=== PATIENT | male | born 1955 ===

== ENCOUNTER 2020-02-21 07:05 | Outpatient (REF) | payer MEDICARE, SELFPAY ==
[2020-02-21 10:54] LABS: Anion Gap 15 (12-20); Blood Urea Nitrogen 8 mg/dL (9-16); Calcium 9.2 mg/dL (8.4-10.2); Carbon Dioxide 26 mmol/L (22-29); Chloride 98 mmol/L (96-108); Estimated Glomerular Filt Rate > 60; Glucose Random 91 mg/dL (60-115); Sodium 135 mmol/L (135-145)
[2020-02-21 11:29] LABS: Creatinine Urine 67.34 mg/dL; Microalbumin Urine < 5.0 mg/L
== END 2020-02-21 07:06 | disposition home or self-care (01) ==
LOC: HO.WFDLDS 07:05
PROVIDERS: Visit Provider Family Medicine
DX: I10 Essential (primary) hypertension (principal)
CPT/HCPCS: 80048; 82043

== ENCOUNTER 2020-02-28 | Outpatient (REF) | payer MEDICARE, SELFPAY ==
[2020-02-29 12:04] LABS: Creatinine Urine 80.45 mg/dL; Microalbumin Urine < 5.0 mg/L
== END 2020-02-28 00:01 | disposition home or self-care (01) ==
LOC: HO.LNP
PROVIDERS: Family Medicine
DX: R73.03 Prediabetes (principal); R73.01 Impaired fasting glucose; I10 Essential (primary) hypertension
CPT/HCPCS: 82043

== ENCOUNTER 2020-05-05 09:21 | Outpatient (REF) | payer MEDICARE, SELFPAY ==
[2020-05-05 11:48] LABS: Alanine Aminotransferase 26 U/L (0-40); Albumin Level 4.1 g/dL (3.5-5.0); Alkaline Phosphatase 79 U/L (39-117); Anion Gap 11 (12-20); Aspartate Amino Transferase 21 U/L (5-37); Bilirubin Total 0.6 mg/dL (0.0-1.0); Blood Urea Nitrogen 17 mg/dL (9-16); Calcium 9.3 mg/dL (8.4-10.2); Carbon Dioxide 29 mmol/L (22-29); Chloride 101 mmol/L (96-108); Estimated Glomerular Filt Rate > 60; Glucose Fasting 135 mg/dL (60-99); Potassium 3.9 mmol/l (3.3-5.1); Sodium 137 mmol/L (135-145); Total Protein 6.6 g/dL (6.5-8.0)
== END 2020-05-05 09:22 | disposition home or self-care (01) ==
LOC: HO.WFDLDS 09:21
PROVIDERS: Visit Provider Family Medicine
DX: Z00.00 Encounter for general adult medical examination without abnormal findings (principal); R73.03 Prediabetes
CPT/HCPCS: 36415; 80053

== ENCOUNTER 2020-05-10 10:05 | Outpatient (REF) | payer MEDICARE, SELFPAY ==
[2020-05-10 11:09] LABS: Creatinine Urine 76.73 mg/dL; Microalbumin Urine < 5.0 mg/L
== END 2020-05-10 10:06 | disposition home or self-care (01) ==
LOC: HO.LNP 10:05
PROVIDERS: Visit Provider Family Medicine
DX: I10 Essential (primary) hypertension (principal)
CPT/HCPCS: 82043

== ENCOUNTER 2020-07-31 08:21 | Outpatient (REF) | payer MEDICARE, SELFPAY ==
[2020-07-31 11:28] LABS: Alanine Aminotransferase 26 U/L (0-40); Alkaline Phosphatase 71 U/L (39-117); Anion Gap 13 (12-20); Aspartate Amino Transferase 21 U/L (5-37); Bilirubin Total 0.5 mg/dL (0.0-1.0); Blood Urea Nitrogen 15 mg/dL (9-16); Calcium 9.2 mg/dL (8.4-10.2); Carbon Dioxide 27 mmol/L (22-29); Chloride 102 mmol/L (96-108); Cholesterol 122 mg/dL; Estimated Glomerular Filt Rate > 60; Glucose Fasting 96 mg/dL (60-99); HDL Cholesterol 41 mg/dL; LDL Cholesterol Calculated 67 mg/dl; Potassium 4.2 mmol/L (3.3-5.1); Sodium 138 mmol/L (135-145); Total Protein 6.5 g/dL (6.5-8.0); Triglycerides 70 mg/dL
[2020-07-31 11:51] LABS: TSH reflex Free T4 2.19 uIU/mL (0.32-4.0)
== END 2020-07-31 08:22 | disposition home or self-care (01) ==
LOC: HO.WFDLDS 08:21
PROVIDERS: Visit Provider Family Medicine
DX: Z00.00 Encounter for general adult medical examination without abnormal findings (principal)
CPT/HCPCS: 36415; 80053; 80061; 84443

== ENCOUNTER 2020-12-04 08:00 | Outpatient (REF) | payer MEDICARE, SELFPAY ==
[2020-12-04 13:28] LABS: Prostate Specific Antigen Scr 0.86 ng/mL (<0.05-4.0)
== END 2020-12-04 08:01 | disposition home or self-care (01) ==
LOC: HO.WFDLDS 08:00
PROVIDERS: PCP Family Medicine; Visit Provider Family Medicine
DX: Z12.5 Encounter for screening for malignant neoplasm of prostate (principal)
CPT/HCPCS: 36415; 84153

== ENCOUNTER 2021-04-14 11:00 | Outpatient (REF) | payer MEDICARE, SELFPAY ==
[2021-04-14 14:05] LABS: Estimated Average Glucose 111 mg/dL; Hemoglobin A1c % 5.5 %
[2021-04-14 14:22] LABS: Anion Gap 14 (12-20); Blood Urea Nitrogen 12 mg/dL (9-16); Calcium 9.5 mg/dL (8.4-10.2); Carbon Dioxide 29 mmol/L (22-29); Chloride 99 mmol/L (96-108); Estimated Glomerular Filt Rate > 60; Glucose Random 87 mg/dL (60-115); Potassium 3.5 mmol/L (3.3-5.1); Sodium 138 mmol/L (135-145)
== END 2021-04-14 11:01 | disposition home or self-care (01) ==
LOC: HO.HMGCLDS 11:00
PROVIDERS: PCP Family Medicine; Visit Provider Family Medicine
DX: Z00.00 Encounter for general adult medical examination without abnormal findings (principal); R73.01 Impaired fasting glucose; R73.03 Prediabetes; I10 Essential (primary) hypertension
CPT/HCPCS: 36415; 80048; 83036

== ENCOUNTER 2021-08-17 11:36 | Outpatient (REF) | payer MEDICARE, SELFPAY ==
[2021-08-17 13:54] LABS: Prothrombin Time 11.3 SEC (9.9-13.0)
[2021-08-17 14:00] LABS: Anion Gap 13 (12-20); Blood Urea Nitrogen 13 mg/dL (9-16); Calcium 9.9 mg/dL (8.4-10.2); Carbon Dioxide 27 mmol/L (22-29); Chloride 102 mmol/L (96-108); Estimated Glomerular Filt Rate > 60; Glucose Random 100 mg/dL (60-115); Potassium 4.2 mmol/L (3.3-5.1); Sodium 138 mmol/L (135-145)
== END 2021-08-17 11:37 | disposition home or self-care (01) ==
LOC: HO.HMGCLDS 11:36
PROVIDERS: PCP Family Medicine; Visit Provider Physician Assistant Medical
DX: R07.9 Chest pain, unspecified (principal)
CPT/HCPCS: 36415; 80048; 85610

== ENCOUNTER 2021-08-21 11:20 | Outpatient (REF) | payer MEDICARE, SELFPAY ==
[2021-08-21 13:38] LABS: MANUAL DIFF FLAG NO
[2021-08-21 13:48] LABS: Basophils Absolute Auto 0.1 X10*3/uL (0.0-0.2); Basophils Percent Auto 0.6 % (0-2); Eosinophils Absolute Auto 0.4 X10*3/uL (0.0-0.4); Eosinophils Percent Auto 2.9 % (0-4); Hematocrit 49.3 % (42.0-52.0); Hemoglobin 16.9 g/dl (14.0-18.0); Imm Gran Abs Auto 0.06 X10*3/uL (0.00-0.03); Imm Gran Pct Auto 0.4 % (0.0-0.4); Lymphocytes Absolute Auto 2.1 X10*3/uL (1.2-4.9); Lymphocytes Percent Auto 14.8 % (20-40); Mean Corpuscular HGB Conc 34.3 g/dl (31.0-36.0); Mean Corpuscular Hemoglobin 31.9 pg (27.0-33.0); Mean Corpuscular Volume 93.2 fL (80.0-98.0); Mean Platelet Volume 9.5 fL (9.4-12.4); Monocytes Absolute Auto 1.3 X10*3/uL (0.1-1.2); Monocytes Percent Auto 8.9 % (2-11); Neutrophils Absolute Auto 10.3 x10*3/uL (2.0-8.3); Neutrophils Percent Auto 72.4 % (45-73); Platelet Count 300 X10*3/uL (160-400); Red Blood Count 5.29 X10*6/uL (4.60-5.80); Red Cell Distribution Width 12.8 % (11.0-16.0); White Blood Count 14.2 X10*3/uL (4.8-10.8)
== END 2021-08-21 11:21 | disposition home or self-care (01) ==
LOC: HO.HMGCLDS 11:20
PROVIDERS: PCP Family Medicine; Visit Provider Physician Assistant Medical
DX: Z01.818 Encounter for other preprocedural examination (principal); R07.9 Chest pain, unspecified; R00.1 Bradycardia, unspecified; I45.9 Conduction disorder, unspecified
CPT/HCPCS: 36415; 85025

== ENCOUNTER 2022-01-11 10:29 | Outpatient (REF) | payer MEDICARE, SELFPAY ==
[2022-01-11 11:57] LABS: Estimated Average Glucose 108 mg/dL; Hemoglobin A1c % 5.4 %
[2022-01-11 12:12] LABS: Alanine Aminotransferase 26 U/L (0-40); Albumin Level 3.9 g/dL (3.5-5.0); Alkaline Phosphatase 73 U/L (39-117); Anion Gap 16 (12-20); Aspartate Amino Transferase 24 U/L (5-37); Bilirubin Total 0.7 mg/dL (0.0-1.0); Blood Urea Nitrogen 10 mg/dL (9-16); Calcium 9.2 mg/dL (8.4-10.2); Carbon Dioxide 25 mmol/L (22-29); Chloride 103 mmol/L (96-108); Estimated Glomerular Filt Rate > 60; Glucose Random 154 mg/dL (60-115); Potassium 4.2 mmol/L (3.3-5.1); Sodium 140 mmol/L (135-145); Total Protein 6.6 g/dL (6.5-8.0)
[2022-01-11 14:19] LABS: Creatinine Urine 113.05 mg/dL; Microalbumin Urine < 5.0 mg/L
== END 2022-01-11 10:30 | disposition home or self-care (01) ==
LOC: HO.HMGCLDS 10:29
PROVIDERS: PCP Family Medicine; Visit Provider Family Medicine
DX: I10 Essential (primary) hypertension (principal); R73.01 Impaired fasting glucose
CPT/HCPCS: 36415; 80053; 82043; 83036

== ENCOUNTER 2022-04-05 09:15 | Outpatient (REF) | payer MEDICARE, SELFPAY ==
[2022-04-05 11:03] LABS: C Reactive Protein 0.48 mg/dL (< or = 0.50)
[2022-04-05 11:46] LABS: Erythrocyte Sedimentation Rate 7 MM/HR (0-15)
== END 2022-04-05 09:16 | disposition home or self-care (01) ==
LOC: HO.10HDL 09:15
PROVIDERS: Visit Provider Internal Medicine Rheumatology
DX: M05.9 Rheumatoid arthritis with rheumatoid factor, unspecified (principal); M17.0 Bilateral primary osteoarthritis of knee; M47.816 Spondylosis without myelopathy or radiculopathy, lumbar region; M25.552 Pain in left hip; M25.551 Pain in right hip; Z79.899 Other long term (current) drug therapy
CPT/HCPCS: 36415; 85652; 86140; 99212

== ENCOUNTER 2022-06-10 14:00 | Outpatient (RCR) | payer MEDICARE, OTHER, SELFPAY ==
[2022-04-28 14:05] VITALS: BP 145/72
--- NOTE | 2022-04-28 16:53 | MHC.PT.EP ---
[facility] [place] Office [place] Office [place] Office [address] Wes Dunbar [address] [phone] F: [phone] F: [phone] F: [phone] F: [phone] Physical Therapy Plan of Care Date of Evaluation: Date of Surgery: Diagnosis: bilateral knee pain Assessment: Patient is a 66 y.o. male who is referred to PT by Dr. Sagar Fall with Dx of bilateral knee pain, primary OA of knees. PT diagnosis includes etiology of pain is at bilateral hips causing referred pain to knees from chronic pain and antalgic gait. Patient impairments include pain, limited ROM in hips, weakness in hips (mild weakness in knees), poor balance. Patient current functional limitations are impaired gait, reduced balance, unable to use stairs, difficulty with sit to stand, prolonged postures, walking more than 300 ft. Patient will benefit from skilled PT to address aforementioned impairments and functional limitations to meet established goals. Frequency and Duration: The patient will be seen 2x/week for 4 weeks Short Term Goals: 2 weeks Patient demonstrates consistency and independence with HEP to self manage symptoms. Patient presents with increased bilateral knee extension 5/5 to be able to perform sit to stand with control and minimal use of hands. Care Home Goals: 4 weeks Patient presents with increased L hip glute med 4/5 to be able to ambulate in home short distances safely without AD. Patient presents with increased L hip flexion 5/5 to be able to use 3 steps step to pattern for community use with railings. Treatment Plan: Modalities to reduce pain, spasms and effusion. Manual therapy to restore motion and function. Therapeutic exercise to improve strength and flexibility. Neuromuscular re-education for posture and balance. Therapeutic activities to return to functional activities of daily living. Electronically signed by: Angelo Jimenez, PT, DPT Please sign and return to therapist. Thank you for your referral.
--- NOTE | 2022-06-28 14:52 | MHC.PT.DC ---
[facility] [place] Office [place] [facility] [place] Office [address] Wes Dunbar [address] [phone] F: [phone] F: [phone] F: [phone] F: [phone] Physical Therapy Discharge Report Diagnosis: bilateral knee pain Date of Surgery: Date of Evaluation: 04/28/22 Date of Discharge: 06/10/22 Treatments to Date: 8 Cancellations to Date: No Shows to Date: Discharge Status: Improved Function Independent with HEP Discharge Summary: From last session on 06/10/2022. We reviewed his HEP. Hip abd/ext/flex 4+/5, add 5/5. Able to negotiate stairs with step to, 3 stairs independently. No adverse reactions from currently program. He is appropriate to d/c to HEP at this time barring setback in 30 days. LEFS 51/80. Electronically signed by: Angelo Jimenez, PT, DPT Please sign and return to therapist. Thank you for your referral.
== END 2022-06-28 14:52 | disposition home or self-care (01) ==
LOC: HO.PTCHIC 14:00
PROVIDERS: PCP Family Medicine; Visit Provider Internal Medicine Rheumatology
DX: M17.0 Bilateral primary osteoarthritis of knee (principal)
CPT/HCPCS: 97110; 97162; 97530

== ENCOUNTER 2022-10-04 12:45 | Outpatient (REF) | payer MEDICARE, OTHER, SELFPAY ==
[2022-10-04 14:04] LABS: MANUAL DIFF FLAG NO
[2022-10-04 14:28] LABS: Basophils Absolute Auto 0.1 X10*3/uL (0.0-0.2); Basophils Percent Auto 0.5 % (0-2); Eosinophils Absolute Auto 0.4 X10*3/uL (0.0-0.4); Eosinophils Percent Auto 3.4 % (0-4); Hematocrit 45.7 % (42.0-52.0); Hemoglobin 15.7 g/dl (14.0-18.0); Imm Gran Abs Auto 0.07 X10*3/uL (0.00-0.03); Imm Gran Pct Auto 0.6 % (0.0-0.4); Lymphocytes Absolute Auto 2.2 X10*3/uL (1.2-4.9); Lymphocytes Percent Auto 19.8 % (20-40); Mean Corpuscular HGB Conc 34.4 g/dl (31.0-36.0); Mean Corpuscular Hemoglobin 32.2 pg (27.0-33.0); Mean Corpuscular Volume 93.6 fL (80.0-98.0); Mean Platelet Volume 9.5 fL (9.4-12.4); Monocytes Absolute Auto 0.8 X10*3/uL (0.1-1.2); Monocytes Percent Auto 7.5 % (2-11); Neutrophils Absolute Auto 7.6 x10*3/uL (2.0-8.3); Neutrophils Percent Auto 68.2 % (45-73); Platelet Count 315 X10*3/uL (160-400); Red Blood Count 4.88 X10*6/uL (4.60-5.80); White Blood Count 11.2 X10*3/uL (4.8-10.8)
[2022-10-04 15:09] LABS: Erythrocyte Sedimentation Rate 13 MM/HR (0-15)
[2022-10-04 15:24] LABS: C Reactive Protein 0.69 mg/dL (< or = 0.50); Estimated Glomerular Filt Rate > 60
== END 2022-10-04 12:46 | disposition home or self-care (01) ==
LOC: CF 12:45
PROVIDERS: PCP Family Medicine; Visit Provider Internal Medicine Rheumatology
DX: M17.0 Bilateral primary osteoarthritis of knee (principal); M05.9 Rheumatoid arthritis with rheumatoid factor, unspecified; R20.0 Anesthesia of skin; Z79.899 Other long term (current) drug therapy
CPT/HCPCS: 36415; 82565; 85025; 85652; 86140; 99212

== ENCOUNTER 2022-11-10 14:15 | Outpatient (AMB) | payer MEDICARE, SELFPAY ==
[2022-11-10 14:18] VITALS: BP 142/80; PULSE 98; O2SAT 97; BMI 32.6
--- NOTE | 2022-11-10 14:18 | MHC.PC.OV ---
Vital Signs 11/10/22 14:18 Height 6 ft 1 in Weight 247 lb BMI 32.6 BP 142/80 H Blood Pressure Location Lt brachial Position Sitting Pulse 98 Pulse Source Pulse Oximeter Pulse Oximetry (%) 97 Oxygen Delivery Method Room Air Intake Visit Reasons: f/u hypertension and pre-diabetes Intake Note: Patient is here to follow up hypertension and pre diabetes. Patient would like to talk about hydrochlorothiazide medication. Allergies penicillin V Allergy (Unknown, Verified 11/10/22 14:21) RAsh hives Blue Dye Allergy (Unknown, Uncoded 11/10/22 14:21) RAsh hives Latex Allergy (Unknown, Uncoded 11/10/22 14:21) RAsh Hives Medication List - Last Reconciled 11/10/22 by Zion Martinez MD aspirin (Adult Low Dose Aspirin) 81 mg PO DAILY chloroquine phosphate 125 mg (1/2 x 250 mg) PO 5XW cholecalciferol (vitamin D3) 25 mcg PO DAILY docusate sodium (Colace) 200 mg PO DAILY hydrochlorothiazide 25 mg PO QAM losartan 100 mg PO DAILY metoprolol succinate ER 25 mg PO BID simvastatin 40 mg PO BEDTIME Tobacco use date assessed: 11/10/22 Fall risk assessment: No Falls in past year Dental Screening Did you have a dental visit in the last 12 months?: No Did you have a dental problem in the last 6 months where you did not have access to dental care?: Yes Was dental information given to patient?: No HPI f/u hypertension and pre-diabetes HPI Details 67 y/o male presents to f/u hypertension and pre-diabetes. Last A1c 08/04/22 5.6%. A1c today 11/10/22 is 5.6%. Blood pressure today is 142/80. He is on losartan 100mg, hydrochlorothiazide 25mg and metoprolol 25mg b.i.d. Pt states he continues to smoke. [facility] Medical History Elevated fasting blood sugar History of pacemaker Hypertension Surgical History History of cystoscopy History of dental surgery History of permanent cardiac pacemaker placement Family History Other Mental health disorder Substance use disorder Social History Housing: House Alcohol intake: never Patient Tobacco Use Status: Current everyday Tobacco user Tobacco use type: Cigarette Cigarette Packs Per Day: 1 e-Cigarette/Vaping Use: Never Used Second Hand Smoke Exposure: No service: Yes Current occupational status: retired Current occupational exposures/hazards: No Cognitive needs: Yes (Cane) Hearing needs: No Vision needs: Yes (Glasses) Questionnaire PHQ-9 Over the last 2 weeks, how often have you been bothered by any of the following problems? 1. Little interest or pleasure in doing things: not at all 2. Feeling down, depressed, or hopeless: not at all 3. Trouble falling or staying asleep, or sleeping too much: not at all 4. Feeling tired or having little energy: not at all 5. Poor appetite or overeating: not at all 6. Feeling bad about yourself - or that you are a failure or have let yourself or your family down: not at all 7. Trouble concentrating on things, such as reading the newspaper or watching television: not at all 8. Moving or speaking so slowly that other people could have noticed. Or the opposite - being so fidgety or restless that you have been moving around a lot more than usual: not at all 9. Thoughts that you would be better off or of hurting yourself in some way: not at all Total score: 0 Depression Screening Interpretation: Negative Source: Developed by Drs. Robert Trejo, Consuelo Antoine, Gorge Drew and colleagues, with an educational mushtaq from [employer]. Thrive Questionnaire Date Thrive assessed: 09/11/20 FARZANA-7 AMB Questionnaire FARZANA-7 Date FARZANA - 7 assessed: 10/14/21 Source: Developed by Drs. Robert Trejo, Consuelo Antoine, Gorge Drew and colleagues, with an educational mushtaq from [employer]. Physical exam (Primary Care) Vital Signs: Last Vital Signs Pulse 98 11/10/22 14:18 BP 142/80 H 11/10/22 14:18 Pulse Ox 97 11/10/22 14:18 Oxygen Delivery Method Room Air 11/10/22 14:18 BMI result Body Mass Index 32.6 Tobacco/Smoking Status: Tobacco use Status Tobacco use date assessed 11/10/22 11/10/22 14:26 Patient Tobacco Use Status Current everyday Tobacco 11/10/22 14:26 Tobacco use type Cigarette 11/10/22 14:26 e-Cigarette/Vaping Use Never Used 11/10/22 14:26 PHQ-9: PHQ-9 Score PHQ-9: Total score 0 11/10/22 14:39 Depression Screening Interpretation: Negative Thrive Assessment: Date of Thrive Assessment Date Thrive assessed 09/11/20 11/10/22 14:26 Results AMB Hemoglobin A1c AMB Hemoglobin A1c 5.6 % Last Edit by Ángela Santos CMA on 11/10/22 14:40 Assessment and Plan Assessment & Plan (1) Essential hypertension: Code(s): I10 - Essential (primary) hypertension Plan: Blood pressure is a little above goal of less than 140/90 Encouraged diet low in salt/sodium Encouraged ongoing exercise and weight loss Encouraged smoking cessation (2) Smoker: Code(s): F17.200 - Nicotine dependence, unspecified, uncomplicated Plan: As above encouraged smoking cessation. Patient is pre contemplative; encouraged weaning down (3) Pre-diabetes: Code(s): R73.03 - Prediabetes Plan: A1c remains steady at 5.6% which is top normal range though he has been in prediabetic range before Encouraged diet low in sugars and starches Encouraged ongoing exercise and further weight loss. Orders: Orders AMB Hemoglobin A1c Today Z13.9 - Encounter for screening, unspecified Coding Level of Care Code Est Pt Level 3 (19731) Diagnoses Essential hypertension I10 Smoker F17.200 Pre-diabetes R73.03
== END 2022-11-10 14:49 | disposition home or self-care (01) ==
PROVIDERS: Visit Provider Family Medicine
DX: I10 Essential (primary) hypertension (principal); F17.200 Nicotine dependence, unspecified, uncomplicated; R73.03 Prediabetes; Z13.9 Encounter for screening, unspecified
CPT/HCPCS: 83036; 99213

== ENCOUNTER 2023-01-10 13:03 | Outpatient (AMB) | payer MEDICARE, SELFPAY ==
--- NOTE | 2023-01-10 13:22 | MHC.OFFVIS ---
Intake Vital Signs 01/10/23 13:23 Height 6 ft 1 in Weight 244 lb 0.827 oz BMI 32.2 BP 120/70 Blood Pressure Location Lt brachial Position Sitting Pulse 55 Pulse Source Pulse Oximeter Temp 96.8 F Pulse Oximetry (%) 95 Oxygen Delivery Method Room Air Intake Visit Reasons: ra Intake Note: Here for RA follow up. 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 He is feeling better he says on the chloroquine at 125 mg 5 days a week. He does have an upcoming eye exam planned to monitor for the chloroquine retinal toxicity. He still notes some discomfort at the right 2nd PIP and the flexor tendon of the left 3rd finger. No triggering however is noted. He is wearing a right wrist splint at night and that seems to have reduce the frequency of the hand numbness. Wearing the splint on the left seem to cause some wrist pain so he only wears it during the daytime. That also is seemingly had some improvement as far as the wrist pain goes. [facility] Medical History History of pacemaker Hypertension Elevated fasting blood sugar Surgical History History of dental surgery History of cystoscopy History of permanent cardiac pacemaker placement Family History Other Mental health disorder Substance use disorder Social History Housing: House Alcohol intake: never Patient Tobacco Use Status: Current everyday Tobacco user Tobacco use type: Cigarette Cigarette Packs Per Day: 1 e-Cigarette/Vaping Use: Never Used Second Hand Smoke Exposure: No service: Yes Current occupational status: retired Current occupational exposures/hazards: No Cognitive needs: Yes (Cane) Hearing needs: No Vision needs: Yes (Glasses) Review of Systems Const Details: Negative for appetite change, weight change, fever, chills, malaise and fatigue Eyes Details: Negative for vision change, dry eyes,headaches and dizziness ENT Details: Negative for hearing change, tinnitus, oral ulcer, nose bleeds and oral dryness. Card Details: Negative chest pain, edema and syncope Resp Details: Negative for SOB, cough and wheezing GI Details: Negative indigestion/heartburn, nausea, abdominal pain, bowel changes, diarrhea, constipation and bloody stool. Skin/Breast Details: Negative for itching, rash, hives, Raynaud's symptoms, sun sensitivity, and skin cancer Neuro Details: Negative for epilepsy, palsy, stroke, changes in speech, tingling and weakness Endo Details: Negative for polyuria and polydypsia Jey/Lymph Details: Negative for excessive bruising or bleeding. Physical Exam Vital Signs: Last Vital Signs Temp 96.8 F 01/10/23 13:23 Pulse 55 01/10/23 13:23 BP 120/70 01/10/23 13:23 Pulse Ox 95 01/10/23 13:23 Oxygen Delivery Method Room Air 01/10/23 13:23 BMI result Body Mass Index 32.2 APPEARANCE: Patient in no acute distress EYES no redness, pupils equal and reactive to light, eyelids normal; no temporal artery tenderness, redness or swelling. JOINT EXAM.?? Cervical Spine:? Some decrease in lateral flexion to about 10 degrees and some decrease with rotation to about 45 degrees but without pain.? No tenderness. Thoracic Spine:.? No scoliosis.? No tenderness on palpation. Lumbar Spine:.? Alignment normal.? Full range of motion with mild discomfort at the extremes of flexion.? No tenderness. Chest Wall:.? No tenderness, swelling, increased warmth or erythema. Hands:? Right: Mild bony enlargement at the thumb IP joint.? There is mild swelling and tenderness in the 1st 2 MCP joints. This is slightly more prominent at the 2nd MCP. There is some slight tenderness thickening at the 2nd and 3rd PIP.? No thenar atrophy or sensory loss.? Left:? Mild tenderness and slight thickening the 2nd and 3rd PIP joints.? He points that the palm of the hand particularly along the 3rd flexor tendon in the palm which is painful at night. This is accompanied by tingling in the fingers. But today there is no tenderness or triggering of the tendons. There is no tenderness or swelling in the other PIP or MCP joints.? No thenar atrophy or sensory loss. Wrists:? Patient flexion and extension intact to 75 degrees without pain.? No tenderness, swelling, increased warmth or erythema. Negative Phalen's and Tinel signs. Elbows:. The patient lacks about 10 degrees of full extension both elbows but there is no tenderness or swelling. No increased warmth or erythema. Shoulders:.?? Full range of motion without pain. No tenderness, weakness, swelling, increased warmth or erythema. Hips:.? Left:? Slight lateral pain with extremes of external rotation or abduction.? No groin pain with motion.? Right:? Full range of motion without pain. Hip bursa:.? Mild left trochanteric tenderness. Knees:.?? Normal pain-free range of motion without tenderness, swelling, increased warmth or erythema.? There is no effusion or crepitation Ankles:? Normal pain-free range of motion with mild patellofemoral crepitus.? There is some slight medial compartment tenderness without effusion, soft tissue swelling, increased warmth or erythema. Feet:? Normal pain-free range of motion without tenderness, swelling, increased warmth or erythema. ? 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 He will make sure he gets an eye exam later this fall. We will continue with the hydroxychloroquine as above. A follow-up in 5 or 6 months in Rheumatology in recommended. Coding Level of Care Code Est Pt Level 3 (87749) Diagnoses retirement use of drug Z79.899 Seropositive rheumatoid arthritis M05.9
[2023-01-10 13:23] VITALS: BP 120/70; PULSE 55; TEMP 36; O2SAT 95; BMI 32.2
== END 2023-01-10 13:45 | disposition home or self-care (01) ==
PROVIDERS: PCP Family Medicine; Visit Provider Internal Medicine Rheumatology
DX: M05.79 Rheumatoid arthritis with rheumatoid factor of multiple sites without organ or systems involvement (principal); Z79.899 Other long term (current) drug therapy
CPT/HCPCS: 99213

== ENCOUNTER → 2023-01-10 13:03 | Outpatient (BNVA) | payer MEDICARE, SELFPAY | PROVIDERS: PCP Family Medicine; Visit Provider Internal Medicine Rheumatology | DX: M05.9 Rheumatoid arthritis with rheumatoid factor, unspecified (principal); Z79.899 Other long term (current) drug therapy | CPT/HCPCS: 99212 ==

== ENCOUNTER 2023-02-09 14:11 | Outpatient (AMB) | payer MEDICARE, SELFPAY ==
--- NOTE | 2023-02-09 14:14 | A.OFFPC_ITS ---
Vital Signs 02/09/23 14:16 Height 6 ft 1 in Weight 249 lb BMI 32.8 BP 120/74 Blood Pressure Location Lt brachial Position Sitting Pulse 88 Pulse Oximetry (%) 97 Oxygen Delivery Method Room Air Intake Visit Reasons: f/u hypertension and pre-diabetes Intake Note: Patient is here for follow up on hypertension and prediabetes. He would like refill Metoprolol and Simvastatin, he states his insurance has been trying to get these refills. Allergies penicillin V Allergy (Unknown, Verified 02/09/23 14:17) RAsh hives Blue Dye Allergy (Unknown, Uncoded 02/09/23 14:18) RAsh hives Latex Allergy (Unknown, Uncoded 02/09/23 14:18) RAsh Hives Tobacco use date assessed: 02/09/23 Fall risk assessment: No Falls in past year Last assessed Fall Risk: 02/09/23 Dental Screening Dental Screen Date: 02/09/23 Did you have a dental visit in the last 12 months?: Yes Did you have a dental problem in the last 6 months where you did not have access to dental care?: No Was dental information given to patient?: Patient declined HPI f/u hypertension and pre-diabetes HPI Details 67 y/o male presents to f/u hypertension and pre-diabetes. BP today 120/74. He is on losartan 100mg, HCTZ 25mg and metoprolol 25mg b.i.d. A1c today 02/09/23 is 6.0%. [facility] Medical History History of pacemaker Hypertension Elevated fasting blood sugar Surgical History History of dental surgery History of cystoscopy History of permanent cardiac pacemaker placement Family History Other Mental health disorder Substance use disorder Social History Housing: House Alcohol intake: never Patient Tobacco Use Status: Current everyday Tobacco user Tobacco use type: Cigarette Cigarette Packs Per Day: 1 e-Cigarette/Vaping Use: Never Used Second Hand Smoke Exposure: No service: Yes Current occupational status: retired Current occupational exposures/hazards: No Cognitive needs: Yes (Cane) Hearing needs: No Vision needs: Yes (Glasses) Questionnaire Thrive Questionnaire Date Thrive assessed: 09/11/20 FARZANA-7 AMB Questionnaire FARZANA-7 Date FARZANA - 7 assessed: 10/14/21 Source: Developed by Drs. Robert Trejo, Consuelo Antoine, Gorge Drew and colleagues, with an educational mushtaq from [employer]. Physical exam (Primary Care) Vital Signs: Last Vital Signs Pulse 88 02/09/23 14:16 BP 120/74 02/09/23 14:16 Pulse Ox 97 02/09/23 14:16 Oxygen Delivery Method Room Air 02/09/23 14:16 BMI result Body Mass Index 32.8 Tobacco/Smoking Status: Tobacco use Status Tobacco use date assessed 02/09/23 02/09/23 14:19 Patient Tobacco Use Status Current everyday Tobacco 02/09/23 14:15 Tobacco use type Cigarette 02/09/23 14:15 e-Cigarette/Vaping Use Never Used 02/09/23 14:15 Thrive Assessment: Date of Thrive Assessment Date Thrive assessed 09/11/20 02/09/23 14:15 Assessment and Plan Assessment & Plan (1) Essential hypertension: Code(s): I10 - Essential (primary) hypertension Plan: Blood?pressure?is?controlled.??Goal?is?less?than?140/90 Continue?current?medication (2) Pre-diabetes: Code(s): R73.03 - Prediabetes Plan: A1c?has?worsened?to?6.0%.??Pre?diabetes?range Encouraged?diet?lower?in?sugars?and?starches Encouraged?exercise?and?weight?loss Orders: Orders AMB Hemoglobin A1c Today Z13.9 - Encounter for screening, unspecified Medications: Changed From metoprolol succinate ER 25 mg PO BID To metoprolol succinate ER 25 mg PO BID 90 days 180 tabs 3RF Refilled simvastatin 40 mg PO BEDTIME 90 tabs 3RF Coding Level of Care Code Est Pt Level 3 (57319) Diagnoses Essential hypertension I10 Pre-diabetes R73.03
[2023-02-09 14:16] VITALS: BP 120/74; PULSE 88; O2SAT 97; BMI 32.8
== END 2023-02-09 15:09 | disposition home or self-care (01) ==
PROVIDERS: PCP Family Medicine; Visit Provider Family Medicine
DX: I10 Essential (primary) hypertension (principal); R73.03 Prediabetes
CPT/HCPCS: 83036; 99213

== ENCOUNTER 2023-06-09 13:29 | Outpatient (AMB) | payer MEDICARE, SELFPAY ==
--- NOTE | 2023-06-09 13:32 | A.OFFVIS_ITS ---
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 He was actually an incidental finding upon workup by Cardiology. Has a prior history of hypertension hyperlipidemia. He has a significant smoking history and continues to smoke about a pack per day. In terms of his carotids he denies any lateralizing signs or symptoms speech dist urbances or visual field deficits. Is able to climb a flight of stairs and is able to walk a block or 2 with no significant difficulty. He has had prior echo which demonstrates an EF of around 60-70%. In addition he does have a permanent pacemaker. He now presents for vascular evaluation. [facility] Medical History History of pacemaker Hypertension Elevated fasting blood sugar Surgical History History of dental surgery History of cystoscopy History of permanent cardiac pacemaker placement Family History Other Mental health disorder Substance use disorder Social History Housing: House Alcohol intake: never Patient Tobacco Use Status: Current everyday Tobacco user Tobacco use type: Cigarette Cigarette Packs Per Day: 1 e-Cigarette/Vaping Use: Never Used Second Hand Smoke Exposure: No service: Yes Current occupational status: retired Current occupational exposures/hazards: No Cognitive needs: Yes (Cane) Hearing needs: No Vision needs: Yes (Glasses) Review of Systems Const All systems reviewed & are unremarkable except as noted in HPI and below Reports no additional complaints ENT Reports Normal hearing present Card Denies chest pain, Denies chest pain at rest, Denies chest pain with activity and Denies pedal edema Resp Denies cough GI Denies abdominal pain Musc Denies abnormal gait, Denies muscle cramps and Denies radiating pain into limb Skin/Breast Denies skin ulcer and Denies wounds Neuro Reports Normal hearing present and Denies abnormal gait Psych Reports no additional complaints Physical Exam Vital Signs: BMI result Body Mass Index 32.6 Const General: cooperative, healthy appearing and comfortable Orientation/consciousness: oriented to person, oriented to place and oriented to time HEENT Head: Yes normal to inspection Neck Neck: Yes normal visual inspection Carotids: no bruits Chest Chest palpation & inspection: normal inspection of the chest Resp Effort & Inspection: normal respiratory effort and able to speak in complete sentences Auscultation: clear to auscultation bilaterally, no crackles, no rales, no rhonchi and no wheezes Cardio Rate: regular rate Rhythm: regular rhythm Heart sounds: S1 normal heart sound present and S2 normal heart sound present Bruits: no carotid bruits Peripheral pulses: Peripheral pulses 2+ throughout GI Inspection: Yes normal to inspection Skin Wounds: no wounds Hair: normal Neuro General: oriented to person, oriented to place and oriented to time Cranial nerves: Yes CN's II-XII intact bilaterally and Yes Normal hearing present Cognition (Neuro): normal cognition Motor exam (neuro): 5/5 motor strength present throughout Extrem Other: venous exam: No significant superficial varicosities or spider telangiectasias, minimal edema General: No clubbing, No cyanosis and No edema Psych Appearance: grossly normal Mental Status: mental status grossly normal Speech and movement: Normal speech and movement present Results Reviewed Results Reviewed: Carotid ultrasound report only demonstrates bilateral greater than 80% stenosis left greater than right this is on outpatient office ultrasound dated 05/05/2023. Assessment & Plan Assessment & Plan (1) Bilateral carotid artery stenosis: Code(s): I65.23 - Occlusion and stenosis of bilateral carotid arteries Plan: In short patient has asymptomatic carotid disease. We have reviewed signs and symptoms of a stroke. We also discussed risk factor modification inclusive a healthy diet low in cholesterol. Due to the high grade carotid stenosis we will get a CT angiogram to better elucidate the true degree of stenosis and the anatomy. We will schedule him for short interval follow-up and we did discuss operative option should that be required.. Should there be any changes or signs or symptoms of a stroke we will be happy to see them back sooner. Thank you for allowing us to participate in this patient's care. If there are any questions or concerns please do not hesitate to contact us. Orders: Orders Creatinine Today I65.23 - Occlusion and stenosis of bilateral carotid arteries Blood Urea Nitrogen Today I65.23 - Occlusion and stenosis of bilateral carotid arteries CT angio neck 1 Day I65.23 - Occlusion and stenosis of bilateral carotid arteries Coding Level of Care Code New Pt Level 4 (81684) Diagnoses Bilateral carotid artery stenosis I65.23
[2023-06-09 13:33] VITALS: BMI 32.6
== END 2023-06-09 13:55 | disposition home or self-care (01) ==
PROVIDERS: PCP Family Medicine; Visit Provider Surgery Vascular Surgery
DX: I65.23 Occlusion and stenosis of bilateral carotid arteries (principal)
CPT/HCPCS: 99204

== ENCOUNTER → 2023-06-09 13:29 | Outpatient (BNVA) | payer MEDICARE, SELFPAY | PROVIDERS: PCP Family Medicine; Visit Provider Surgery Vascular Surgery | DX: I65.23 Occlusion and stenosis of bilateral carotid arteries (principal) | CPT/HCPCS: 99202 ==

== ENCOUNTER 2023-06-17 07:23 | Outpatient (REF) | payer MEDICARE, SELFPAY ==
--- NOTE | ~2023-06-17 | CT_ITS ---
EXAMINATION: CT angio neck CLINICAL INFORMATION: Occlusion and stenosis of both carotid arteries. COMPARISON: None. TECHNIQUE: Band Attacher images were obtained. A CT angiogram of the neck was performed in the arterial phase after the intravenous administration of 50 mL Omnipaque 350. 3D images were processed on an independent workstation under concurrent supervision. Arterial stenoses are measured in accordance with NASCET criteria or similar method if applicable. This CT examination was performed using dose optimization techniques as appropriate, including one or more of the following: Automated exposure control, iterative reconstruction, and adjustment of technique factors (mA and/or kVp) according to patient size (this includes techniques or standardized protocols for targeted exams where dose is matched to indication/reason for exam). Fleischner Society criteria for the followup of incidental pulmonary nodules was implemented if appropriate. Total exam dose-length product 552 mGy-cm FINDINGS: CT angiogram neck: Scattered atheromatous calcification involves the aortic arch apex. Origins of the major aortic branches are grossly patent., Carotid arteries are normal. Heavily calcified atheromatous plaque involves both carotid bifurcations. There is a 90% stenosis at the origin of the left internal carotid artery and 75% stenosis at the origin of the right internal carotid artery. The cervical segments of vertebral arteries are otherwise patent. The cervical segments of the vertebral arteries are patent. CT angiogram head: Atheromatous calcification involves the cavernous segments of both internal carotid arteries. No stenosis of the intracranial internal carotid arteries. Intradural vertebral artery segments and basilar artery are widely patent. Visualized portions of the anterior, middle, and posterior cerebral artery complexes are normal. No intracranial large vessel occlusion. Other: Although only partially included within the yacet-sx-nltl of this examination there are a few prominent ovoid intraparotid lesions within the right parotid gland, the largest of which measures up to 1.3 cm in diameter. Otherwise no pathologically enlarged cervical lymph nodes. No mediastinal or axillary adenopathy is visualized within the brznp-zm-bdni of this examination. Lung apices are clear. CT/CT angio neck IMPRESSION: Heavily calcified atheromatous plaque involves both carotid bifurcations. There is a 90% stenosis at the origin of the left internal carotid artery and 75% stenosis at the origin of the right internal carotid artery. Cervical vertebral arteries are patent. No intracranial large vessel occlusion. Although only partially included within the ilynz-tb-bhqp of this examination there are a few ovoid intraparotid lesions within the right parotid gland, the largest of which measures up to 1.3 cm in diameter. Possible diagnostic considerations include a primary parotid neoplasms or enlarged intraparotid lymph nodes. Correlation with prior imaging is recommended if available. Otherwise follow-up is recommended to ensure stability.
[2023-06-17] MEDS: iohexoL 350 MG/ML 100 ML INFUS..BTL 85 ML IV (08:51)
[2023-06-17 10:12] LABS: Creatinine POC 0.6 mg/dL (0.5-1.4); GFR POC > 60
== END 2023-06-17 07:24 | disposition home or self-care (01) ==
LOC: HO.CT 07:23
PROVIDERS: PCP Family Medicine; Visit Provider Surgery Vascular Surgery
DX: I65.23 Occlusion and stenosis of bilateral carotid arteries (principal)
CPT/HCPCS: 70498; 82565; Q9967

== ENCOUNTER 2023-06-21 08:32 | Outpatient (REF) | payer MEDICARE, SELFPAY ==
[2023-06-21 11:18] LABS: MANUAL DIFF FLAG NO
[2023-06-21 11:23] LABS: Appearance Urine Clear; Color Urine Yellow; Glucose Urine UA Negative (Negative); Leukocyte Esterase Urine Negative (Negative); Nitrite Urine Negative (Negative); Specific Gravity - Urine 1.015 (1.005-1.025); Urine Blood Negative (Negative); Urine Ketones Negative (Negative); Urine Protein Negative (Neg-Trace)
[2023-06-21 11:34] LABS: Basophils Absolute Auto 0.1 X10*3/uL (0.0-0.2); Basophils Percent Auto 0.5 % (0-2); Eosinophils Absolute Auto 0.4 X10*3/uL (0.0-0.4); Eosinophils Percent Auto 2.9 % (0-4); Hematocrit 52.4 % (42.0-52.0); Hemoglobin 18.2 g/dl (14.0-18.0); Imm Gran Abs Auto 0.04 X10*3/uL (0.00-0.03); Imm Gran Pct Auto 0.3 % (0.0-0.4); Lymphocytes Absolute Auto 2.1 X10*3/uL (1.2-4.9); Lymphocytes Percent Auto 17.1 % (20-40); Mean Corpuscular HGB Conc 34.7 g/dl (31.0-36.0); Mean Corpuscular Hemoglobin 32.6 pg (27.0-33.0); Mean Corpuscular Volume 93.7 fL (80.0-98.0); Mean Platelet Volume 9.3 fL (9.4-12.4); Monocytes Percent Auto 8.4 % (2-11); Neutrophils Absolute Auto 8.8 x10*3/uL (2.0-8.3); Neutrophils Percent Auto 70.8 % (45-73); Platelet Count 300 X10*3/uL (160-400); Red Blood Count 5.59 X10*6/uL (4.60-5.80); Red Cell Distribution Width 12.7 % (11.0-16.0); White Blood Count 12.4 X10*3/uL (4.8-10.8)
[2023-06-21 11:54] LABS: Alanine Aminotransferase 26 U/L (0-40); Alkaline Phosphatase 75 U/L (39-117); Anion Gap 12 (12-20); Aspartate Amino Transferase 24 U/L (5-37); Bilirubin Total 0.6 mg/dL (0.0-1.0); Blood Urea Nitrogen 14 mg/dL (9-16); Carbon Dioxide 30 mmol/L (22-29); Chloride 102 mmol/L (96-108); Cholesterol 128 mg/dL (<200); Estimated Glomerular Filt Rate > 60; Glucose Fasting 106 mg/dL (60-99); HDL Cholesterol 41 mg/dL (>40); LDL Cholesterol Calculated 66 mg/dL (<100); Potassium 3.8 mmol/L (3.3-5.1); Sodium 140 mmol/L (135-145); Total Protein 7.2 g/dL (6.5-8.0); Triglycerides 108 mg/dL (<150)
[2023-06-21 12:07] LABS: Prostate Specific Antigen Scr 1.44 ng/mL (<0.05-4.0)
[2023-06-21 12:13] LABS: TSH reflex Free T4 2.87 uIU/mL (0.32-4.0)
[2023-06-21 12:25] LABS: Microalbum/Creatinine Ratio Ur 16.4 ug/mg cr (<30)
== END 2023-06-21 08:33 | disposition home or self-care (01) ==
LOC: HO.HMGCLDS 08:32
PROVIDERS: PCP Family Medicine; Visit Provider Surgery Vascular Surgery
DX: Z00.00 Encounter for general adult medical examination without abnormal findings (principal); I10 Essential (primary) hypertension; I65.23 Occlusion and stenosis of bilateral carotid arteries; E78.5 Hyperlipidemia, unspecified; Z12.5 Encounter for screening for malignant neoplasm of prostate
CPT/HCPCS: 36415; 80053; 80061; 81003; 82043; 82570; 84153; 84443; 85025; 99212

== ENCOUNTER 2023-06-21 09:46 | Outpatient (AMB) | payer MEDICARE, SELFPAY ==
[2023-06-21 09:50] VITALS: BP 100/64; BMI 32.6
--- NOTE | 2023-06-21 09:50 | MHC.OFFVIS ---
Intake Vital Signs 06/21/23 09:50 06/21/23 09:58 Height 6 ft 1 in Weight 247 lb BMI 32.6 BP 100/64 100/62 Blood Pressure Location Rt brachial Lt brachial Position Sitting Sitting Intake Visit Reasons: CTA neck follow up 06/17/2023 Intake Note: Follow up CTA neck on 06/17/23. Patient states no changes , no blurred vision or dizziness. Does use cane to ambulate. Accompanied by: Self / Same As Patient Allergies penicillin V Allergy (Unknown, Verified 06/21/23 09:55) RAsh hives Blue Dye Allergy (Unknown, Uncoded 06/09/23 13:37) RAsh hives Latex Allergy (Unknown, Uncoded 06/09/23 13:37) RAsh Hives HPI CTA neck follow up 06/17/2023 HPI Details Pleasant 68-year-old gentleman presents for follow-up evaluation regarding carotid stenosis. Does have a prior history of hypertension hyperlipidemia. In addition he smokes about a pack of cigarettes daily. He had an incidental finding on ultrasound. He now presents for follow-up with CT angiogram. Of note he is able to walk about 1-2 blocks with no difficulty and can climb a flight of stairs. Does have a prior echo which demonstrates an EF of around 60-70%. Does have a permanent pacemaker. He now presents to us for vascular follow-up. [facility] Medical History History of pacemaker Hypertension Elevated fasting blood sugar Surgical History History of dental surgery History of cystoscopy History of permanent cardiac pacemaker placement Family History Other Mental health disorder Substance use disorder Social History Housing: House Alcohol intake: never Patient Tobacco Use Status: Current everyday Tobacco user Tobacco use type: Cigarette Cigarette Packs Per Day: 1 e-Cigarette/Vaping Use: Never Used Second Hand Smoke Exposure: No service: Yes Current occupational status: retired Current occupational exposures/hazards: No Cognitive needs: Yes (Cane) Hearing needs: No Vision needs: Yes (Glasses) Review of Systems Const All systems reviewed & are unremarkable except as noted in HPI and below Reports no additional complaints ENT Reports Normal hearing present Card Denies chest pain, Denies chest pain at rest, Denies chest pain with activity and Denies pedal edema Resp Denies cough GI Denies abdominal pain Musc Denies abnormal gait, Denies muscle cramps and Denies radiating pain into limb Skin/Breast Denies skin ulcer and Denies wounds Neuro Reports Normal hearing present and Denies abnormal gait Psych Reports no additional complaints Physical Exam Vital Signs: Last Vital Signs BP 100/62 06/21/23 09:58 BMI result Body Mass Index 32.6 Const General: cooperative, healthy appearing and comfortable Orientation/consciousness: oriented to person, oriented to place and oriented to time HEENT Head: Yes normal to inspection Neck Neck: Yes normal visual inspection Carotids: no bruits Chest Chest palpation & inspection: normal inspection of the chest Resp Effort & Inspection: normal respiratory effort and able to speak in complete sentences Auscultation: clear to auscultation bilaterally, no crackles, no rales, no rhonchi and no wheezes Cardio Rate: regular rate Rhythm: regular rhythm Heart sounds: S1 normal heart sound present and S2 normal heart sound present Bruits: no carotid bruits Peripheral pulses: Peripheral pulses 2+ throughout GI Inspection: Yes normal to inspection Skin Wounds: no wounds Hair: normal Neuro General: oriented to person, oriented to place and oriented to time Cranial nerves: Yes CN's II-XII intact bilaterally and Yes Normal hearing present Cognition (Neuro): normal cognition Motor exam (neuro): 5/5 motor strength present throughout Extrem Other: venous exam: No significant superficial varicosities or spider telangiectasias, minimal edema General: No clubbing, No cyanosis and No edema Psych Appearance: grossly normal Mental Status: mental status grossly normal Speech and movement: Normal speech and movement present Results Reviewed Results Reviewed: CT angiogram dated 06/17/2023 demonstrates left-sided stenosis of 90% and right-sided stenosis of 75%. Written report and images were reviewed. Assessment & Plan Assessment & Plan (1) Left carotid stenosis: Code(s): I65.22 - Occlusion and stenosis of left carotid artery Plan: In short patient has high-grade left carotid stenosis. Patient will require left carotid endarterectomy.. Risks benefits complications including but not limited to bleeding infection stroke and were discussed in detail with the patient. They agreed and would like to move forward. Patient will require cardiac risk stratification by his lower in supervisor Dr. Keller at [facility]. Due to the high-grade carotid stenosis will try to schedule as soon as possible. Thank you for allowing us to assist in his care. Coding Level of Care Code Est Pt Level 4 (79825) Diagnoses Left carotid stenosis I65.22
[2023-06-21 09:58] VITALS: BP 100/62
== END 2023-06-21 10:37 | disposition home or self-care (01) ==
PROVIDERS: PCP Family Medicine; Visit Provider Surgery Vascular Surgery
DX: I65.22 Occlusion and stenosis of left carotid artery (principal)
CPT/HCPCS: 99214

== ENCOUNTER 2023-06-22 09:39 | Outpatient (REF) | payer MEDICARE, SELFPAY ==
[2023-06-22 13:16] LABS: MANUAL DIFF FLAG NO
[2023-06-22 13:40] LABS: Basophils Absolute Auto 0.1 X10*3/uL (0.0-0.2); Basophils Percent Auto 0.7 % (0-2); Eosinophils Absolute Auto 0.4 X10*3/uL (0.0-0.4); Eosinophils Percent Auto 3.2 % (0-4); Hematocrit 52.1 % (42.0-52.0); Imm Gran Abs Auto 0.05 X10*3/uL (0.00-0.03); Imm Gran Pct Auto 0.4 % (0.0-0.4); Lymphocytes Absolute Auto 2.2 X10*3/uL (1.2-4.9); Mean Corpuscular HGB Conc 34.5 g/dl (31.0-36.0); Mean Corpuscular Hemoglobin 32.3 pg (27.0-33.0); Mean Corpuscular Volume 93.4 fL (80.0-98.0); Mean Platelet Volume 9.3 fL (9.4-12.4); Neutrophils Absolute Auto 8.5 x10*3/uL (2.0-8.3); Neutrophils Percent Auto 69.7 % (45-73); Platelet Count 292 X10*3/uL (160-400); Red Blood Count 5.58 X10*6/uL (4.60-5.80); Red Cell Distribution Width 12.7 % (11.0-16.0); White Blood Count 12.2 X10*3/uL (4.8-10.8)
[2023-06-22 13:41] LABS: INTERNATIONAL NORM RATIO 0.9 (0.9-1.1); Prothrombin Time 10.5 SEC (11.1-13.3)
[2023-06-22 13:49] LABS: Anion Gap 13 (12-20); Blood Urea Nitrogen 13 mg/dL (9-16); Calcium 9.8 mg/dL (8.4-10.2); Carbon Dioxide 29 mmol/L (22-29); Chloride 101 mmol/L (96-108); Estimated Glomerular Filt Rate > 60; Glucose Random 104 mg/dL (60-115); Potassium 3.8 mmol/L (3.3-5.1); Sodium 139 mmol/L (135-145)
== END 2023-06-22 09:40 | disposition home or self-care (01) ==
LOC: HO.HMGCLDS 09:39
PROVIDERS: Visit Provider Internal Medicine Cardiovascular Disease
DX: I65.29 Occlusion and stenosis of unspecified carotid artery (principal)
CPT/HCPCS: 36415; 80048; 85025; 85610

== ENCOUNTER 2023-06-24 08:36 | Outpatient (AMB) | payer MEDICARE, SELFPAY ==
[2023-06-24 08:49] VITALS: BP 130/66; PULSE 73; RESP 14; TEMP 36.6; O2SAT 99; BMI 32.0
--- NOTE | 2023-06-24 08:49 | A.OFFPC_ITS ---
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: No Accompanied by: Self / Same As Patient Allergies penicillin V Allergy (Unknown, Verified 06/24/23 08:53) RAsh hives Blue Dye Allergy (Unknown, Uncoded 06/09/23 13:37) RAsh hives Latex Allergy (Unknown, Uncoded 06/09/23 13:37) RAsh Hives Tobacco use date assessed: 06/24/23 Fall risk assessment: No Falls in past year Last assessed Fall Risk: 06/24/23 Dental Screening Dental Screen Date: 06/24/23 Did you have a dental visit in the last 12 months?: No Did you have a dental problem in the last 6 months where you did not have access to dental care?: No Was dental information given to patient?: Patient has dentist HPI follow up cardio appt HPI Details 68 y/o male presents to f/u [facility]. Had seen the Vascular center 06/21/23 for L carotid stenosis. Pt has high-grade L carotid stenosis and will require L carotid endarterectomy. He is requesting a referral to a new header up today. Pt states he continues to smoke 1 ppd. [facility] Medical History History of pacemaker Hypertension Elevated fasting blood sugar Surgical History History of dental surgery History of cystoscopy History of permanent cardiac pacemaker placement Family History Other Mental health disorder Substance use disorder Social History Housing: House Alcohol intake: never Patient Tobacco Use Status: Current everyday Tobacco user Tobacco use type: Cigarette Cigarette Packs Per Day: 1 Cigarettes Per Day: 20 e-Cigarette/Vaping Use: Never Used Second Hand Smoke Exposure: No service: Yes Current occupational status: retired Current occupational exposures/hazards: No Cognitive needs: No (Cane) Hearing needs: No Vision needs: Yes (Glasses) Questionnaire Thrive Questionnaire Date Thrive assessed: 09/11/20 FARZANA-7 AMB Questionnaire FARZANA-7 Date FARZANA - 7 assessed: 10/14/21 Source: Developed by Drs. Robert Trejo, Consuelo Antoine, Gorge Drew and colleagues, with an educational mushtaq from [employer]. Review of Systems Const Denies chills, Denies fatigue, Denies fever(s), Denies headache(s) and Denies weakness ENT Denies dizziness and Denies headache(s) Card Denies chest pain, Denies lightheadedness, Denies dyspnea and Denies other (Palpitations) Resp Denies cough, Denies dyspnea, Denies wheezing and Denies other ( shortness of breath) Musc Denies numbness and Denies tingling Neuro Denies dizziness, Denies headache(s), Denies numbness, Denies tingling, Denies paresthesias and Denies weakness Psych Denies anxiety and Denies depression Endo Denies fatigue Aller/Immun Denies wheezing Physical exam (Primary Care) Vital Signs: Last Vital Signs Temp 97.9 F 06/24/23 08:49 Pulse 73 06/24/23 08:49 Resp 14 06/24/23 08:49 BP 130/66 06/24/23 08:49 Pulse Ox 99 06/24/23 08:49 Oxygen Delivery Method Room Air 06/24/23 08:49 BMI result Body Mass Index 32.0 Tobacco/Smoking Status: Tobacco use Status Tobacco use date assessed 06/24/23 06/24/23 08:56 Patient Tobacco Use Status Current everyday Tobacco 06/24/23 08:56 Tobacco use type Cigarette 06/24/23 08:56 e-Cigarette/Vaping Use Never Used 06/24/23 08:56 Thrive Assessment: Date of Thrive Assessment Date Thrive assessed 09/11/20 06/24/23 08:56 Const General: no acute distress and well developed Nutritional Appearance: well nourished Orientation/consciousness: patient oriented x3 HENMT Head: Yes normocephalic and Yes atraumatic Eyes General: appearance normal, both eyes and all related structures Pupils: Equal, round and reactive pupils present EOM: EOMs intact bilaterally Resp Effort & Inspection: normal respiratory effort Auscultation: clear to auscultation bilaterally Cardio Rate: regular rate Rhythm: regular rhythm Heart sounds: S1 normal heart sound present, S2 normal heart sound present, no gallops, no murmurs and no rubs Neuro General: patient oriented x3 and gait normal Cranial nerves: Yes Equal, round and reactive pupils present Psych Affect: normal affect Assessment and Plan Assessment & Plan (1) Bilateral carotid artery stenosis: Code(s): I65.23 - Occlusion and stenosis of bilateral carotid arteries Plan: Bilateral?carotid?artery?stenosis?and?followed?by??Goldie?who?is?planning?a?car otid?endarterectomy. Needs?cardiac?risk?stratification?prior?to?procedure. Patient?has?seen header up Dr. Keller at [facility]?but?he?does?not?want?to?continue?there?and?wants?a?referral?to??[facility] Referral?is?made Advised?smoking?cessation-see?below (2) Pacemaker: Code(s): Z95.0 - Presence of cardiac pacemaker Plan: Stable (3) Smoker: Code(s): F17.200 - Nicotine dependence, unspecified, uncomplicated Plan: Patient?says?he?smoking?about?a?pack?per?day Advised?weaning?and?cessation,?particularly?as?he?is?preparing?for?an?endarterec anish He?would?like?to?try?nicotine?lozenges?to?help?h im?with?this?so?I?will?send?these.??Advised?him?to?stop?all?nicotine?products?pr ior?to?the?procedure. Orders: Referrals Cardiology Referral F17.200 - Nicotine dependence, unspecified, uncomplicated, I65.22 - Occlusion and stenosis of left carotid artery, R94.39 - Abnormal result of other cardiovascular function study, Z95.0 - Presence of cardiac pacemaker Medications: New nicotine (polacrilex) (Nicorette) 2 mg buccal Q4-8H PRN 81 ea 2RF nicotine cravings 28 days Coding Level of Care Code Est Pt Level 4 (11180) Diagnoses Bilateral carotid artery stenosis I65.23 Pacemaker Z95.0 Smoker F17.200
== END 2023-06-24 09:21 | disposition home or self-care (01) ==
PROVIDERS: PCP Family Medicine; Visit Provider Family Medicine
DX: I65.23 Occlusion and stenosis of bilateral carotid arteries (principal); Z95.0 Presence of cardiac pacemaker; F17.200 Nicotine dependence, unspecified, uncomplicated
CPT/HCPCS: 99214

== ENCOUNTER 2023-06-27 13:58 | Outpatient (AMB) | payer MEDICARE, SELFPAY ==
[2023-06-27 14:15] VITALS: BP 124/58; PULSE 83; BMI 31.7
--- NOTE | 2023-06-27 14:15 | A.OFFVIS_ITS ---
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/Michelle/Goldie/ abn cardiac test/carotid Intake Note: New patient from Dr Martinez and Goldie carotid last seen [facility] about a month ago but want to switch feeling ok right now Supervisor Orchard Required: No Facilities Planner: Facilities Planner Present Accompanied by: Brother Allergies Penicillins Allergy (Severe, Verified 06/28/23 13:56) throat swelling Blue Dye Allergy (Severe, Uncoded 06/28/23 13:56) throat swelling Latex Allergy (Severe, Uncoded 06/28/23 13:56) Rash, Hives, whole hand Medication List - Last Reconciled 06/27/23 by Ross Barney MD aspirin (Adult Low Dose Aspirin) 81 mg PO DAILY chloroquine phosphate 125 mg (1/2 x 250 mg) PO 5XW cholecalciferol (vitamin D3) 25 mcg PO DAILY docusate sodium (Colace) 200 mg PO DAILY hydrochlorothiazide 25 mg PO QAM losartan 100 mg PO DAILY metoprolol succinate ER 25 mg PO BID 90 days nicotine (polacrilex) (Nicorette) 2 mg buccal Q4-8H PRN 28 days simvastatin 40 mg PO BEDTIME HPI HPI Comments History of Present Illness Details Juan Alberto was referred here for management of cardiovascular disease as well as preoperative cardiovascular risk stratification. Recently on clinical exam he was noted to have carotid bruit and subsequent workup shows critical stenosis in the left internal carotid artery 90% and 75% right internal carotid artery. He is asymptomatic. Has never had TIA or stroke-like symptoms. Scheduled to undergo left carotid endarterectomy in near future. Patient has prior history of Biotronik dual-chamber pacemaker placement for advanced AV block without any obvious symptoms. Patient also then subsequently underwent a cardiac catheterization, as per him for an abnormal stress test. He had no chest pain. He had a cardiac catheterization 2 years ago for that and that showed nonobstructive diffuse coronary disease. He is on current good medical therapy. Walks with a cane but says with his regular day-to-day activity has no cardiac symptoms. Denies any exertional chest pain or shortness of breath. He denies any orthopnea, PND, leg edema. Currently taking appropriate medications. His last LDL was well optimized. He denies any lightheadedness, syncope. Denies any prolonged palpitations. [facility] Medical History (Updated 06/28/23 @ 14:34 by Ross Barney MD) Smoker Claudication of calf muscles Ambulates with cane Rheumatoid arthritis Osteoarthritis Hx MRSA infection HLD (hyperlipidemia) Murmur Coronary artery disease Hx of renal calculi History of pacemaker Hypertension Elevated fasting blood sugar Surgical History Hx of tonsillectomy Hx of colonoscopy H/O cardiac catheterization History of dental surgery History of cystoscopy History of permanent cardiac pacemaker placement Family History Other Mental health disorder Substance use disorder Social History Household Members: None Caregiver staying overnight: No Housing: House Are you a primary hospice care consultant to a significant other at home: No Do you presently have visiting nurse or other home services: No 75 years or older and lives alone: No Alcohol intake: never Patient Tobacco Use Status: Current everyday Tobacco user Tobacco use type: Cigarette Cigarette Packs Per Day: 1 Cigarettes Per Day: 20.0 Years Smoked: 61 e-Cigarette/Vaping Use: Never Used Second Hand Smoke Exposure: No Use of substances other than those prescribed or required for medical reasons: No service: Yes Current occupational status: retired Current occupational exposures/hazards: No Cognitive needs: No (Cane) Hearing needs: No Vision needs: Yes (Glasses) Review of Systems Const Denies chills, Denies daytime sleepiness, Denies fatigue, Denies fever(s), Denies frequent falls, Denies poor appetite, Denies snoring, Denies stops breathing during sleep, Denies weakness, Denies weight gain and Denies weight loss Eyes Denies loss of vision ENT Denies dizziness and Denies hearing loss Card Denies chest pain, Denies claudication, Denies leg edema, Denies lightheadedne ss, Denies palpitations, Denies dyspnea, Denies dyspnea on exertion and Denies orthopnea Resp Denies cough, Denies excessive phlegm production, Denies dyspnea, Denies dyspnea on exertion, Denies snoring and Denies wheezing GI Denies abdominal pain, Denies hematochezia, Denies change in bowel habits, Denies nausea and Denies vomiting Denies dysuria and Denies urinary frequency Musc Denies arthralgias, Denies muscle weakness, Denies numbness and Denies other (frequent falls) Skin/Breast Denies nail changes and Denies rash Neuro Denies Abnormal speech present, Denies dizziness, Denies frequent falls, Denies loss of vision, Denies memory loss, Denies numbness and Denies weakness Psych Denies depression and Denies memory loss Endo Denies fatigue and Denies palpitations Jey/Lymph Reports easy bruising and Reports other (anemia) Aller/Immun Denies wheezing Physical Exam Vital Signs: Last Vital Signs Pulse 83 06/27/23 14:15 BP 124/58 L 06/27/23 14:15 BMI result Body Mass Index 31.7 Const General: cooperative, comfortable, no acute distress, alert and awake Nutritional Appearance: obese Orientation/consciousness: patient oriented x3 Limitations: ambulation with cane HEENT Head: Yes normocephalic and Yes atraumatic Neck Neck: Yes trachea midline, Yes supple and Yes no JVD Carotids: bruit bilateral Resp Effort & Inspection: normal respiratory effort Auscultation: clear to auscultation bilaterally and diminished lung sounds Cardio Jugular venous distension: no JVD Palpation: normal PMI Rate: regular rate Rhythm: regular rhythm Heart sounds: S1 normal heart sound present, S2 normal heart sound present, no click, no gallops, no murmurs and no rubs GI Auscultation: normal bowel sounds Skin General skin exam: no rashes or lesions noted Neuro General: patient oriented x3 and no focal motor deficits Speech: No Abnormal speech present Extrem General: Yes no clubbing, cyanosis or edema Office Procedures Cardiac Device Check Cardiac Device Check Details: Dual-chamber Biotronik pacemaker in place. Programmed in DDD at 60 beats per minute. Atrial and ventricular sensing is excellent. Atrial ventricular pacing thresholds adequate. Lead impedance is overall stable. Ventricular pacing 95% of time. No atrial arrhythmias noted. Battery life is at 50% [id number] Cardiac Device Check, pacemaker dual lead Procedure code (CPT) selection complete EKG Details: EKG shows atrially sensed ventricularly paced rhythm. [id number], Complete Assessment & Plan Assessment & Plan (1) Preoperative cardiovascular examination: Code(s): Z01.810 - Encounter for preprocedural cardiovascular examination Plan: Preoperative cardiovascular risk stratification this elderly gentleman to undergo carotid endarterectomy in near future under general anesthesia. Consider intermediate risk surgery. He is prior cardiac catheterization which had shown nonobstructive with moderate disease. He has no new cardiac symptoms at current point in time. He is underlying ventricular pacemaker. His well treated with medicines. I do not think he requires any further workup prior to carotid endarterectomy and is optimized to undergo surgery with intermediate risk for perioperative cardiovascular morbidity mortality. Continue all medications in the perioperative time including his high blood pressure medications, statins as well as aspirin therapy if possible. (2) Coronary artery disease: Comment: Nonobstructive by cardiac catheterization Code(s): I25.10 - Atherosclerotic heart disease of eagle coronary artery without angina pectoris Plan: Diffuse vascular disease with significant bilateral carotid disease to undergo carotid endarterectomy. Patient also has diffuse nonobstructive CAD. High risk for recurrent cardiovascular events. Although currently not having any anginal symptoms. No further workup is indicated from cardiac perspective. Continue aggressive vascular risk factor modification. Continue lifelong aspirin therapy. Continue current statin therapy with LDL well optimized. Target goal LDL closer to 60 mg/dL. Blood pressure is currently well optimized. Complete smoking cessation is advised. (3) Pacemaker: Code(s): Z95.0 - Presence of cardiac pacemaker Plan: Cardiac pacemaker in-situ, working well, patient has ventricular pacer dependence. Will continue monitor remotely every 3 months. Follow up in the clinic in 6 months time. Will eventually repeat echocardiogram in a year's time to assess for development of LV systolic dysfunction which can happen inpatient with persistent RV pacing. Will follow up in the clinic in 6 months time, sooner p.r.n.. Thank you for allowing me to partake in his care Coding Level of Care Code New Pt Level 4 (33634) Diagnoses Preoperative cardiovascular examination Z01.810 Coronary artery disease I25.10 Pacemaker Z95.0 CPT Codes Cardiac Device Check - Cardiac Device 2: [id number] Cardiac Device Check, pacemaker dual lead ([id number]) EKG - CPT: 33246-[id number], Complete ([id number])
== END 2023-06-27 15:04 | disposition home or self-care (01) ==
PROVIDERS: PCP Family Medicine; Visit Provider Internal Medicine Cardiovascular Disease
DX: I25.10 Atherosclerotic heart disease of native coronary artery without angina pectoris (principal); Z01.810 Encounter for preprocedural cardiovascular examination; I44.39 Other atrioventricular block; Z95.0 Presence of cardiac pacemaker
CPT/HCPCS: 93280; 99204; 99214

== ENCOUNTER → 2023-06-27 13:58 | Outpatient (BNVA) | payer MEDICARE, SELFPAY | PROVIDERS: PCP Family Medicine; Visit Provider Internal Medicine Cardiovascular Disease | DX: Z45.018 Encounter for adjustment and management of other part of cardiac pacemaker (principal); Z01.810 Encounter for preprocedural cardiovascular examination; I25.10 Atherosclerotic heart disease of native coronary artery without angina pectoris | CPT/HCPCS: 93005; 93280; 99202 ==

== ENCOUNTER 2023-07-04 09:56 | Outpatient (BNV) | payer MEDICARE, SELFPAY | END 2023-07-10 23:22 | PROVIDERS: Admitting Provider Surgery Vascular Surgery; PCP Family Medicine; Visit Provider Internal Medicine Cardiovascular Disease | DX: I49.9 Cardiac arrhythmia, unspecified (principal) | CPT/HCPCS: 93010 ==

== ENCOUNTER 2023-07-04 09:56 | Inpatient (IN) | payer MEDICARE, SELFPAY ==
[2023-06-28 13:59] VITALS: BP 108/55; PULSE 84; RESP 16; O2SAT 97; BMI 33.8
--- NOTE | 2023-06-28 14:22 | HO.ANESPROP2 ---
Documented by User: Magdalene Fitzpatrick NP 07/01/23 09:55 HPI - Anesthesia Eval Consult details Narrative: 68yo M for Left Carotid Endarterectomy Cardiac cleared: Consider intermediate risk surgery. He is prior cardiac catheterization which had shown nonobstructive with moderate disease. He has no new cardiac symptoms at current point in time. He is underlying ventricular pacemaker. His well treated with medicines. I do not think he requires any further workup prior to carotid endarterectomy and is optimized to undergo surgery with intermediate risk for perioperative cardiovascular morbidity mortality. Continue all medications in the perioperative time including his high blood pressure medications, statins as well as aspirin therapy if possible.: No recent illness No CP/SOB with minimal activity Pacer in situ PAD with claudication Smoker. RA - chloroquine [facility] Active Problems Active Problems: All Active Problems (Updated 06/28/23 @ 14:16 by Tessa Liang RN) Pacemaker (Acute) Left carotid stenosis (Acute) Bilateral carotid artery stenosis (Acute) Smoker (Acute) Numbness of left hand (Acute) custodial use of drug (Acute) Osteoarthritis of lumbar spine (Acute) Hyperlipidemia (Acute) Seropositive rheumatoid arthritis (Acute) Osteoarthritis of knees, bilateral (Acute) Abnormal myocardial perfusion study (Acute) Essential hypertension (Acute) Pre-diabetes (Acute) Past Medical History Medical History (Updated 06/28/23 @ 14:34 by Ross Barney MD) Smoker Claudication of calf muscles Ambulates with cane Rheumatoid arthritis Osteoarthritis Hx MRSA infection HLD (hyperlipidemia) Murmur Coronary artery disease Hx of renal calculi History of pacemaker Hypertension Elevated fasting blood sugar Family History Family History Other Mental health disorder Substance use disorder Family history of problems with anesthesia: No Surgical History Surgical History Hx of tonsillectomy Hx of colonoscopy H/O cardiac catheterization History of dental surgery History of cystoscopy History of permanent cardiac pacemaker placement History of Problems with Anesthesia: No Social History Social History Household Members: None Housing: House Are you a primary patient care technician instructor to a significant other at home: No Do you presently have visiting nurse or other home services: No Alcohol intake: never Patient Tobacco Use Status: Current everyday Tobacco user Tobacco use type: Cigarette Cigarette Packs Per Day: 1 Cigarettes Per Day: 20.0 Years Smoked: 61 Smoked in Last 30 Days: Yes e-Cigarette/Vaping Use: Never Used Patient Interested in Nicotine Replacement: Yes Patient Given Instructions on How to Stop Smoking: Yes Date Education Initiated: 06/28/23 Second Hand Smoke Exposure: No Use of substances other than those prescribed or required for medical reasons: No Have you been hit, kicked, punched, or otherwise hurt by someone within the past year? If so, by whom?: No Are you DNR?: No Advance Directives: No Advance Directives Information Provided: Yes Advance Directives on File: No Recently lost weight without trying: No Nutrition Risks: No Nutritional Risk service: Yes Current occupational status: retired Current occupational exposures/hazards: No Cognitive needs: No (Cane) Hearing needs: No Vision needs: Yes (Glasses) Meds Allergies Allergy/AdvReac Type Severity Reaction Status Date / Time Penicillins Allergy Severe throat Verified 06/28/23 13:56 swelling Blue Dye Allergy Severe throat Uncoded 06/28/23 13:56 swelling Latex Allergy Severe Rash, Uncoded 06/28/23 13:56 Hives, whole hand Home Medications Medication Instructions Recorded Confirmed Last Taken Type aspirin 81 mg tablet,delayed 81 mg PO DAILY 04/05/22 06/28/23 Unknown History release (Adult Low Dose Aspirin) cholecalciferol (vitamin D3) 25 25 mcg PO DAILY 04/05/22 06/28/23 Unknown History mcg (1,000 unit) capsule docusate sodium 100 mg capsule 200 mg PO DAILY 04/05/22 06/28/23 Unknown History (Colace) hydrochlorothiazide 25 mg tablet 25 mg PO DAILY 07/04/23 07/04/23 Unknown History Exam Height,Weight and Vital Signs: Height 5 ft 11 in Weight 110 kg Last Vital Signs Pulse 84 06/28/23 13:59 Resp 16 06/28/23 13:59 BP 108/55 L 06/28/23 13:59 Pulse Ox 97 06/28/23 13:59 O2 Del Method Room Air 06/28/23 13:59 Pertinent Lab Results Pertinent Lab Results: Lab Results 06/28/23 Range/Units 14:47 Blood Type A Positive Antibody Screen NEGATIVE Narrative Narrative: Cardiac Device Check 06/2023 Details: Dual-chamber Biotronik pacemaker in place. Programmed in DDD at 60 beats per minute. Atrial and ventricular sensing is excellent. Atrial ventricular pacing thresholds adequate. Lead impedance is overall stable. Ventricular pacing 95% of time. No atrial arrhythmias noted. Battery life is at 50% [id number] Cardiac Device Check, pacemaker dual lead Procedure code (CPT) selection complete EKG 06/2023 Details: EKG shows atrially sensed ventricularly paced rhythm. CT angio neck 06/2023 IMPRESSION: Heavily calcified atheromatous plaque involves both carotid bifurcations. There is a 90% stenosis at the origin of the left internal carotid artery and 75% stenosis at the origin of the right internal carotid artery. Cervical vertebral arteries are patent. No intracranial large vessel occlusion. Although only partially included within the [id number]-[id number] of this examination there are a few ovoid intraparotid lesions within the right parotid gland, the largest of which measures up to 1.3 cm in diameter. Possible diagnostic considerations include a primary parotid neoplasms or enlarged intraparotid lymph nodes. Correlation with prior imaging is recommended if available. Otherwise follow-up is recommended to ensure stability. Cardiac cath 07/2021 - report scanned in Airway Mallampati Class: III TM Dist: >3cm Neck ROM: Limited Partial: Upper Heart: RRR Lungs: CTAB Assessment and Plan Assessment Anesthesia Assessment: Anesthesia Plan Discussed, Smoking Cess. Discussed and PAT Visit Final Anesthetic Review Family History of Problems with Anesthesia: No History of Problems with Anesthesia: No Documented by User: Jethro Knox MD 07/04/23 11:04 [facility] Past Medical History Medical History (Updated 06/28/23 @ 14:34 by Ross Barney MD) Smoker Claudication of calf muscles Ambulates with cane Rheumatoid arthritis Osteoarthritis Hx MRSA infection HLD (hyperlipidemia) Murmur Coronary artery disease Hx of renal calculi History of pacemaker Hypertension Elevated fasting blood sugar Family History Family History Other Mental health disorder Substance use disorder Surgical History Surgical History Hx of tonsillectomy Hx of colonoscopy H/O cardiac catheterization History of dental surgery History of cystoscopy History of permanent cardiac pacemaker placement Social History Social History Household Members: None Housing: House Are you a primary patient care technician instructor to a significant other at home: No Do you presently have visiting nurse or other home services: No Alcohol intake: never Patient Tobacco Use Status: Current everyday Tobacco user Tobacco use type: Cigarette Cigarette Packs Per Day: 1 Cigarettes Per Day: 20.0 Years Smoked: 61 Smoked in Last 30 Days: Yes e-Cigarette/Vaping Use: Never Used Patient Interested in Nicotine Replacement: Yes Patient Given Instructions on How to Stop Smoking: Yes Date Education Initiated: 06/28/23 Second Hand Smoke Exposure: No Use of substances other than those prescribed or required for medical reasons: No Have you been hit, kicked, punched, or otherwise hurt by someone within the past year? If so, by whom?: No Are you DNR?: No Advance Directives: No Advance Directives Information Provided: Yes Advance Directives on File: No Recently lost weight without trying: No Nutrition Risks: No Nutritional Risk service: Yes Current occupational status: retired Current occupational exposures/hazards: No Cognitive needs: No (Cane) Hearing needs: No Vision needs: Yes (Glasses) Meds Allergies Allergy/AdvReac Type Severity Reaction Status Date / Time Penicillins Allergy Severe throat Verified 06/28/23 13:56 swelling Blue Dye Allergy Severe throat Uncoded 06/28/23 13:56 swelling Latex Allergy Severe Rash, Uncoded 06/28/23 13:56 Hives, whole hand Home Medications Medication Instructions Recorded Confirmed Last Taken Type aspirin 81 mg tablet,delayed 81 mg PO DAILY 04/05/22 06/28/23 Unknown History release (Adult Low Dose Aspirin) cholecalciferol (vitamin D3) 25 25 mcg PO DAILY 04/05/22 06/28/23 Unknown History mcg (1,000 unit) capsule docusate sodium 100 mg capsule 200 mg PO DAILY 04/05/22 06/28/23 Unknown History (Colace) hydrochlorothiazide 25 mg tablet 25 mg PO DAILY 07/04/23 07/04/23 Unknown History Assessment and Plan Assessment Anesthesia Assessment: Chart Reviewed Final Anesthetic Review NPO: Yes ASA Class: III Final Preanesthetic Review: No Changes in Pt Med Stat, Meds/Allgs Chart Reviewed, Consent Obtained/Reviewed and Anes Risks/Benef Reviewed Patient Risk: Intermediate Procedure Risk: Intermediate Anesthetic Plan Anesthetic Plan: GA Disposition: Standard PACU
[2023-07-04] VITALS (20 sets, daily range): BP systolic 111–189; BP diastolic 59–77; PULSE 70–102; RESP 12–20; TEMP 36.1–36.7; O2SAT 95–99
--- NOTE | ~2023-07-04 | XR_ITS ---
EXAMINATION: XR CHEST CLINICAL INFORMATION: tube placement. COMPARISON: None available. TECHNIQUE: Frontal view of the chest was obtained. FINDINGS: The lungs are hypoexpanded with bibasilar atelectasis. There is prominent pulmonary vascularity and ernesto question mild congestion. New endotracheal tube is 3.5 cm above the mare. There are pacer electrodes in right atrium and right ventricle. Heart size is normal. No gross bony abnormality. XR/XR chest 1V IMPRESSION: 1. Hypoexpanded lungs with bibasilar atelectasis. 2. Suspect mild pulmonary vascular congestion. 3. New endotracheal tube is 3.5 cm above the mare.
--- NOTE | ~2023-07-04 | FL_ITS ---
EXAMINATION: Modified Barium Swallow CLINICAL INFORMATION: Dysphagia COMPARISON: None TECHNIQUE: Modified barium swallow was performed under lateral fluoroscopy with patient in standing position. Different consistency of barium was administered by the speech therapist. FINDINGS: Diffuse subcutaneous emphysema is present in the neck, related to recent surgery. Patient is status post tracheostomy. Trace laryngeal penetration was seen with all liquid barium consistencies. No aspiration was observed. FLUOROSCOPY TIME: 6 minutes 6 seconds Number of Spot Images: 1 spot image hold DOSE AREA PRODUCT: [id number] uGy-m2 (microgray-meter squared) FL/FL barium swallow modified IMPRESSION: Trace laryngeal penetration with all liquid barium consistencies. No aspiration was observed. Diffuse subcutaneous emphysema in the neck status post tracheostomy and surgery. Refer to the speech therapy report for further clarification This procedure was performed by Ascencion Ascencio PA-C, and supervised by Dr. Richardson
--- NOTE | 2023-07-04 07:38 | MHC.SHP ---
Pre-Procedural Eval Section A - 24 Hr Update-Section A only Date of Service: 07/04/23 The patient is an INPATIENT: No Changes since office visit: Yes Patient answered all questions The patient has been examined within 24 hours of the surgical procedure. The History & Physical has been completed within 30 days and I have reviewed it.: Yes Section B - Complete if H&P > 30 days Chief Complaint: Occlusion and stenosis of left carotid artery Allergies: Allergies Allergy/AdvReac Type Severity Reaction Status Date / Time Penicillins Allergy Severe throat Verified 06/28/23 13:56 swelling Blue Dye Allergy Severe throat Uncoded 06/28/23 13:56 swelling Latex Allergy Severe Rash, Uncoded 06/28/23 13:56 Hives, whole hand Plan I have reviewed the history and physical and performed a pertinent physical examination on my patient. No changes have occurred unless specified. Time Spent With Patient Time: Total time managing care of this patient today ____ minutes.
[2023-07-04 09:49] LABS: IDNOW Serial# 152EDE1D
[2023-07-04 09:50] LABS: COVID-19 Test Negative (Negative)
[2023-07-04] MEDS: Lactated Ringers 1,000 ML 100 ML IVCONT (10:03)
[2023-07-04 10:10] LABS: Hematocrit 49.7 % (42.0-52.0); Mean Corpuscular HGB Conc 34.2 g/dl (31.0-36.0); Mean Corpuscular Hemoglobin 31.7 pg (27.0-33.0); Mean Corpuscular Volume 92.6 fL (80.0-98.0); Mean Platelet Volume 9.7 fL (9.4-12.4); Platelet Count 226 X10*3/uL (160-400); Red Blood Count 5.37 X10*6/uL (4.60-5.80); Red Cell Distribution Width 12.7 % (11.0-16.0); White Blood Count 12.6 X10*3/uL (4.8-10.8)
[2023-07-04] MEDS: vancomycin HCL 1,500 MG in 0.9 % Sodium Chloride 500 ML 333.33 MG IV ×2 (10:10→22:18)
[2023-07-04 10:20] LABS: Anion Gap 13 (12-20); Blood Urea Nitrogen 14 mg/dL (9-16); Calcium 9.6 mg/dL (8.4-10.2); Carbon Dioxide 24 mmol/L (22-29); Chloride 105 mmol/L (96-108); Creatinine Clr Calc Pharmacy 99.6; Estimated Glomerular Filt Rate > 60; Glucose Random 120 mg/dL (60-115); Potassium 4.1 mmol/L (3.3-5.1); Sodium 138 mmol/L (135-145)
--- NOTE | 2023-07-04 10:34 | PHA.MEDREC ---
Pharmacy Consult ? Medication Reconciliation Pharmacy has completed the medication reconciliation. Reviewed med rec done by nursing
--- NOTE | 2023-07-04 15:42 | W.PM.OPN ---
Operative Note Operative Note Date of Service: 07/04/23 Narrative: Operative note by [facility] Preoperative diagnosis:1. Left Carotid stenosis 2. Prior cerebrovascular accident Postoperative diagnosis: Same Procedure: Left Carotid endarterectomy with patch angioplasty Surgeon:Davey Amezcua M.D. Drug Safety Data Management Specialist: Dr. Hilario Anesthesia: General Specimens: 1 Drains: 1 Estimated blood loss: 100 mL Indications: 68-year-old gentleman with left-sided stenosis nearly 90%. This was confirmed on CT scan The patient has signed the informed consent after reviewing risks, complications, benefits, and alternatives previously discussed with the patient. The patient was given the opportunity to ask any additional questions or voice any concerns. All questions were answered to the patient's satisfaction. Procedure in detail: Patient was taken to the operating room and placed in a supine position and prepped and draped in sterile manner with ChloraPrep. Longitudinal incision was made along the anterior border of the left sternocleidomastoid carried down through the subcutaneous fat and fascia. Hemostasis was obtained with electrocautery. The platysma muscle was then divided. The carotid sheath was identified in open. The vagus nerve, Ancef cervicalis, and hypoglossal nerves were identified and avoided. The common internal and external carotids were then freed from the surrounding tissue. At this point, 8000 units of heparin was administered and allowed to circulate for 5 minutes time to take effect. The internal, common, external carotids were clamped in that order. Once this was accomplished, we proceeded with the procedure. The carotid bulb was opened with an 11 blade and extended with Dawkins scissors through the very tight lesion into normal internal carotid artery. This was then extended down into the common carotid artery. We then placed a Kumari shunt. Then the plaque was sharply excised proximally and an eversion endarterectomy was performed successfully at the external. The plaque tapered nicely on to the internal and no tacking sutures were necessary. Heparinized saline was injected and no evidence of flapping or other debris was noted. The remaining carotid was examined, which showed no debris or flaps present. At this point a XenoSure patch was brought on to the field. This was anastomosed to the artery using a 6 0 Prolene in a running fashion. Once approximately 4/5 of the patch was sewn in the shunt was then removed. Prior to the last stitch the internal carotid was back bled through this. Heparinized saline was instilled into the carotid. The last stitch was tied. Hemostasis was excellent. The internal carotid was gently occluded while while of the external and internal were open in that order. Finally the internal was then opened and flow was restored to the entire system. Hemostasis was achieved with interrupted 7-0 Prolene sutures. The wound was irrigated thoroughly. We then placed a 7 flat Cachorro-Medellin drain. Deep layer was reapproximated using a 2-0 poly Sorb and finally the superficial layer with a 3-0 Polysorb. The skin was closed in a subcuticular manner. The patient awoke and neurologic status was checked and appeared to be intact. Sponge, needle and instrument counts were correct. The patient tolerated the procedure well. Returned to recovery with stable vitals. This note is constructed using voice recognition software. While every effort has been made to ensure accuracy, bottle tester errors may have been included. Thank you for allowing me to participate in the care of your patient. Yours sincerely, Davey Amezcua MD, FACS, R.P.V.I.
[2023-07-04] MEDS: 0.9 % Sodium Chloride Flush 3 ML SYRINGE IVFLUSH ×2 (18:27→22:19)
[2023-07-04] MEDS: 0.9 % Sodium Chloride 1,000 ML 80 ML IVCONT ×2 (18:29→22:19)
--- NOTE | 2023-07-04 19:02 | PC.NURSE ---
PT TO ICU AT 1750 FROM PACU. PT A&OX3. FOLLOWS COMMANDS, ADOLFO ZUÑIGA. BP VIA AURELIANO 180'S/70;S ON ARRIVAL AND AT THIS TIME 154/65. LARGE HEMATOMA AT SURGICAL SITE LEFT NECK WITH BULKY DSG. SHADOW OF BLOOD STAINING ON DSG MARKED.. NO RED BLLOD STAINING TO THE SURFACE OF DSG. NO POOLING OF BLOOD BEHIND NECK. DR AGARWAL CALLED ICU AT 1815 TO CHECK ON PT AND THIS INFORMATION GIVEN TO HIM. HOB UP 45-60 DEGREES. ICE PACKS TO NECK AND WILL REINFORCE DSG IF NEEDED. MONITOR SHOWS V PACED RHYTHM, RATE 80'S-90'S.
--- NOTE | 2023-07-04 19:20 | PM.CCHP ---
History of Present Illness Date of Service: 07/04/23 Attending physician on admission: Baljeet Vail Chief Complaint: Carotid stenosis The patient is a 68-year-old male with a past medical history of hypertension, hyperlipidemia, coronary artery disease, rheumatoid arthritis, and carotid stenosis now postoperative day 0 after an elective left carotid endarterectomy? by Dr. Amezcua.? Admitted to ICU for hemodynamically monitoring post procedure Review of Systems Constitutional: Constitutional: Denies chills, Denies fatigue, Denies fever(s) and Denies headache(s) Eyes: Eyes: Denies loss of vision ENT: Denies dizziness and Denies headache(s) Cardiovascular: Cardiovascular: Denies chest pain and Denies dyspnea Respiratory: Respiratory: Denies dyspnea and Denies wheezing Gastrointestinal: Gastrointestinal: Denies nausea and Denies vomiting Musculoskeletal: Musculoskeletal: Denies myalgias Neurologic: Denies dizziness, Denies headache(s) and Denies loss of vision Endocrine: Endocrine: Denies fatigue Allergic/Immunologic: Allergic/Immunologic: Denies wheezing PMFSH Past Medical History Medical History Smoker Claudication of calf muscles Ambulates with cane Rheumatoid arthritis Osteoarthritis Hx MRSA infection HLD (hyperlipidemia) Murmur Coronary artery disease Hx of renal calculi History of pacemaker Hypertension Elevated fasting blood sugar Family History Family History Other Mental health disorder Substance use disorder Surgical History Surgical History Hx of tonsillectomy Hx of colonoscopy H/O cardiac catheterization History of dental surgery History of cystoscopy History of permanent cardiac pacemaker placement Social History Social History Household Members: None Housing: Apartment Are you a primary hospice care transitions coordinator to a significant other at home: No Do you presently have visiting nurse or other home services: No Alcohol intake: never Patient Tobacco Use Status: Current everyday Tobacco user Tobacco use type: Cigarette Cigarette Packs Per Day: 1 Cigarettes Per Day: 20.0 Years Smoked: 61 Smoked in Last 30 Days: Yes e-Cigarette/Vaping Use: Never Used Patient Interested in Nicotine Replacement: No Patient Given Instructions on How to Stop Smoking: No Date Education Initiated: 06/28/23 Second Hand Smoke Exposure: No Use of substances other than those prescribed or required for medical reasons: No Currently Displaying Signs/Symptoms of Drug Intoxication Withdrawal: No Any prior treatment program specific to substance use: No Have you been hit, kicked, punched, or otherwise hurt by someone within the past year? If so, by whom?: No Do you feel safe in your current relationship?: No Current Relationship Is there a partner from a previous relationship who is making you feel unsafe now?: No Are you made to feel afraid or neglected: No Are you DNR?: No Advance Directives: No Advance Directives Information Provided: Yes Advance Directives on File: No Do you have thoughts of harming others: None Do you have a plan to hurt others: No Plan Recently lost weight without trying: No Nutrition Risks: No Nutritional Risk Poor oral hygiene: No service: Yes Current occupational status: retired Current occupational exposures/hazards: No Cognitive needs: No (Cane) Hearing needs: No Vision needs: Yes (Glasses) Meds Allergies Allergy/AdvReac Type Severity Reaction Status Date / Time Penicillins Allergy Severe throat Verified 06/28/23 13:56 swelling Blue Dye Allergy Severe throat Uncoded 06/28/23 13:56 swelling Latex Allergy Severe Rash, Uncoded 06/28/23 13:56 Hives, whole hand Active Medications: Current Medications Acetaminophen (Acetaminophen 325 Mg Tablet) 650 mg PO Q6H PRN PRN Reason: Pain, Mild (Pain Scale 1-3) Albuterol Sulfate (Albuterol Sulfate (0.083%) 2.5 Mg/3 Ml Vial.Neb) 2.5 mg INHALE ONCE PRN PRN Reason: Shortness of Breath/Wheezing Atorvastatin Calcium (Atorvastatin Calcium 20 Mg Tablet) 20 mg PO BEDTIME MING Docusate Sodium (Docusate Sodium 100 Mg Capsule) 200 mg PO DAILY MING Hydrochlorothiazide (Hydrochlorothiazide 25 Mg Tablet) 25 mg PO DAILY [facility]ING; Protocol Sodium Chloride (Ns) 1,000 mls @ 80 mls/hr IVCONT .[id number] MING Last Admin: 07/04/23 18:29 Dose: 80 mls/hr Vancomycin HCl 1,500 mg/ (Sodium Chloride) 500 mls @ 333.333 mls/hr IV POSTOP ONE Stop: 07/04/23 23:29 Losartan Potassium (Losartan Potassium 50 Mg Tablet) 100 mg PO DAILY [facility]; Protocol Metoprolol Succinate (Metoprolol Succinate Er 25 Mg Tab.Er.24h) 25 mg PO BID [facility]; Protocol Morphine Sulfate (Morphine Sulfate 2 Mg/Ml Cartridge) 2 mg IVPUSH Q4H PRN; Protocol PRN Reason: Pain, Severe (Pain Scale 7-10) Non-Formulary Medication (Chloroquine Phosphate) 125 mg PO 5XW [facility] Ondansetron HCl (Ondansetron Hcl 4 Mg/2 Ml Vial) 4 mg IVPUSH ONCE PRN PRN Reason: Nausea and Vomiting Oxycodone HCl (Oxycodone Hcl Immed Release 5 Mg Tablet) 5 mg PO Q4H PRN PRN Reason: Pain, Moderate(Pain Scale 4-6) Pharmacy Consult (Consult Rx Vancomycin Dosing) 1 each MISCELLANE DAILY PRN PRN Reason: Consult order Sodium Chloride (0.9 % Sodium Chloride Flush 3 Ml Syringe) 3 ml IVFLUSH QSHIFT [facility] Last Admin: 07/04/23 18:27 Dose: 3 ml Vitamin D (Cholecalciferol (Vitamin D3) 25 Mcg Tablet) 25 mcg PO DAILY [facility] Home Medications Medication Instructions Recorded Confirmed Last Taken Type aspirin 81 mg tablet,delayed 81 mg PO DAILY 04/05/22 06/28/23 Unknown History release (Adult Low Dose Aspirin) cholecalciferol (vitamin D3) 25 25 mcg PO DAILY 04/05/22 06/28/23 Unknown History mcg (1,000 unit) capsule docusate sodium 100 mg capsule 200 mg PO DAILY 04/05/22 06/28/23 Unknown History (Colace) hydrochlorothiazide 25 mg tablet 25 mg PO DAILY 07/04/23 07/04/23 Unknown History Physical Exam Vital Signs: Vital Signs: Last Vital Signs Temp 97.5 F 07/04/23 17:50 Pulse 90 07/04/23 19:00 Resp 12 07/04/23 19:00 BP 174/67 H 07/04/23 19:00 Pulse Ox 98 07/04/23 19:00 O2 Del Method Nasal Cannula 07/04/23 19:00 O2 Flow Rate 2 07/04/23 19:00 BMI result Body Mass Index 33.8 ?General:? Alert oriented x3 no acute distress.? Speaking full sentences.? Speech is well articulated, thought process is coherent.? Following all commands. ?HEENT:? Head is normocephalic, atraumatic, pupils equal round reactive to light accommodation bilaterally.? Extraocular movements appear intact.? Buccal mucosa is dry, Neck is supple ?Cardiac:? Clear S1-S2, no rubs or gallops. ?Pulmonary:? Clear to auscultation, no wheezes, rales or rhonchi. ?Abdomen:? ?Abdomen soft, non-tender, non-distended. Normal bowel sounds. No pulsatile mass. No hepatosplenomegaly. ?Musculoskeletal:? Moving all 4 extremities upon request a major joints, there is no crepitus or tenderness.? The strength is 5/5 bilaterally and throughout all 4 extremities.? Gait not assessed at this point. ?Neurologic:? cranial nerves 2-12 are grossly intact.? No focal deficits noted.Motor strength as above.?? ?Skin:?Left surgical neck site with significant hematoma, Surgery aware. No ulcers Vascular:? 2+ pulses upper and lower extremities distally.? Results Labs 07/05/23 04:50 07/05/23 04:50 Labs: Laboratory Results - last 24 hr 07/04/23 07/04/23 09:24 09:51 MCV 92.6 MCH 31.7 MCHC 34.2 RDW 12.7 Plt Count 226 MPV 9.7 Absolute Nucleated RBC 0.000 Nucleated RBC % (auto) 0.0 Anion Gap 13 Estim Creat Clear Calc 99.6 Estimated GFR > 60 Random Glucose 120 H Calcium 9.6 COVID-19 ([facility]) Negative COVID-19 Clin Com See Note Assessment and Plan (1) Coronary artery disease: Status: Acute (2) Pacemaker: Status: Acute (3) Hyperlipidemia: Status: Acute (4) Essential hypertension: Status: Acute Plan 68-year-old male postoperative day 0 after an elective left carotid endarterectomy? by Dr. Amezcua. Plan: Neuro:? No acute issues. Cardiac:? Postoperative day 0 status post elective left carotid endarterectomy.? Vascular surgery service care appreciated.? Underlying history of hypertension and CAD. Pulmonary:? No acute issues.?? Endo:? No acute issues.? GI:? No acute issues. ID:? No acute issues Heme/Onc:? No acute issues. Psych:? No acute issues. Miscellaneous:? No acute issues. Prophylaxis:? Per vascular surgery Diet:? Regular? CODE STATUS: FULL CODE? Critical care time: ? Does not qualify for critical care time ?Case discussed with attending ? ?
[2023-07-04] MEDS: Metoprolol Tartrate 5 MG/5 ML VIAL IVPUSH (19:51)
[2023-07-05] VITALS (45 sets, daily range): BP systolic 88–252; BP diastolic 37–98; PULSE 61–128; RESP 11–28; TEMP 34–37.5; O2SAT 82–100; BMI 34.3; BMI 33.1
--- NOTE | 2023-07-05 03:22 | PC.NURSE ---
CARE ASSUMED 7PM..PATIENT AWAKE...ALERT..ORIENTED X3...SPEECH CLEAR..TONGUE MID-LINE...REMAINS WITH LEFT NECK HEMATOMA...BULKY DRESSING WITH PREVIOUSLY DELINEATED BLOODY STAINING...SMALL PROGRESSION OF STAINING 7PM NOTED DURING NURSE TO NURSE SIGN OFF BUT NO FURTHER PROGRESSION OVERNIGHT...CARLOTA DRAIN WITH SMALL AMOUNT BLOODY DRAINAGE AT 7PM BUT NO FURTHER DRAINAGE...BP ELEVATED AT 7PM...SBP 170-180..PATIENT NPO...PER ICU RETAIL MARKETING EXECUTIVE HS PO LOPRESSOR HELD AND GIVEN LOPRESSOR 5MG IV X1...BP IMPROVED OVERNIGHT TO SBP 130'S-160'S....HECTOR YELLOW URINE AND IMPROVED OUTPUT...NS 0.9% 80 CC/HR...VANCOMYCIN IV X1 DOSE INFUSED W/O INCIDENT...MONITOR ATRIAL SENSED/V-PACED RHYTHM..RESTFUL
[2023-07-05 05:28] LABS: MANUAL DIFF FLAG NO
[2023-07-05 05:30] LABS: Basophils Absolute Auto 0.1 X10*3/uL (0.0-0.2); Basophils Percent Auto 0.3 % (0-2); Eosinophils Percent Auto 0.2 % (0-4); Hematocrit 35.8 % (42.0-52.0); Hemoglobin 12.5 g/dl (14.0-18.0); Imm Gran Abs Auto 0.06 X10*3/uL (0.00-0.03); Imm Gran Pct Auto 0.3 % (0.0-0.4); Lymphocytes Absolute Auto 1.8 X10*3/uL (1.2-4.9); Lymphocytes Percent Auto 10.3 % (20-40); Mean Corpuscular HGB Conc 34.9 g/dl (31.0-36.0); Mean Corpuscular Hemoglobin 32.3 pg (27.0-33.0); Mean Corpuscular Volume 92.5 fL (80.0-98.0); Mean Platelet Volume 9.2 fL (9.4-12.4); Monocytes Absolute Auto 1.4 X10*3/uL (0.1-1.2); Monocytes Percent Auto 8.3 % (2-11); Neutrophils Absolute Auto 13.9 x10*3/uL (2.0-8.3); Neutrophils Percent Auto 80.6 % (45-73); Platelet Count 268 X10*3/uL (160-400); Red Blood Count 3.87 X10*6/uL (4.60-5.80); Red Cell Distribution Width 12.8 % (11.0-16.0); White Blood Count 17.2 X10*3/uL (4.8-10.8)
[2023-07-05 05:46] LABS: Anion Gap 11 (12-20); Blood Urea Nitrogen 12 mg/dL (9-16); Calcium 8.2 mg/dL (8.4-10.2); Carbon Dioxide 26 mmol/L (22-29); Chloride 106 mmol/L (96-108); Creatinine Clr Calc Pharmacy 126.5; Estimated Glomerular Filt Rate > 60; Glucose Random 100 mg/dL (60-115); Potassium 3.9 mmol/L (3.3-5.1); Sodium 139 mmol/L (135-145)
[2023-07-05] MEDS: Etomidate 20 MG/10 ML VIAL IVPUSH (07:54)
[2023-07-05] MEDS: Rocuronium Bromide 50 MG/5 ML VIAL IVPUSH (07:55)
[2023-07-05] MEDS: 0.9 % Sodium Chloride Flush 3 ML SYRINGE IVFLUSH ×3 (08:05→22:36)
[2023-07-05] MEDS: propofoL 1,000 MG/100 ML VIAL 20.07 MG IVCONT ×2 (08:26→19:18)
--- NOTE | 2023-07-05 08:36 | PC.RT ---
RT came in room and saw pt sitting up with obvious cyanosis to face, lips and cheeks. Pt audible stridor doing universal choking sign with hands over neck. RN attempted heimlich maneuver while RT suctioned orally pieces of what appeared to be egg out of pts mouth. [place] called for extra RT and RN help. Heimlich continued to be performed while code blue was called. Anesthesia was called stat to bedside. ED MD attempted intubation x2 without success, structures of airway not visible from glidescope due to swelling. MD attempted one more time with mac blade, no success. Anesthesia attempted intubation while OR team prepped for emergent cricothyroidotomy. No success with intubation, cricothyroidotomy performed without complication. Pt ambu ventilated by RT and placed on ventilator as documented.
--- NOTE | 2023-07-05 09:01 | HO.ANESPROP2 ---
HPI - Anesthesia Eval Consult details Narrative: Emergent exploration left carotid. Patient s/p emergent tracheostomy by surgery at bedside. [facility] Active Problems Active Problems: All Active Problems (Updated 06/28/23 @ 14:34 by Ross Barney MD) Coronary artery disease (Acute) Pacemaker (Acute) Left carotid stenosis (Acute) Bilateral carotid artery stenosis (Acute) Smoker (Acute) Numbness of left hand (Acute) intermission coordinator use of drug (Acute) Osteoarthritis of lumbar spine (Acute) Hyperlipidemia (Acute) Seropositive rheumatoid arthritis (Acute) Osteoarthritis of knees, bilateral (Acute) Abnormal myocardial perfusion study (Acute) Essential hypertension (Acute) Pre-diabetes (Acute) Past Medical History Medical History Smoker Claudication of calf muscles Ambulates with cane Rheumatoid arthritis Osteoarthritis Hx MRSA infection HLD (hyperlipidemia) Murmur Coronary artery disease Hx of renal calculi History of pacemaker Hypertension Elevated fasting blood sugar Family History Family History Other Mental health disorder Substance use disorder Family history of problems with anesthesia: No Surgical History Surgical History Hx of tonsillectomy Hx of colonoscopy H/O cardiac catheterization History of dental surgery History of cystoscopy History of permanent cardiac pacemaker placement History of Problems with Anesthesia: No Social History Social History Household Members: None Housing: Apartment Are you a primary healthcare advisory services manager to a significant other at home: No Do you presently have visiting nurse or other home services: No Alcohol intake: never Patient Tobacco Use Status: Current everyday Tobacco user Tobacco use type: Cigarette Cigarette Packs Per Day: 1 Cigarettes Per Day: 20.0 Years Smoked: 61 Smoked in Last 30 Days: Yes e-Cigarette/Vaping Use: Never Used Patient Interested in Nicotine Replacement: No Patient Given Instructions on How to Stop Smoking: No Date Education Initiated: 06/28/23 Second Hand Smoke Exposure: No Use of substances other than those prescribed or required for medical reasons: No Currently Displaying Signs/Symptoms of Drug Intoxication Withdrawal: No Any prior treatment program specific to substance use: No Have you been hit, kicked, punched, or otherwise hurt by someone within the past year? If so, by whom?: No Do you feel safe in your current relationship?: No Current Relationship Is there a partner from a previous relationship who is making you feel unsafe now?: No Are you made to feel afraid or neglected: No Are you DNR?: No Advance Directives: No Advance Directives Information Provided: Yes Advance Directives on File: No Do you have thoughts of harming others: None Do you have a plan to hurt others: No Plan Recently lost weight without trying: No Nutrition Risks: No Nutritional Risk Poor oral hygiene: No service: Yes Current occupational status: retired Current occupational exposures/hazards: No Cognitive needs: No (Cane) Hearing needs: No Vision needs: Yes (Glasses) Meds Allergies Allergy/AdvReac Type Severity Reaction Status Date / Time Penicillins Allergy Severe throat Verified 06/28/23 13:56 swelling Blue Dye Allergy Severe throat Uncoded 06/28/23 13:56 swelling Latex Allergy Severe Rash, Uncoded 06/28/23 13:56 Hives, whole hand Active Medications: Current Medications Acetaminophen (Acetaminophen 325 Mg Tablet) 650 mg PO Q6H PRN PRN Reason: Pain, Mild (Pain Scale 1-3) Albuterol Sulfate (Albuterol Sulfate (0.083%) 2.5 Mg/3 Ml Vial.Neb) 2.5 mg INHALE ONCE PRN PRN Reason: Shortness of Breath/Wheezing Atorvastatin Calcium (Atorvastatin Calcium 20 Mg Tablet) 20 mg PO BEDTIME [facility] Last Admin: 07/04/23 20:07 Dose: Not Given Docusate Sodium (Docusate Sodium 100 Mg Capsule) 200 mg PO DAILY [facility] Hydrochlorothiazide (Hydrochlorothiazide 25 Mg Tablet) 25 mg PO DAILY [facility]; Protocol Sodium Chloride (Ns) 1,000 mls @ 80 mls/hr IVCONT .[id number] [facility] Last Admin: 07/04/23 22:19 Dose: 80 mls/hr Losartan Potassium (Losartan Potassium 50 Mg Tablet) 100 mg PO DAILY [facility]; Protocol Metoprolol Succinate (Metoprolol Succinate Er 25 Mg Tab.Er.24h) 25 mg PO BID [facility]; Protocol Last Admin: 07/04/23 20:08 Dose: Not Given Morphine Sulfate (Morphine Sulfate 2 Mg/Ml Cartridge) 2 mg IVPUSH Q4H PRN; Protocol PRN Reason: Pain, Severe (Pain Scale 7-10) Non-Formulary Medication (Chloroquine Phosphate) 125 mg PO 5XW [facility] Ondansetron HCl (Ondansetron Hcl 4 Mg/2 Ml Vial) 4 mg IVPUSH ONCE PRN PRN Reason: Nausea and Vomiting Oxycodone HCl (Oxycodone Hcl Immed Release 5 Mg Tablet) 5 mg PO Q4H PRN PRN Reason: Pain, Moderate(Pain Scale 4-6) Pharmacy Consult (Consult Rx Vancomycin Dosing) 1 each MISCELLANE DAILY PRN PRN Reason: Consult order Sodium Chloride (0.9 % Sodium Chloride Flush 3 Ml Syringe) 3 ml IVFLUSH QSHIFT [facility] Last Admin: 07/04/23 22:19 Dose: 3 ml Vitamin D (Cholecalciferol (Vitamin D3) 25 Mcg Tablet) 25 mcg PO DAILY [facility] Home Medications Medication Instructions Recorded Confirmed Last Taken Type aspirin 81 mg tablet,delayed 81 mg PO DAILY 04/05/22 06/28/23 Unknown History release (Adult Low Dose Aspirin) cholecalciferol (vitamin D3) 25 25 mcg PO DAILY 04/05/22 06/28/23 Unknown History mcg (1,000 unit) capsule docusate sodium 100 mg capsule 200 mg PO DAILY 04/05/22 06/28/23 Unknown History (Colace) hydrochlorothiazide 25 mg tablet 25 mg PO DAILY 07/04/23 07/04/23 Unknown History Exam Height,Weight and Vital Signs: Height 5 ft 11 in Weight 111.5 kg Last Vital Signs Temp 97.9 F 07/05/23 02:00 Pulse 81 07/05/23 07:00 Resp 12 07/05/23 07:00 BP 118/46 L 07/05/23 07:00 Pulse Ox 98 07/05/23 07:00 O2 Del Method Nasal Cannula 07/05/23 07:00 O2 Flow Rate 2 07/05/23 07:00 FiO2 100 07/05/23 08:26 Pertinent Lab Results Pertinent Lab Results: Laboratory Tests 06/28/23 07/04/23 07/04/23 14:47 09:24 09:51 WBC 12.6 H RBC 5.37 Hgb 17.0 Hct 49.7 MCV 92.6 MCH 31.7 MCHC 34.2 RDW 12.7 Plt Count 226 MPV 9.7 Immature Gran % (Auto) Neut % (Auto) Lymph % (Auto) [place] % (Auto) Eos % (Auto) Baso % (Auto) Lymph # (Auto) [place] # (Auto) Eos # (Auto) Baso # (Auto) Abs Immat Gran (auto) Absolute Neuts (auto) Absolute Nucleated RBC 0.000 Nucleated RBC % (auto) 0.0 PT Cancelled INR Cancelled APTT Cancelled Sodium 138 Potassium 4.1 Chloride 105 Carbon Dioxide 24 Anion Gap 13 BUN 14 Creatinine 0.87 Estim Creat Clear Calc 99.6 Estimated GFR > 60 Random Glucose 120 H Calcium 9.6 COVID-19 ([facility]) Negative COVID-19 Clin Com See Note Blood Type A Positive Antibody Screen NEGATIVE 07/05/23 04:50 WBC 17.2 H RBC 3.87 L D Hgb 12.5 L D Hct 35.8 L D MCV 92.5 MCH 32.3 MCHC 34.9 RDW 12.8 Plt Count 268 MPV 9.2 L Immature Gran % (Auto) 0.3 Neut % (Auto) 80.6 H Lymph % (Auto) 10.3 L [place] % (Auto) 8.3 Eos % (Auto) 0.2 Baso % (Auto) 0.3 Lymph # (Auto) 1.8 [place] # (Auto) 1.4 H Eos # (Auto) 0.0 Baso # (Auto) 0.1 Abs Immat Gran (auto) 0.06 H Absolute Neuts (auto) 13.9 H Absolute Nucleated RBC 0.000 Nucleated RBC % (auto) 0.0 PT INR APTT Sodium 139 Potassium 3.9 Chloride 106 Carbon Dioxide 26 Anion Gap 11 L BUN 12 Creatinine 0.69 Estim Creat Clear Calc 126.5 Estimated GFR > 60 Random Glucose 100 Calcium 8.2 L D COVID-19 ([facility]ARIK) COVID-19 Clin Com Blood Type Antibody Screen Airway Mallampati Class: IV (unable to see anything due to shift of trachea) TM Dist: >3cm Neck ROM: Limited Loose/Missing/Broken Teeth: Yes Heart: [id number] Lungs: +b/s bilaterally Assessment and Plan Assessment Anesthesia Assessment: Anesthesia Plan Discussed (with family.) Final Anesthetic Review Family History of Problems with Anesthesia: No History of Problems with Anesthesia: No NPO: Yes ASA Class: IV and Emergency Final Preanesthetic Review: Consent Obtained/Reviewed and Anes Risks/Benef Reviewed Patient Risk: High Procedure Risk: Intermediate Anesthetic Plan Anesthetic Plan: GA Disposition: Inp. Admit - ICU
--- NOTE | 2023-07-05 09:17 | ED_ITS ---
HPI Narrative HPI Narrative HPI Narrative: 0746: ED call for emergent intubation and code blue called overhead by ICU. Patient unable to provide history due to medical condition. ROS Narrative ROS Narrative ROS Narrative: None available from patient PMFSH Past Medical History Medical History Smoker Claudication of calf muscles Ambulates with cane Rheumatoid arthritis Osteoarthritis Hx MRSA infection HLD (hyperlipidemia) Murmur Coronary artery disease Hx of renal calculi History of pacemaker Hypertension Elevated fasting blood sugar Surgical History Hx of tonsillectomy Hx of colonoscopy H/O cardiac catheterization History of dental surgery History of cystoscopy History of permanent cardiac pacemaker placement Family History Family History Other Mental health disorder Substance use disorder Social History Social History Household Members: None Housing: Apartment Are you a primary youth care professional to a significant other at home: No Do you presently have visiting nurse or other home services: No Alcohol intake: never Patient Tobacco Use Status: Current everyday Tobacco user Tobacco use type: Cigarette Cigarette Packs Per Day: 1 Cigarettes Per Day: 20.0 Years Smoked: 61 Smoked in Last 30 Days: Yes e-Cigarette/Vaping Use: Never Used Patient Interested in Nicotine Replacement: No Patient Given Instructions on How to Stop Smoking: No Date Education Initiated: 06/28/23 Second Hand Smoke Exposure: No Use of substances other than those prescribed or required for medical reasons: No Currently Displaying Signs/Symptoms of Drug Intoxication Withdrawal: No Any prior treatment program specific to substance use: No Have you been hit, kicked, punched, or otherwise hurt by someone within the past year? If so, by whom?: No Do you feel safe in your current relationship?: No Current Relationship Is there a partner from a previous relationship who is making you feel unsafe now?: No Are you made to feel afraid or neglected: No Are you DNR?: No Advance Directives: No Advance Directives Information Provided: Yes Advance Directives on File: No Do you have thoughts of harming others: None Do you have a plan to hurt others: No Plan Recently lost weight without trying: No Nutrition Risks: No Nutritional Risk Poor oral hygiene: No service: Yes Current occupational status: retired Current occupational exposures/hazards: No Cognitive needs: No (Cane) Hearing needs: No Vision needs: Yes (Glasses) FT.Exam Exam Narrative Exam Narrative: Last Vital Signs Temp 97.9 F 07/05/23 02:00 Pulse 81 07/05/23 07:00 Resp 12 07/05/23 07:00 BP 118/46 L 07/05/23 07:00 Pulse Ox 98 07/05/23 07:00 O2 Del Method Nasal Cannula 07/05/23 07:00 O2 Flow Rate 2 07/05/23 07:00 FiO2 100 07/05/23 08:26 BMI result Body Mass Index 34.3 Patient is sitting, with obvious stridor, expanding hematoma noted at left/anterior neck, no cyanosis noted, no IV access. Medications Administered Generic Name Dose Route Start Last Admin Trade Name Freq PRN Reason Stop Dose Admin Sodium Chloride 1,000 mls @ 80 mls/hr 07/04/23 15:45 07/04/23 22:19 Ns IVCONT 80 mls/hr .[id number] MING Administration Sodium Chloride 3 ml 07/04/23 16:00 07/04/23 22:19 0.9 % Sodium Chloride Flush 3 Ml Syringe IVFLUSH 3 ml QSHIFT MING Administration Discontinued Medications Generic Name Dose Route Start Last Admin Trade Name Freq PRN Reason Stop Dose Admin Atorvastatin Calcium 20 mg 07/04/23 21:00 07/04/23 20:07 Atorvastatin Calcium 20 Mg Tablet PO Not Given BEDTIME MING Lactated Ringer's 1,000 mls @ 100 mls/hr 07/04/23 09:30 07/04/23 18:26 Lr IVCONT Infused .Q10H MING Infusion Vancomycin HCl 1,500 mg/ 500 mls @ 333.333 mls/hr 07/04/23 09:45 07/04/23 18:27 Sodium Chloride IV 07/04/23 11:14 Infused PREOP ONE Infusion Vancomycin HCl 1,500 mg/ 500 mls @ 333.333 mls/hr 07/04/23 22:00 07/04/23 23:59 Sodium Chloride IV 07/04/23 23:29 Infused POSTOP ONE Infusion Metoprolol Succinate 25 mg 07/04/23 21:00 07/04/23 20:08 Metoprolol Succinate Er 25 Mg Tab.Er.24h PO Not Given BID [facility] Protocol Metoprolol Tartrate 5 mg 07/04/23 19:44 07/04/23 19:51 Metoprolol Tartrate 5 Mg/5 Ml Vial IVPUSH 07/04/23 19:45 5 mg ONCE ONE Administration Medical Decision Making Medical Decision Making [facility] Narrative: On arrival, patient was receiving Heimlich maneuver but awake and SpO2 monitor noted to read 90% oxygenation but patient having obvious stridor and obvious significant swelling at the left/anterior neck and informed upon entering the room that patient had undergone a left endarterectomy. No IV access. Immediate concern was for expanding hematoma causing external compression on airway lending itself to stridor and eminent loss of airway. Instructed patient to be laid flat, requested 100% non-rebreather be placed, instructed for airway equipment to be brought into the room to include emergency crich kit, also instructed nursing to place IO for administration of RSI medications, briefly explained to the patient who is still wake that we would need to place a breathing tube. Please read procedure note for detailed events, instructed staff upon visualization of airway to contact General surgery and anesthesia, both specialties arrived within a brief span of time, anesthesia took over airway but at the end patient required emergency surgical airway. Differential Diagnosis Differential Diagnoses: The differential diagnosis associated with the presentation includes Please see the discussion above Admission/Observation Consideration of admission/observation: Escalation of care including admission/observation considered Please see the discussion above Consult Healthcare Provider Management of the patient was discussed with: [employer] History Teacher Please see the discussion above Lab Data 07/05/23 04:50 07/05/23 04:50 Labs: Lab Results 06/28/23 07/04/23 07/04/23 Range/Units 14:47 09:24 09:51 WBC 12.6 H (4.8-10.8) X10*3/uL RBC 5.37 (4.60-5.80) X10*6/uL Hgb 17.0 (14.0-18.0) g/dl Hct 49.7 (42.0-52.0) % MCV 92.6 (80.0-98.0) fL MCH 31.7 (27.0-33.0) pg MCHC 34.2 (31.0-36.0) g/dl RDW 12.7 (11.0-16.0) % Plt Count 226 (160-400) X10*3/uL MPV 9.7 (9.4-12.4) fL Immature Gran % (Auto) (0.0-0.4) % Neut % (Auto) (45-73) % Lymph % (Auto) (20-40) % [place] % (Auto) (2-11) % Eos % (Auto) (0-4) % Baso % (Auto) (0-2) % Lymph # (Auto) (1.2-4.9) X10*3/uL [place] # (Auto) (0.1-1.2) X10*3/uL Eos # (Auto) (0.0-0.4) X10*3/uL Baso # (Auto) (0.0-0.2) X10*3/uL Abs Immat Gran (auto) (0.00-0.03) X10*3/uL Absolute Neuts (auto) (2.0-8.3) x10*3/uL Absolute Nucleated RBC 0.000 (0.0-0.012) X10*3/uL Nucleated RBC % (auto) 0.0 (0.0-0.2) /100WBC PT Cancelled INR Cancelled APTT Cancelled Sodium 138 (135-145) mmol/L Potassium 4.1 (3.3-5.1) mmol/L Chloride 105 (96-108) mmol/L Carbon Dioxide 24 (22-29) mmol/L Anion Gap 13 (12-20) BUN 14 (9-16) mg/dL Creatinine 0.87 (0.5-1.4) mg/dL Estim Creat Clear Calc 99.6 Estimated GFR > 60 Random Glucose 120 H (60-115) mg/dL Calcium 9.6 (8.4-10.2) mg/dL COVID-19 ([facility]) Negative (Negative) COVID-19 Clin Com See Note Blood Type A Positive Antibody Screen NEGATIVE 07/05/23 Range/Units 04:50 WBC 17.2 H (4.8-10.8) X10*3/uL RBC 3.87 L D (4.60-5.80) X10*6/uL Hgb 12.5 L D (14.0-18.0) g/dl Hct 35.8 L D (42.0-52.0) % MCV 92.5 (80.0-98.0) fL MCH 32.3 (27.0-33.0) pg MCHC 34.9 (31.0-36.0) g/dl RDW 12.8 (11.0-16.0) % Plt Count 268 (160-400) X10*3/uL MPV 9.2 L (9.4-12.4) fL Immature Gran % (Auto) 0.3 (0.0-0.4) % Neut % (Auto) 80.6 H (45-73) % Lymph % (Auto) 10.3 L (20-40) % [place] % (Auto) 8.3 (2-11) % Eos % (Auto) 0.2 (0-4) % Baso % (Auto) 0.3 (0-2) % Lymph # (Auto) 1.8 (1.2-4.9) X10*3/uL [place] # (Auto) 1.4 H (0.1-1.2) X10*3/uL Eos # (Auto) 0.0 (0.0-0.4) X10*3/uL Baso # (Auto) 0.1 (0.0-0.2) X10*3/uL Abs Immat Gran (auto) 0.06 H (0.00-0.03) X10*3/uL Absolute Neuts (auto) 13.9 H (2.0-8.3) x10*3/uL Absolute Nucleated RBC 0.000 (0.0-0.012) X10*3/uL Nucleated RBC % (auto) 0.0 (0.0-0.2) /100WBC PT INR APTT Sodium 139 (135-145) mmol/L Potassium 3.9 (3.3-5.1) mmol/L Chloride 106 (96-108) mmol/L Carbon Dioxide 26 (22-29) mmol/L Anion Gap 11 L (12-20) BUN 12 (9-16) mg/dL Creatinine 0.69 (0.5-1.4) mg/dL Estim Creat Clear Calc 126.5 Estimated GFR > 60 Random Glucose 100 (60-115) mg/dL Calcium 8.2 L D (8.4-10.2) mg/dL COVID-19 ([facility]) (Negative) COVID-19 Clin Com Blood Type Antibody Screen Discharge Plan Discharge Discharge Medications: No Action metoprolol succinate 25 mg tablet extended release 24 hr 25 mg PO BID 90 Days Qty: 180 3RF losartan 100 mg tablet 100 mg PO DAILY Qty: 90 3RF hydrochlorothiazide 25 mg tablet 25 mg PO DAILY simvastatin 40 mg tablet 40 mg PO BEDTIME Qty: 90 3RF nicotine (polacrilex) [Nicorette] 2 mg mini lozenge 2 mg buccal Q4-8H PRN (Reason: nicotine cravings) 28 Days Qty: 81 2RF aspirin [Adult Low Dose Aspirin] 81 mg tablet,delayed release (DR/EC) 81 mg PO DAILY docusate sodium [Colace] 100 mg capsule 200 mg PO DAILY cholecalciferol (vitamin D3) 25 mcg (1,000 unit) capsule 25 mcg PO DAILY chloroquine phosphate 250 mg tablet 125 mg PO 5XW Qty: 30 3RF Rx Instructions: note increase in frequency of dosing Procedures Intubation Time out performed: No sedative: Etomidate Mg Given: 20 paralytic: Rocuronium Mg Given: 120 Laryngoscope: fiber optic video scope ET Tube Size: 8 ET Tube Uncuffed: No Patient Tolerated Procedure: well Intubation Complications: unable to intubate, difficult intubation and surgical airway needed Additional Comments: Unable to identify epiglottis/vocal cords despite repositioning, blood noted in the airway, obvious hematomas encroaching on upper airway, suspect airway shifted to the patient's right, anesthesia took over, but definitive airway placed surgically by Dr. Correia.
--- NOTE | 2023-07-05 10:56 | PM.EVENT ---
Event Note Date of Service: 07/05/23 Event Note: Events overnight reviewed. He had no significant issues in terms of bleeding overnight. Reportedly he was trying to eat some eggs this morning and aspirated on them. Was given the Heimlich maneuver for a few minutes. Was unable to clear this. Subsequently a code was called. Emergency room team try to intubate was unsuccessful. At that point a trach had to be placed. Once this was done he was stabilized. Re-evaluated the left neck hematoma and reportedly was draining after the event. Decision was made to take him to the operating room. Brother was informed an informed consent was obtained through the brother as well. Time Spent With Patient Time: Total time managing care of this patient today ____ minutes.
--- NOTE | 2023-07-05 11:05 | PC.NURSE ---
At approximately 0705, entered pt room?with night club manager RN to introduce self as primary?RN and to assess pt's dressings from yesterday's surgery. Dsgs unchanged per night club manager RN - staining outlined on reinforced dressings. No complaints offered by pt at this time.Re-entered pt room for initial shift assessment at approx 0720. Pt A&Ox4. Voice hoarse, no c/o pain. Respirations even and unlabored, O2 sat 98% with nasal cannula sitting outside of nostrils - removed oxygen and tolerating RA - O2 sat maintaining >95%. Dressings remain unchanged since shift change. No edema noted to lower extremities. Assessed pedal pulses - R pedal pulse normal, unable to palpate L pedal pulse. LLE warm to touch, skin appropriate for patient - no signs of poor circulation. This RN left pt room to obtain doppler.? Re-entered pt room at approx 0744 to pt coughing, stated I'm choking and pointing to apple juice on his breakfast tray. SHAKEEL Leos entered room and was able to connect suction to wall and remove some pieces of egg from pt's mouth. Pt unable to expel food independently, unable to cough. Respiratory entered room at this time and instructed nurses to place pt in seated position. Pt placed in seated position and it was decided to perform the heimlich maneuver. Present staff unsuccessful in dislodging food from pt's airway. ICU director called into room to attempt heimlich, respiratory therapist Leonid followed - both unsuccessful.? It Network Architect reached via telephone and instructed staff to call the Emergency Department to have pt intubated. Dayan gupta called at approx [phone] to expedite resources to ICU to help with airway. Patient with?audible stridor at this time - patient was still sitting up, nodding/shaking head appropriately to answer questions,?O2sat dropped to high 70's / 80's. Report given to CIGAR BRANDERSHAKEEL Celaya.?
--- NOTE | 2023-07-05 11:06 | MHC.SHP ---
Pre-Procedural Eval Section A - 24 Hr Update-Section A only Date of Service: 07/05/23 The patient is an INPATIENT: Yes Changes since office visit: Yes New Medical Problems The patient has been examined within 24 hours of the surgical procedure. The History & Physical has been completed within 30 days and I have reviewed it.: Yes Section B - Complete if H&P > 30 days Chief Complaint: Postop Allergies: Allergies Allergy/AdvReac Type Severity Reaction Status Date / Time Penicillins Allergy Severe throat Verified 06/28/23 13:56 swelling Blue Dye Allergy Severe throat Uncoded 06/28/23 13:56 swelling Latex Allergy Severe Rash, Uncoded 06/28/23 13:56 Hives, whole hand Plan I have reviewed the history and physical and performed a pertinent physical examination on my patient. No changes have occurred unless specified. Time Spent With Patient Time: Total time managing care of this patient today ____ minutes.
--- NOTE | 2023-07-05 11:07 | W.PM.OPN ---
Operative Note Operative Note Date of Service: 07/05/23 Narrative: Operative note by [facility] Preoperative diagnosis: Left neck hematoma Postoperative diagnosis: Same Procedure: Left neck hematoma evacuation Surgeon:Davey Amezcua M.D. Rough And Truing Machine Operator: Dr. Marmolejo Anesthesia: General Specimens: None Drains: None Estimated blood loss: 50 cc Indications: 68-year-old gentleman who underwent left carotid endarterectomy yesterday. Had a hematoma and this morning aspirated on some eggs. Was subsequently trached. Due to the hematoma decision was made to take him back to the OR for evaluation and hematoma evacuation The patient has signed the informed consent after reviewing risks, complications, benefits, and alternatives previously discussed with the patient. The patient was given the opportunity to ask any additional questions or voice any concerns. All questions were answered to the patient's satisfaction. Procedure in detail: Patient was brought to the operating room prior to which a time-out was called for patient identification and site verification left neck was prepped and draped in standard surgical fashion. We reopened the previous neck incision. This was taken down through the skin subQ and fascia. Once this was accomplished we then evacuated the hematoma. We placed cerebellar retractors. Evacuated the hematoma. Wound was thoroughly irrigated out. We did a extensive search throughout the entire wound bed. There was no active sites of bleeding encountered. There was a previously ligated external jugular vein which was hemostatic. This was Kalyan ligated to ensure hemostasis. Once hematoma was fully evacuated we then placed Tisseel sealant. This all appeared to be hemostatic. Deep layer was reapproximated using 2 0 Polysorb superficial layer with 3-0 poly Sorb and finally skin with a running subcuticular 4-0 Monocryl. Sterile dressing was applied. At the end the case sponge instrument counts were correct. Patient tolerated the procedure well. Returned to recovery with stable vitals. Brother was called at the conclusion of the case and in informed about overall status. In addition case was discussed with the ICU team. This note is constructed using voice recognition software. While every effort has been made to ensure accuracy, civil designer errors may have been included. Thank you for allowing me to participate in the care of your patient. Yours sincerely, Davey Amezcua MD, FACS, R.P.V.I.
--- NOTE | 2023-07-05 11:25 | P.POSTANES_ITS ---
Post Anesthesia Evaluation Post Anesthesia Evaluation Date of Service: 07/05/23 Vital Signs: Vital Signs Temp Pulse Resp BP Pulse Ox O2 Del Method O2 Flow Rate 07/05/23 11:00 90 12 103/46 L 97 Mechanical Ventilation 07/05/23 10:50 07/05/23 09:00 98 22 H 127/55 L 98 Mechanical Ventilation 07/05/23 08:26 07/05/23 07:00 81 12 118/46 L 98 Nasal Cannula 2 07/05/23 06:00 90 12 157/52 H 97 Nasal Cannula 2 07/05/23 05:00 78 18 149/47 H 97 Nasal Cannula 2 07/05/23 05:00 77 13 144/46 H 95 Nasal Cannula 2 07/05/23 04:00 80 12 140/48 H 97 Nasal Cannula 2 07/05/23 03:00 79 14 121/51 L 98 Nasal Cannula 2 07/05/23 02:00 97.9 F 79 11 L 137/47 L 97 Nasal Cannula 2 07/05/23 01:28 98.1 F 07/05/23 01:00 78 11 L 141/49 H 97 Nasal Cannula 2 07/05/23 00:00 85 12 158/98 H 98 Nasal Cannula 2 FiO2 07/05/23 11:00 80 07/05/23 10:50 80 07/05/23 09:00 07/05/23 08:26 100 07/05/23 07:00 07/05/23 06:00 07/05/23 05:00 07/05/23 05:00 07/05/23 04:00 07/05/23 03:00 07/05/23 02:00 07/05/23 01:28 07/05/23 01:00 07/05/23 00:00 Anesthesia: General Endotracheal-GETA Mental Status: Sedated Pain Control: Satisfactory Nausea/Vomiting: None Hydration: Adequate Anesthesia-Related Issues: No Anes. Related Issues Comments: was called stat to patients room left neck extensive hematoma with airway com promise. at time ER attending was attempting intubation several times with poor visualization due to tracheal shift. as I was about to attempt emergency airway tracheostomyoerformed by surgeon. Patient going emergent to OR for neck exploration.
--- NOTE | 2023-07-05 13:16 | P.OP_ITS ---
Operative Note Operative Note Date of Service: 07/05/23 Narrative: Preoperative diagnosis: [] Respiratory arrest, neck hematoma, inability to intubate Postop diagnosis: [] The same Procedure [] emergent tracheostomy at bedside in ICU Surgeon: [] Masood Concrete Tile Machine Operator: [] Evy Hilario Type of Anesthesia: [] See anesthesia note Indication for surgery: [] Urgent airway Findings: [] Patient is approximately 1 day status post carotid endarterectomy. There was concern of airway compromise secondary to wound hematoma, aspiration, and patient went to respiratory arrest and was unable to be intubated by either the ER physician or the anesthesia physician. Procedure ;emergently, the patient's neck and chest area were prepped with Betadine at the bedside in the ICU and a transverse incision made approximately 2 fingerbreadths above the sternal notch. This carried down through skin, subcutaneous tissue, cervical fascia. The isthmus of the thyroid was retracted superiorly and a transverse incision in the trachea was made proximally between the 2nd and 3rd tracheal rings. A 8. Shiley was advanced into the distal trachea. This was connected to the anesthesia tubing/circuit with good end- tidal CO2, O2 saturations, and chest movement. Wound was irrigated, secured hemostasis. It was closed in the following manner; interrupted inverted dermal 3-0 Vicryl sutures were used to close the skin suture around the tracheostomy site. Tracheostomy was secured via the flange by 2-0 silks to the skin. A Velcro strap was then placed to secure the trachea tube as well. Patient tolerated the procedure well and was stable at completion. Postprocedure chest x-ray is pending. EBL minimal
--- NOTE | 2023-07-05 13:56 | MHC.CM.PN ---
Addendum entered by Alicia Rojas 07/05/23 16:10: Call placed to pt's brother Russel and Sister Leonarda : updates given and questions answered : per siblings, pt lives alone, has no services or dme and is 100% independent in the community. No HCP that they are aware of. Finalization of d/c planning will be reviewed w/pt when he is medically stable. Leonarda is requesting [facility] for RN visits - referral to NA made. Russel to transfer pt to home. CM to follow. Original Note: Pt urgently intubated via emergency tracheostomy at bedside: going to OR for evacuation of hematoma: D/C planning/case management assessment to be completed on 07/04.
[2023-07-05] MEDS: Chlorhexidine Gluc Oral Rinse 15 ML MOUTHWASH BUCCAL ×2 (14:02→21:22)
[2023-07-05] MEDS: propofoL 1,000 MG/100 ML VIAL 13.38 MG IVCONT (14:03)
--- NOTE | 2023-07-05 14:44 | P.PNCC_ITS ---
Subjective Subjective Date of Service: 07/05/23 Interval History: 68-year-old gentleman with underlying history of hypertension, hyperlipidemia, CAD, RA, carotid stenosis postoperative day 1 after an elective left carotid endarterectomy. This a.m. patient with choking on an egg with development of stridor, unable to clear airway with Heimlich maneuver, intubation attempted by ER/anesthesia, but unable to endotracheally intubate secondary to distorted airway from carotid endarterectomy surgery hematoma requiring emergent bedside tracheostomy, no loss of pulse through the episode. Thereafter, patient taken to OR to re-explore carotid endarterectomy site with no active bleeding noted. No events overnight. Critical Care Time (minutes): 60 Physical Exam 2 Vital Signs: Vital Signs: Last Vital Signs Temp 97.9 F 07/05/23 02:00 Pulse 82 07/05/23 14:00 Resp 16 07/05/23 14:00 BP 112/43 L 07/05/23 14:00 Pulse Ox 98 07/05/23 14:00 O2 Del Method Mechanical Ventil ation 07/05/23 14:00 O2 Flow Rate 2 07/05/23 07:00 FiO2 80 07/05/23 14:00 BMI result Body Mass Index 33.1 Const: General: no acute distress and other (Sedated on the vent) Eyes: Sclerae: sclerae normal EOM: EOMs intact bilaterally Neck: Neck: Yes no lymphadenopathy, Yes trachea midline, Yes supple and Yes tracheostomy present (On vent) Resp: Auscultation: clear to auscultation bilaterally Cardio: Rate: regular rate Rhythm: regular rhythm Heart sounds: no gallops, no murmurs and no rubs GI: Palpation (GI): Soft to palpation and Other GI palpation findings present ( Nontender) Auscultation: normal bowel sounds Extrem: General: Yes no pedal edema, No clubbing and No cyanosis Objective Data Labs 07/05/23 04:50 07/05/23 04:50 Labs: Laboratory Results - last 24 hr 07/04/23 07/05/23 09:51 04:50 WBC 17.2 H RBC 3.87 L D Hgb 12.5 L D Hct 35.8 L D MCV 92.5 MCH 32.3 MCHC 34.9 RDW 12.8 Plt Count 268 MPV 9.2 L Immature Gran % (Auto) 0.3 Neut % (Auto) 80.6 H Lymph % (Auto) 10.3 L [place] % (Auto) 8.3 Eos % (Auto) 0.2 Baso % (Auto) 0.3 Lymph # (Auto) 1.8 [place] # (Auto) 1.4 H Eos # (Auto) 0.0 Baso # (Auto) 0.1 Abs Immat Gran (auto) 0.06 H Absolute Neuts (auto) 13.9 H Absolute Nucleated RBC 0.000 Nucleated RBC % (auto) 0.0 PT Cancelled INR Cancelled APTT Cancelled Sodium 139 Potassium 3.9 Chloride 106 Carbon Dioxide 26 Anion Gap 11 L BUN 12 Creatinine 0.69 Estim Creat Clear Calc 126.5 Estimated GFR > 60 Random Glucose 100 Calcium 8.2 L D Progress Note: A&P Assessment and plan (1) Status post tracheostomy: Status: Acute (2) Coronary artery disease: Status: Acute (3) Status post carotid endarterectomy: Status: Acute (4) Seropositive rheumatoid arthritis: Status: Acute Plan Assessment: 68-year-old gentleman postoperative day 1 after an elective endarterectomy with postop hematoma, choked on egg requiring bedside emergent tracheostomy Plan: Neuro: No acute issues. Cardiac: Status post elective endarterectomy. Vascular surgery service care appreciated. Underlying history of CAD. Pulmonary: Status post emergent bedside tracheostomy with choking on an egg and inability to intubate secondary to distorted airway. Thoracic surgery service care appreciated. Renal: No acute issues. Endo: No acute issues. GI: No acute issues. ID: No acute issues Heme/Onc: No acute issues. Psych: No acute issues. Miscellaneous: No acute issues. Prophylaxis: Pneumatic compression Diet: NPO Critical care time spent: 60 minutes Quality Stroke Does the patient have a stroke diagnosis?: No VTE Prior VTE?: No VTE Risk Level:: Medical - moderate - high VTE Device Contraindication: N/A - Device Ordered VTE Drug Contraindication: Treatment Not Indicated
--- NOTE | 2023-07-05 15:37 | W.ED.CONS.HO ---
Consult Details Consult Details: 0746: ED called for emergent intubation and code blue called overhead by ICU. Patient unable to provide history due to medical condition. ROS: Unable to obtain due to medical condition. Physical Exam: On arrival patient noted to be in a sitting position without oxygen, audible stridor, color reassuring without cyanosis, no IV access, noted hematoma to left and anterior portion of the neck. MDM: On arrival, patient was receiving Heimlich maneuver but awake and SpO2 monitor noted to read 98% but increased work of breathing appreciated clinically with audible stridor and noted anterior/left swelling concerning for expanding hematoma and I was informed just prior to entering the room that patient is postop day 1 from left endarterectomy. No IV access at present as there was accidental dislodgement. As stated previously concern for expanding hematoma and imminent loss of airway. Instructed patient to be laid flat and application of 100% non-rebreather as well as requested intubation equipment and medication, nursing at the foot of the bed requesting IO access and confirmed. Patient received 20 mg of etomidate and 120 mg of rocuronium with easy ventilation after sedated and paralyzed. Please read the procedure note for detailed events. On initial visualization with the glide scope airway significantly distorted and no ability to visualize epiglottis or vocal cords and requested that General surgery and anesthesia be paged stat both of whom arrived with any brief period of time and although anesthesia initially attempted intubation general surgery ultimately placed a surgical airway with good success. Procedures Intubation Intubation Type:: Emergency Endotracheal Intubation Intubation Date:: 07/05/23 Time out performed: No sedative: Etomidate Mg Given: 20 paralytic: Rocuronium Mg Given: 120 Laryngoscope: fiber optic video scope ET Tube Size: 8 ET Tube Uncuffed: No Patient Tolerated Procedure: well Intubation Complications: unable to intubate, difficult intubation and surgical airway needed Additional Comments: Unable to identify epiglottis/vocal cords despite repositioning, small amount of blood noted in the airway, airway significantly edematous with suspected displacement to the right, anesthesia took over but definitive airway was placed surgically by Dr. Correia
[2023-07-05] MEDS: cefTRIAXone sodium 1 GM in 0.9 % Sodium Chloride 50 ML IV (16:15)
--- NOTE | 2023-07-05 17:18 | PC.NURSE ---
Assumed care of patient when assisting patient with coughing/choking episode at approx 0745 - attempted to be suctioned by RT & heimlich maneuver performed. Patient had severe stridor post heimlich / suction attempt. O2sat remaining in 80's. Patient alert & able to follow directions, but concern for compromised airway - Code blue called. Assisted patient to be supine - Dr Keller responded with ED staff. Loss of IV access during choking episode - IO inserted right tibia & 18g inserted to the right AC. Etomidate & Kirk given per Dr Keller order (see MAR) - patient bagged to keep O2 > 90%. Attempted to intubate patient with glidescope - unable to related to severe swelling when viewing trachea. Dr Keller ordered to consult anesthesia & surgery stat - Dr Troy, Dr Correia, & Dr Hilario responded to bedside @ 0758. Dr Montiel attempted to intubate as well - unable to. Surgical staff came to bedside to assist. Dr Hilario & Dr Correia inserted tracheostomy at bedside @ 0804 - 8 portex inserted, sutured in place. Patient oxygenated via ambu bag through trach by RT at bedside - O2sat remained stable > 90%. Left neck CEA dressing changed by surgical providers after trach insertion. CARLOTA drained remained intact (emptied for 30ml bloody drainage post trach insertion). Dr Vail to bedside - ordered propofol drip for sedation (see MAR). Patient moved from 259 to bigger room - 255, post Trach insertion. Patient put on vent (see vent assessments). Restraints put on for airway safety. CXR done. Dr Amezcua at bedside @ approx 0840. Plan to go to surgery to evacuate clots & reassess neck swelling. Full bath given to patient with linen change. Anesthesia & Dr Amezcua spoke to family for consents. Patient off floor to surgery with Dr Amezcua @ 0925. Back @ approx 1045. Patient came back with new left neck dressing & no CARLOTA drain. Per anesthesia - received sevo, IVP fentanyl, IVP betty, & dose of cefazolin intra-op. RT titrated down FiO2 to 25% through day. In-line suctioned for small amt thin bloody sputum - RT & Dr Vail aware. Left neck dressing did not show any additional staining or bleeding - significant swelling, left neck noted & viewed by Dr Amezcua & Dr Vail (see pic below). Trach stoma continuing to bleed small amounts - dressings reinforced x1. Patient sedated to a RASS of -2 to -3, able to respond to questions by nodding & shaking head appropriately (Dr Vail updated). Handoff report given to Dafne BECKFORD at approx 1600.
[2023-07-05 19:59] LABS: MANUAL DIFF FLAG NO
[2023-07-05 20:03] LABS: Basophils Absolute Auto 0.1 X10*3/uL (0.0-0.2); Basophils Percent Auto 0.3 % (0-2); Eosinophils Absolute Auto 0.1 X10*3/uL (0.0-0.4); Eosinophils Percent Auto 0.7 % (0-4); Hematocrit 34.4 % (42.0-52.0); Imm Gran Abs Auto 0.08 X10*3/uL (0.00-0.03); Imm Gran Pct Auto 0.5 % (0.0-0.4); Lymphocytes Absolute Auto 1.8 X10*3/uL (1.2-4.9); Lymphocytes Percent Auto 10.1 % (20-40); Mean Corpuscular HGB Conc 34.9 g/dl (31.0-36.0); Mean Corpuscular Hemoglobin 32.5 pg (27.0-33.0); Mean Corpuscular Volume 93.2 fL (80.0-98.0); Mean Platelet Volume 9.1 fL (9.4-12.4); Monocytes Absolute Auto 1.4 X10*3/uL (0.1-1.2); Monocytes Percent Auto 8.3 % (2-11); Neutrophils Absolute Auto 13.9 x10*3/uL (2.0-8.3); Neutrophils Percent Auto 80.1 % (45-73); Platelet Count 236 X10*3/uL (160-400); Red Blood Count 3.69 X10*6/uL (4.60-5.80); Red Cell Distribution Width 13.1 % (11.0-16.0); White Blood Count 17.3 X10*3/uL (4.8-10.8)
[2023-07-05 20:18] LABS: Albumin Level 2.9 g/dL (3.5-5.0); Anion Gap 9 (12-20); Blood Urea Nitrogen 14 mg/dL (9-16); Calcium 8.4 mg/dL (8.4-10.2); Carbon Dioxide 25 mmol/L (22-29); Chloride 109 mmol/L (96-108); Creatinine Clr Calc Pharmacy 112.9; Estimated Glomerular Filt Rate > 60; Glucose Random 106 mg/dL (60-115); Magnesium 1.7 mg/dL (1.6-2.6); Phosphorus 2.5 mg/dL (2.7-4.5); Potassium 3.9 mmol/L (3.3-5.1); Sodium 139 mmol/L (135-145)
[2023-07-05] MEDS: Potassium Phosphate/NS 15 MMOL/250 ML PLAST..BAG 62.5 MMOL IV (21:21)
[2023-07-05] MEDS: Albumin Human 25 % 100 ML IV (21:21)
[2023-07-05] MEDS: propofoL 1,000 MG/100 ML VIAL 33.45 MG IVCONT (22:34)
[2023-07-05] MEDS: fentaNYL citrate/PF 100 MCG/2 ML VIAL 50 MCG IVPUSH (23:22)
[2023-07-06] VITALS (34 sets, daily range): BP systolic 94–176; BP diastolic 43–62; PULSE 70–116; RESP 12–31; TEMP 34–37.7; O2SAT 89–100; BMI 34.7
[2023-07-06] MEDS: propofoL 1,000 MG/100 ML VIAL 26.76 MG IVCONT ×2 (01:20→04:52)
[2023-07-06] MEDS: Albumin Human 25 % 100 ML IV ×3 (01:59→15:07)
[2023-07-06 04:53] LABS: ABG Base Excess 2.3 mmol/L; ABG HCO3 25 mmol/L (22-26); ABG pCO2 34 mmHg (32-45); ABG pH 7.47 (7.35-7.45); ABG pO2 77 mmHg (83-108)
[2023-07-06 05:19] LABS: ABG Refer to POC result
[2023-07-06 05:25] LABS: MANUAL DIFF FLAG NO
[2023-07-06 05:26] LABS: Basophils Absolute Auto 0.1 X10*3/uL (0.0-0.2); Basophils Percent Auto 0.3 % (0-2); Eosinophils Absolute Auto 0.1 X10*3/uL (0.0-0.4); Eosinophils Percent Auto 0.7 % (0-4); Hematocrit 30.2 % (42.0-52.0); Hemoglobin 10.4 g/dl (14.0-18.0); Imm Gran Abs Auto 0.06 X10*3/uL (0.00-0.03); Imm Gran Pct Auto 0.4 % (0.0-0.4); Lymphocytes Absolute Auto 1.4 X10*3/uL (1.2-4.9); Lymphocytes Percent Auto 9.1 % (20-40); Mean Corpuscular HGB Conc 34.4 g/dl (31.0-36.0); Mean Corpuscular Hemoglobin 31.9 pg (27.0-33.0); Mean Corpuscular Volume 92.6 fL (80.0-98.0); Mean Platelet Volume 9.2 fL (9.4-12.4); Monocytes Absolute Auto 1.4 X10*3/uL (0.1-1.2); Neutrophils Absolute Auto 12.1 x10*3/uL (2.0-8.3); Neutrophils Percent Auto 80.5 % (45-73); Platelet Count 208 X10*3/uL (160-400); Red Blood Count 3.26 X10*6/uL (4.60-5.80); Red Cell Distribution Width 12.9 % (11.0-16.0); White Blood Count 15.1 X10*3/uL (4.8-10.8)
[2023-07-06 05:41] LABS: Albumin Level 3.3 g/dL (3.5-5.0); Anion Gap 9 (12-20); Blood Urea Nitrogen 15 mg/dL (9-16); Calcium 8.3 mg/dL (8.4-10.2); Carbon Dioxide 25 mmol/L (22-29); Chloride 108 mmol/L (96-108); Estimated Glomerular Filt Rate > 60; Glucose Random 108 mg/dL (60-115); Magnesium 1.8 mg/dL (1.6-2.6); Phosphorus 2.5 mg/dL (2.7-4.5); Potassium 3.7 mmol/L (3.3-5.1); Sodium 138 mmol/L (135-145)
[2023-07-06] MEDS: Potassium Phosphate/NS 15 MMOL/250 ML PLAST..BAG 62.5 MMOL IV (05:54)
[2023-07-06] MEDS: Famotidine/PF 20 MG/2 ML VIAL IVPUSH (08:21)
[2023-07-06] MEDS: Chlorhexidine Gluc Oral Rinse 15 ML MOUTHWASH BUCCAL ×2 (08:21→15:07)
[2023-07-06] MEDS: 0.9 % Sodium Chloride Flush 3 ML SYRINGE IVFLUSH ×2 (08:21→16:05)
--- NOTE | 2023-07-06 08:41 | P.PNGS_ITS ---
Subjective Subjective Date of Service: 07/06/23 Interval history: No events overnight. Weaning sedation and patient beginning to wake up per RN. Physical Exam 2 Vital Signs: Vital Signs: Last Vital Signs Temp 98.8 F 07/06/23 08:00 Pulse 78 07/06/23 08:00 Resp 19 07/06/23 08:00 BP 153/61 H 07/06/23 08:00 Pulse Ox 98 07/06/23 08:00 O2 Del Method Mechanical Ventil ation 07/06/23 08:00 O2 Flow Rate 2 07/05/23 07:00 FiO2 40 07/06/23 08:05 BMI result Body Mass Index 34.7 Neck: Other: trach in place, stay sutures intact, small amount of sanguineous drainage at trach site but no active bleeding noted Resp: Other: on vent Objective Data Active Medications Acetaminophen (Acetaminophen 325 Mg Tablet) 650 mg PO Q6H PRN PRN Reason: Pain, Mild (Pain Scale 1-3) Albuterol Sulfate (Albuterol Sulfate (0.083%) 2.5 Mg/3 Ml Vial.Neb) 2.5 mg INHALE ONCE PRN PRN Reason: Shortness of Breath/Wheezing Chlorhexidine Gluconate (Chlorhexidine Gluc Oral Rinse 15 Ml Mouthwash) 15 ml BUCCAL TID [facility] Last Admin: 07/06/23 08:21 Dose: 15 ml Documented By: MARIA G Famotidine (Famotidine/Pf 20 Mg/2 Ml Vial) 20 mg IVPUSH DAILY [facility] Last Admin: 07/06/23 08:21 Dose: 20 mg Documented By: MARIA G Fentanyl (Fentanyl Citrate/Pf 100 Mcg/2 Ml Vial) 50 mcg IVPUSH Q2H PRN; Protocol PRN Reason: Ventilator synchrony Last Admin: 07/05/23 23:22 Dose: 50 mcg Documented By: DEMI Propofol (Diprivan) 1,000 mg in 100 mls @ 0 mls/hr IVCONT .Q0M [facility]; Protocol Last Admin: 07/06/23 04:52 Dose: 40 mcg/kg/min, 26.76 mls/hr Documented By: DEMI Ceftriaxone Sodium 1 gm/ (Sodium Chloride) 50 mls @ 100 mls/hr IV Q24H [facility] Last Infusion: 07/05/23 16:45 Dose: Infused Documented By: MARIA G Albumin Human (Kedbumin 25 %) 100 mls @ 100 mls/hr IV Q6H [facility] Stop: 07/06/23 15:29 Last Admin: 07/06/23 08:21 Dose: 100 mls/hr Documented By: MARIA G Potassium Phosphate (Kphos) 15 mmol in 250 mls @ 62.5 mls/hr IV ONCE ONE Stop: 07/06/23 09:41 Last Admin: 07/06/23 05:54 Dose: 62.5 mls/hr Documented By: DEMI Non-Formulary Medication (Chloroquine Phosphate) 125 mg PO 5XW MING Ondansetron HCl (Ondansetron Hcl 4 Mg/2 Ml Vial) 4 mg IVPUSH ONCE PRN PRN Reason: Nausea and Vomiting Sodium Chloride (0.9 % Sodium Chloride Flush 3 Ml Syringe) 3 ml IVFLUSH QSHIFT MING Last Admin: 07/06/23 08:21 Dose: 3 ml Documented By: MARIA G Labs 07/06/23 04:32 07/06/23 04:32 Labs: Laboratory Results - last 24 hr 07/05/23 07/06/23 07/06/23 19:27 04:32 04:46 MCV 93.2 92.6 MCH 32.5 31.9 MCHC 34.9 34.4 RDW 13.1 12.9 Plt Count 236 208 MPV 9.1 L 9.2 L Immature Gran % (Auto) 0.5 H 0.4 Neut % (Auto) 80.1 H 80.5 H Lymph % (Auto) 10.1 L 9.1 L [place] % (Auto) 8.3 9.0 Eos % (Auto) 0.7 0.7 Baso % (Auto) 0.3 0.3 Lymph # (Auto) 1.8 1.4 [place] # (Auto) 1.4 H 1.4 H Eos # (Auto) 0.1 0.1 Baso # (Auto) 0.1 0.1 Abs Immat Gran (auto) 0.08 H 0.06 H Absolute Neuts (auto) 13.9 H 12.1 H Absolute Nucleated RBC 0.000 0.000 Nucleated RBC % (auto) 0.0 0.0 O2 Saturation 97.0 ABG pH at Pt Temp 7.47 H ABG pCO2 at Pt Temp 34 ABG pO2 at Pt Temp 77 L ABG HCO3 25 ABG Base Excess (Actual) 2.3 Anion Gap 9 L 9 L Estim Creat Clear Calc 112.9 117.0 Estimated GFR > 60 > 60 Random Glucose 106 108 Calcium 8.4 8.3 L Phosphorus 2.5 L 2.5 L Magnesium 1.7 1.8 Albumin 2.9 L 3.3 L Procedures Date of Service Date of Service: 07/06/23 Progress Note: A&P Assessment and plan (1) Status post tracheostomy: Status: Acute Plan POD #1 s/p emergent tracheostomy at bedside in ICU. Trach remains in place with good O2 sats. No acute surgical issues. Time Spent With Patient Time: Total time managing care of this patient today ____ minutes. Quality Stroke Does the patient have a stroke diagnosis?: No VTE Prior VTE?: No VTE Risk Level:: Medical - moderate - high VTE Device Contraindication: N/A - Device Ordered VTE Drug Contraindication: Treatment Not Indicated
--- NOTE | 2023-07-06 09:47 | MHC.CM.PN ---
Addendum entered by Lili Arauz RN 07/06/23 10:06: CM ATTEMPTED TO CONTACT PT'S SISTER MERCED AT 9:55AM AT BELOW NUMBER, PHONE RINGS HOWEVER NO ANSWER AND NO VOICEMAIL PICKS UP. Original Note: EMR REVIEWED, PER ICU ROUNDS PLAN FOR TRIAL OF TRACH COLLAR AND IF PT DOES WELL FOR 24HRS W/CUFF DEFLATED PT WILL BE EXTUBATED, CM MET W/PT AND PT ALERT AND APPEARS ORIENTED, WATCHING THE NEWS AND GAVE CM A THUMBS UP WHEN CM LET HIM KNOW HE WOULD CONTACT JOSÉ MIGUEL FOR AN UPDATE, CM UPDATED PT'S SON JOSÉ MIGUEL AT 9:42AM [phone] AND WILL BE IN TO VISIT PT, JOSÉ MIGUEL DID REQUEST CM ALSO CONTACT PT'S SISTER MERCED SHE IS A NURSE AT [phone], CM ATTEMPTED TO CONTACT MERCED X2 HOWEVER PHONE NUMBER NOT WORKING, CM TO REVISIT.
--- NOTE | 2023-07-06 10:14 | PM.CCPN ---
Subjective Subjective Date of Service: 07/06/23 Interval History: 68-year-old gentleman with underlying history of hypertension, hyperlipidemia, CAD, RA, carotid stenosis postoperative day 1 after an elective left carotid endarterectomy. This a.m. patient with choking on an egg with development of stridor, unable to clear airway with Heimlich maneuver, intubation attempted by ER/anesthesia, but unable to endotracheally intubate secondary to distorted airway from carotid endarterectomy surgery hematoma requiring emergent bedside tracheostomy, no loss of pulse through the episode. Thereafter, patient taken to OR to re-explore carotid endarterectomy site with no active bleeding noted. No events overnight. Critical Care Time (minutes): 60 Physical Exam Vital Signs: Vital Signs: Last Vital Signs Temp 98.8 F 07/06/23 08:00 Pulse 93 07/06/23 09:00 Resp 21 H 07/06/23 09:00 BP 165/52 H 07/06/23 09:00 Pulse Ox 94 07/06/23 09:00 O2 Del Method Mechanical Ventil ation 07/06/23 09:00 O2 Flow Rate 2 07/05/23 07:00 FiO2 40 07/06/23 09:05 BMI result Body Mass Index 34.7 Const: General: no acute distress, alert and awake Eyes: Sclerae: sclerae normal EOM: EOMs intact bilaterally Neck: Neck: Yes no lymphadenopathy, Yes trachea midline, Yes supple and Yes tracheostomy present (On vent) Resp: Effort & Inspection: normal respiratory effort and no respiratory distress Auscultation: clear to auscultation bilaterally Cardio: Rate: regular rate Rhythm: regular rhythm Heart sounds: no gallops, no murmurs and no rubs GI: Palpation (GI): Soft to palpation and Other GI palpation findings present ( Nontender) Auscultation: normal bowel sounds Extrem: General: Yes no pedal edema, No clubbing and No cyanosis Objective Data Labs 07/06/23 04:32 07/06/23 04:32 Labs: Laboratory Results - last 24 hr 07/05/23 07/06/23 07/06/23 19:27 04:32 04:46 WBC 17.3 H 15.1 H RBC 3.69 L 3.26 L Hgb 12.0 L 10.4 L Hct 34.4 L 30.2 L MCV 93.2 92.6 MCH 32.5 31.9 MCHC 34.9 34.4 RDW 13.1 12.9 Plt Count 236 208 MPV 9.1 L 9.2 L Immature Gran % (Auto) 0.5 H 0.4 Neut % (Auto) 80.1 H 80.5 H Lymph % (Auto) 10.1 L 9.1 L [place] % (Auto) 8.3 9.0 Eos % (Auto) 0.7 0.7 Baso % (Auto) 0.3 0.3 Lymph # (Auto) 1.8 1.4 [place] # (Auto) 1.4 H 1.4 H Eos # (Auto) 0.1 0.1 Baso # (Auto) 0.1 0.1 Abs Immat Gran (auto) 0.08 H 0.06 H Absolute Neuts (auto) 13.9 H 12.1 H Absolute Nucleated RBC 0.000 0.000 Nucleated RBC % (auto) 0.0 0.0 O2 Saturation 97.0 ABG pH at Pt Temp 7.47 H ABG pCO2 at Pt Temp 34 ABG pO2 at Pt Temp 77 L ABG HCO3 25 ABG Base Excess (Actual) 2.3 Sodium 139 138 Potassium 3.9 3.7 Chloride 109 H 108 Carbon Dioxide 25 25 Anion Gap 9 L 9 L BUN 14 15 Creatinine 0.76 0.75 Estim Creat Clear Calc 112.9 117.0 Estimated GFR > 60 > 60 Random Glucose 106 108 Calcium 8.4 8.3 L Phosphorus 2.5 L 2.5 L Magnesium 1.7 1.8 Albumin 2.9 L 3.3 L Progress Note: A&P Assessment and plan (1) Status post carotid endarterectomy: Status: Acute (2) Status post tracheostomy: Status: Acute Plan Assessment: 68-year-old gentleman postoperative day 1 after an elective endarterectomy with postop hematoma, choked on egg requiring bedside emergent tracheostomy Plan: Neuro: No acute issues. Cardiac: Status post elective endarterectomy. Vascular surgery service care appreciated. Underlying history of CAD. Pulmonary: Status post emergent bedside tracheostomy with choking on an egg and inability to intubate secondary to distorted airway. Thoracic surgery service care appreciated. Continue to titrate off ventilatory support as tolerated. Renal: No acute issues. Endo: No acute issues. GI: No acute issues. ID: No acute issues Heme/Onc: No acute issues. Psych: No acute issues. Miscellaneous: No acute issues. Prophylaxis: Pneumatic compression Diet: NPO Critical care time spent: 60 minutes Quality Stroke Does the patient have a stroke diagnosis?: No VTE Prior VTE?: No VTE Risk Level:: Medical - moderate - high VTE Device Contraindication: N/A - Device Ordered VTE Drug Contraindication: Treatment Not Indicated
[2023-07-06] MEDS: fentaNYL citrate/PF 100 MCG/2 ML VIAL 50 MCG IVPUSH (11:36)
--- NOTE | 2023-07-06 13:46 | P.PNVS_ITS ---
Subjective Subjective Date of Service: 07/06/23 Patient reports: no new complaints and feels better Interval history: 68-year-old gentleman status post carotid endarterectomy and take back for bleeding for follow-up. I saw him early this morning and just again at 01:45. Doing extremely well. Off event now on 100% humidified O2 trach collar. Vitals are doing well. He is responding well and gave me the thumbs up. Resting comfortably in bed. Physical Exam Vital Signs: Vital Signs: Last Vital Signs Temp 98.6 F 07/06/23 12:00 Pulse 116 H 07/06/23 13:00 Resp 27 H 07/06/23 13:00 BP 168/55 H 07/06/23 13:00 Pulse Ox 91 L 07/06/23 13:00 O2 Del Method Humidified O2, Tr ach Collar 07/06/23 13:00 O2 Flow Rate 2 07/05/23 07:00 FiO2 35 07/06/23 13:00 BMI result Body Mass Index 34.7 Const: General: cooperative, healthy appearing and comfortable Orientation/consciousness: oriented to person, oriented to place and oriented to time HEENT: Head: Yes normal to inspection Neck: Neck: Yes normal visual inspection Carotids: no bruits Chest: Chest palpation & inspection: normal inspection of the chest Resp: Effort & Inspection: normal respiratory effort and able to speak in complete sentences Auscultation: clear to auscultation bilaterally, no crackles, no rales, no rhonchi and no wheezes Cardio: Rate: regular rate Rhythm: regular rhythm Heart sounds: S1 normal heart sound present and S2 normal heart sound present Bruits: no carotid bruits Peripheral pulses: Peripheral pulses 2+ throughout GI: Inspection: Yes normal to inspection Skin: Other: Left neck appears to be doing relatively well. No other interval expansion of hematoma. Now for follow-up Wounds: no wounds Hair: normal Neuro: General: oriented to person, oriented to place and oriented to time Cranial nerves: Yes CN's II-XII intact bilaterally and Yes Normal hearing present Cognition (Neuro): normal cognition Motor exam (neuro): 5/5 motor strength present throughout Extrem: Other: venous exam: No significant superficial varicosities or spider telangiectasias, minimal edema General: No clubbing, No cyanosis and No edema Psych: Appearance: grossly normal Mental Status: mental status grossly normal Speech and movement: Normal speech and movement present Progress Note: A&P Assessment and plan (1) Status post carotid endarterectomy: Status: Acute Assessment and Plan: In short patient has had left carotid endarterectomy complicated by postop hematoma which was evacuated an aspiration. He continues to improve nicely. Her case was discussed with the ergonomics engineer team and hopes are that he may be off of trach collar by tomorrow. Unfortunately I will be away and Dr. Hilario will be covering this patient for me. I I did have an extensive discussion with his brother Russel regarding his situation and updated him of his overall status. Thank you for the ergonomics engineer team for their assistance in his care. If there are any questions or concerns please do not hesitate to reach out as I will have limited phone contact. Time Spent With Patient Time: Total time managing care of this patient today ____ minutes. Procedures Date of Service Date of Service: 07/06/23 Quality Stroke Does the patient have a stroke diagnosis?: No VTE Prior VTE?: No VTE Risk Level:: Medical - moderate - high VTE Device Contraindication: N/A - Device Ordered VTE Drug Contraindication: Treatment Not Indicated
[2023-07-06] MEDS: cefTRIAXone sodium 1 GM in 0.9 % Sodium Chloride 50 ML IV (15:07)
--- NOTE | 2023-07-06 15:26 | PC.RT ---
Pt awake and coop. Weaned from vent this am to cool mist via trach collar. Post 3 hours MD request PMV trial. pt cuff flat, araceli pmv well, strong phonation and cough with clearing oral sxn. No resp distress.
--- NOTE | 2023-07-06 17:12 | PC.RT ---
Pt araceli PMV x 3 hours. verbal order for decannulation cap trial. Pt cuff cont down, trach collar off, changed pt to 4 lpm humidified o2 via tolentino. Cap placed, pt able to phonate without issue. LS auscultated, audible bilat. Good cough noted. Pt denies any sob or inc wob. request trial cont as araceli over noc. RN aware.
[2023-07-06 18:23] LABS: Glucose, Whole Blood 118 mg/dL (60-115)
[2023-07-06 23:55] LABS: Glucose, Whole Blood 108 mg/dL (60-115)
[2023-07-07] VITALS (26 sets, daily range): BP systolic 88–156; BP diastolic 42–83; PULSE 92–113; RESP 15–28; TEMP 36.2–37.1; O2SAT 3–100; BMI 36.9
[2023-07-07 05:01] LABS: VBG Base Excess 1.6 mmol/L; VBG HCO3 24 mmol/L (22-26); VBG pCO2 31 mmHg; VBG pH 7.49 (7.32-7.43); VBG pO2 68 mmHg
[2023-07-07 05:05] LABS: Venous Blood Gas Refer to POC result
[2023-07-07 05:22] LABS: MANUAL DIFF FLAG NO
[2023-07-07 05:24] LABS: Basophils Absolute Auto 0.1 X10*3/uL (0.0-0.2); Basophils Percent Auto 0.5 % (0-2); Eosinophils Absolute Auto 0.2 X10*3/uL (0.0-0.4); Eosinophils Percent Auto 1.4 % (0-4); Hematocrit 29.5 % (42.0-52.0); Hemoglobin 10.2 g/dl (14.0-18.0); Imm Gran Abs Auto 0.08 X10*3/uL (0.00-0.03); Imm Gran Pct Auto 0.6 % (0.0-0.4); Lymphocytes Absolute Auto 1.1 X10*3/uL (1.2-4.9); Lymphocytes Percent Auto 8.1 % (20-40); Mean Corpuscular HGB Conc 34.6 g/dl (31.0-36.0); Mean Corpuscular Hemoglobin 32.4 pg (27.0-33.0); Mean Corpuscular Volume 93.7 fL (80.0-98.0); Mean Platelet Volume 9.5 fL (9.4-12.4); Monocytes Percent Auto 7.4 % (2-11); Neutrophils Absolute Auto 11.5 x10*3/uL (2.0-8.3); Platelet Count 192 X10*3/uL (160-400); Red Blood Count 3.15 X10*6/uL (4.60-5.80); Red Cell Distribution Width 13.2 % (11.0-16.0)
[2023-07-07 05:41] LABS: Albumin Level 3.6 g/dL (3.5-5.0); Anion Gap 15 (12-20); Blood Urea Nitrogen 17 mg/dL (9-16); Calcium 8.8 mg/dL (8.4-10.2); Carbon Dioxide 21 mmol/L (22-29); Chloride 108 mmol/L (96-108); Creatinine Clr Calc Pharmacy 121.9; Estimated Glomerular Filt Rate > 60; Glucose Random 95 mg/dL (60-115); Magnesium 2.1 mg/dL (1.6-2.6); Phosphorus 1.6 mg/dL (2.7-4.5); Potassium 3.6 mmol/L (3.3-5.1); Sodium 140 mmol/L (135-145)
[2023-07-07] MEDS: Potassium Phosphate/NS 15 MMOL/250 ML PLAST..BAG 62.5 MMOL IV ×2 (07:50→12:02)
--- NOTE | 2023-07-07 08:06 | P.PNGS_ITS ---
Subjective Subjective Date of Service: 07/07/23 Interval history: pt seen for Dr Amezcua pt says he is comfortable some pain on endarterectomy site no events reported Physical Exam 2 Vital Signs: Vital Signs: Last Vital Signs Temp 97.2 F 07/07/23 05:00 Pulse 102 H 07/07/23 07:00 Resp 20 07/07/23 07:00 BP 144/56 H 07/07/23 07:00 Pulse Ox 93 07/07/23 07:00 O2 Del Method Nasal Cannula 07/07/23 07:00 O2 Flow Rate 4 07/07/23 07:00 FiO2 35 07/06/23 16:58 BMI result Body Mass Index 36.9 Const: General: comfortable, no acute distress and alert Neck: Other: trache in place, trache site dry left carotid endarterectomy site clean, dry, some ecchymoses Resp: Effort & Inspection: normal respiratory effort Cardio: Rate: regular rate GI: Palpation (GI): Soft to palpation and not firm Objective Data Active Medications Acetaminophen (Acetaminophen 325 Mg Tablet) 650 mg PO Q6H PRN PRN Reason: Pain, Mild (Pain Scale 1-3) Albuterol Sulfate (Albuterol Sulfate (0.083%) 2.5 Mg/3 Ml Vial.Neb) 2.5 mg INHALE ONCE PRN PRN Reason: Shortness of Breath/Wheezing Chlorhexidine Gluconate (Chlorhexidine Gluc Oral Rinse 15 Ml Mouthwash) 15 ml BUCCAL TID ON LICENSE OF [facility] Last Admin: 07/06/23 22:08 Dose: Not Given Documented By: KENNEDY Non-Admin Reason: NPO Famotidine (Famotidine/Pf 20 Mg/2 Ml Vial) 20 mg IVPUSH DAILY ON LICENSE OF [facility] Last Admin: 07/06/23 08:21 Dose: 20 mg Documented By: MARIA G Fentanyl (Fentanyl Citrate/Pf 100 Mcg/2 Ml Vial) 50 mcg IVPUSH Q2H PRN; Protocol PRN Reason: Pain, Moderate(Pain Scale 4-6) Last Admin: 07/06/23 11:36 Dose: 50 mcg Documented By: MARIA G Propofol (Diprivan) 1,000 mg in 100 mls @ 0 mls/hr IVCONT .Q0M ON LICENSE OF [facility]; Protocol Last Titration: 07/06/23 09:18 Dose: Infused Documented By: MARIA G Ceftriaxone Sodium 1 gm/ (Sodium Chloride) 50 mls @ 100 mls/hr IV Q24H ON LICENSE OF [facility] Last Infusion: 07/06/23 15:38 Dose: Infused Documented By: MARIA G Potassium Phosphate (Kphos) 15 mmol in 250 mls @ 62.5 mls/hr IV Q4H ON LICENSE OF [facility] Stop: 07/07/23 15:59 Last Admin: 07/07/23 07:50 Dose: 62.5 mls/hr Documented By: ADNE Non-Formulary Medication (Chloroquine Phosphate) 125 mg PO 5XW MING Ondansetron HCl (Ondansetron Hcl 4 Mg/2 Ml Vial) 4 mg IVPUSH ONCE PRN PRN Reason: Nausea and Vomiting Sodium Chloride (0.9 % Sodium Chloride Flush 3 Ml Syringe) 3 ml IVFLUSH QSHIFT ON LICENSE OF [facility] Last Admin: 07/07/23 01:05 Dose: Not Given Documented By: KENNEDY Non-Admin Reason: IV Running Labs 07/07/23 04:54 07/07/23 04:54 Labs: Laboratory Results - last 24 hr 07/06/23 07/06/23 07/07/23 18:18 23:43 04:54 MCV 93.7 MCH 32.4 MCHC 34.6 RDW 13.2 Plt Count 192 MPV 9.5 Immature Gran % (Auto) 0.6 H Neut % (Auto) 82.0 H Lymph % (Auto) 8.1 L [place] % (Auto) 7.4 Eos % (Auto) 1.4 Baso % (Auto) 0.5 Lymph # (Auto) 1.1 L [place] # (Auto) 1.0 Eos # (Auto) 0.2 Baso # (Auto) 0.1 Abs Immat Gran (auto) 0.08 H Absolute Neuts (auto) 11.5 H Absolute Nucleated RBC 0.000 Nucleated RBC % (auto) 0.0 VBG pH 7.49 H VBG pCO2 31 VBG pO2 68 VBG HCO3 24 VBG O2 Saturation 93.0 VBG Base Excess 1.6 Anion Gap 15 Estim Creat Clear Calc 121.9 Estimated GFR > 60 POC Glucose 118 H 108 Random Glucose 95 Calcium 8.8 D Phosphorus 1.6 L Magnesium 2.1 Albumin 3.6 Procedures Date of Service Date of Service: 07/07/23 Progress Note: A&P Assessment and plan (1) Status post carotid endarterectomy: Status: Acute Assessment and Plan: doing well after reexploaration of surgical site for hematoma dressings removed incision clean trache in place, but pt currently not breathing through trache wound care rest of plan as per ICU for now will have Hospitalist when transferred out of ICU Time Spent With Patient Time: Total time managing care of this patient today ____ minutes. Quality Stroke Does the patient have a stroke diagnosis?: No VTE Prior VTE?: No VTE Risk Level:: Medical - moderate - high VTE Device Contraindication: N/A - Device Ordered VTE Drug Contraindication: Treatment Not Indicated
[2023-07-07] MEDS: 0.9 % Sodium Chloride Flush 3 ML SYRINGE IVFLUSH ×2 (08:26→23:26)
[2023-07-07] MEDS: Albuterol Sulfate (0.083%) 2.5 MG/3 ML VIAL.NEB INHALE (08:37)
--- NOTE | 2023-07-07 08:37 | HO.POSTANES ---
Post Anesthesia Evaluation Post Anesthesia Evaluation Date of Service: 07/07/23 Vital Signs: Vital Signs Temp Pulse Resp BP Pulse Ox O2 Del Method O2 Flow Rate 07/07/23 08:00 98.2 F 113 H 28 H 146/56 H 97 Trach Collar 07/07/23 07:00 102 H 20 144/56 H 93 Nasal Cannula 4 07/07/23 06:00 100 20 145/54 H 3 L Nasal Cannula 4 07/07/23 05:00 97.2 F 101 H 27 H 129/46 L 92 Nasal Cannula 4 07/07/23 04:00 97.2 F 92 18 130/46 L 100 High Flow Nasal Cannula 4 07/07/23 03:00 102 H 22 H 127/45 L 93 Nasal Cannula 07/07/23 02:00 103 H 21 H 132/46 L 94 Nasal Cannula 4 07/07/23 01:00 102 H 22 H 116/42 L 94 Nasal Cannula 4 07/07/23 00:00 102 H 20 88/60 L 95 Humidified O2 4 07/06/23 23:00 98.0 F 101 H 21 H 122/47 L 94 Humidified O2 4 07/06/23 22:00 103 H 26 H 126/49 L 92 Humidified O2, Trach Collar 4 07/06/23 21:00 106 H 25 H 127/49 L 93 Humidified O2, Trach Collar 4 Anesthesia: General Endotracheal-GETA (tracheostomy) Mental Status: Awake Pain Control: Satisfactory (surgical site pain) Nausea/Vomiting: None Hydration: Adequate Anesthesia-Related Issues: No Anes. Related Issues
--- NOTE | 2023-07-07 09:18 | P.PNCC_ITS ---
Subjective Subjective Date of Service: 07/07/23 Interval History: 68-year-old gentleman with underlying history of hypertension, hyperlipidemia, CAD, RA, carotid stenosis postoperative day 1 after an elective left carotid endarterectomy. This a.m. patient with choking on an egg with development of stridor, unable to clear airway with Heimlich maneuver, intubation attempted by ER/anesthesia, but unable to endotracheally intubate secondary to distorted airway from carotid endarterectomy surgery hematoma requiring emergent bedside tracheostomy, no loss of pulse through the episode. Thereafter, patient taken to OR to re-explore carotid endarterectomy site with no active bleeding noted. Tolerated red capping overnight, but this morning with difficulty coughing up secretions requiring uncapping and suctioning through the tracheostomy. Critical Care Time (minutes): 0 Physical Exam 2 Vital Signs: Vital Signs: Last Vital Signs Temp 98.2 F 07/07/23 08:00 Pulse 107 H 07/07/23 08:38 Resp 18 07/07/23 08:38 BP 146/56 H 07/07/23 08:00 Pulse Ox 97 07/07/23 08:00 O2 Del Method Trach Collar 07/07/23 08:00 O2 Flow Rate 4 07/07/23 07:00 FiO2 35 07/06/23 16:58 BMI result Body Mass Index 36.9 Const: General: no acute distress, alert and awake Eyes: Sclerae: sclerae normal EOM: EOMs intact bilaterally Neck: Neck: Yes no lymphadenopathy, Yes trachea midline, Yes supple and Yes tracheostomy present (On tracheal collar) Resp: Effort & Inspection: normal respiratory effort and no respiratory distress Auscultation: clear to auscultation bilaterally Cardio: Rate: tachycardic Rhythm: regular rhythm Heart sounds: no gallops, no murmurs and no rubs GI: Palpation (GI): Soft to palpation and Other GI palpation findings present ( Nontender) Auscultation: normal bowel sounds Extrem: General: Yes no pedal edema, No clubbing and No cyanosis Objective Data Labs 07/07/23 04:54 07/07/23 04:54 Labs: Laboratory Results - last 24 hr 07/06/23 07/06/23 07/07/23 18:18 23:43 04:54 WBC 14.0 H RBC 3.15 L Hgb 10.2 L Hct 29.5 L MCV 93.7 MCH 32.4 MCHC 34.6 RDW 13.2 Plt Count 192 MPV 9.5 Immature Gran % (Auto) 0.6 H Neut % (Auto) 82.0 H Lymph % (Auto) 8.1 L [place] % (Auto) 7.4 Eos % (Auto) 1.4 Baso % (Auto) 0.5 Lymph # (Auto) 1.1 L [place] # (Auto) 1.0 Eos # (Auto) 0.2 Baso # (Auto) 0.1 Abs Immat Gran (auto) 0.08 H Absolute Neuts (auto) 11.5 H Absolute Nucleated RBC 0.000 Nucleated RBC % (auto) 0.0 VBG pH 7.49 H VBG pCO2 31 VBG pO2 68 VBG HCO3 24 VBG O2 Saturation 93.0 VBG Base Excess 1.6 Sodium 140 Potassium 3.6 Chloride 108 Carbon Dioxide 21 L Anion Gap 15 BUN 17 H Creatinine 0.72 Estim Creat Clear Calc 121.9 Estimated GFR > 60 POC Glucose 118 H 108 Random Glucose 95 Calcium 8.8 D Phosphorus 1.6 L Magnesium 2.1 Albumin 3.6 Progress Note: A&P Assessment and plan (1) Status post carotid endarterectomy: Status: Acute (2) Status post tracheostomy: Status: Acute (3) Coronary artery disease: Status: Acute Plan Assessment: 68-year-old gentleman postoperative day 1 after an elective endarterectomy with postop hematoma, choked on egg requiring bedside emergent tracheostomy Plan: Neuro: No acute issues. Cardiac: Status post elective endarterectomy. Vascular surgery service care appreciated. Underlying history of CAD. Pulmonary: Status post emergent bedside tracheostomy with choking on an egg and inability to intubate secondary to distorted airway. Thoracic surgery service care appreciated. Tolerated registered nurse post partum it overnight, but with increased secretions requiring uncapping and suctioning this morning. Will retry red capping. Renal: No acute issues. Endo: No acute issues. GI: No acute issues. ID: No acute issues Heme/Onc: No acute issues. Psych: No acute issues. Miscellaneous: No acute issues. Prophylaxis: Pneumatic compression Diet: Pending swallow evaluation Quality Stroke Does the patient have a stroke diagnosis?: No VTE Prior VTE?: No VTE Risk Level:: Medical - moderate - high VTE Device Contraindication: N/A - Device Ordered VTE Drug Contraindication: Treatment Not Indicated
--- NOTE | 2023-07-07 09:36 | MHC.CM.PN ---
Pt has been extubated and his trach will be capped today. If pt does well in he next 24 hours, his trach will be removed on 07/07. Pt's original d/c plan was for a return to home w/new [facility] services however, pt does live alone and has limited supports and a [facility] center may need to be considered. Will discuss w/pt on 07/07.
[2023-07-07] MEDS: Famotidine/PF 20 MG/2 ML VIAL IVPUSH (09:54)
--- NOTE | 2023-07-07 13:33 | MHC.SL.SWA ---
Speech Pathologist Impression: Risk of Aspiration Due to: Hx of Recent Extubation Tracheostomy Dysphasia Diet Status: Liquid Consistency and Strategies for Safe Swallow: Liquid Intake Recommendation: NPO Liquid Intake Strategies: Solid Food Consistency: Dietary Recommendations: NPO Additional Modifications to Solid Foods: Oral Medication Intake: NPO Please contact the pharmacy regarding appropriate crushable or liquid drug formulations that are available whenever modified delivery is recommended. Compensatory Strategies and Precautions to be Taken for Safe Swallow: Supervision While Eating and Drinking for Safe Swallow: PO with ASPHALT SMOOTHER Foods to Avoid: Swallowing Recommended Treatments: Compens. Strategy Educat. Recommendation for Speech: Inpatient Speech Therapy Comment: Patient presented with evidence of christian aspiration on trace amount of water given today. Patient likely needs more time to heal, given multiple procedures (carotid surgery and tracheostomy) on neck. Recommend continue NPO at this time, with repeat assessment 07/08/27. , RN notified in person of recommendations. ASPHALT [employer]MOOTHER will continue to follow, re-assess, advance diet when warranted. Frequency/Duration: M-F while inpatient. Date Range for Service Req: Timeline to reassess: Mailing Machine Assistant Clinican/Clinical Fellow: No Supervisory Statement: I have reviewed and agree with the student/clinical fellow's documentation: N/A Speech Language Pathologist: Lili Aviles M.A., CCC-ASPHALT SMOOTHER
[2023-07-07] MEDS: cefTRIAXone sodium 1 GM in 0.9 % Sodium Chloride 50 ML IV (16:37)
[2023-07-07] MEDS: LORazepam 2 MG/ML VIAL 0.5 MG IVPUSH (23:25)
[2023-07-08] VITALS (27 sets, daily range): BP systolic 98–153; BP diastolic 37–119; PULSE 73–106; RESP 13–79; TEMP 36.2–36.6; O2SAT 91–100; BMI 36.5
[2023-07-08 04:46] LABS: VBG Base Excess 1.5 mmol/L; VBG HCO3 24 mmol/L (22-26); VBG pCO2 33 mmHg; VBG pH 7.47 (7.32-7.43); VBG pO2 84 mmHg
[2023-07-08 04:57] LABS: MANUAL DIFF FLAG NO
[2023-07-08 04:57] LABS: Venous Blood Gas Refer to POC result
[2023-07-08 04:58] LABS: Basophils Percent Auto 0.2 % (0-2); Eosinophils Absolute Auto 0.2 X10*3/uL (0.0-0.4); Eosinophils Percent Auto 1.7 % (0-4); Hematocrit 31.2 % (42.0-52.0); Hemoglobin 10.6 g/dl (14.0-18.0); Imm Gran Abs Auto 0.05 X10*3/uL (0.00-0.03); Imm Gran Pct Auto 0.4 % (0.0-0.4); Lymphocytes Percent Auto 6.7 % (20-40); Mean Corpuscular Hemoglobin 32.1 pg (27.0-33.0); Mean Corpuscular Volume 94.5 fL (80.0-98.0); Mean Platelet Volume 9.7 fL (9.4-12.4); Monocytes Absolute Auto 1.1 X10*3/uL (0.1-1.2); Neutrophils Absolute Auto 11.8 x10*3/uL (2.0-8.3); Platelet Count 216 X10*3/uL (160-400); White Blood Count 14.2 X10*3/uL (4.8-10.8)
[2023-07-08 05:14] LABS: Albumin Level 3.5 g/dL (3.5-5.0); Anion Gap 15 (12-20); Blood Urea Nitrogen 20 mg/dL (9-16); Calcium 9.2 mg/dL (8.4-10.2); Carbon Dioxide 24 mmol/L (22-29); Chloride 112 mmol/L (96-108); Creatinine Clr Calc Pharmacy 131.2; Estimated Glomerular Filt Rate > 60; Glucose Random 98 mg/dL (60-115); Magnesium 2.2 mg/dL (1.6-2.6); Phosphorus 2.2 mg/dL (2.7-4.5); Potassium 3.9 mmol/L (3.3-5.1); Sodium 147 mmol/L (135-145)
[2023-07-08] MEDS: Potassium Phosphate/NS 15 MMOL/250 ML PLAST..BAG 62.5 MMOL IV (05:39)
[2023-07-08] MEDS: 0.9 % Sodium Chloride Flush 3 ML SYRINGE IVFLUSH ×2 (08:32→21:43)
[2023-07-08] MEDS: Famotidine/PF 20 MG/2 ML VIAL IVPUSH (08:32)
--- NOTE | 2023-07-08 09:44 | MHC.CLN ---
F/U PT IS DAY 4 NPO CLINICAL MEDICAL TRANSCRIPTIONIST RECOMMENDING NPO AWAITING REPEAT BEDSIDE SWALLOW IF PT TO REMAIN NPO; RECOMMEND TPN AT 50ML/HR TO PROVIDE [id number], 180G DEXTROSE, 60G PROTEIN FOLLOWING WITH TEAM
--- NOTE | 2023-07-08 10:17 | PM.PNGS ---
Subjective Subjective Date of Service: 07/09/23 Interval history: feels well no events reported had failed swallow eval says he did not have problems with swallowing before Physical Exam Vital Signs: Vital Signs: Last Vital Signs Temp 97.4 F 07/08/23 08:00 Pulse 98 07/08/23 08:58 Resp 15 07/08/23 08:58 BP 140/60 H 07/08/23 08:58 Pulse Ox 95 07/08/23 08:58 O2 Del Method Nasal Cannula 07/08/23 08:58 O2 Flow Rate 5 07/08/23 08:58 FiO2 35 07/06/23 16:58 Oxygen Flow Rate 5 07/07/23 10:09 BMI result Body Mass Index 36.5 Const: Other: sitting on recliner General: comfortable and no acute distress Neck: Other: trache site dry; carotid endarterectomy site on left clean and dry; surrounding ecchymoses, no hematoma Resp: Effort & Inspection: normal respiratory effort Cardio: Rate: regular rate Objective Data Active Medications Acetaminophen (Acetaminophen 325 Mg Tablet) 650 mg PO Q6H PRN PRN Reason: Pain, Mild (Pain Scale 1-3) Albuterol Sulfate (Albuterol Sulfate (0.083%) 2.5 Mg/3 Ml Vial.Neb) 2.5 mg INHALE ONCE PRN PRN Reason: Shortness of Breath/Wheezing Last Admin: 07/07/23 08:37 Dose: 2.5 mg Documented By: SOBEIDA Albuterol Sulfate (Albuterol Sulfate (0.083%) 2.5 Mg/3 Ml Vial.Neb) 2.5 mg INHALE Q4H PRN PRN Reason: Wheezing Famotidine (Famotidine/Pf 20 Mg/2 Ml Vial) 20 mg IVPUSH DAILY [facility] Last Admin: 07/08/23 08:32 Dose: 20 mg Documented By: LU Fentanyl (Fentanyl Citrate/Pf 100 Mcg/2 Ml Vial) 50 mcg IVPUSH Q2H PRN; Protocol PRN Reason: Pain, Moderate(Pain Scale 4-6) Last Admin: 07/06/23 11:36 Dose: 50 mcg Documented By: MARIA G Ceftriaxone Sodium 1 gm/ (Sodium Chloride) 50 mls @ 100 mls/hr IV Q24H [facility] Last Infusion: 07/07/23 17:49 Dose: Infused Documented By: DANE Lorazepam (Lorazepam 2 Mg/Ml Vial) 0.5 mg IVPUSH BEDTIME PRN PRN Reason: anxiety/restlessness Last Admin: 07/07/23 23:25 Dose: 0.5 mg Documented By: MYCHAL Non-Formulary Medication (Chloroquine Phosphate) 125 mg PO 5XW MING Ondansetron HCl (Ondansetron Hcl 4 Mg/2 Ml Vial) 4 mg IVPUSH ONCE PRN PRN Reason: Nausea and Vomiting Sodium Chloride (0.9 % Sodium Chloride Flush 3 Ml Syringe) 3 ml IVFLUSH QSHIFT MING Last Admin: 07/08/23 08:32 Dose: 3 ml Documented By: LU Trazodone HCl (Trazodone Hcl 50 Mg Tablet) 50 mg PO BEDTIME PRN PRN Reason: Sleep aid Labs 07/09/23 05:50 07/09/23 05:50 Labs: Laboratory Results - last 24 hr 07/08/23 07/08/23 04:29 04:36 MCV 94.5 MCH 32.1 MCHC 34.0 RDW 13.0 Plt Count 216 MPV 9.7 Immature Gran % (Auto) 0.4 Neut % (Auto) 83.0 H Lymph % (Auto) 6.7 L [place] % (Auto) 8.0 Eos % (Auto) 1.7 Baso % (Auto) 0.2 Lymph # (Auto) 1.0 L [place] # (Auto) 1.1 Eos # (Auto) 0.2 Baso # (Auto) 0.0 Abs Immat Gran (auto) 0.05 H Absolute Neuts (auto) 11.8 H Absolute Nucleated RBC 0.000 Nucleated RBC % (auto) 0.0 VBG pH 7.47 H VBG pCO2 33 VBG pO2 84 VBG HCO3 24 VBG O2 Saturation 97.0 VBG Base Excess 1.5 Anion Gap 15 Estim Creat Clear Calc 131.2 Estimated GFR > 60 Random Glucose 98 Calcium 9.2 Phosphorus 2.2 L Magnesium 2.2 Albumin 3.5 Procedures Date of Service Date of Service: 07/09/23 Progress Note: A&P Assessment and plan (1) Status post carotid endarterectomy: Status: Acute Assessment and Plan: with postop hematoma, exploration in OR looks well surgical sites clean, healing trache in place but pt breathing without need for trach had failed swallow study - no previous swallowoing issues, likely from postop trauma - anticipate improvement of swallow function rest of care as per ICU/MEdical service Time Spent With Patient Time: Total time managing care of this patient today ____ minutes. Quality Stroke Does the patient have a stroke diagnosis?: No VTE Prior VTE?: No VTE Risk Level:: Medical - moderate - high VTE Device Contraindication: N/A - Device Ordered VTE Drug Contraindication: Treatment Not Indicated
--- NOTE | 2023-07-08 10:36 | P.PNCC_ITS ---
Subjective Subjective Date of Service: 07/08/23 Interval History: 68-year-old gentleman with underlying history of hypertension, hyperlipidemia, CAD, RA, carotid stenosis postoperative day 1 after an elective left carotid endarterectomy. This a.m. patient with choking on an egg with development of stridor, unable to clear airway with Heimlich maneuver, intubation attempted by ER/anesthesia, but unable to endotracheally intubate secondary to distorted airway from carotid endarterectomy surgery hematoma requiring emergent bedside tracheostomy, no loss of pulse through the episode. Thereafter, patient taken to OR to re-explore carotid endarterectomy site with no active bleeding noted. Events overnight. Tolerated tracheostomy capped for 24 hours. Critical Care Time (minutes): 0 Physical Exam 2 Vital Signs: Vital Signs: Last Vital Signs Temp 97.4 F 07/08/23 08:00 Pulse 98 07/08/23 08:58 Resp 15 07/08/23 08:58 BP 140/60 H 07/08/23 08:58 Pulse Ox 95 07/08/23 08:58 O2 Del Method Nasal Cannula 07/08/23 08:58 O2 Flow Rate 5 07/08/23 08:58 FiO2 35 07/06/23 16:58 Oxygen Flow Rate 5 07/07/23 10:09 BMI result Body Mass Index 36.5 Const: General: no acute distress, alert and awake Eyes: Sclerae: sclerae normal EOM: EOMs intact bilaterally Neck: Neck: Yes no lymphadenopathy, Yes trachea midline, Yes supple and Yes tracheostomy present (capped) Resp: Effort & Inspection: normal respiratory effort and no respiratory distress Auscultation: clear to auscultation bilaterally Cardio: Rate: regular rate Rhythm: regular rhythm Heart sounds: no gallops, no murmurs and no rubs GI: Palpation (GI): Soft to palpation and Other GI palpation findings present ( Nontender) Auscultation: normal bowel sounds Extrem: General: Yes no pedal edema, No clubbing and No cyanosis Objective Data Labs 07/08/23 04:29 07/08/23 04:29 Labs: Laboratory Results - last 24 hr 07/08/23 07/08/23 04:29 04:36 WBC 14.2 H RBC 3.30 L Hgb 10.6 L Hct 31.2 L MCV 94.5 MCH 32.1 MCHC 34.0 RDW 13.0 Plt Count 216 MPV 9.7 Immature Gran % (Auto) 0.4 Neut % (Auto) 83.0 H Lymph % (Auto) 6.7 L [place] % (Auto) 8.0 Eos % (Auto) 1.7 Baso % (Auto) 0.2 Lymph # (Auto) 1.0 L [place] # (Auto) 1.1 Eos # (Auto) 0.2 Baso # (Auto) 0.0 Abs Immat Gran (auto) 0.05 H Absolute Neuts (auto) 11.8 H Absolute Nucleated RBC 0.000 Nucleated RBC % (auto) 0.0 VBG pH 7.47 H VBG pCO2 33 VBG pO2 84 VBG HCO3 24 VBG O2 Saturation 97.0 VBG Base Excess 1.5 Sodium 147 H Potassium 3.9 Chloride 112 H Carbon Dioxide 24 Anion Gap 15 BUN 20 H Creatinine 0.69 Estim Creat Clear Calc 131.2 Estimated GFR > 60 Random Glucose 98 Calcium 9.2 Phosphorus 2.2 L Magnesium 2.2 Albumin 3.5 Progress Note: A&P Assessment and plan (1) Status post carotid endarterectomy: Status: Acute (2) Status post tracheostomy: Status: Acute Plan Assessment: 68-year-old gentleman postoperative day 1 after an elective endarterectomy with postop hematoma, choked on egg requiring bedside emergent tracheostomy Plan: Neuro: No acute issues. Cardiac: Status post elective endarterectomy. Vascular surgery service care appreciated. Underlying history of CAD. Pulmonary: Status post emergent bedside tracheostomy with choking on an egg and inability to intubate secondary to distorted airway. Thoracic surgery service care appreciated. Tolerated tracheostomy capping for 24 hours. Renal: No acute issues. Endo: No acute issues. GI: No acute issues. ID: No acute issues Heme/Onc: No acute issues. Psych: No acute issues. Miscellaneous: No acute issues. Prophylaxis: Pneumatic compression Diet: Pending swallow evaluation Quality Stroke Does the patient have a stroke diagnosis?: No VTE Prior VTE?: No VTE Risk Level:: Medical - moderate - high VTE Device Contraindication: N/A - Device Ordered VTE Drug Contraindication: Treatment Not Indicated
[2023-07-08] MEDS: fentaNYL citrate/PF 100 MCG/2 ML VIAL 25 MCG IVPUSH (11:43)
[2023-07-08] MEDS: Dextrose 5 % and Lactated Ring 1,000 ML 100 ML IVCONT ×2 (11:57→21:40)
--- NOTE | 2023-07-08 11:57 | PC.RT ---
Pt airway downsized by Dr. Vail. Pt was awake, in the correct position, hyper oxygenated and medicated for the procedure. The stitches were removed and a sterile budgie was used to enter the airway. The existing #8 portex was easily removed over the budgie and the uncuffed #6.5 shiley was inserted in a sterile fashion x 1 attempt with no resistance. There was no bleeding noted pre, during or post procedure. Placement comfirmed with audible lungs sounds and passing a 12fr suction cath and sxn small secretions. A spare 6.5 uncuffed and 6.5 cuffed shiley are present at bedside.
--- NOTE | 2023-07-08 12:08 | MHC.CM.PN ---
Pt alert, conversant and doing well w/capped trach. On [place] cannula at 5 liters. Pt failed swallow eval on 07/06 and will have another trial today. Pt able to complete a HCP naming his brother and sister as agents: copy in chart and one given to each sibling in addition to pt. Discussed d/c options including STR - pt and brother state they will see how pt does in the next few days before agreeing to broad referrals. Pt has been referred to NA for new skilled RN visits. CM to follow.
--- NOTE | 2023-07-08 13:06 | MHC.SL.SWA ---
Addendum entered and electronically signed by Johanny Johnson MA, CCC-PHYSICAL MEDICINE PHYSICIAN 07/08/23 14:23: PHYSICAL MEDICINE PHYSICIAN returned to re-evaluate this afternoon per Dr. Vail's request after pt's trach was downsized. Patient continues to cough on trace ice chips. Per Radiology, no availability today for MBSS. Recommend continue NPO status at this time. PHYSICAL MEDICINE PHYSICIAN is available for call-in through [employer] over the weekend if needed. PHYSICAL MEDICINE PHYSICIAN will continue to follow. Original Note: Speech Pathologist Impression: Risk of aspiration, oropharyngeal dysphagia Risk of Aspiration Due to: Hx of Recent Extubation Tracheostomy Dysphasia Diet Status: No changes at this time Liquid Consistency and Strategies for Safe Swallow: Liquid Intake Recommendation: NPO Solid Food Consistency: Dietary Recommendations: NPO Additional Modifications to Solid Foods: Patient presented with evidence of christian aspiration on trace amount of ice chips/water. Patient likely needs more time to heal, given multiple procedures (carotid surgery and tracheostomy) on neck. Recommend continue NPO status at this time. PHYSICAL MEDICINE PHYSICIAN is available for call-in if needed over the weekend- , RN notified in person. Oral Medication Intake: NPO Please contact the pharmacy regarding appropriate crushable or liquid drug formulations that are available whenever modified delivery is recommended. Supervision While Eating and Drinking for Safe Swallow: PO with PHYSICAL MEDICINE PHYSICIAN Swallowing Recommended Treatments: Pharyngeal Resistive Exer Compens. Strategy Educat. Vocal Cord Adduction Exer Recommendation for Speech: Inpatient Speech Therapy Comment: Patient presented with evidence of christian aspiration on trace amount of water given today. Patient likely needs more time to heal, given multiple procedures (carotid surgery and tracheostomy) on neck. PHYSICAL MEDICINE PHYSICIAN will continue to follow, re-assess, advance diet when warranted. Frequency/Duration: M-F while inpatient. Date Range for Service Req: Timeline to reassess: Molder Offbearer Clinican/Clinical Fellow: No Supervisory Statement: I have reviewed and agree with the student/clinical fellow's documentation: N/A Speech Language Pathologist: Johanny Johnson M.A., CCC-PHYSICAL MEDICINE PHYSICIAN
[2023-07-08] MEDS: cefTRIAXone sodium 1 GM in 0.9 % Sodium Chloride 50 ML IV (14:33)
[2023-07-08] MEDS: LORazepam 2 MG/ML VIAL 0.5 MG IVPUSH (23:34)
[2023-07-09] VITALS (14 sets, daily range): BP systolic 124–151; BP diastolic 45–111; PULSE 72–99; RESP 15–20; TEMP 36.1–36.6; O2SAT 93–100
[2023-07-09 05:59] LABS: VBG HCO3 29 mmol/L (22-26); VBG pCO2 37 mmHg; VBG pH 7.49 (7.32-7.43); VBG pO2 58 mmHg
[2023-07-09 06:16] LABS: MANUAL DIFF FLAG NO
[2023-07-09 06:19] LABS: Basophils Percent Auto 0.3 % (0-2); Eosinophils Absolute Auto 0.6 X10*3/uL (0.0-0.4); Hematocrit 33.4 % (42.0-52.0); Hemoglobin 11.1 g/dl (14.0-18.0); Imm Gran Abs Auto 0.06 X10*3/uL (0.00-0.03); Imm Gran Pct Auto 0.5 % (0.0-0.4); Lymphocytes Absolute Auto 1.1 X10*3/uL (1.2-4.9); Lymphocytes Percent Auto 9.5 % (20-40); Mean Corpuscular HGB Conc 33.2 g/dl (31.0-36.0); Mean Corpuscular Hemoglobin 31.7 pg (27.0-33.0); Mean Corpuscular Volume 95.4 fL (80.0-98.0); Mean Platelet Volume 9.5 fL (9.4-12.4); Monocytes Absolute Auto 1.1 X10*3/uL (0.1-1.2); Monocytes Percent Auto 8.9 % (2-11); Neutrophils Absolute Auto 8.9 x10*3/uL (2.0-8.3); Neutrophils Percent Auto 75.8 % (45-73); Platelet Count 264 X10*3/uL (160-400); Red Cell Distribution Width 13.2 % (11.0-16.0); White Blood Count 11.8 X10*3/uL (4.8-10.8)
[2023-07-09 06:34] LABS: Albumin Level 3.5 g/dL (3.5-5.0); Anion Gap 10 (12-20); Blood Urea Nitrogen 21 mg/dL (9-16); Calcium 9.4 mg/dL (8.4-10.2); Carbon Dioxide 28 mmol/L (22-29); Chloride 115 mmol/L (96-108); Creatinine Clr Calc Pharmacy 145.3; Estimated Glomerular Filt Rate > 60; Glucose Random 119 mg/dL (60-115); Magnesium 2.2 mg/dL (1.6-2.6); Phosphorus 1.8 mg/dL (2.7-4.5); Potassium 3.7 mmol/L (3.3-5.1); Sodium 149 mmol/L (135-145)
[2023-07-09] MEDS: Dextrose 5 % and Lactated Ring 1,000 ML 100 ML IVCONT (08:07)
[2023-07-09] MEDS: Famotidine/PF 20 MG/2 ML VIAL IVPUSH (08:08)
[2023-07-09] MEDS: Potassium Phosphate/NS 15 MMOL/250 ML PLAST..BAG 62.5 MMOL IV ×2 (08:08→13:39)
--- NOTE | 2023-07-09 10:02 | P.PNCC_ITS ---
Subjective Subjective Date of Service: 07/09/23 Interval History: 68-year-old gentleman with underlying history of hypertension, hyperlipidemia, CAD, RA, carotid stenosis postoperative day 1 after an elective left carotid endarterectomy. This a.m. patient with choking on an egg with development of stridor, unable to clear airway with Heimlich maneuver, intubation attempted by ER/anesthesia, but unable to endotracheally intubate secondary to distorted airway from carotid endarterectomy surgery hematoma requiring emergent bedside tracheostomy, no loss of pulse through the episode. Thereafter, patient taken to OR to re-explore carotid endarterectomy site with no active bleeding noted. Now tolerating tracheostomy being capped for over 24 hours. No events overnight. Critical Care Time (minutes): 0 Physical Exam 2 Vital Signs: Vital Signs: Last Vital Signs Temp 97.3 F 07/09/23 08:00 Pulse 84 07/09/23 09:00 Resp 15 07/09/23 08:00 BP 137/54 L 07/09/23 09:00 Pulse Ox 99 07/09/23 09:00 O2 Del Method Nasal Cannula 07/09/23 09:00 O2 Flow Rate 3 07/09/23 09:00 FiO2 35 07/06/23 16:58 Oxygen Flow Rate 5 07/08/23 11:00 BMI result Body Mass Index 36.5 Const: General: no acute distress, alert and awake Eyes: Sclerae: sclerae normal EOM: EOMs intact bilaterally Neck: Neck: Yes trachea midline, Yes supple and Yes tracheostomy present (Capped) Resp: Effort & Inspection: normal respiratory effort and no respiratory distress Auscultation: clear to auscultation bilaterally Cardio: Rate: regular rate Rhythm: regular rhythm Heart sounds: no gallops, no murmurs and no rubs GI: Palpation (GI): Soft to palpation and Other GI palpation findings present ( Nontender) Auscultation: normal bowel sounds Extrem: General: Yes no pedal edema, No clubbing and No cyanosis Objective Data Labs 07/09/23 05:50 07/09/23 05:50 Labs: Laboratory Results - last 24 hr 07/09/23 07/09/23 05:50 05:51 WBC 11.8 H RBC 3.50 L Hgb 11.1 L Hct 33.4 L MCV 95.4 MCH 31.7 MCHC 33.2 RDW 13.2 Plt Count 264 MPV 9.5 Immature Gran % (Auto) 0.5 H Neut % (Auto) 75.8 H Lymph % (Auto) 9.5 L [place] % (Auto) 8.9 Eos % (Auto) 5.0 H Baso % (Auto) 0.3 Lymph # (Auto) 1.1 L [place] # (Auto) 1.1 Eos # (Auto) 0.6 H Baso # (Auto) 0.0 Abs Immat Gran (auto) 0.06 H Absolute Neuts (auto) 8.9 H Absolute Nucleated RBC 0.000 Nucleated RBC % (auto) 0.0 VBG pH 7.49 H VBG pCO2 37 VBG pO2 58 VBG HCO3 29 H VBG O2 Saturation 88.0 VBG Base Excess 6.0 Sodium 149 H Potassium 3.7 Chloride 115 H Carbon Dioxide 28 Anion Gap 10 L BUN 21 H Creatinine 0.62 Estim Creat Clear Calc 145.3 Estimated GFR > 60 Random Glucose 119 H Calcium 9.4 Phosphorus 1.8 L Magnesium 2.2 Albumin 3.5 Progress Note: A&P Assessment and plan (1) Status post carotid endarterectomy: Status: Acute (2) Status post tracheostomy: Status: Acute Plan Assessment: 68-year-old gentleman postoperative day 1 after an elective endarterectomy with postop hematoma, choked on egg requiring bedside emergent tracheostomy Plan: Neuro: No acute issues. Cardiac: Status post elective endarterectomy. Vascular surgery service care appreciated. Underlying history of CAD. Pulmonary: Status post emergent bedside tracheostomy with choking on an egg and inability to intubate secondary to distorted airway. Thoracic surgery service care appreciated. Tolerated tracheostomy capped for over 24 hours. Renal: No acute issues. Endo: No acute issues. GI: No acute issues. ID: No acute issues Heme/Onc: No acute issues. Psych: No acute issues. Miscellaneous: No acute issues. Prophylaxis: Pneumatic compression Diet: Pending swallow evaluation Quality Stroke Does the patient have a stroke diagnosis?: No VTE Prior VTE?: No VTE Risk Level:: Medical - moderate - high VTE Device Contraindication: N/A - Device Ordered VTE Drug Contraindication: Treatment Not Indicated
--- NOTE | 2023-07-09 11:12 | P.PNGS_ITS ---
Subjective Subjective Date of Service: 07/10/23 Interval history: No events reported Patient denies new complaints Tracheostomy has been capped Physical Exam 2 Vital Signs: Vital Signs: Last Vital Signs Temp 97.3 F 07/09/23 08:00 Pulse 84 07/09/23 09:00 Resp 15 07/09/23 08:00 BP 137/54 L 07/09/23 09:00 Pulse Ox 99 07/09/23 09:00 O2 Del Method Nasal Cannula 07/09/23 09:00 O2 Flow Rate 3 07/09/23 09:00 FiO2 35 07/06/23 16:58 Oxygen Flow Rate 5 07/08/23 11:00 BMI result Body Mass Index 36.5 Const: General: comfortable and no acute distress Neck: Other: Tracheostomy site clean, endarterectomy site healing, ecchymosis noted, no obvious hematoma Resp: Other: Tracheostomy capped Effort & Inspection: normal respiratory effort GI: Palpation (GI): Soft to palpation and nontender Objective Data Active Medications Acetaminophen (Acetaminophen 325 Mg Tablet) 650 mg PO Q6H PRN PRN Reason: Pain, Mild (Pain Scale 1-3) Albuterol Sulfate (Albuterol Sulfate (0.083%) 2.5 Mg/3 Ml Vial.Neb) 2.5 mg INHALE ONCE PRN PRN Reason: Shortness of Breath/Wheezing Last Admin: 07/07/23 08:37 Dose: 2.5 mg Documented By: SOBEIDA Albuterol Sulfate (Albuterol Sulfate (0.083%) 2.5 Mg/3 Ml Vial.Neb) 2.5 mg INHALE Q4H PRN PRN Reason: Wheezing Famotidine (Famotidine/Pf 20 Mg/2 Ml Vial) 20 mg IVPUSH DAILY [facility] Last Admin: 07/09/23 08:08 Dose: 20 mg Documented By: SOFFAYvon Fentanyl (Fentanyl Citrate/Pf 100 Mcg/2 Ml Vial) 50 mcg IVPUSH Q2H PRN; Protocol PRN Reason: Pain, Moderate(Pain Scale 4-6) Last Admin: 07/06/23 11:36 Dose: 50 mcg Documented By: MARIA G Ceftriaxone Sodium 1 gm/ (Sodium Chloride) 50 mls @ 100 mls/hr IV Q24H [facility] Last Infusion: 07/08/23 15:05 Dose: Infused Documented By: LU Dextrose/Lactated Ringer's (D5lr) 1,000 mls @ 50 mls/hr IVCONT .Q20H [facility]ING Last Infusion: 07/09/23 10:47 Dose: 50 mls/hr Documented By: SHERRYFAYvon Potassium Phosphate (Kphos) 15 mmol in 250 mls @ 62.5 mls/hr IV ONCE ONE Stop: 07/09/23 11:59 Last Admin: 07/09/23 08:08 Dose: 62.5 mls/hr Documented By: SHERRYFAYvon Potassium Phosphate (Kphos) 15 mmol in 250 mls @ 62.5 mls/hr IV ONCE ONE Stop: 07/09/23 15:59 Lorazepam (Lorazepam 2 Mg/Ml Vial) 0.5 mg IVPUSH BEDTIME PRN PRN Reason: anxiety/restlessness Last Admin: 07/08/23 23:34 Dose: 0.5 mg Documented By: MYCHAL Non-Formulary Medication (Chloroquine Phosphate) 125 mg PO 5XW MING Ondansetron HCl (Ondansetron Hcl 4 Mg/2 Ml Vial) 4 mg IVPUSH ONCE PRN PRN Reason: Nausea and Vomiting Sodium Chloride (0.9 % Sodium Chloride Flush 3 Ml Syringe) 3 ml IVFLUSH QSHIFT MING Last Admin: 07/09/23 07:16 Dose: Not Given Documented By: DANIELLE Non-Admin Reason: See Note Labs 07/10/23 09:07 07/10/23 09:07 Labs: Laboratory Results - last 24 hr 07/09/23 07/09/23 05:50 05:51 MCV 95.4 MCH 31.7 MCHC 33.2 RDW 13.2 Plt Count 264 MPV 9.5 Immature Gran % (Auto) 0.5 H Neut % (Auto) 75.8 H Lymph % (Auto) 9.5 L [place] % (Auto) 8.9 Eos % (Auto) 5.0 H Baso % (Auto) 0.3 Lymph # (Auto) 1.1 L [place] # (Auto) 1.1 Eos # (Auto) 0.6 H Baso # (Auto) 0.0 Abs Immat Gran (auto) 0.06 H Absolute Neuts (auto) 8.9 H Absolute Nucleated RBC 0.000 Nucleated RBC % (auto) 0.0 VBG pH 7.49 H VBG pCO2 37 VBG pO2 58 VBG HCO3 29 H VBG O2 Saturation 88.0 VBG Base Excess 6.0 Anion Gap 10 L Estim Creat Clear Calc 145.3 Estimated GFR > 60 Random Glucose 119 H Calcium 9.4 Phosphorus 1.8 L Magnesium 2.2 Albumin 3.5 Procedures Date of Service Date of Service: 07/10/23 Progress Note: A&P Assessment and plan (1) Status post carotid endarterectomy: Status: Acute Assessment and Plan: Doing well Has been stable after tracheostomy, evacuation hematoma Tracheostomy capped Awaiting follow-up swallow eval as patient had failed study this week Explained above to the family at bedside Time Spent With Patient Time: Total time managing care of this patient today ____ minutes. Quality Stroke Does the patient have a stroke diagnosis?: No VTE Prior VTE?: No VTE Risk Level:: Medical - moderate - high VTE Device Contraindication: N/A - Device Ordered VTE Drug Contraindication: Treatment Not Indicated
--- NOTE | 2023-07-09 12:36 | MHC.SL.SWA ---
Speech Pathologist Impression: Risk of aspiration, oropharyngeal dysphagia Risk of Aspiration Due to: Hx of Recent Extubation Tracheostomy Dysphasia Diet Status: START on NDD1/HTL Liquid Consistency and Strategies for Safe Swallow: Liquid Intake Recommendation: Honey Thick Liquid Intake Strategies: Small Sips No Straws Double Swallow Solid Food Consistency: Dietary Recommendations: Pureed (NDD1) Additional Modifications to Solid Foods: Patient consumed container of applesauce and honey thickened juice, tolerated well without difficulties. Patient demonstrates reduced laryngeal elevation and mildly delayed swallow trigger. Patient continues to cough on small amounts of thin liquid. Recommend UPGRADE from NPO, START conservatively on PUREED (NDD1) diet and HONEY THICK liquids via controlled cup or teaspoon. Maintain frequent oral care routine. Patient is to be directly supervised and closely monitored during all PO intake. Discontinue feeding if patient exhibits respiratory distress, changes in 02, or any other clinical signs of aspiration. Aspiration precautions include- maintain upright 90 degree position during PO intake preferably OOB, take small bites/sips, dry swallow between bites/sips, avoid straws. HOP SEPARATOR will continue to follow. Oral Medication Intake: Crushed with Puree Please contact the pharmacy regarding appropriate crushable or liquid drug formulations that are available whenever modified delivery is recommended. Compensatory Strategies and Precautions to be Taken for Safe Swallow: Sitting Upright (90 deg) Double Swallow No Straw Small Bites and Sips Rate of Ingestion Change Supervision While Eating and Drinking for Safe Swallow: Total Supervision (1:1) Swallowing Recommended Treatments: Compens. Strategy Educat. Recommendation for Speech: Inpatient Speech Therapy Sales Representative Aircraft Clinican/Clinical Fellow: No Supervisory Statement: I have reviewed and agree with the student/clinical fellow's documentation: N/A Speech Language Pathologist: Johanny Johnson M.A., [facility]-HOP SEPARATOR
[2023-07-09] MEDS: cefTRIAXone sodium 1 GM in 0.9 % Sodium Chloride 50 ML IV (14:41)
[2023-07-09] MEDS: Metoprolol Succinate ER 25 MG TAB.ER.24H PO (22:25)
[2023-07-09] MEDS: Atorvastatin Calcium 20 MG TABLET PO (22:25)
[2023-07-10] VITALS (7 sets, daily range): BP systolic 114–141; BP diastolic 60–96; PULSE 54–76; RESP 16–20; TEMP 36–36.4; O2SAT 92–98
--- NOTE | 2023-07-10 | ECG_ITS ---
Test Reason : Arrhythmias Blood Pressure : / mmHG Vent. Rate : 083 BPM Atrial Rate : 083 BPM P-R Int : 330 ms QRS Dur : 134 ms QT Int : 424 ms P-R-T Axes : 044 -80 115 degrees QTc Int : 498 ms Atrial-sensed ventricular-paced rhythm with prolonged AV conduction with occasional Premature ventricular complexes Abnormal ECG No previous ECGs available Referred By: Clay Beal Electronically Signed By:JASMIN ROJAS MD
[2023-07-10 03:53] LABS: Venous Blood Gas Refer to POC result
[2023-07-10] MEDS: Dextrose 5 % and Lactated Ring 1,000 ML 50 ML IVCONT (06:21)
[2023-07-10] MEDS: Famotidine/PF 20 MG/2 ML VIAL IVPUSH (08:24)
[2023-07-10] MEDS: 0.9 % Sodium Chloride Flush 3 ML SYRINGE IVFLUSH ×3 (08:25→22:03)
[2023-07-10] MEDS: Metoprolol Succinate ER 25 MG TAB.ER.24H PO ×2 (08:25→22:02)
[2023-07-10 09:15] LABS: MANUAL DIFF FLAG NO
[2023-07-10 09:20] LABS: Basophils Absolute Auto 0.1 X10*3/uL (0.0-0.2); Basophils Percent Auto 0.6 % (0-2); Eosinophils Absolute Auto 0.7 X10*3/uL (0.0-0.4); Hematocrit 35.4 % (42.0-52.0); Hemoglobin 11.7 g/dl (14.0-18.0); Imm Gran Abs Auto 0.04 X10*3/uL (0.00-0.03); Imm Gran Pct Auto 0.4 % (0.0-0.4); Lymphocytes Absolute Auto 1.7 X10*3/uL (1.2-4.9); Lymphocytes Percent Auto 15.5 % (20-40); Mean Corpuscular HGB Conc 33.1 g/dl (31.0-36.0); Mean Corpuscular Hemoglobin 31.9 pg (27.0-33.0); Mean Corpuscular Volume 96.5 fL (80.0-98.0); Mean Platelet Volume 9.5 fL (9.4-12.4); Monocytes Absolute Auto 0.9 X10*3/uL (0.1-1.2); Monocytes Percent Auto 8.4 % (2-11); Neutrophils Absolute Auto 7.5 x10*3/uL (2.0-8.3); Neutrophils Percent Auto 69.1 % (45-73); Platelet Count 283 X10*3/uL (160-400); Red Blood Count 3.67 X10*6/uL (4.60-5.80); Red Cell Distribution Width 13.3 % (11.0-16.0); White Blood Count 10.9 X10*3/uL (4.8-10.8)
[2023-07-10 09:49] LABS: VBG Base Excess 2.1 mmol/L; VBG HCO3 26 mmol/L (22-26); VBG pCO2 42 mmHg; VBG pH 7.41 (7.32-7.43); VBG pO2 50 mmHg
[2023-07-10 09:54] LABS: Alanine Aminotransferase 81 U/L (0-40); Albumin Level 3.5 g/dL (3.5-5.0); Alkaline Phosphatase 50 U/L (39-117); Anion Gap 14 (12-20); Aspartate Amino Transferase 69 U/L (5-37); Bilirubin Total 0.9 mg/dL (0.0-1.0); Blood Urea Nitrogen 25 mg/dL (9-16); Calcium 9.5 mg/dL (8.4-10.2); Carbon Dioxide 26 mmol/L (22-29); Chloride 112 mmol/L (96-108); Creatinine Clr Calc Pharmacy 115.5; Estimated Glomerular Filt Rate > 60; Glucose Random 175 mg/dL (60-115); Magnesium 1.9 mg/dL (1.6-2.6); Phosphorus 2.5 mg/dL (2.7-4.5); Potassium 3.6 mmol/L (3.3-5.1); Sodium 148 mmol/L (135-145); Total Protein 6.1 g/dL (6.5-8.0)
[2023-07-10 10:02] LABS: Venous Blood Gas Refer to POC result
--- NOTE | 2023-07-10 10:48 | PM.PNGS ---
Subjective Subjective Date of Service: 07/10/23 Interval history: Transferred to telemetry Feels well Tolerating diet No significant complaints Physical Exam Vital Signs: Vital Signs: Last Vital Signs Temp 96.9 F 07/10/23 07:54 Pulse 67 07/10/23 07:54 Resp 16 07/10/23 07:54 BP 114/68 07/10/23 07:54 Pulse Ox 94 07/10/23 10:42 O2 Del Method Nasal Cannula 07/10/23 07:54 O2 Flow Rate 2 07/10/23 07:54 FiO2 35 07/06/23 16:58 Oxygen Flow Rate 5 07/08/23 11:00 BMI result Body Mass Index 36.5 Const: General: comfortable and no acute distress Neck: Other: Carotid endarterectomy site clean and dry,tracheostomy site dry, ecchymosis noted Resp: Other: Tracheostomy capped Effort & Inspection: normal respiratory effort Objective Data Active Medications Acetaminophen (Acetaminophen 325 Mg Tablet) 650 mg PO Q6H PRN PRN Reason: Pain, Mild (Pain Scale 1-3) Albuterol Sulfate (Albuterol Sulfate (0.083%) 2.5 Mg/3 Ml Vial.Neb) 2.5 mg INHALE ONCE PRN PRN Reason: Shortness of Breath/Wheezing Last Admin: 07/07/23 08:37 Dose: 2.5 mg Documented By: SOBEIDA Albuterol Sulfate (Albuterol Sulfate (0.083%) 2.5 Mg/3 Ml Vial.Neb) 2.5 mg INHALE Q4H PRN PRN Reason: Wheezing Atorvastatin Calcium (Atorvastatin Calcium 20 Mg Tablet) 20 mg PO BEDTIME [facility] Last Admin: 07/09/23 22:25 Dose: 20 mg Documented By: ANAYELI Docusate Sodium (Docusate Sodium 100 Mg Capsule) 200 mg PO DAILY [facility] Famotidine (Famotidine/Pf 20 Mg/2 Ml Vial) 20 mg IVPUSH DAILY [facility] Last Admin: 07/10/23 08:24 Dose: 20 mg Documented By: HERNAN Fentanyl (Fentanyl Citrate/Pf 100 Mcg/2 Ml Vial) 50 mcg IVPUSH Q2H PRN; Protocol PRN Reason: Pain, Moderate(Pain Scale 4-6) Last Admin: 07/06/23 11:36 Dose: 50 mcg Documented By: MARIA G Ceftriaxone Sodium 1 gm/ (Sodium Chloride) 50 mls @ 100 mls/hr IV Q24H [facility] Last Infusion: 07/09/23 15:18 Dose: Infused Documented By: DANIELLE Lorazepam (Lorazepam 2 Mg/Ml Vial) 0.5 mg IVPUSH BEDTIME PRN PRN Reason: anxiety/restlessness Last Admin: 07/08/23 23:34 Dose: 0.5 mg Documented By: MYCHAL Metoprolol Succinate (Metoprolol Succinate Er 25 Mg Tab.Er.24h) 25 mg PO BID [facility]; Protocol Last Admin: 07/10/23 08:25 Dose: 25 mg Documented By: HERNAN Non-Formulary Medication (Chloroquine Phosphate) 125 mg PO 5XW [facility] Ondansetron HCl (Ondansetron Hcl 4 Mg/2 Ml Vial) 4 mg IVPUSH ONCE PRN PRN Reason: Nausea and Vomiting Sodium Chloride (0.9 % Sodium Chloride Flush 3 Ml Syringe) 3 ml IVFLUSH QSHIFT [facility] Last Admin: 07/10/23 08:25 Dose: 3 ml Documented By: HERNAN Labs 07/10/23 09:07 07/10/23 09:07 Labs: Laboratory Results - last 24 hr 07/10/23 07/10/23 09:07 09:24 MCV 96.5 MCH 31.9 MCHC 33.1 RDW 13.3 Plt Count 283 MPV 9.5 Immature Gran % (Auto) 0.4 Neut % (Auto) 69.1 Lymph % (Auto) 15.5 L [place] % (Auto) 8.4 Eos % (Auto) 6.0 H Baso % (Auto) 0.6 Lymph # (Auto) 1.7 [place] # (Auto) 0.9 Eos # (Auto) 0.7 H Baso # (Auto) 0.1 Abs Immat Gran (auto) 0.04 H Absolute Neuts (auto) 7.5 Absolute Nucleated RBC 0.000 Nucleated RBC % (auto) 0.0 VBG pH 7.41 VBG pCO2 42 VBG pO2 50 VBG HCO3 26 VBG O2 Saturation 78.0 VBG Base Excess 2.1 Anion Gap 14 Estim Creat Clear Calc 115.5 Estimated GFR > 60 Random Glucose 175 H Calcium 9.5 Phosphorus 2.5 L Magnesium 1.9 Total Bilirubin 0.9 AST 69 H ALT 81 H Alkaline Phosphatase 50 Total Protein 6.1 L Albumin 3.5 Procedures Date of Service Date of Service: 07/10/23 Progress Note: A&P Assessment and plan (1) Status post carotid endarterectomy: Status: Acute Assessment and Plan: Had postop hematoma Doing well now On diet Trach care Rest of management as per the hospitalist service Time Spent With Patient Time: Total time managing care of this patient today ____ minutes. Quality Stroke Does the patient have a stroke diagnosis?: No VTE Prior VTE?: No VTE Risk Level:: Medical - moderate - high VTE Device Contraindication: N/A - Device Ordered VTE Drug Contraindication: Treatment Not Indicated
--- NOTE | 2023-07-10 11:38 | HO.PM.IMPN ---
Subjective Subjective Date of Service: 07/10/23 Interval History: Seen and evaluated this morning Feels comfortable, stronger still on O2 supplement Diet advanced to pureed no reported overnight events Review of Systems Review of Systems: Yes all other systems are reviewed and are negative Physical Exam Vital Signs: Vital Signs: Last Vital Signs Temp 96.8 F 07/10/23 11:08 Pulse 65 07/10/23 11:08 Resp 18 07/10/23 11:08 BP 141/62 H 07/10/23 11:08 Pulse Ox 96 07/10/23 11:08 O2 Del Method Room Air 07/10/23 11:08 O2 Flow Rate 2 07/10/23 07:54 FiO2 35 07/06/23 16:58 Oxygen Flow Rate 5 07/08/23 11:00 BMI result Body Mass Index 36.5 Const: Other: Constitutional : Awake, interactive, not in distress Neck : Normal inspection, Supple, trach in place Cardiovascular : RRR, no JVP, no lower extremity edema Respiratory : good bilateral air entry, no crackles, wheezes or rhonchi, on 2L O2 Gastrointestinal: soft, lax, Normal bowel sounds, Non tender Skin : Warm, Dry Neurological : Alert & oriented x3, No focal deficit Objective Data Active Medications Acetaminophen (Acetaminophen 325 Mg Tablet) 650 mg PO Q6H PRN PRN Reason: Pain, Mild (Pain Scale 1-3) Albuterol Sulfate (Albuterol Sulfate (0.083%) 2.5 Mg/3 Ml Vial.Neb) 2.5 mg INHALE ONCE PRN PRN Reason: Shortness of Breath/Wheezing Last Admin: 07/07/23 08:37 Dose: 2.5 mg Documented By: SOBEIDA Albuterol Sulfate (Albuterol Sulfate (0.083%) 2.5 Mg/3 Ml Vial.Neb) 2.5 mg INHALE Q4H PRN PRN Reason: Wheezing Atorvastatin Calcium (Atorvastatin Calcium 20 Mg Tablet) 20 mg PO BEDTIME [facility] Last Admin: 07/09/23 22:25 Dose: 20 mg Documented By: ANAYELI Docusate Sodium (Docusate Sodium 100 Mg Capsule) 200 mg PO DAILY [facility] Famotidine (Famotidine/Pf 20 Mg/2 Ml Vial) 20 mg IVPUSH DAILY [facility] Last Admin: 07/10/23 08:24 Dose: 20 mg Documented By: HERNAN Fentanyl (Fentanyl Citrate/Pf 100 Mcg/2 Ml Vial) 50 mcg IVPUSH Q2H PRN; Protocol PRN Reason: Pain, Moderate(Pain Scale 4-6) Last Admin: 07/06/23 11:36 Dose: 50 mcg Documented By: NAYELIORRRubi Ceftriaxone Sodium 1 gm/ (Sodium Chloride) 50 mls @ 100 mls/hr IV Q24H [facility] Last Infusion: 07/09/23 15:18 Dose: Infused Documented By: DANIELLE Lorazepam (Lorazepam 2 Mg/Ml Vial) 0.5 mg IVPUSH BEDTIME PRN PRN Reason: anxiety/restlessness Last Admin: 07/08/23 23:34 Dose: 0.5 mg Documented By: MYCHAL Metoprolol Succinate (Metoprolol Succinate Er 25 Mg Tab.Er.24h) 25 mg PO BID [facility]; Protocol Last Admin: 07/10/23 08:25 Dose: 25 mg Documented By: HERNAN Non-Formulary Medication (Chloroquine Phosphate) 125 mg PO 5XW [facility] Ondansetron HCl (Ondansetron Hcl 4 Mg/2 Ml Vial) 4 mg IVPUSH ONCE PRN PRN Reason: Nausea and Vomiting Sodium Chloride (0.9 % Sodium Chloride Flush 3 Ml Syringe) 3 ml IVFLUSH QSHIFT [facility] Last Admin: 07/10/23 08:25 Dose: 3 ml Documented By: HERNAN Labs 07/10/23 09:07 07/10/23 09:07 Labs: Laboratory Results - last 24 hr 07/10/23 07/10/23 09:07 09:24 MCV 96.5 MCH 31.9 MCHC 33.1 RDW 13.3 Plt Count 283 MPV 9.5 Immature Gran % (Auto) 0.4 Neut % (Auto) 69.1 Lymph % (Auto) 15.5 L [place] % (Auto) 8.4 Eos % (Auto) 6.0 H Baso % (Auto) 0.6 Lymph # (Auto) 1.7 [place] # (Auto) 0.9 Eos # (Auto) 0.7 H Baso # (Auto) 0.1 Abs Immat Gran (auto) 0.04 H Absolute Neuts (auto) 7.5 Absolute Nucleated RBC 0.000 Nucleated RBC % (auto) 0.0 VBG pH 7.41 VBG pCO2 42 VBG pO2 50 VBG HCO3 26 VBG O2 Saturation 78.0 VBG Base Excess 2.1 Anion Gap 14 Estim Creat Clear Calc 115.5 Estimated GFR > 60 Random Glucose 175 H Calcium 9.5 Phosphorus 2.5 L Magnesium 1.9 Total Bilirubin 0.9 AST 69 H ALT 81 H Alkaline Phosphatase 50 Total Protein 6.1 L Albumin 3.5 Assessment and Plan (1) Status post carotid endarterectomy: Status: Acute (2) Status post tracheostomy: Status: Acute Plan 68-year-old gentleman postoperative day 1 after an elective endarterectomy with postop hematoma. choked on an egg with development of stridor, unable to clear airway with Heimlich maneuver, intubation attempted by ER/anesthesia, but unable to endotracheally intubate secondary to distorted airway from carotid endarterectomy surgery hematoma requiring emergent bedside tracheostomy, no loss of pulse through the episode. Thereafter, patient taken to OR to re-explore carotid endarterectomy site with no active bleeding noted. Shocking incident s/p Tracheostomy Trach capped plan for removal by Pulm\chest surgeon as outpatient next week Wean down O2 as tolerated Status post elective endarterectomy complicated by hematoma Vascular surgery evacuated the hematoma. stable H&H Hx CAD ASA, Metoprolol and Losartan Continue Simvastatin The patient will need overnight hospital stay pending weaning off O2 and safe discharge plan Quality Stroke Does the patient have a stroke diagnosis?: No VTE Prior VTE?: No VTE Risk Level:: Medical - moderate - high VTE Device Contraindication: N/A - Device Ordered VTE Drug Contraindication: Treatment Not Indicated
[2023-07-10] MEDS: Docusate Sodium 100 MG CAPSULE 200 MG PO (11:44)
--- NOTE | 2023-07-10 13:35 | P.PNPL_ITS ---
Subjective Subjective Date of Service: 07/10/23 Interval history: Passed swallow evaluation. No respiratory concerns. Objective Data Labs 07/10/23 09:07 07/10/23 09:07 Labs: Laboratory Results - last 24 hr 07/10/23 07/10/23 09:07 09:24 WBC 10.9 H RBC 3.67 L Hgb 11.7 L Hct 35.4 L MCV 96.5 MCH 31.9 MCHC 33.1 RDW 13.3 Plt Count 283 MPV 9.5 Immature Gran % (Auto) 0.4 Neut % (Auto) 69.1 Lymph % (Auto) 15.5 L [place] % (Auto) 8.4 Eos % (Auto) 6.0 H Baso % (Auto) 0.6 Lymph # (Auto) 1.7 [place] # (Auto) 0.9 Eos # (Auto) 0.7 H Baso # (Auto) 0.1 Abs Immat Gran (auto) 0.04 H Absolute Neuts (auto) 7.5 Absolute Nucleated RBC 0.000 Nucleated RBC % (auto) 0.0 VBG pH 7.41 VBG pCO2 42 VBG pO2 50 VBG HCO3 26 VBG O2 Saturation 78.0 VBG Base Excess 2.1 Sodium 148 H Potassium 3.6 Chloride 112 H Carbon Dioxide 26 Anion Gap 14 BUN 25 H Creatinine 0.78 Estim Creat Clear Calc 115.5 Estimated GFR > 60 Random Glucose 175 H Calcium 9.5 Phosphorus 2.5 L Magnesium 1.9 Total Bilirubin 0.9 AST 69 H ALT 81 H Alkaline Phosphatase 50 Total Protein 6.1 L Albumin 3.5 Physical Exam 2 Vital Signs: Vital Signs: Last Vital Signs Temp 96.8 F 07/10/23 11:08 Pulse 65 07/10/23 11:08 Resp 18 07/10/23 11:08 BP 141/62 H 07/10/23 11:08 Pulse Ox 96 07/10/23 11:08 O2 Del Method Room Air 07/10/23 11:08 O2 Flow Rate 2 07/10/23 07:54 FiO2 35 07/06/23 16:58 Oxygen Flow Rate 5 07/08/23 11:00 BMI result Body Mass Index 36.5 Const: General: no acute distress, alert and awake Eyes: Sclerae: sclerae normal EOM: EOMs intact bilaterally Neck: Neck: Yes no lymphadenopathy, Yes trachea midline, Yes supple and Yes tracheostomy present (Capped) Resp: Effort & Inspection: normal respiratory effort and no respiratory distress Auscultation: clear to auscultation bilaterally Cardio: Rate: regular rate Rhythm: regular rhythm Heart sounds: no gallops, no murmurs and no rubs GI: Palpation (GI): Soft to palpation and Other GI palpation findings present ( Nontender) Auscultation: normal bowel sounds Extrem: General: Yes no pedal edema, No clubbing and No cyanosis Procedures Date of Service Date of Service: 07/10/23 Assessment and Plan Assessment and plan (1) Status post carotid endarterectomy: Status: Acute (2) Status post tracheostomy: Status: Acute Plan Impression: 68-year-old gentleman status post emergency tracheostomy with aspiration of food on the background of hematoma from endarterectomy. Now tolerating tracheostomy being capped. Passed swallow evaluation. Recommendations: When appropriate discharge with tracheostomy capped. Will schedule for tracheostomy removal in office within 1 week of discharge. Time Spent With Patient Time: Total time managing care of this patient today ____ minutes. Progress Note: Quality Stroke Does the patient have a stroke diagnosis?: No
[2023-07-10] MEDS: Dextrose 5 % 1,000 ML 125 ML IVCONT (14:28)
[2023-07-10] MEDS: cefTRIAXone sodium 1 GM in 0.9 % Sodium Chloride 50 ML IV (14:29)
[2023-07-10] MEDS: LORazepam 2 MG/ML VIAL 0.5 MG IVPUSH (22:02)
[2023-07-10] MEDS: Atorvastatin Calcium 20 MG TABLET PO (22:03)
[2023-07-11] VITALS (9 sets, daily range): BP systolic 128–164; BP diastolic 62–104; PULSE 60–81; RESP 18–20; TEMP 36.1–36.6; O2SAT 93–95
[2023-07-11 06:43] LABS: Hematocrit 31.7 % (42.0-52.0); Hemoglobin 10.9 g/dl (14.0-18.0); Mean Corpuscular HGB Conc 34.4 g/dl (31.0-36.0); Mean Corpuscular Hemoglobin 32.5 pg (27.0-33.0); Mean Corpuscular Volume 94.6 fL (80.0-98.0); Mean Platelet Volume 9.5 fL (9.4-12.4); Platelet Count 283 X10*3/uL (160-400); Red Blood Count 3.35 X10*6/uL (4.60-5.80); White Blood Count 12.3 X10*3/uL (4.8-10.8)
[2023-07-11 07:09] LABS: Anion Gap 10 (12-20); Blood Urea Nitrogen 19 mg/dL (9-16); Calcium 8.8 mg/dL (8.4-10.2); Carbon Dioxide 28 mmol/L (22-29); Chloride 109 mmol/L (96-108); Creatinine Clr Calc Pharmacy 132.5; Estimated Glomerular Filt Rate > 60; Glucose Random 99 mg/dL (60-115); Potassium 3.7 mmol/L (3.3-5.1); Sodium 143 mmol/L (135-145)
--- NOTE | 2023-07-11 08:26 | PM.PNGS ---
Subjective Subjective Date of Service: 07/11/23 Interval history: Denies new complaints Feels well overall Tolerating honey thick diet Physical Exam Vital Signs: Vital Signs: Last Vital Signs Temp 97.3 F 07/11/23 07:51 Pulse 60 07/11/23 07:51 Resp 20 07/11/23 07:51 BP 132/63 07/11/23 07:51 Pulse Ox 95 07/11/23 07:51 O2 Del Method Nasal Cannula 07/11/23 07:51 O2 Flow Rate 2 07/11/23 07:51 FiO2 35 07/06/23 16:58 Oxygen Flow Rate 5 07/08/23 11:00 BMI result Body Mass Index 36.5 Const: General: comfortable and no acute distress Neck: Other: Endarterectomy site clean and dry, surrounding ecchymosis Tracheostomy site clean Tracheostomy has been capped Resp: Effort & Inspection: normal respiratory effort Cardio: Rate: regular rate GI: Palpation (GI): Soft to palpation, not firm and nontender Objective Data Active Medications Acetaminophen (Acetaminophen 325 Mg Tablet) 650 mg PO Q6H PRN PRN Reason: Pain, Mild (Pain Scale 1-3) Albuterol Sulfate (Albuterol Sulfate (0.083%) 2.5 Mg/3 Ml Vial.Neb) 2.5 mg INHALE ONCE PRN PRN Reason: Shortness of Breath/Wheezing Last Admin: 07/07/23 08:37 Dose: 2.5 mg Documented By: SOBEIDA Albuterol Sulfate (Albuterol Sulfate (0.083%) 2.5 Mg/3 Ml Vial.Neb) 2.5 mg INHALE Q4H PRN PRN Reason: Wheezing Atorvastatin Calcium (Atorvastatin Calcium 20 Mg Tablet) 20 mg PO BEDTIME [facility] Last Admin: 07/10/23 22:03 Dose: 20 mg Documented By: ENMA Docusate Sodium (Docusate Sodium 100 Mg Capsule) 200 mg PO DAILY [facility] Last Admin: 07/10/23 11:44 Dose: 200 mg Documented By: HERNAN Famotidine (Famotidine/Pf 20 Mg/2 Ml Vial) 20 mg IVPUSH DAILY [facility] Last Admin: 07/10/23 08:24 Dose: 20 mg Documented By: HERNAN Fentanyl (Fentanyl Citrate/Pf 100 Mcg/2 Ml Vial) 50 mcg IVPUSH Q2H PRN; Protocol PRN Reason: Pain, Moderate(Pain Scale 4-6) Last Admin: 07/06/23 11:36 Dose: 50 mcg Documented By: MARIA G Ceftriaxone Sodium 1 gm/ (Sodium Chloride) 50 mls @ 100 mls/hr IV Q24H [facility] Last Infusion: 07/10/23 15:09 Dose: Infused Documented By: HERNAN Lorazepam (Lorazepam 2 Mg/Ml Vial) 0.5 mg IVPUSH BEDTIME PRN PRN Reason: anxiety/restlessness Last Admin: 07/10/23 22:02 Dose: 0.5 mg Documented By: ENMA Metoprolol Succinate (Metoprolol Succinate Er 25 Mg Tab.Er.24h) 25 mg PO BID [facility]; Protocol Last Admin: 07/10/23 22:02 Dose: 25 mg Documented By: ENMA Non-Formulary Medication (Chloroquine Phosphate) 125 mg PO 5XW [facility] Ondansetron HCl (Ondansetron Hcl 4 Mg/2 Ml Vial) 4 mg IVPUSH ONCE PRN PRN Reason: Nausea and Vomiting Sodium Chloride (0.9 % Sodium Chloride Flush 3 Ml Syringe) 3 ml IVFLUSH QSHIFT [facility] Last Admin: 07/10/23 22:03 Dose: 3 ml Documented By: ENMA Labs 07/11/23 06:03 07/11/23 06:03 Labs: Laboratory Results - last 24 hr 07/10/23 07/10/23 07/11/23 09:07 09:24 06:03 MCV 96.5 94.6 MCH 31.9 32.5 MCHC 33.1 34.4 RDW 13.3 13.0 Plt Count 283 283 MPV 9.5 9.5 Immature Gran % (Auto) 0.4 Neut % (Auto) 69.1 Lymph % (Auto) 15.5 L [place] % (Auto) 8.4 Eos % (Auto) 6.0 H Baso % (Auto) 0.6 Lymph # (Auto) 1.7 [place] # (Auto) 0.9 Eos # (Auto) 0.7 H Baso # (Auto) 0.1 Abs Immat Gran (auto) 0.04 H Absolute Neuts (auto) 7.5 Absolute Nucleated RBC 0.000 0.000 Nucleated RBC % (auto) 0.0 0.0 VBG pH 7.41 VBG pCO2 42 VBG pO2 50 VBG HCO3 26 VBG O2 Saturation 78.0 VBG Base Excess 2.1 Anion Gap 14 10 L Estim Creat Clear Calc 115.5 132.5 Estimated GFR > 60 > 60 Random Glucose 175 H 99 Calcium 9.5 8.8 D Phosphorus 2.5 L Magnesium 1.9 Total Bilirubin 0.9 AST 69 H ALT 81 H Alkaline Phosphatase 50 Total Protein 6.1 L Albumin 3.5 Procedures Date of Service Date of Service: 07/11/23 Progress Note: A&P Assessment and plan (1) Status post carotid endarterectomy: Status: Acute Assessment and Plan: With return to OR for hematoma on postop day 1. Emergency trach done Doing well On diet Tracheostomy care Okay for discharge from surgical standpoint Time Spent With Patient Time: Total time managing care of this patient today ____ minutes. Quality Stroke Does the patient have a stroke diagnosis?: No VTE Prior VTE?: No VTE Risk Level:: Medical - moderate - high VTE Device Contraindication: N/A - Device Ordered VTE Drug Contraindication: Treatment Not Indicated
[2023-07-11] MEDS: Metoprolol Succinate ER 25 MG TAB.ER.24H PO ×2 (09:23→23:34)
[2023-07-11] MEDS: 0.9 % Sodium Chloride Flush 3 ML SYRINGE IVFLUSH ×3 (09:23→23:35)
[2023-07-11] MEDS: Docusate Sodium 100 MG CAPSULE 200 MG PO (09:23)
[2023-07-11] MEDS: Famotidine/PF 20 MG/2 ML VIAL IVPUSH (09:23)
--- NOTE | 2023-07-11 10:44 | P.PNIM_ITS ---
Subjective Subjective Date of Service: 07/11/23 Interval History: Seen and evaluated this morning Feels comfortable overall, wants to start therapy Weaned off O2 tolerating pureed no reported overnight events Review of Systems Review of Systems: Yes all other systems are reviewed and are negative Physical Exam 2 Vital Signs: Vital Signs: Last Vital Signs Temp 97.3 F 07/11/23 07:51 Pulse 60 07/11/23 09:17 Resp 20 07/11/23 07:51 BP 132/63 07/11/23 09:17 Pulse Ox 95 07/11/23 09:17 O2 Del Method Nasal Cannula 07/11/23 07:51 O2 Flow Rate 2 07/11/23 07:51 FiO2 35 07/06/23 16:58 Oxygen Flow Rate 5 07/08/23 11:00 BMI result Body Mass Index 36.5 Const: Other: Constitutional : Awake, interactive, not in distress Neck : Normal inspection, Supple, trach in place Cardiovascular : RRR, no JVP, no lower extremity edema Respiratory : good bilateral air entry, no crackles, wheezes or rhonchi Gastrointestinal: soft, lax, Normal bowel sounds, Non tender Skin : Warm, Dry Neurological : Alert & oriented x3, No focal deficit Objective Data Active Medications Acetaminophen (Acetaminophen 325 Mg Tablet) 650 mg PO Q6H PRN PRN Reason: Pain, Mild (Pain Scale 1-3) Albuterol Sulfate (Albuterol Sulfate (0.083%) 2.5 Mg/3 Ml Vial.Neb) 2.5 mg INHALE Q4H PRN PRN Reason: Wheezing Atorvastatin Calcium (Atorvastatin Calcium 20 Mg Tablet) 20 mg PO BEDTIME [facility] Last Admin: 07/10/23 22:03 Dose: 20 mg Documented By: ENMA Docusate Sodium (Docusate Sodium 100 Mg Capsule) 200 mg PO DAILY [facility] Last Admin: 07/11/23 09:23 Dose: 200 mg Documented By: HERNAN Famotidine (Famotidine/Pf 20 Mg/2 Ml Vial) 20 mg IVPUSH DAILY [facility] Last Admin: 07/11/23 09:23 Dose: 20 mg Documented By: HERNAN Ceftriaxone Sodium 1 gm/ (Sodium Chloride) 50 mls @ 100 mls/hr IV Q24H [facility] Last Infusion: 07/10/23 15:09 Dose: Infused Documented By: HERNAN Lorazepam (Lorazepam 2 Mg/Ml Vial) 0.5 mg IVPUSH BEDTIME PRN PRN Reason: anxiety/restlessness Last Admin: 07/10/23 22:02 Dose: 0.5 mg Documented By: ENMA Metoprolol Succinate (Metoprolol Succinate Er 25 Mg Tab.Er.24h) 25 mg PO BID [facility]; Protocol Last Admin: 07/11/23 09:23 Dose: 25 mg Documented By: HERNAN Non-Formulary Medication ([place]lor[place] Phosphate) 125 mg PO 5XW [facility] Ondansetron HCl (Ondansetron Hcl 4 Mg/2 Ml Vial) 4 mg IVPUSH ONCE PRN PRN Reason: Nausea and Vomiting Sodium Chloride (0.9 % Sodium Chloride Flush 3 Ml Syringe) 3 ml IVFLUSH QSHIFT [facility] Last Admin: 07/11/23 09:23 Dose: 3 ml Documented By: HERNAN Labs 07/11/23 06:03 07/11/23 06:03 Labs: Laboratory Results - last 24 hr 07/11/23 06:03 MCV 94.6 MCH 32.5 MCHC 34.4 RDW 13.0 Plt Count 283 MPV 9.5 Absolute Nucleated RBC 0.000 Nucleated RBC % (auto) 0.0 Anion Gap 10 L Estim Creat Clear Calc 132.5 Estimated GFR > 60 Random Glucose 99 Calcium 8.8 D Assessment and Plan (1) Status post carotid endarterectomy: Status: Acute (2) Status post tracheostomy: Status: Acute (3) Physical deconditioning: Status: Acute (4) Swallowing problem: Status: Acute Plan 68-year-old gentleman postoperative day 1 after an elective endarterectomy with postop hematoma. choked on an egg with development of stridor, unable to clear airway with Heimlich maneuver, intubation attempted by ER/anesthesia, but unable to endotracheally intubate secondary to distorted airway from carotid endarterectomy surgery hematoma requiring emergent bedside tracheostomy, no loss of pulse through the episode. Thereafter, patient taken to OR to re-explore carotid endarterectomy site with no active bleeding noted Physical deconditioning PT\OT eval rec acute rehab Swallowing problem [employer] REPRESENTATIVE team following Advanced to pureed diet might need MBSS Shocking incident s/p Tracheostomy Trach capped plan for removal by Pulm\chest surgeon as outpatient next week Wean down O2 as tolerated Status post elective endarterectomy complicated by hematoma Vascular surgery evacuated the hematoma. stable H&H Hx CAD ASA, Metoprolol and Losartan Continue Simvastatin The patient will need overnight hospital stay pending clinical improvement and safe discharge plan Quality Stroke Does the patient have a stroke diagnosis?: No VTE Prior VTE?: No VTE Risk Level:: Medical - moderate - high VTE Device Contraindication: N/A - Device Ordered VTE Drug Contraindication: Treatment Not Indicated
--- NOTE | 2023-07-11 12:18 | MHC.CLN ---
F/U PT'S DIET ADVANCED TO PUREED WITH HT LIQ PER LOCOMOTIVE ENGINEER DIESEL 100% PO INTAKE CONTINUE TO ENCOURAGE INTAKE AND MONITOR RD TO FOLLOW WEEKLY
--- NOTE | 2023-07-11 12:23 | MHC.CM.PN ---
Pt is in agreement to going to acute rehab, referrals out, [facility] following and awaiting OT eval. Pt request [facility] if reg STR, referral in, they declined. CM to continue to assist pt with DC plan.
--- NOTE | 2023-07-11 12:26 | MHC.SL.SWA ---
Speech Pathologist Impression: Risk of aspiration, oropharyngeal dysphagia Risk of Aspiration Due to: Hx of Recent Extubation Tracheostomy Dysphasia Diet Status: No changes Liquid Consistency and Strategies for Safe Swallow: Liquid Intake Recommendation: Honey Thick Liquid Intake Strategies: Small Sips No Straws Double Swallow Solid Food Consistency: Dietary Recommendations: Pureed (NDD1) Additional Modifications to Solid Foods: No changes at this time. Plan for MBSS for further evaluation. Oral Medication Intake: Crushed with Puree Please contact the pharmacy regarding appropriate crushable or liquid drug formulations that are available whenever modified delivery is recommended. Compensatory Strategies and Precautions to be Taken for Safe Swallow: Sitting Upright (90 deg) Double Swallow No Straw Small Bites and Sips Rate of Ingestion Change Supervision While Eating and Drinking for Safe Swallow: Total Supervision (1:1) Foods to Avoid: Swallowing Recommended Treatments: Compens. Strategy Educat. Recommendation for Speech: Inpatient Speech Therapy Comment:Maintain frequent oral care routine. Patient is to be directly supervised and closely monitored during all PO intake. Discontinue feeding if patient exhibits respiratory distress, changes in 02, or any other clinical signs of aspiration. Aspiration precautions include- maintain upright 90 degree position during PO intake preferably OOB, take small bites/sips, dry swallow between bites/sips, avoid straws. TABLE HAND will continue to follow. Frequency/Duration: M-F while inpatient. Date Range for Service Req: Timeline to reassess: [employer] Clinican/Clinical Fellow: No Supervisory Statement: I have reviewed and agree with the student/clinical fellow's documentation: N/A Speech Language Pathologist: Johanny Johnson M.A., CCC-TABLE HAND
[2023-07-11] MEDS: cefTRIAXone sodium 1 GM in 0.9 % Sodium Chloride 50 ML IV (15:35)
--- NOTE | 2023-07-11 17:31 | MHC.SL.IMP ---
Date of Plan of Treatment: 07/11/23 Onset of Symptoms/Illness: 07/07/23 Date Treatment Started: 07/07/23 Admitting Diagnosis: (1) Status post carotid endarterectomy (2) Status post tracheostomy (3) Physical deconditioning (4) Swallowing problem Primary Speech & Language Diagnosis: R13.12 Oropharyngeal Phase Dysphagia Reason for Today's Visit: 15142 Modified Barium Swallow Study Pre-evaluation Dietary Consistencies: Pureed (NDD1) Pre-evaluation Liquid Consistency: Honey Thick Pre-evaluation Medication Administration: Crushed with Puree Medical History: Modified Barium Swallow Study Fluoroscopic Evaluation of Swallowing Function CPT Code 31522 Evaluation Year: 2023 Reason for Study: Difficulty swallowing Referring Physician: Deidre Alba MD Evaluating Clinician: Johanny Johnson MA, CCC-INSTRUMENT TECHNICIAN HELPER Study Number: 1 Patient Name: Sanford Stack Status: Inpatient, Wheelchair Age: 68 Gender: Male Medical History Smoker Claudication of calf muscles Ambulates with cane Rheumatoid arthritis Osteoarthritis Hx MRSA infection HLD (hyperlipidemia) Murmur Coronary artery disease Hx of renal calculi History of pacemaker Hypertension Elevated fasting blood sugar Current (pre-evaluation) Intake/Diet Per INSTRUMENT TECHNICIAN HELPER Recommendation at Bedside: Route: PO Diet Grade: Puree Liquid Consistencies: Honey Pre-Study Functional Oral Intake Scale (FOIS): 5- Total oral intake of multiple consistencies requiring special preparation Pain: None reported at time of study SUBJECTIVE: Patient is a 68-year-old male status-post elective endarterectomy with postop hematoma. Patient choked on an egg with development of stridor, unable to clear airway with Heimlich maneuver, thus intubation was attempted in the ED, but unable to endotracheally intubate patient secondary to distorted airway from carotid endarterectomy surgery hematoma. Patient required emergent bedside tracheostomy. When evaluated by INSTRUMENT TECHNICIAN HELPER in the ICU, patient displayed overt clinical signs of aspiration and respiratory distress with intake of ice chips and was recommended to continue NPO status at the time. He has since improved, stepped down to [facility], and has been tolerating a pureed diet with thickened liquids without reported difficulties. Patient is receiving 02 via nasal cannula. He is tolerating trach capping. Plan is for removal by Pulmonology\chest surgeon as outpatient next week. Patient will be discharged to acute rehab pending bed offer. Oral Motor Exam Facial Symmetry: Symmetrical Mouth Occlusion: Normal Oral-Facial Teeth Characteristics: Partially Missing Oral-Facial Smile (Lips) Description: Normal Oral-Facial Puff Cheeks Description: Normal Tongue Size: Normal Tongue Excursion Description: Normal Tongue Range of Movement Description: Normal Tongue Speed of Movement Description: Normal Tongue Strength of Movement (against opposing pressure): Food and Liquid Trials: Oral Impairment: Lip Closure: 1=Interlabial escape; no progression to anterior tip Oral Impairment: Tongue Control During Bolus Hold: Did not test Oral Impairment: Bolus Preparation/Mastication: 1=Slow prolonged chewing/mashing with complete re-collection Oral Impairment: Bolus Transport/Lingual Motion: 1= Delayed initiation of tongue motion Oral Impairment: Oral Residue: 2=Residue collection on oral structures Oral Impairment:Initiation of Pharyngeal Swallow: 3=Bolus head in pyriforms Pharyngeal Impairment: Soft Palate Elevation: 0=No bolus between soft palate (SP)/pharyngeal wall (PW) Pharyngeal Impairment: Laryngeal Elevation: 2=Minimal superior movement of thyroid cartilage (see description) Pharyngeal Impairment: Anterior Hyoid Excursion: 2=No anterior movement Pharyngeal Impairment: Epiglottic Movement: 1=Partial inversion Pharyngeal Impairment: Laryngeal Vestibular Closure:: 1=Incomplete: narrow column air/contrast in laryngeal vestibule Pharyngeal Impairment: Pharyngeal Stripping Wave: 1=Present: diminished Pharyngeal Impairment: Pharyngeal Contraction: Did not test Pharyngeal Impairment: Pharyngoesophageal Segment Openin=Partial distention/partial duration: partial obstruction of flow Pharyngeal Impairment: Tongue Base (TB) Retraction: 2=Narrow column of contrast/air between TB and posterior PW Pharyngeal Impairment: Pharyngeal Residue: 2=Collection of residue within or on pharyngeal structures Pharyngeal Impairment: Esophageal Clearance Upright Position: Did not test Impressions and Recommendations OBJECTIVE: Time-out: performed at 14:30 Evaluation Start: 14:15; Stop: 14:20 Tracheostomy tube present: , Capped, Patient Positioning: Seated 70-90 degrees Viewing Planes: LATERAL ONLY Contrast: MBSImP? Standardized Protocol using commercially prepared, standardized Barium viscosities, including: Varibar? THIN LIQUID (40% w/v, <15 cps) , Varibar? NECTAR (40% w/v, <150-450 cps) , Varibar? THIN HONEY (40% w/v, <800-1800 cps) MBSImP ID: [id number] MBSImP Results: Lip closure for intraoral bolus containment resulted in interlabial escape, without progression to the anterior lip. Tongue control during bolus hold could not be assessed due to logistical reasons not related to physiologic impairment. Bolus preparation and mastication resulted in slow, prolonged chewing/mashing but with complete re-collection. Bolus transport/lingual motion demonstrated delayed initiation of tongue motion. Oral residue was a collection on oral structures. Initiation of the pharyngeal swallow occurred when the bolus head was in the pyriform sinuses. Soft palate elevation resulted in no bolus between the soft palate and the pharyngeal wall. Laryngeal elevation was incomplete, as indicated through minimal superior movement of the thyroid cartilage with minimal approximation of the arytenoids to the epiglottic petiole. Anterior hyoid excursion demonstrated no movement. Epiglottic movement resulted in partial inversion. Laryngeal vestibular closure was incomplete, with a narrow column of air/contrast noted within the laryngeal vestibule at the height of the swallow. Pharyngeal stripping wave was present, but diminished. Pharyngeal contraction could not be determined due to logistical reasons not related to physiologic impairment. Pharyngoesophageal segment opening demonstrated partial distension/partial duration, with partial obstruction of bolus flow. Tongue base retraction allowed a narrow column of contrast or air between the retracted tongue base and the posterior pharyngeal wall. Pharyngeal residue was a collection of residue within or on pharyngeal structures. Esophageal clearance in the upright position could not be assessed due to logistical reasons not related to physiologic impairment. Oral Impairment Score: 7 (absence of score, component 2) Pharyngeal Impairment Score: 12 (absence of score, component 13) Esophageal Impairment Score: --- (absence of score, component 17) Laryngeal Penetration and Aspiration: Penetration was observed in today's study. Puree, Honey-thick, [place]-thick, Thin Contrast entered the airway, remained above the vocal folds, and were ejected from the airway. ASSESSMENT: This exam was performed by the speech pathologist and the radiologist. Pt was seated upright at 90 degrees in a wheelchair and trialed thin, nectar thick, honey thick, pureed, and ground consistencies. Patient demonstrated some interlabial escape with liquid, but no spillage beyond the cookie border. Mastication was mildly slowed and prolonged. AP transport was delayed in initiation, but with brisk lingual motion. There was mild coating on the tongue, which mostly cleared with subsequent swallows. Pharyngeal swallow trigger was delayed, initiated at the level of the pyriforms. Minimal laryngeal elevation with partial epiglottic inversion. With all liquid consistencies and puree, there was trace penetration above the vocal folds during the swallow and at times after the swallow on spilled residuals. Patient was able to clear contrast from the trachea with a cued throat clear. At times, contrast cleared spontaneously with subsequent swallows. No evidence of aspiration during this exam. There was mild to moderate retention on the tongue base, in the valleculae, and on the posterior pharyngeal wall, increased (approximately 30%) with ground solid. Patient exhibited some difficulty clearing residue on ground solid, was able to reduce residuals with multiple dry swallows and sips of liquid. Also noted partial distention/partial obstruction of flow through the PES. Liquid Intake Recommendation: Thin Liquid Intake Strategies: Small Sips, Double Swallow, No Straws Dietary Recommendations: Pureed (NDD1) Medication Administration: Crushed with Puree Please contact the pharmacy regarding appropriate crushable or liquid drug formulations that are available whenever modified delivery is recommended. Compensatory Strategies Recommended: Sitting Upright (90 deg), Double Swallow, Throat Clear, No Straw, Small Bites and Sips, Rate of Ingestion Change, Avoid Specific Foods Supervision during eating and or drinking: Total Supervision (1:1) Recommended Treatments: Compens. Strategy Educat. Recommendation for Speech Therapy: Inpatient Speech Therapy Speech Therapy through Rehab Facility Modified Barium Swallow Study - Outpatient Text Comment: Intake Recommendations: Route: PO Diet Grade: Puree Liquid Consistencies: Thin Post-Study Functional Oral Intake Scale (FOIS): 5- Total oral intake of multiple consistencies requiring special preparation Exam revealed moderate oropharyngeal dysphagia. Slowed and delayed oral phase. There was trace penetration above the vocal folds intermittently with thin, nectar thick, honey thick, and puree consistencies. Patient was able to clear tracheal penetration with a volitional throat clear. Mild to moderate residue noted in the oral and pharyngeal cavities, which mostly cleared with dry swallows and sips of liquid. Patient is recommended to continue on PUREED diet (NDD1) and UPGRADE to THIN liquids by teaspoon or controlled cup. Recommend direct supervision and close monitoring as patient is deemed to be at risk of aspiration. The following strategies are recommended to maximize safety: -Take one small bite at a time -Dry swallow between bites to promote oral and pharyngeal clearance -Take small, individual sips of liquid by teaspoon or cup -Avoid the use of straws -After taking sip, clear throat then dry swallow -Maintain 90 degree position during PO intake and for at least 30 minutes afterwards -Maintain frequent oral care, before first meal and after each subsequent meal Therapy Recommendations: Therapy will be continued, PRN M-F while inpatient. Plan to monitor patient?s tolerance of modified diet and re-assess for potential upgrade when appropriate. Recommend continue speech therapy for the treatment and further evaluation of dysphagia at next level of care (acute rehab). The following compensatory strategies and/or therapeutic exercises will be part of the upcoming therapy/management plan: Throat Clear Prognosis for Improvement: The prognosis for the patient to meet nutritional needs by mouth is good based on degree of impairment, stimulability for treatment, level of motivation. Mcfp Goals: ? The patient will tolerate the least restrictive diet with a safe/efficient swallow to maintain adequate nutrition and hydration. ? The patient will demonstrate improved swallowing function via repeat clinical evaluation, videoendoscopy/videofluoroscopy and/or patient self-rating scores. ? The patient and/or family will participate in further education for swallowing goals. Short Term Goals: ? Diet - The patient will tolerate a pureed diet/ thin liquids without signs or symptoms of penetration/aspiration 100% of the time. - The patient will participate in therapeutic PO trials with INSTRUMENT TECHNICIAN HELPER (ground texture with strategies: small bites, 2-3 dry swallows then sip of liquid). ? Guidelines - The patient will comply with/recall the following guidelines/strategies 100% of the time with minimal cuing: Bolus Volume Change, Rate of Ingestion Change, Additional Swallow(s) per Bolus, Throat Clear, No Straws. ? Education - The patient, family, caregiver, nurse will verbalize/demonstrate understanding of the results of this evaluation, the above recommendations, and the swallowing guidelines. Frequency/Duration: M-F PRN while inpatient Date Range for Service Requested: Timeline to reassess: 3 months Clinician - Supplemental, Miscellaneous Communication: It is important to note MBSS objective studies are snapshots in time and Patient function might vary with factors such as time of day or concomitant medical conditions. For this reason, the final treatment plan for this patient should rest with their medical care team. Additional recommendations should be considered with the totality of the Patient in mind. Thank for the opportunity to participate in the care of this patient. If you have any questions about the content of this report, please contact the [facility]. Education: Education regarding findings from today's study and plans for therapy were provided to Patient only through Verbal Instruction. Understanding was expressed by the Patient only. Class A Regional D[employer] Clinician/Clinical Fellow: No Supervisory Statement: N/A Speech Language Pathologist: Johanny Johnson M.A., CCC-INSTRUMENT TECHNICIAN HELPER
--- NOTE | 2023-07-11 17:37 | MHC.SPEECHCO ---
MBSS done this date. There was trace penetration above the vocal folds on thin, nectar thick, honey thick, and pureed consistencies. Patient was able to clear contrast from trachea with cued throat clear. No evidence of aspiration. Mild to moderate pharyngeal retention, increased with solids. Recommend continue on pureed diet with UPGRADE to THIN liquids by teaspoon or cup only (NO STRAWS). Strategies recommended and discussed with patient: multiple dry swallows (2-3) with solids, clear throat post-swallow with liquids. Recommend continue speech for treatment of dysphagia during hospitalization and after discharge (acute rehab). Per EMR, plan is for patient to have trach removed outpatient. Patient would likely benefit from repeat outpatient MBSS after rehab and trach removal.
[2023-07-11] MEDS: Atorvastatin Calcium 20 MG TABLET PO (23:34)
[2023-07-12 03:39] VITALS: BP 140/64; PULSE 84; RESP 20; TEMP 36.1; O2SAT 93
[2023-07-12 07:20] VITALS: BP 133/58; PULSE 72; RESP 18; TEMP 36.4; O2SAT 94
[2023-07-12] MEDS: Metoprolol Succinate ER 25 MG TAB.ER.24H PO ×2 (09:05→20:56)
[2023-07-12] MEDS: 0.9 % Sodium Chloride Flush 3 ML SYRINGE IVFLUSH ×3 (09:06→20:57)
[2023-07-12] MEDS: Famotidine/PF 20 MG/2 ML VIAL IVPUSH (09:07)
[2023-07-12 11:00] VITALS: O2SAT 95
[2023-07-12 11:17] VITALS: BP 131/60; PULSE 85; RESP 18; TEMP 36.4; O2SAT 95
--- NOTE | 2023-07-12 12:48 | MHC.SL.DTX ---
Dysphagia Diet modifications: Last documented Solid diet consistencies: Pureed (NDD1) Last documented Liquid consistency: Thin Last documented Medication Administration: Crushed with Puree Changes made to current diet?: Yes Liquid Consistency and Strategies: Liquid Intake Recommendation: Thin Compensatory Strategies for Safe Swallow: Small Sips Double Swallow Compensatory Strategies for Safe Swallow(b): Sitting Upright (90 deg) Double Swallow No Straw Liquids from Cup Small Bites and Sips Alternate Liquids/Solids Rate of Ingestion Change Avoid Specific Foods Solid Food Consistency: Dietary Recommendations: Pureed (NDD1) Additional Modifications to Solids: No changes to current diet recommended. PHONE OPERATOR will continue to work with him to promote further upgrade of solids. Oral Medication Intake: Crushed with Puree Strategies and Precautions to be Taken for Safe Swallow: Sitting Upright (90 deg) Double Swallow No Straw Liquids from Cup Small Bites and Sips Alternate Liquids/Solids Rate of Ingestion Change Avoid Specific Foods Supervision While Eating and/Drinking: Intermittent Supervision Foods to Avoid: Mixed consistencies Swallowing Recommended Treatments: Compens. Strategy Educat. Recommendation for Speech: Inpatient Speech Therapy Speech Therapy through Rehab Facility Modified Barium Swallow Study - Outpatient Comment: Intake Recommendations: Route: PO Diet Grade: Puree Liquid Consistencies: Thin Post-Study Functional Oral Intake Scale (FOIS): 5- Total oral intake of multiple consistencies requiring special preparation Exam revealed moderate oropharyngeal dysphagia. Slowed and delayed oral phase. There was trace penetration above the vocal folds intermittently with thin, nectar thick, honey thick, and puree consistencies. Patient was able to clear tracheal penetration with a volitional throat clear. Mild to moderate residue noted in the oral and pharyngeal cavities, which mostly cleared with dry swallows and sips of liquid. Patient is recommended to continue on PUREED diet (NDD1) and UPGRADE to THIN liquids by teaspoon or controlled cup. Recommend direct supervision and close monitoring as patient is deemed to be at risk of aspiration. The following strategies are recommended to maximize safety: -Take one small bite at a time -Dry swallow between bites to promote oral and pharyngeal clearance -Take small, individual sips of liquid by teaspoon or cup -Avoid the use of straws -After taking sip, clear throat then dry swallow -Maintain 90 degree position during PO intake and for at least 30 minutes afterwards -Maintain frequent oral care, before first meal and after each subsequent meal Therapy Recommendations: Therapy will be continued, PRN M-F while inpatient. Plan to monitor patient?s tolerance of modified diet and re-assess for potential upgrade when appropriate. Recommend continue speech therapy for the treatment and further evaluation of dysphagia at next level of care (acute rehab). The following compensatory strategies and/or therapeutic exercises will be part of the upcoming therapy/management plan: Throat Clear Prognosis for Improvement: The prognosis for the patient to meet nutritional needs by mouth is good based on degree of impairment, stimulability for treatment, level of motivation. Mcfp Goals: ? The patient will tolerate the least restrictive diet with a safe/efficient swallow to maintain adequate nutrition and hydration. ? The patient will demonstrate improved swallowing function via repeat clinical evaluation, videoendoscopy/videofluoroscopy and/or patient self-rating scores. ? The patient and/or family will participate in further education for swallowing goals. Short Term Goals: ? Diet - The patient will tolerate a pureed diet/ thin liquids without signs or symptoms of penetration/aspiration 100% of the time. - The patient will participate in therapeutic PO trials with PHONE OPERATOR (ground texture with strategies: small bites, 2-3 dry swallows then sip of liquid). ? Guidelines - The patient will comply with/recall the following guidelines/strategies 100% of the time with minimal cuing: Bolus Volume Change, Rate of Ingestion Change, Additional Swallow(s) per Bolus, Throat Clear, No Straws. ? Education - The patient, family, caregiver, nurse will verbalize/demonstrate understanding of the results of this evaluation, the above recommendations, and the swallowing guidelines. Frequency/Duration: M-F PRN while inpatient Date Range for Service Req: Timeline to reassess: 3 months Treatment: Pt participated in an MBSS yesterday after which he was upgraded to Puree Solids and Thin Liquid. Pt is resting in his recliner on arrival with a large cup of iced coffee with a straw. Pt is reminded to not use straws at this time. He is anxious to return to his normal swallowing baseline. PHONE OPERATOR reiterated that he would need to give it time and work with PHONE OPERATOR until cleared to do so. He expresses concern about having ice with his drink if drinking from a cup citing cold sensitivity of his teeth. PHONE OPERATOR demonstrates how to strain the liquid while keeping the ice in the large cup only. He goes on to trial several sips and is intermittently throat clearing. He cites that the PHONE OPERATOR who conducted his MBSS recommended he clear is throat after swallowing, so this may be a volitional behavior. When asked he states that he does not want to upgrade his solids at this time. Bridal Consultant Clinican/Clinical Fellow: No Supervisory Statement: I have reviewed and agree with the student/clinical fellow's documentation: N/A Speech Language Pathologist: Leon Clifton M.A., CCC-PHONE OPERATOR
[2023-07-12] MEDS: cefTRIAXone sodium 1 GM in 0.9 % Sodium Chloride 50 ML IV (14:34)
--- NOTE | 2023-07-12 15:05 | MHC.CM.PN ---
referrals out for STR, [facility] RT, accepts pt., and pt. accepts bed, HCP added to chart, copies given to pt. awaiting to hear on auth from [facility].
--- NOTE | 2023-07-12 15:14 | HO.PM.IMPN ---
Subjective Subjective Date of Service: 07/12/23 Interval History: Seen and evaluated this morning Feels comfortable overall tolerating pureed no reported overnight events Review of Systems Review of Systems: Yes all other systems are reviewed and are negative Physical Exam Vital Signs: Vital Signs: Last Vital Signs Temp 97.5 F 07/12/23 11:17 Pulse 85 07/12/23 11:17 Resp 18 07/12/23 11:17 BP 131/60 07/12/23 11:17 Pulse Ox 95 07/12/23 11:17 O2 Del Method Room Air 07/12/23 11:17 O2 Flow Rate 2 07/11/23 07:51 FiO2 35 07/06/23 16:58 Oxygen Flow Rate 5 07/08/23 11:00 BMI result Body Mass Index 36.5 Const: Other: Constitutional : Awake, interactive, not in distress Neck : Normal inspection, Supple, trach in place Cardiovascular : RRR, no JVP, no lower extremity edema Respiratory : good bilateral air entry, no crackles, wheezes or rhonchi Gastrointestinal: soft, lax, Normal bowel sounds, Non tender Skin : Warm, Dry Neurological : Alert & oriented x3, No focal deficit Objective Data Active Medications Acetaminophen (Acetaminophen 325 Mg Tablet) 650 mg PO Q6H PRN PRN Reason: Pain, Mild (Pain Scale 1-3) Albuterol Sulfate (Albuterol Sulfate (0.083%) 2.5 Mg/3 Ml Vial.Neb) 2.5 mg INHALE Q4H PRN PRN Reason: Wheezing Atorvastatin Calcium (Atorvastatin Calcium 20 Mg Tablet) 20 mg PO BEDTIME [facility] Last Admin: 07/11/23 23:34 Dose: 20 mg Documented By: TAMMI Docusate Sodium (Docusate Sodium 100 Mg Capsule) 200 mg PO BEDTIME [facility] Famotidine (Famotidine/Pf 20 Mg/2 Ml Vial) 20 mg IVPUSH DAILY [facility] Last Admin: 07/12/23 09:07 Dose: 20 mg Documented By: ELIZABETH Ceftriaxone Sodium 1 gm/ (Sodium Chloride) 50 mls @ 100 mls/hr IV Q24H [facility] Last Infusion: 07/12/23 15:06 Dose: Infused Documented By: ELIZABETH Lorazepam (Lorazepam 2 Mg/Ml Vial) 0.5 mg IVPUSH BEDTIME PRN PRN Reason: anxiety/restlessness Last Admin: 07/10/23 22:02 Dose: 0.5 mg Documented By: ENMA Metoprolol Succinate (Metoprolol Succinate Er 25 Mg Tab.Er.24h) 25 mg PO BID [facility]; Protocol Last Admin: 07/12/23 09:05 Dose: 25 mg Documented By: ELIZABETH Non-Formulary Medication (Chloroquine Phosphate) 125 mg PO 5XW MING Ondansetron HCl (Ondansetron Hcl 4 Mg/2 Ml Vial) 4 mg IVPUSH ONCE PRN PRN Reason: Nausea and Vomiting Sodium Chloride (0.9 % Sodium Chloride Flush 3 Ml Syringe) 3 ml IVFLUSH QSHIFT [facility] Last Admin: 07/12/23 09:06 Dose: 3 ml Documented By: ELIZABETH Labs 07/11/23 06:03 07/11/23 06:03 Assessment and Plan (1) Swallowing problem: Status: Acute (2) Status post carotid endarterectomy: Status: Acute (3) Physical deconditioning: Status: Acute (4) Status post tracheostomy: Status: Acute Plan 68-year-old gentleman postoperative day 1 after an elective endarterectomy with postop hematoma. choked on an egg with development of stridor, unable to clear airway with Heimlich maneuver, intubation attempted by ER/anesthesia, but unable to endotracheally intubate secondary to distorted airway from carotid endarterectomy surgery hematoma requiring emergent bedside tracheostomy, no loss of pulse through the episode. Thereafter, patient taken to OR to re-explore carotid endarterectomy site with no active bleeding noted Physical deconditioning PT\OT eval rec acute rehab Swallowing problem FOAM FABRICATOR team following Advanced to pureed diet might need MBSS Shocking incident s/p Tracheostomy Trach capped plan for removal by Pulm\chest surgeon as outpatient next week Wean down O2 as tolerated Status post elective endarterectomy complicated by hematoma Vascular surgery evacuated the hematoma. stable H&H Hx CAD ASA, Metoprolol and Losartan Continue Simvastatin The patient will need overnight hospital stay pending clinical improvement and safe discharge plan Quality Stroke Does the patient have a stroke diagnosis?: No VTE Prior VTE?: No VTE Risk Level:: Medical - moderate - high VTE Device Contraindication: N/A - Device Ordered VTE Drug Contraindication: Treatment Not Indicated
[2023-07-12 15:20] VITALS: BP 124/61; PULSE 79; RESP 18; TEMP 36.4; O2SAT 98
[2023-07-12 19:56] VITALS: BP 124/60; PULSE 76; RESP 21; TEMP 36.1; O2SAT 96
[2023-07-12] MEDS: Atorvastatin Calcium 20 MG TABLET PO (20:56)
[2023-07-13] VITALS: BP 110/53; PULSE 68; RESP 20; TEMP 36.1; O2SAT 94
[2023-07-13 03:19] VITALS: BP 142/65; PULSE 67; RESP 20; TEMP 36.1; O2SAT 95
[2023-07-13 07:21] VITALS: BP 121/56; PULSE 67; RESP 20; TEMP 36; O2SAT 98
[2023-07-13] MEDS: 0.9 % Sodium Chloride Flush 3 ML SYRINGE IVFLUSH (09:35)
--- NOTE | 2023-07-13 09:35 | PM.DS ---
DS: Providers Provider Date of Service: 07/13/23 Date of admission: 07/04/23 09:56 Primary care physician: Zion Martinez MD DS: Diagnosis Discharge Diagnosis (1) Swallowing problem: Status: Acute (2) Status post carotid endarterectomy: Status: Acute (3) Physical deconditioning: Status: Acute (4) Status post tracheostomy: Status: Acute DS: Summary Hospital Course Hospital Course: from initial hpi: 68-year-old male with a past medical history of hypertension, hyperlipidemia, coronary artery disease, rheumatoid arthritis, and carotid stenosis now postoperative day 0 after an elective left carotid endarterectomy? by Dr. Amezcua.? Admitted to ICU for hemodynamically monitoring post procedure hospital course: Patient was admitted for elective left carotid endarterectomy. Postoperative course was complicated by choking episode, acute respiratory distress requiring emergent bedside tracheostomy, further complicated by surgical site hematoma. Patient was then taken to the OR for re-exploration, no signs of active bleeding were noted. Tracheostomy was eventually capped and patient weaned off O2. trach was removed prior to discharge. For carotid stenosis status post endarterectomy complicated by hematoma he will continue to follow up with vascular, he will continue on aspirin and statin. For choking episode and dysphagia was seen by NEGATIVE NOTCHER who recommended pureed solids and thin liquids. He should continue to follow with NEGATIVE NOTCHER as outpatient. For history of coronary disease he is continued on aspirin and statin. Patient is feeling better will be discharged to rehab. Time Attestation Discharge Coordination Time (in mins): 35 Quality: Safe Use of Opioids Does Pt have an Active Cancer Diagnosis on the Problem List?: No Quality: Stroke Does the patient have a stroke diagnosis?: No Physical Exam Vital Signs: Vital Signs: Last Vital Signs Temp 96.8 F 07/13/23 07:21 Pulse 67 07/13/23 07:21 Resp 20 07/13/23 07:21 BP 121/56 L 07/13/23 07:21 Pulse Ox 98 07/13/23 07:21 O2 Del Method Room Air 07/13/23 07:21 O2 Flow Rate 2 07/13/23 03:19 FiO2 35 07/06/23 16:58 Oxygen Flow Rate 5 07/08/23 11:00 BMI result Body Mass Index 36.5 Const: Other: Constitutional : Awake, interactive, not in distress Neck : Normal inspection, Supple, improving hematoma, trach in place Cardiovascular : RRR, no JVP, no lower extremity edema Respiratory : good bilateral air entry, no crackles, wheezes or rhonchi Gastrointestinal: soft, lax, Normal bowel sounds, Non tender Skin : Warm, Dry Neurological : Alert & oriented x3, No focal deficit DS: Data Data Completed and Pending Completed studies during hospitalization [Text1]: Pending at discharge 07/04/23 15:52 Surgical [PTH] Routine Discharge Plan Discharge Anticipated Discharge Date/Time: 07/13/23 09:29 Patient Disposition: Xfer SNF Discharge Diagnosis: s/p cea, choking event Referrals: [facility] [Outside] - 1 Week Zion Martinez MD [Primary Care Provider] - 1 Week Davey Amezcua MD [Physician] - 1 Week Discharge Medications: Continued metoprolol succinate 25 mg tablet extended release 24 hr 25 mg PO BID 90 Days Qty: 180 3RF losartan 100 mg tablet 100 mg PO DAILY Qty: 90 3RF chloroquine phosphate 250 mg tablet 125 mg PO .COMPLEX Qty: 36 2RF Rx Instructions: Five days a week hydrochlorothiazide 25 mg tablet 25 mg PO DAILY simvastatin 40 mg tablet 40 mg PO BEDTIME Qty: 90 3RF nicotine (polacrilex) [Nicorette] 2 mg mini lozenge 2 mg buccal Q4-8H PRN (Reason: nicotine cravings) 28 Days Qty: 81 2RF aspirin [Adult Low Dose Aspirin] 81 mg tablet,delayed release (DR/EC) 81 mg PO DAILY docusate sodium [Colace] 100 mg capsule 200 mg PO DAILY cholecalciferol (vitamin D3) 25 mcg (1,000 unit) capsule 25 mcg PO DAILY Discharge Orders: Discharge Order (Routine); Ordered 07/13/23 Ordered By: Adan Myers Diet: pureed solids Activity on Discharge: As tolerated Stand Alone Forms: Patient Portal Discharge page Care Plan Goals: recovery Health Concerns: s/p tracheostomy, s/p carotid endarctectomy Plan of Treatment: follow up vascular pureed solids for now, continue NEGATIVE NOTCHER therapy Assessment: see above
[2023-07-13] MEDS: Famotidine/PF 20 MG/2 ML VIAL IVPUSH (09:36)
[2023-07-13] MEDS: Metoprolol Succinate ER 25 MG TAB.ER.24H PO (09:36)
--- NOTE | 2023-07-13 09:45 | P.PNPL_ITS ---
Subjective Subjective Date of Service: 07/13/23 Interval history: Tracheostomy removed without complications. Patient tolerated procedure well. Objective Data Labs 07/11/23 06:03 07/11/23 06:03 Physical Exam 2 Vital Signs: Vital Signs: Last Vital Signs Temp 96.8 F 07/13/23 07:21 Pulse 67 07/13/23 07:21 Resp 20 07/13/23 07:21 BP 121/56 L 07/13/23 07:21 Pulse Ox 98 07/13/23 07:21 O2 Del Method Room Air 07/13/23 07:21 O2 Flow Rate 2 07/13/23 03:19 FiO2 35 07/06/23 16:58 Oxygen Flow Rate 5 07/08/23 11:00 BMI result Body Mass Index 36.5 Const: General: no acute distress, alert and awake Eyes: Sclerae: sclerae normal EOM: EOMs intact bilaterally Neck: Neck: Yes no lymphadenopathy, Yes trachea midline, Yes supple and Yes other (Tracheal stoma occluded with bandage) Resp: Effort & Inspection: normal respiratory effort and no respiratory distress Auscultation: clear to auscultation bilaterally Cardio: Rate: regular rate Rhythm: regular rhythm Heart sounds: no gallops, no murmurs and no rubs GI: Palpation (GI): Soft to palpation and Other GI palpation findings present ( Nontender) Auscultation: normal bowel sounds Extrem: General: Yes no pedal edema, No clubbing and No cyanosis Procedures Date of Service Date of Service: 07/13/23 Assessment and Plan Assessment and plan (1) Status post tracheostomy: Status: Acute Plan Impression: 68-year-old gentleman status post emergency tracheostomy with aspiration of food on the background of hematoma from endarterectomy. Now tolerating tracheostomy being capped. Passed swallow evaluation. Tracheostomy removed with patient tolerating procedure well. Recommendations: Keep stoma covered with occlusive dressing until healed. Time Spent With Patient Time: Total time managing care of this patient today ____ minutes. Progress Note: Quality Stroke Does the patient have a stroke diagnosis?: No
--- NOTE | 2023-07-13 09:49 | MHC.CM.PN ---
Second IMM 07/13/23, pt has been medically cleared for DC, he will go to [facility] via ambulance today.
[2023-07-13 10:27] VITALS: O2SAT 96
[2023-07-13 11:11] VITALS: BP 120/60; PULSE 78; RESP 20; TEMP 36.6; O2SAT 98
== END 2023-07-13 13:15 | disposition skilled nursing facility (03) | DRG 3 ==
LOC: HO.SSSA 09:58 → HO.ICU 16:45 → HO.IMC 07-09 11:16
PROVIDERS: Internal Medicine Pulmonary Disease; Registered Nurse Community Health; Student in an Organized Health Care Education/Training Program; Admitting Provider Surgery Vascular Surgery; PCP Family Medicine; Visit Provider Internal Medicine
PROC: 03CN0ZZ Extirpation of Matter from Left External Carotid Artery, Open Approach (ICD-10-PCS; CPT 35301; principal; 2023-07-04 11:40)
PROC: 0JC50ZZ Extirpation of Matter from Left Neck Subcutaneous Tissue and Fascia, Open Approach (ICD-10-PCS; principal; 2023-07-05 09:40)
DX: I65.22 Occlusion and stenosis of left carotid artery (principal); I97.638 Postprocedural hematoma of a circulatory system organ or structure following other circulatory system procedure; Y83.8 Other surgical procedures as the cause of abnormal reaction of the patient, or of later complication, without mention of misadventure at the time of the procedure; E78.5 Hyperlipidemia, unspecified; I25.10 Atherosclerotic heart disease of native coronary artery without angina pectoris; I10 Essential (primary) hypertension; T88.4XXA Failed or difficult intubation, initial encounter; M05.9 Rheumatoid arthritis with rheumatoid factor, unspecified; Z95.0 Presence of cardiac pacemaker; F17.210 Nicotine dependence, cigarettes, uncomplicated; Z71.6 Tobacco abuse counseling; Z20.822 Contact with and (suspected) exposure to COVID-19; Z88.0 Allergy status to penicillin; Z91.040 Latex allergy status; Z86.73 Personal history of transient ischemic attack (TIA), and cerebral infarction without residual deficits; Z79.82 Long term (current) use of aspirin; Z79.899 Other long term (current) drug therapy
CPT/HCPCS: 36415; 36600; 71045; 74230; 80048; 80053; 82040; 82803; 82947; 83735; 84100; 85025; 85027; 86850; 86900; 86901; 87635; 88304; 88311; 92526; 92610; 92611; 93005; 94002; 94003; 94640; 94799; 97116; 97161; 97166; 97530; 97535; A4649; C1758; C1768; J0690; J0696; J1100; J1170; J1644; J2060; J2250; J2371; J2405; J2704; J2795; J3010; J3371; P9047

== ENCOUNTER 2023-07-04 09:56 | Outpatient (BNV) | payer MEDICARE, SELFPAY | END 2023-07-11 11:25 | PROVIDERS: Admitting Provider Surgery Vascular Surgery; PCP Family Medicine; Visit Provider Physician Assistant Surgical | DX: R13.10 Dysphagia, unspecified (principal) | CPT/HCPCS: 74230 ==

== ENCOUNTER → 2023-07-04 09:56 | Outpatient (BNV) | payer MEDICARE, SELFPAY | PROVIDERS: Admitting Provider Surgery Vascular Surgery; PCP Family Medicine; Visit Provider Surgery | DX: Z98.890 Other specified postprocedural states (principal) | CPT/HCPCS: 31603; 99024 ==

== ENCOUNTER → 2023-07-04 09:56 | Outpatient (BNV) | payer MEDICARE, SELFPAY | PROVIDERS: Admitting Provider Surgery Vascular Surgery; PCP Family Medicine; Visit Provider Internal Medicine Pulmonary Disease | DX: T17.920D Food in respiratory tract, part unspecified causing asphyxiation, subsequent encounter (principal); Z93.0 Tracheostomy status | CPT/HCPCS: 99232; 99233; 99291 ==

== ENCOUNTER → 2023-07-04 09:56 | Outpatient (BNV) | payer MEDICARE, SELFPAY | PROVIDERS: Admitting Provider Surgery Vascular Surgery; PCP Family Medicine; Visit Provider Surgery Vascular Surgery | DX: Z98.890 Other specified postprocedural states (principal) | CPT/HCPCS: 35301; 35800; 99024; 99499 ==

== ENCOUNTER → 2023-07-04 09:56 | Outpatient (BNV) | payer MEDICARE, SELFPAY | PROVIDERS: Admitting Provider Surgery Vascular Surgery; PCP Family Medicine; Visit Provider Student in an Organized Health Care Education/Training Program | DX: R13.10 Dysphagia, unspecified (principal); Z98.890 Other specified postprocedural states; R53.81 Other malaise; Z93.0 Tracheostomy status | CPT/HCPCS: 99232; 99239 ==

== ENCOUNTER → 2023-07-04 09:56 | Outpatient (BNV) | payer MEDICARE, SELFPAY | PROVIDERS: Admitting Provider Surgery Vascular Surgery; PCP Family Medicine; Visit Provider Registered Nurse Community Health | DX: I25.10 Atherosclerotic heart disease of native coronary artery without angina pectoris (principal); Z95.0 Presence of cardiac pacemaker; E78.5 Hyperlipidemia, unspecified; I10 Essential (primary) hypertension | CPT/HCPCS: 99223 ==

== ENCOUNTER 2023-07-19 09:53 | Outpatient (AMB) | payer MEDICARE, SELFPAY ==
--- NOTE | 2023-07-19 09:55 | A.OFFVIS_ITS ---
Intake Vital Signs 07/19/23 10:08 07/19/23 10:08 Height 6 ft Weight 237 lb BMI 32.1 BP 98/56 L 96/48 L Blood Pressure Location Lt brachial Rt brachial Position Sitting Sitting Intake Visit Reasons: 2 week post op Left CEA Intake Note: 2 week post op s/p Left CEA 07/04/2023 and Left neck hematoma 07/05/2023, Pt states that he does have some pain in shoulders, back and upper chest from heimlich. Pt states he does have some weakness w/ ambulation. He is on a liquid diet. Accompanied by: Brother Allergies Penicillins Allergy (Severe, Verified 07/19/23 10:05) throat swelling Blue Dye Allergy (Severe, Uncoded 07/19/23 10:05) throat swelling Latex Allergy (Severe, Uncoded 07/19/23 10:05) Rash, Hives, whole hand HPI 2 week post op Left CEA HPI Details Very pleasant 68-year-old gentleman presents for follow-up status post left carotid endarterectomy. He had a complicated postoperative course. He aspirated on some eggs. He was subsequently trached. He was taken back to the OR for hematoma evacuation. Subsequently did improve and was then discharged. He has been maintained on a pureed diet. Appears to be doing extremely well with that. Has had no other interval issues. He now presents for follow-up. [facility] Medical History Smoker Claudication of calf muscles Ambulates with cane Rheumatoid arthritis Osteoarthritis Hx MRSA infection HLD (hyperlipidemia) Murmur Coronary artery disease Hx of renal calculi History of pacemaker Hypertension Elevated fasting blood sugar Surgical History Hx of tonsillectomy Hx of colonoscopy H/O cardiac catheterization History of dental surgery History of cystoscopy History of permanent cardiac pacemaker placement Family History Other Mental health disorder Substance use disorder Social History Household Members: None Caregiver staying overnight: No Housing: Apartment Are you a primary healthcare management consultant to a significant other at home: No Do you presently have visiting nurse or other home services: No 75 years or older and lives alone: No Alcohol intake: never Comment: bilateral wrist restraints for airway/line safety Patient Tobacco Use Status: Current everyday Tobacco user Tobacco use type: Cigarette Cigarette Packs Per Day: 1 Cigarettes Per Day: 20.0 Years Smoked: 61 e-Cigarette/Vaping Use: Never Used Second Hand Smoke Exposure: No service: Yes Current occupational status: retired Current occupational exposures/hazards: No Cognitive needs: No (Cane) Hearing needs: No Vision needs: Yes (Glasses) Review of Systems Const All systems reviewed & are unremarkable except as noted in HPI and below Reports no additional complaints ENT Reports Normal hearing present Card Denies chest pain, Denies chest pain at rest, Denies chest pain with activity and Denies pedal edema Resp Denies cough GI Denies abdominal pain Musc Denies abnormal gait, Denies muscle cramps and Denies radiating pain into limb Skin/Breast Denies skin ulcer and Denies wounds Neuro Reports Normal hearing present and Denies abnormal gait Psych Reports no additional complaints Physical Exam Vital Signs: Last Vital Signs BP 96/48 L 07/19/23 10:08 BMI result Body Mass Index 32.1 Const General: cooperative, healthy appearing and comfortable Orientation/consciousness: oriented to person, oriented to place and oriented to time HEENT Head: Yes normal to inspection Neck Neck: Yes normal visual inspection Carotids: no bruits Chest Chest palpation & inspection: normal inspection of the chest Resp Effort & Inspection: normal respiratory effort and able to speak in complete sentences Auscultation: clear to auscultation bilaterally, no crackles, no rales, no rhonchi and no wheezes Cardio Rate: regular rate Rhythm: regular rhythm Heart sounds: S1 normal heart sound present and S2 normal heart sound present Bruits: no carotid bruits Peripheral pulses: Peripheral pulses 2+ throughout GI Inspection: Yes normal to inspection Skin Other: Left neck incision and trach site healing nicely. Wounds: no wounds Hair: normal Neuro General: oriented to person, oriented to place and oriented to time Cranial nerves: Yes CN's II-XII intact bilaterally and Yes Normal hearing present Cognition (Neuro): normal cognition Motor exam (neuro): 5/5 motor strength present throughout Extrem Other: venous exam: No significant superficial varicosities or spider telangiectasias, minimal edema General: No clubbing, No cyanosis and No edema Psych Appearance: grossly normal Mental Status: mental status grossly normal Speech and movement: Normal speech and movement present Assessment & Plan Assessment & Plan (1) Bilateral carotid artery stenosis: Comment: 07/04/2023 - left carotid endarterectomy 07/05/2023- take back for left carotid hematoma evacuation Code(s): I65.23 - Occlusion and stenosis of bilateral carotid arteries Plan: In short patient has done extremely well from left carotid endarterectomy in terms of the carotid. He did have a complex postoperative course but appears to be recovering nicely. As scheduled a 3 month surveillance ultrasound for him. In addition he may need intervention on his right carotid. He will need an ENT evaluation prior to this. Once again we will reassess him in about 3 months. Thank you for allowing us to assist in his care. (2) Swallowing problem: Code(s): R13.10 - Dysphagia, unspecified Plan: Will refer to speech therapy to see if he can be advanced from a puree diet up to regular diet. Orders: Referrals Speech and Hearing Referral R13.10 - Dysphagia, unspecified Coding Level of Care Code Est Pt Level 4 (20827) Diagnoses Bilateral carotid artery stenosis I65.23 Swallowing problem R13.10
[2023-07-19 10:08] VITALS: BP 96/48; BP 98/56; BMI 32.1
== END 2023-07-19 10:51 | disposition home or self-care (01) ==
PROVIDERS: PCP Family Medicine; Visit Provider Surgery Vascular Surgery
DX: I65.23 Occlusion and stenosis of bilateral carotid arteries (principal); R13.10 Dysphagia, unspecified
CPT/HCPCS: 99024

== ENCOUNTER → 2023-07-19 09:53 | Outpatient (BNVA) | payer MEDICARE, SELFPAY | PROVIDERS: PCP Family Medicine; Visit Provider Surgery Vascular Surgery | DX: I65.23 Occlusion and stenosis of bilateral carotid arteries (principal); R13.10 Dysphagia, unspecified; M25.519 Pain in unspecified shoulder; R07.9 Chest pain, unspecified; M54.9 Dorsalgia, unspecified | CPT/HCPCS: 99212 ==

== ENCOUNTER 2023-07-26 10:51 | Outpatient (AMB) | payer MEDICARE, SELFPAY ==
--- NOTE | 2023-07-26 10:57 | A.OFFVIS_ITS ---
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 Fall, presents today for follow up. Assessment Specialist Required: No Accompanied by: Self / Same As Patient Allergies Penicillins Allergy (Severe, Verified 07/26/23 10:57) throat swelling Blue Dye Allergy (Severe, Uncoded 07/26/23 10:57) throat swelling Latex Allergy (Severe, Uncoded 07/26/23 10:57) Rash, Hives, whole hand Medication List - Last Reconciled 07/26/23 by LILIBETH Donohue- aspirin (Adult Low Dose Aspirin) 81 mg PO DAILY chloroquine phosphate Five days a week cholecalciferol (vitamin D3) 25 mcg PO DAILY docusate sodium (Colace) 200 mg PO DAILY hydrochlorothiazide 25 mg PO DAILY losartan 100 mg PO DAILY metoprolol succinate ER 25 mg PO BID 90 days nicotine (polacrilex) (Nicorette) 2 mg buccal Q4-8H PRN 28 days simvastatin 40 mg PO BEDTIME HPI HPI Comments History of Present Illness Details Mr. Satck 68yoM returns for follow-up of his rheumatoid arthritis. He is feeling better he says on the chloroquine at 125 mg 5 days a week. He does have an upcoming eye exam (07/26) to monitor for the chloroquine retinal toxicity. No discomfort at the right 2nd PIP and the flexor tendon of the left 3rd finger. No triggering however is noted. He wears the right wrist splint at night and that seems to have reduce the frequency of the hand numbness. Wearing the splint on the left seem to cause some wrist pain so he only wears it during the daytime. That also is seemingly had some improvement as far as the wrist pain goes. He says it might be psychology too . [facility] Medical History Smoker Claudication of calf muscles Ambulates with cane Rheumatoid arthritis Osteoarthritis Hx MRSA infection HLD (hyperlipidemia) Murmur Coronary artery disease Hx of renal calculi History of pacemaker Hypertension Elevated fasting blood sugar Surgical History Hx of tonsillectomy Hx of colonoscopy H/O cardiac catheterization History of dental surgery History of cystoscopy History of permanent cardiac pacemaker placement Family History Other Mental health disorder Substance use disorder Social History Household Members: None Caregiver staying overnight: No Housing: Apartment Are you a primary housekeeper child care to a significant other at home: No Do you presently have visiting nurse or other home services: No 75 years or older and lives alone: No Alcohol intake: never Comment: bilateral wrist restraints for airway/line safety Patient Tobacco Use Status: Current everyday Tobacco user Tobacco use type: Cigarette Cigarette Packs Per Day: 1 Cigarettes Per Day: 20.0 Years Smoked: 61 e-Cigarette/Vaping Use: Never Used Second Hand Smoke Exposure: No service: Yes Current occupational status: retired Current occupational exposures/hazards: No Cognitive needs: No (Cane) Hearing needs: No Vision needs: Yes (Glasses) Physical Exam Vital Signs: Last Vital Signs Temp 97.6 F 07/26/23 11:02 Pulse 87 07/26/23 11:02 BP 124/60 07/26/23 11:02 Pulse Ox 97 07/26/23 11:02 Oxygen Delivery Method Room Air 07/26/23 11:02 BMI result Body Mass Index 32.0 APPEARANCE: Patient in no acute distress EYES no redness, pupils equal and reactive to light, eyelids normal; no temporal artery tenderness, redness or swelling. JOINT EXAM.?? Cervical Spine:? Some decrease in lateral flexion to about 10 degrees and some decrease with rotation to about 45 degrees but without pain.? No tenderness. Thoracic Spine:.? No scoliosis.? No tenderness on palpation. Lumbar Spine:.? Alignment normal.? Full range of motion with mild discomfort at the extremes of flexion.? No tenderness. Chest Wall:.? No tenderness, swelling, increased warmth or erythema. Hands:? Right: Mild bony enlargement at the thumb IP joint.? There is no mild swelling and tenderness in the 1st 2 MCP joints today. There is no slight tenderness today but thickening at the 2nd and 3rd PIP.? No thenar atrophy or sensory loss.? Left:? No Mild tenderness and slight thickening the 2nd and 3rd PIP joints.? He points that the palm of the hand particularly along the 3rd flexor tendon in the palm which is painful at night but is helped by the splint This is accompanied by tingling in the fingers. But today there is no tenderness or triggering of the tendons. There is no tenderness or swelling in the other PIP or MCP joints.? No thenar atrophy or sensory loss. Wrists:? Patient flexion and extension intact to 75 degrees without pain.? No tenderness, swelling, increased warmth or erythema. Negative Phalen's and Tinel signs. Elbows:. The patient lacks about 10 degrees of full extension both elbows but there is no tenderness or swelling. No increased warmth or erythema. Shoulders:.?? Full range of motion without pain. No tenderness, weakness, swelling, increased warmth or erythema. Hips:.? Left:? Slight lateral pain with extremes of external rotation or abduction.? No groin pain with motion.? Right:? Full range of motion without pain. Hip bursa:.? Mild left trochanteric tenderness. Knees:.?? Normal pain-free range of motion without tenderness, swelling, increased warmth or erythema.? There is no effusion or crepitation Ankles:? Normal pain-free range of motion with mild patellofemoral crepitus.? There is some slight medial compartment tenderness without effusion, soft tissue swelling, increased warmth or erythema. Feet:? Normal pain-free range of motion without tenderness, swelling, increased warmth or erythema. ? Results Reviewed Results Reviewed: The patient was Hospitalized for Left Corotid Surgery and was trached because he choked on some scrambled eggs. The labs available reflect that hospitalization. Will obtain updated labs. Assessment & Plan Assessment & Plan (1) penitentiary use of drug: Code(s): Z79.899 - Other half-way (current) drug therapy (2) Seropositive rheumatoid arthritis: Comment: Onset ?016 RF and CCP positive 03/19: Hydroxychloroquine not tolerated - constipation 04/18: chloroquine started Eye exam OK 11/17, 07/2020 Code(s): M05.9 - Rheumatoid arthritis with rheumatoid factor, unspecified Plan #Rheumatoid arthritis appears to well managed on chloroquine at 125 mg 5 days a week. We will continue with the Chloroquine 125mg 5 days a week. #Custodial Use: Up coming eye appointment. Will obtain labs today. A follow-up in 5 or 6 months in Rheumatology in recommended. Orders: Orders Erythrocyte Sedimentation Rate Today M05.9 - Rheumatoid arthritis with rheumatoid factor, unspecified, Z79.899 - Other half-way (current) drug therapy Complete Blood Count Auto Diff Today M05.9 - Rheumatoid arthritis with rheumatoid factor, unspecified, Z79.899 - Other terminal press operator (current) drug therapy Comprehensive Met. Panel Today M05.9 - Rheumatoid arthritis with rheumatoid factor, unspecified, Z79.899 - Other terminal press operator (current) drug therapy C Reactive Protein Today M05.9 - Rheumatoid arthritis with rheumatoid factor, unspecified, Z79.899 - Other half-way (current) drug therapy Coding Level of Care Code Est Pt Level 3 (41957) Diagnoses long term care pharmacist use of drug Z79.899 Seropositive rheumatoid arthritis M05.9
[2023-07-26 11:02] VITALS: BP 124/60; PULSE 87; TEMP 36.4; O2SAT 97; BMI 32.0
== END 2023-07-26 11:41 | disposition home or self-care (01) ==
PROVIDERS: PCP Family Medicine; Visit Provider Nurse Practitioner Family
DX: M05.79 Rheumatoid arthritis with rheumatoid factor of multiple sites without organ or systems involvement (principal); Z79.899 Other long term (current) drug therapy
CPT/HCPCS: 99213

== ENCOUNTER 2023-07-26 12:07 | Outpatient (REF) | payer MEDICARE, SELFPAY ==
[2023-07-26 13:29] LABS: MANUAL DIFF FLAG NO
[2023-07-26 13:42] LABS: Basophils Absolute Auto 0.1 X10*3/uL (0.0-0.2); Basophils Percent Auto 0.8 % (0-2); Eosinophils Absolute Auto 0.6 X10*3/uL (0.0-0.4); Eosinophils Percent Auto 5.7 % (0-4); Hematocrit 43.8 % (42.0-52.0); Hemoglobin 14.4 g/dl (14.0-18.0); Imm Gran Abs Auto 0.06 X10*3/uL (0.00-0.03); Imm Gran Pct Auto 0.5 % (0.0-0.4); Lymphocytes Absolute Auto 2.5 X10*3/uL (1.2-4.9); Lymphocytes Percent Auto 22.9 % (20-40); Mean Corpuscular HGB Conc 32.9 g/dl (31.0-36.0); Mean Corpuscular Hemoglobin 32.1 pg (27.0-33.0); Mean Corpuscular Volume 97.8 fL (80.0-98.0); Mean Platelet Volume 9.4 fL (9.4-12.4); Monocytes Absolute Auto 0.9 X10*3/uL (0.1-1.2); Monocytes Percent Auto 8.2 % (2-11); Neutrophils Absolute Auto 6.8 x10*3/uL (2.0-8.3); Neutrophils Percent Auto 61.9 % (45-73); Platelet Count 393 X10*3/uL (160-400); Red Blood Count 4.48 X10*6/uL (4.60-5.80); Red Cell Distribution Width 14.2 % (11.0-16.0)
[2023-07-26 14:12] LABS: Alanine Aminotransferase 22 U/L (0-40); Albumin Level 3.7 g/dL (3.5-5.0); Alkaline Phosphatase 85 U/L (39-117); Anion Gap 14 (12-20); Aspartate Amino Transferase 27 U/L (5-37); Bilirubin Total 0.4 mg/dL (0.0-1.0); Blood Urea Nitrogen 10 mg/dL (9-16); C Reactive Protein 0.27 mg/dL (< or = 0.50); Calcium 9.9 mg/dL (8.4-10.2); Carbon Dioxide 27 mmol/L (22-29); Chloride 102 mmol/L (96-108); Estimated Glomerular Filt Rate > 60; Glucose Random 101 mg/dL (60-115); Sodium 139 mmol/L (135-145)
[2023-07-26 14:56] LABS: Erythrocyte Sedimentation Rate 16 MM/HR (0-15)
== END 2023-07-26 12:08 | disposition home or self-care (01) ==
LOC: HO.HMGCLDS 12:07
PROVIDERS: PCP Family Medicine; Visit Provider Nurse Practitioner Family
DX: M05.9 Rheumatoid arthritis with rheumatoid factor, unspecified (principal); Z79.899 Other long term (current) drug therapy
CPT/HCPCS: 36415; 80053; 85025; 85652; 86140; 99212

== ENCOUNTER → 2023-08-08 23:59 | Outpatient (BNV) | payer MEDICARE, SELFPAY ==
--- NOTE | 2023-08-08 16:18 | A.OFFVIS_ITS ---
Intake Intake Visit Reasons: Remote device check- [employer] Allergies Penicillins Allergy (Severe, Verified 07/26/23 10:57) throat swelling Blue Dye Allergy (Severe, Uncoded 07/26/23 10:57) throat swelling Latex Allergy (Severe, Uncoded 07/26/23 10:57) Rash, Hives, whole hand PFSH Medical History Smoker Claudication of calf muscles Ambulates with cane Rheumatoid arthritis Osteoarthritis Hx MRSA infection HLD (hyperlipidemia) Murmur Coronary artery disease Hx of renal calculi History of pacemaker Hypertension Elevated fasting blood sugar Surgical History Hx of tonsillectomy Hx of colonoscopy H/O cardiac catheterization History of dental surgery History of cystoscopy History of permanent cardiac pacemaker placement Family History Other Mental health disorder Substance use disorder Social History Household Members: None Housing: Apartment Are you a primary specialist wound care to a significant other at home: No Do you presently have visiting nurse or other home services: No Alcohol intake: never Comment: bilateral wrist restraints for airway/line safety Patient Tobacco Use Status: Current everyday Tobacco user Tobacco use type: Cigarette Cigarette Packs Per Day: 1 Cigarettes Per Day: 20.0 Years Smoked: 61 e-Cigarette/Vaping Use: Never Used Second Hand Smoke Exposure: No service: Yes Current occupational status: retired Current occupational exposures/hazards: No Cognitive needs: No (Cane) Hearing needs: No Vision needs: Yes (Glasses) Office Procedures Cardiac Device Check Cardiac Device Check Details: Remote pacemaker report generated 08/08/2023. Ventricularly pacer dependent. No significant arrhythmias detected. Battery life is adequate. [id number] Cardiac Device Interrogation, pacemaker Procedure code (CPT) selection complete Assessment & Plan Assessment & Plan (1) Pacemaker: Code(s): Z95.0 - Presence of cardiac pacemaker Plan: See above Coding Level of Care Code Procedure Only Diagnoses Pacemaker Z95.0 CPT Codes Cardiac Device Check - Cardiac Device 12: [id number] Cardiac Device Interrogation, pacemaker ([id number])
== END ==
PROVIDERS: PCP Family Medicine; Visit Provider Internal Medicine Cardiovascular Disease
DX: Z45.018 Encounter for adjustment and management of other part of cardiac pacemaker (principal)
CPT/HCPCS: 93294

== ENCOUNTER → 2023-08-09 12:39 | Outpatient (REF) | payer MEDICARE, SELFPAY ==
--- NOTE | 2023-08-09 12:41 | CA_ITS ---
Transthoracic Echocardiogram Patient (Last, First, Middle): Sanford Stack, Gender: Male Date of : 1955 Age: 68 Procedure Date: 08/09/2023 Procedure Type: Transthoracic Echocardiogram Location: OP Height: 182.88 cm Weight: 105.01 kg BSA: 2.27 m2 Heart Rate: bpm BP: 120 / 60 mmHg [facility]: [facility] Referring MD: Pinky Stephens OUTDOOR POWER EQUIPMENT MECHANIC-C Slice Plug Cutter Operator Helper: Ross Barney MD Symptoms: I47.29 - Other ventricular tachycardia Study Quality: Fair/no iv access ECG Rhythm: Ventriculary paced rhythm Conclusions: - 1. Low normal LV ejection fraction 50-55% with elevated filling pressures 2. Mildly dilated left atrium 3. Mild aortic stenosis 4. Normal RV systolic pressure 5. Upper limits of normal ascending aortic size 6. No pericardial effusion Findings Left Ventricle Normal left ventricular cavity size. There is normal left ventricular wall thickness. The left ventricular systolic function is low normal. The visually estimated ejection fraction is between 50-55%. There is paradoxical septal motion consistent with a right ventricular pacemaker. Spectral Doppler is indicative of an impaired relaxation filling pattern. Elevated filling pressures. There is mild septal asymmetric hypertrophy. Right Ventricle Normal right ventricular cavity size and systolic function. There is a pacemaker wire seen in the right ventricle. Atria The left atrium is mildly dilated. Interatrial shunt cannot be excluded. The right atrium is likely dilated. A pacemaker wire is identified in the right atrium. Aortic Valve There is mild calcification of the aortic valve. There is mild thickening of the aortic valve. The peak aortic velocity is 1.69 m/s with a calculated peak gradient of 11 mmHg. The mean gradient is 6 mmHg. The aortic valve area is 1.93 cm2. There is no aortic valve regurgitation. Mitral Valve There is mild anterior and posterior mitral leaflet thickening. There is mild posterior mitral annular calcification. There is mild mitral annular calcification. There is trace mitral valve regurgitation. There is no mitral valve stenosis. Pulmonic Valve The pulmonic valve was not well visualized. Tricuspid Valve Likely normal tricuspid valve structure and function. There is mild tricuspid valve regurgitation. The right ventricular systolic pressure is normal. The right ventricular systolic pressure is 21 mmHg. Normal right atrial pressure. There is no evidence of pulmonary hypertension. Great Vessels The pulmonary artery was not well visualized. Small plaque is seen in the sino tubular ridge. Venous The inferior vena cava is normal in size and collapses greater than 50% with inspiration. Pericardium/Pleural There is no evidence of pericardial effusion. Prior Study Comparison No prior study available for comparison. Measurements 2D Linear Measurements IVSd: 1.07 0.6-0.9/0.6-1.0 cm LVIDd: 4.93 3.9-5.3/4.2-5.9 cm LVIDd Index: 2.17 2.4-3.2/2.2-3.1 cm/m2 LVIDs: 3.10 2.0-3.6 cm LVPWd: 0.98 0.7-1.1 cm LA Diam: 3.90 2.7-3.8/3.0-4.0 cm LAIDs Index: 1.72 1.5-2.3 cm/m2 LV Mass: 229.66 67-162/88-224 g LV Mass Index: 101.17 43-95/49-115 g/m2 LVOT Diam: 2.10 3.0+(-)1.3 cm 2D Systolic Function EF 4C: 52.20 >55% EF 2C: 53.00 >55% EF BiP: 53.10 >55% Mitral Valve MV VTI: 0.33 MV Pk Milad: 1.32 MV Mn Milad: 0.78 MV Pk Grad: 7.00 MV Mn Grad: 3.00 MV Pk E: 0.84 MV PK A: 1.07 MV Decel Time: 192.00 E/A: 0.80 E'Lateral: 5.33 E'Medial: 4.90 E/E' Med: 17.20 E/E' Lat: 15.80 PHT: 56.00 MVA PHT: 3.93 MVA Continuity: 2.18 Decel [place]: 4.39 Aortic Valve AoV Pk Milad: 1.69 AoV Mn Milad: 1.17 AoV VTI: 0.37 AoV Pk Grad: 11.00 Aov Mn Grad: 6.00 LUIS ANTONIO Cont.VTI: 1.93 LVOT LVOT Pk Milad: 0.89 LVOT Mn Milad: 0.59 LVOT VTI: 0.21 LVOT Pk Grad: 3.00 LVOT Mn Grad: 2.00 LVOT Diam: 2.10 LVOT Area: 3.46 Diastolic Function MV Pk E: 0.84 MV Pk A: 1.07 E/A: 0.80 E'Medial: 4.90 E/E' Med: 17.20 E' Laterial: 5.33 E/E' Lat: 15.80 Right Ventricle TAPSE (mm): 20.40 TVS' Milad: 11.20 Tricuspid Valve TR Pk Milad: 2.12 TR Pk Grad: 18.00 RA Press: 3.00 RVSP: 21.00 Great Vessels Aorta Sinus of Valsalva: 3.59 2.0-3.5 cm Ao Asc: 3.60 2.1-3.4 cm Updated in Other Vendor System with Status of Final Ross Barney MD electronically signed on 08/10/2023 2:19:57 PM with status of Final
== END ==
LOC: HO.CARD 12:39
PROVIDERS: PCP Family Medicine; Visit Provider Nurse Practitioner Family
DX: I47.29 Other ventricular tachycardia (principal)
CPT/HCPCS: 93306

== ENCOUNTER → 2023-08-09 12:41 | Outpatient (BNV) | payer MEDICARE, SELFPAY | PROVIDERS: PCP Family Medicine; Visit Provider Internal Medicine Cardiovascular Disease | DX: I35.0 Nonrheumatic aortic (valve) stenosis (principal); I35.8 Other nonrheumatic aortic valve disorders | CPT/HCPCS: 93306 ==

== ENCOUNTER 2023-08-26 15:28 | Outpatient (AMB) | payer MEDICARE, SELFPAY ==
[2023-08-26 15:38] VITALS: BP 114/74; PULSE 78; O2SAT 98; BMI 32.3
--- NOTE | 2023-08-26 15:38 | MHC.PC.OV ---
Vital Signs 08/26/23 15:38 Height 6 ft Weight 238 lb 6 oz BMI 32.3 BP 114/74 Blood Pressure Location Rt brachial Position Sitting Pulse 78 Pulse Source Pulse Oximeter Pulse Oximetry (%) 98 Oxygen Delivery Method Room Air Intake Visit Reasons: CPE with f/u labs and health maint. Allergies Penicillins Allergy (Severe, Verified 07/26/23 10:57) throat swelling Blue Dye Allergy (Severe, Uncoded 07/26/23 10:57) throat swelling Latex Allergy (Severe, Uncoded 07/26/23 10:57) Rash, Hives, whole hand Medication List - Last Reconciled 08/26/23 by Zion Martinez MD aspirin (Adult Low Dose Aspirin) 81 mg PO DAILY chloroquine phosphate Five days a week cholecalciferol (vitamin D3) 25 mcg PO DAILY docusate sodium (Colace) 200 mg PO DAILY hydrochlorothiazide 25 mg PO DAILY losartan 100 mg PO DAILY metoprolol succinate ER 25 mg PO BID 90 days nicotine (polacrilex) (Nicorette) 2 mg buccal Q4-8H PRN 28 days simvastatin 40 mg PO BEDTIME Tobacco use date assessed: 06/24/23 Dental Screening Dental Screen Date: 06/24/23 HPI CPE with f/u labs and health maint. HPI Details 68 y/o male presents for a CPE with f/u labs and health maintenance. No recent CPE-labs. Blood pressure today 114/74. He is on metoprolol 25mg b.i.d, hydrochlorothiazide 25mg, losartan 100mg daily. S/p carotid endarterectomy and had a choking episode complicating his recovery after the surgery. HPI Comments History of Present Illness Details Documentation assistance for Zion Martinez MD, was provided by Quan Dewey,? Restorative Aide on 08/26/2023 3:58 PM EST. I, Dr. Martinez, have read, observed, and verified documentation. [facility] Medical History Smoker Claudication of calf muscles Ambulates with cane Rheumatoid arthritis Osteoarthritis Hx MRSA infection HLD (hyperlipidemia) Murmur Coronary artery disease Hx of renal calculi History of pacemaker Hypertension Elevated fasting blood sugar Surgical History Hx of tonsillectomy Hx of colonoscopy H/O cardiac catheterization History of dental surgery History of cystoscopy History of permanent cardiac pacemaker placement Family History Other Mental health disorder Substance use disorder Social History Household Members: None Caregiver staying overnight: No Housing: Apartment Are you a primary career development associate to a significant other at home: No Do you presently have visiting nurse or other home services: No 75 years or older and lives alone: No Alcohol intake: never Comment: bilateral wrist restraints for airway/line safety Patient Tobacco Use Status: Current everyday Tobacco user Tobacco use type: Cigarette Cigarette Packs Per Day: 1 Cigarettes Per Day: 20.0 Years Smoked: 61 e-Cigarette/Vaping Use: Never Used Second Hand Smoke Exposure: No service: Yes Current occupational status: retired Current occupational exposures/hazards: No Cognitive needs: No (Cane) Hearing needs: No Vision needs: Yes (Glasses) Questionnaire Thrive Questionnaire Date Thrive assessed: 09/11/20 FARZANA-7 AMB Questionnaire FARZANA-7 Date FARZANA - 7 assessed: 10/14/21 Source: Developed by Drs. Robert Trejo, Consuelo Antoine, Gorge Drew and colleagues, with an educational mushtaq from [employer] [employer]. Physical exam (Primary Care) Vital Signs: Last Vital Signs Pulse 78 08/26/23 15:38 BP 114/74 08/26/23 15:38 Pulse Ox 98 08/26/23 15:38 Oxygen Delivery Method Room Air 08/26/23 15:38 BMI result Body Mass Index 32.3 Tobacco/Smoking Status: Tobacco use Status Tobacco use date assessed 06/24/23 08/26/23 15:41 Patient Tobacco Use Status Current everyday Tobacco 08/26/23 15:41 Tobacco use type Cigarette 08/26/23 15:41 e-Cigarette/Vaping Use Never Used 08/26/23 15:41 Thrive Assessment: Date of Thrive Assessment Date Thrive assessed 09/11/20 08/26/23 15:41 Assessment and Plan Assessment & Plan (1) Adult general medical exam: Code(s): Z00.00 - Encounter for general adult medical examination without abnormal findings (2) Essential hypertension: Code(s): I10 - Essential (primary) hypertension Plan: Blood?pressure?is?well?controlled.??Goal?is?less?than?130/80 Continue?current?medications (3) Coronary artery disease: Comment: Nonobstructive by cardiac catheterization Code(s): I25.10 - Atherosclerotic heart disease of [place] coronary artery without angina pectoris Plan: Stable Follow-up?with?Cardiology?as?recommended (4) Swallowing problem: Code(s): R13.10 - Dysphagia, unspecified Plan: Choking?episode?complicating?his?recovery?after?left?carotid?endarterectomy He?is?still?on?a?pureed?diet?and?has?an?appointment?with?speech?language?pathology?for?a?modified?barium?swallow. Continue?current?diet?and?follow-up?as?recommended (5) Bilateral carotid artery stenosis: Comment: 07/04/2023 - left carotid endarterectomy 07/05/2023- take back for left carotid hematoma evacuation Code(s): I65.23 - Occlusion and stenosis of bilateral carotid arteries Plan: Now?s/p?left?carotid?endarterectomy Wounds?are?healing?well?though?there?is?still?mild?swelling. Follow-up?with??as?recommended Will?likely?need?right?side?endarterectomy?at?some?point (6) Screening for colon cancer: Code(s): Z12.11 - Encounter for screening for malignant neoplasm of colon Plan: Patient?says?he?had?a?colonoscopy?about?5?years?ago?in?[facility] Will?request?report (7) Screening for prostate cancer: Code(s): Z12.5 - Encounter for screening for malignant neoplasm of prostate Plan: PSA?within?normal?limits Will?continue?annual?screening Coding Level of Care Code Est Pt Level 3 (64267) Est Pt Prev Care >65y(95913) Diagnoses Adult general medical exam Z00.00 Essential hypertension I10 Coronary artery disease I25.10 Swallowing problem R13.10 Bilateral carotid artery stenosis I65.23 Screening for colon cancer Z12.11 Screening for prostate cancer Z12.5
== END 2023-08-26 16:18 | disposition home or self-care (01) ==
PROVIDERS: PCP Family Medicine; Visit Provider Family Medicine
DX: Z00.00 Encounter for general adult medical examination without abnormal findings (principal); I10 Essential (primary) hypertension; I25.10 Atherosclerotic heart disease of native coronary artery without angina pectoris; R13.10 Dysphagia, unspecified; I65.23 Occlusion and stenosis of bilateral carotid arteries
CPT/HCPCS: 99397

== ENCOUNTER 2023-08-29 14:08 | Outpatient (REF) | payer MEDICARE, SELFPAY ==
--- NOTE | ~2023-08-29 | FL_ITS ---
EXAMINATION: Modified Barium Swallow CLINICAL INFORMATION: Dysphagia COMPARISON: 07/11/2023. TECHNIQUE: Modified barium swallow was performed under lateral fluoroscopy with patient in standing position. Different consistency of barium was administered by the speech therapist. FINDINGS: No laryngeal penetration or tracheal aspiration was observed during this examination. FLUOROSCOPY TIME: 1 minute 23 seconds Number of Spot Images: 1 DOSE AREA PRODUCT: 1178 uGy-m2 (microgray-meter squared) FL/FL barium swallow modified IMPRESSION: No laryngeal penetration or tracheal aspiration was observed during this examination. Refer to the speech therapy report for further clarification. This procedure was performed by Ascencion Ascencio PA-C, and supervised by Dr. Richardson
--- NOTE | 2023-09-01 13:19 | MHC.SL.IMP ---
Date of Plan of Treatment: 08/29/23 Onset of Symptoms/Illness: 07/07/23 Date Treatment Started: 07/07/23 Admitting Diagnosis: Dysphagia Primary Speech & Language Diagnosis: R13.12 Oropharyngeal Phase Dysphagia Reason for Today's Visit: 21715 Modified Barium Swallow Study Comments: Hx tracheostomy, prior choking event Pre-evaluation Dietary Consistencies: Pureed (NDD1) Pre-evaluation Liquid Consistency: Thin Pre-evaluation Medication Administration: Crushed with Puree Medical History: Modified Barium Swallow Study Fluoroscopic Evaluation of Swallowing Function CPT Code 07992 Evaluation Year: 2023 Reason for Study: Hx dysphagia s/p trach removal Referring Physician: Davey Amezcua MD Evaluating Clinician: Johanny Johnson MA, CCC-PLANT INSPECTOR Study Number: 1 Patient Name: Sanford Stack Status: Outpatient, Ambulatory Age: 68 Gender: Male Medical History Medical History Smoker Claudication of calf muscles Ambulates with cane Rheumatoid arthritis Osteoarthritis Hx MRSA infection HLD (hyperlipidemia) Murmur Coronary artery disease Hx of renal calculi History of pacemaker Hypertension Elevated fasting blood sugar Surgical History Hx of tonsillectomy Hx of colonoscopy H/O cardiac catheterization History of dental surgery History of cystoscopy History of permanent cardiac pacemaker placement Current (pre-evaluation) Intake/Diet: Route: PO Diet Grade: Puree Liquid Consistencies: Thin Pre-Study Functional Oral Intake Scale (FOIS): 5- Total oral intake of multiple consistencies requiring special preparation Pain: None reported at time of study SUBJECTIVE: Patient is a 68-year-old male who was hospitalized last month at [facility] after an elective endarterectomy with postop hematoma. Patient choked on an egg with development of stridor and attempts to clear his airway with Heimlich maneuver were unsuccessful. Intubation was attempted, but was also unsuccessful due to patient?s distorted airway from carotid endarterectomy surgery hematoma. Thus, patient required emergent bedside tracheostomy at the time. He was followed by the speech pathologist during his inpatient stay and after having an MBSS on 07/11/23 and was recommended a pureed diet with thin liquids. Patient is now status-post trach removal, home from rehab, and reports he has been eating pureed foods at home with no difficulties. Patient hopes to return to a regular texture diet. Food and Liquid Trials: Oral Impairment: Lip Closure: Did not test Oral Impairment: Tongue Control During Bolus Hold: Did not test Oral Impairment: Bolus Preparation/Mastication: 1=Slow prolonged chewing/mashing with complete re-collection Oral Impairment: Bolus Transport/Lingual Motion: 1= Delayed initiation of tongue motion Oral Impairment: Oral Residue: 2=Residue collection on oral structures Oral Impairment:Initiation of Pharyngeal Swallow: 3=Bolus head in pyriforms Pharyngeal Impairment: Soft Palate Elevation: 0=No bolus between soft palate (SP)/pharyngeal wall (PW) Pharyngeal Impairment: Laryngeal Elevation: 1=Partial thyroid cartilage/arytenoids to epiglottic petiole movement Pharyngeal Impairment: Anterior Hyoid Excursion: 1=Partial anterior movement Pharyngeal Impairment: Epiglottic Movement: 1=Partial inversion Pharyngeal Impairment: Laryngeal Vestibular Closure:: 0=Complete: no air/contrast in laryngeal vestibule Pharyngeal Impairment: Pharyngeal Stripping Wave: 1=Present: diminished Pharyngeal Impairment: Pharyngeal Contraction: Did not test Pharyngeal Impairment: Pharyngoesophageal Segment Openin=Complete distension and complete duration: no obstruction of flow Pharyngeal Impairment: Tongue Base (TB) Retraction: 2=Narrow column of contrast/air between TB and posterior PW Pharyngeal Impairment: Pharyngeal Residue: 2=Collection of residue within or on pharyngeal structures Pharyngeal Impairment: Esophageal Clearance Upright Position: Did not test Impressions and Recommendations Clinical Observations: OBJECTIVE: Time-out: performed at 15:00 Evaluation Start: 14:30; Stop: 14:35 Patient Positioning: Standing Viewing Planes: LATERAL ONLY Contrast: MBSImP? Standardized Protocol using commercially prepared, standardized Barium viscosities, including: Varibar? THIN LIQUID (40% w/v, <15 cps) , 1/2 Shortbread Cookie (1 x1 x.25 ) MBSImP ID: [id number] MBSImP Results: Lip closure for intraoral bolus containment could not be assessed due to logistical reasons not related to physiologic impairment. Tongue control during bolus hold could not be assessed due to logistical reasons not related to physiologic impairment. Bolus preparation and mastication resulted in slow, prolonged chewing/mashing but with complete re-collection. Bolus transport/lingual motion demonstrated delayed initiation of tongue motion. Oral residue was a collection on oral structures. Initiation of the pharyngeal swallow occurred when the bolus head was in the pyriform sinuses. Soft palate elevation resulted in no bolus between the soft palate and the pharyngeal wall. Laryngeal elevation was decreased, with partial superior movement of the thyroid cartilage/partial approximation of the arytenoids to the epiglottic petiole. Anterior hyoid excursion demonstrated partial anterior movement. Epiglottic movement resulted in partial inversion. Laryngeal vestibular closure was complete, as indicated by no air or contrast within the laryngeal vestibule at the height of the swallow. Pharyngeal stripping wave was present, but diminished. Pharyngeal contraction could not be determined due to logistical reasons not related to physiologic impairment. Pharyngoesophageal segment opening was completely distended for complete duration with no obstruction of bolus flow. Tongue base retraction allowed a narrow column of contrast or air between the retracted tongue base and the posterior pharyngeal wall. Pharyngeal residue was a collection of residue within or on pharyngeal structures. Esophageal clearance in the upright position could not be assessed due to logistical reasons not related to physiologic impairment. Oral Impairment Score: 7 (absence of score, component 1component 2) Pharyngeal Impairment Score: 8 (absence of score, component 13) Esophageal Impairment Score: --- (absence of score, component 17) Laryngeal Penetration and Aspiration: Neither penetration nor aspiration was observed in today's study with Cookie, Puree, Thin. ASSESSMENT: Clinician Assessment: This exam was performed by the speech pathologist and the radiologist. Patient was standing for lateral view and trialed thin, puree, and regular solid consistencies. Unable to visualize labial seal with imaging. Clinically, patient did not appear to have any spillage beyond the cookie border. Posterior lingual transport was mildly delayed in initiation but with brisk motion. Mastication was also slowed and prolonged. Patient displayed mild residue coating the tongue and palate post-swallow, which mostly cleared with subsequent swallows. Pharyngeal swallow trigger was delayed, initiated at the level of the pyriforms. No nasopharyngeal reflux. Partial laryngeal elevation. Complete laryngeal vestibular closure with good airway protection. No evidence of aspiration or penetration during this exam. There was mild residual on the posterior pharyngeal wall with pooling in the valleculae and pyriforms. Patient was able to reduce residuals with dry swallows and liquid wash. Liquid Intake Recommendation: Thin Liquid Intake Strategies: Small Sips, Double Swallow Dietary Recommendations: Regular Medication Administration: Whole with Liquid Please contact the pharmacy regarding appropriate crushable or liquid drug formulations that are available whenever modified delivery is recommended. Compensatory Strategies Recommended: Sitting Upright (90 deg), Double Swallow, Small Bites and Sips, Alternate Liquids/Solids, Rate of Ingestion Change Supervision during eating and or drinking: None Needed Recommendation for Speech Therapy: NA:Typical Evaluation Text Comment: Intake Recommendations: Route: PO Diet Grade: Regular Liquid Consistencies: Thin Post-Study Functional Oral Intake Scale (FOIS): 6- Total oral intake with no special preparation, but must avoid specific foods or liquid items Exam revealed mild oropharyngeal dysphagia, characterized by slowed and delayed oral phase, delayed swallow trigger, and partial laryngeal elevation. No evidence of aspiration or penetration with intake of solids and liquids during this exam. Noted mild retention in the oral and pharyngeal cavities, which mostly cleared with dry swallows and sips of liquid. Patient is recommended to advance to a regular texture diet, with behavioral strategies for safe eating: take small bites, chew food well, dry swallow between bites, take individual sips of liquid. Strategies were discussed with the patient after the exam. Patient expressed understanding, was able to teach back strategies, and denied having any questions at this time. Further ST intervention is no longer warranted. Recommend patient continue monitoring his symptoms. If he experiences any worsening of symptoms or changes to his swallow ability, a re-evaluation may be warranted. Therapy Recommendations: Therapy will be discontinued The following compensatory strategies and/or therapeutic exercises will be part of the upcoming therapy/management plan: Liquid Wash Additional Swallow(s) per Bolus Clinician - Supplemental, Miscellaneous Communication: It is important to note MBSS objective studies are snapshots in time and Patient function might vary with factors such as time of day or concomitant medical conditions. For this reason, the final treatment plan for this patient should rest with their medical care team. Additional recommendations should be considered with the totality of the Patient in mind. Thank for the opportunity to participate in the care of this patient. If you have any questions about the content of this report, please contact the [facility] at [facility]. Education: Education regarding findings from today's study and plans for therapy were provided to Patient only through Verbal Instruction. Understanding was expressed by the Patient only. Sealer Sander Clinician/Clinical Fellow: No Supervisory Statement: N/A Speech Language Pathologist: Johanny Johnson M.A., [facility]-PLANT INSPECTOR
== END 2023-08-29 14:09 | disposition home or self-care (01) ==
LOC: HO.XRAY 14:08
PROVIDERS: PCP Family Medicine; Visit Provider Surgery Vascular Surgery
DX: R13.10 Dysphagia, unspecified (principal)
CPT/HCPCS: 74230; 92611

== ENCOUNTER → 2023-08-29 14:25 | Outpatient (BNV) | payer MEDICARE, SELFPAY | PROVIDERS: PCP Family Medicine; Visit Provider Physician Assistant Surgical | DX: R13.10 Dysphagia, unspecified (principal) | CPT/HCPCS: 74230 ==

== ENCOUNTER 2023-10-24 12:27 | Outpatient (REF) | payer MEDICARE, SELFPAY ==
--- NOTE | ~2023-10-24 | US_ITS ---
EXAMINATION: US EXTRACRANIAL CAROTID DUPLEX, BILATERAL CLINICAL INFORMATION: Carotid artery stenosis COMPARISON: CTA neck on 06/17/2023 TECHNIQUE: Real-time ultrasound and Doppler techniques (integrating B-mode 2-D vascular images, Doppler spectral analysis and color-flow Doppler imaging) were utilized to interrogate the extracranial carotid arteries, the vertebral arteries and proximal subclavian arteries bilaterally. The degree of stenosis is determined by criteria similar to NASCET. FINDINGS: Right Side: 1. There is severe atherosclerotic plaque seen in the bifurcation/proximal ICA region. 2. The common carotid artery PSV proximally is 100 cm/s and distally 85 cm/s. 3. The proximal internal carotid artery velocities are 422 cm/s systolic and 145 cm/s diastolic. 4. The proximal external carotid artery PSV is 185 cm/s. 5. The vertebral artery shows antegrade flow. 6. The subclavian artery waveforms are normal. Left Side: 1. There is mild atherosclerotic plaque seen in the bifurcation/proximal ICA region. 2. The common carotid artery PSV proximally is 126 cm/s and distally 74 cm/s. 3. The proximal internal carotid artery velocities are 110 cm/s systolic and 30 cm/s diastolic. 4. The proximal external carotid artery PSV is 294 cm/s. 5. The vertebral artery shows antegrade flow. 6. The subclavian artery waveforms are normal. US/US carotid duplex BI IMPRESSION: 1. RIGHT: Severe, hemodynamically significant stenosis of the proximal right internal carotid artery corresponding to an 80-99% stenosis by velocity criteria. 2. LEFT: Minimal, non-hemodynamically significant stenosis of the proximal left internal carotid artery corresponding to a 0-49% stenosis by velocity criteria. 3. Elevated velocities in the bilateral external carotid artery suggesting stenosis.
== END 2023-10-24 12:28 | disposition home or self-care (01) ==
LOC: HO.US 12:27
PROVIDERS: PCP Family Medicine; Visit Provider Surgery Vascular Surgery
DX: I65.23 Occlusion and stenosis of bilateral carotid arteries (principal)
CPT/HCPCS: 93880

== ENCOUNTER → 2023-11-08 23:59 | Outpatient (BNV) | payer MEDICARE, SELFPAY ==
--- NOTE | 2023-11-14 17:00 | MHC.OFFVIS ---
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 Allergies Penicillins Allergy (Severe, Verified 07/26/23 10:57) throat swelling Blue Dye Allergy (Severe, Uncoded 07/26/23 10:57) throat swelling Latex Allergy (Severe, Uncoded 07/26/23 10:57) Rash, Hives, whole hand PFSH Medical History Smoker Claudication of calf muscles Ambulates with cane Rheumatoid arthritis Osteoarthritis Hx MRSA infection HLD (hyperlipidemia) Murmur Coronary artery disease Hx of renal calculi History of pacemaker Hypertension Elevated fasting blood sugar Surgical History Hx of tonsillectomy Hx of colonoscopy H/O cardiac catheterization History of dental surgery History of cystoscopy History of permanent cardiac pacemaker placement Family History Other Mental health disorder Substance use disorder Social History Household Members: None Caregiver staying overnight: No Housing: Apartment Are you a primary residential child care counselor to a significant other at home: No Do you presently have visiting nurse or other home services: No 75 years or older and lives alone: No Alcohol intake: never Comment: bilateral wrist restraints for airway/line safety Patient Tobacco Use Status: Current everyday Tobacco user Tobacco use type: Cigarette Cigarette Packs Per Day: 1 Cigarettes Per Day: 20.0 Years Smoked: 61 e-Cigarette/Vaping Use: Never Used Second Hand Smoke Exposure: No service: Yes Current occupational status: retired Current occupational exposures/hazards: No Cognitive needs: No (Cane) Hearing needs: No Vision needs: Yes (Glasses) Office Procedures Cardiac Device Check Cardiac Device Check Details: remote pacemaker report generated 11/08/2023. Pacemaker function is adequate. Ventricular pacing 98% of time [id number] Cardiac Device Interrogation, pacemaker Procedure code (CPT) selection complete Assessment & Plan Assessment & Plan (1) Pacemaker: Code(s): Z95.0 - Presence of cardiac pacemaker Category: Medical Plan: see above Coding Level of Care Code Procedure Only Diagnoses Pacemaker Z95.0 CPT Codes Cardiac Device Check - Cardiac Device 12: [id number] Cardiac Device Interrogation, pacemaker ([id number])
== END ==
PROVIDERS: PCP Family Medicine; Visit Provider Internal Medicine Cardiovascular Disease
DX: Z45.018 Encounter for adjustment and management of other part of cardiac pacemaker (principal)
CPT/HCPCS: 93294

== ENCOUNTER 2023-11-15 12:51 | Outpatient (AMB) | payer MEDICARE, SELFPAY ==
[2023-11-15 12:56] VITALS: BP 132/60; BMI 32.3
--- NOTE | 2023-11-15 12:56 | A.OFFVIS_ITS ---
Vital Signs 11/15/23 12:56 11/15/23 13:08 Height 6 ft Weight 238 lb BMI 32.3 BP 132/60 122/64 Blood Pressure Location Lt brachial Rt brachial Position Sitting Sitting Intake Visit Reasons: 3m follow up s/p Carotid US 10/24/23 Intake Note: 3 mo follow up s/p carotid US 10/24/23 w/ hx of Left CEA 07/04/23. Pt states he gets dizziness when getting up from a sitting position to standing once in a while, not consistent. Accompanied by: Self / Same As Patient Allergies Penicillins Allergy (Severe, Verified 11/15/23 13:02) throat swelling Blue Dye Allergy (Severe, Uncoded 11/15/23 13:02) throat swelling Latex Allergy (Severe, Uncoded 11/15/23 13:02) Rash, Hives, whole hand HPI HPI 3m follow up s/p Carotid US 10/24/23: Details: Very pleasant 68-year-old gentleman presents for routine carotid surveillance follow-up. He had actually undergone left carotid endarterectomy with us. Postoperatively it was complicated by hematoma and airway compromise. Did end up with a temporary trach. He is gone on to heal from that. He now presents for follow-up regarding his right carotid. He has had no other interval issues. He has tolerating a regular diet and doing fairly well. [facility] Medical History Smoker Claudication of calf muscles Ambulates with cane Rheumatoid arthritis Osteoarthritis Hx MRSA infection HLD (hyperlipidemia) Murmur Coronary artery disease Hx of renal calculi History of pacemaker Hypertension Elevated fasting blood sugar Surgical History (Updated 11/15/23 @ 13:04 by MAURICIO Napier) History of left-sided carotid endarterectomy (07/04/23) Hx of tonsillectomy Hx of colonoscopy H/O cardiac catheterization History of dental surgery History of cystoscopy History of permanent cardiac pacemaker placement Family History Other Mental health disorder Substance use disorder Social History Household Members: None Housing: Apartment Are you a primary career resource specialist to a significant other at home: No Do you presently have visiting nurse or other home services: No Alcohol intake: never Comment: bilateral wrist restraints for airway/line safety Patient Tobacco Use Status: Current everyday Tobacco user Tobacco use type: Cigarette Cigarette Packs Per Day: 1 Cigarettes Per Day: 20.0 Years Smoked: 61 e-Cigarette/Vaping Use: Never Used Second Hand Smoke Exposure: No service: Yes Current occupational status: retired Current occupational exposures/hazards: No Cognitive needs: No (Cane) Hearing needs: No Vision needs: Yes (Glasses) Review of Systems Const All systems reviewed & are unremarkable except as noted in HPI and below Reports no additional complaints ENT Reports Normal hearing present Card Denies chest pain, Denies chest pain at rest, Denies chest pain with activity and Denies pedal edema Resp Denies cough GI Denies abdominal pain Musc Denies abnormal gait, Denies muscle cramps and Denies radiating pain into limb Skin/Breast Denies skin ulcer and Denies wounds Neuro Reports Normal hearing present and Denies abnormal gait Psych Reports no additional complaints Physical Exam Vital Signs: Last Vital Signs BP 122/64 11/15/23 13:08 BMI result Body Mass Index 32.3 Const General: cooperative, healthy appearing and comfortable Orientation/consciousness: oriented to person, oriented to place and oriented to time HEENT Head: Yes normal to inspection Neck Neck: Yes normal visual inspection Carotids: no bruits Chest Chest palpation & inspection: normal inspection of the chest Resp Effort & Inspection: normal respiratory effort and able to speak in complete sentences Auscultation: clear to auscultation bilaterally, no crackles, no rales, no rhonchi and no wheezes Cardio Rate: regular rate Rhythm: regular rhythm Heart sounds: S1 normal heart sound present and S2 normal heart sound present Bruits: no carotid bruits Peripheral pulses: Peripheral pulses 2+ throughout GI Inspection: Yes normal to inspection Skin Wounds: no wounds Hair: normal Neuro General: oriented to person, oriented to place and oriented to time Cranial nerves: Yes CN's II-XII intact bilaterally and Yes Normal hearing present Cognition (Neuro): normal cognition Motor exam (neuro): 5/5 motor strength present throughout Extrem Other: venous exam: No significant superficial varicosities or spider telangiectasias, minimal edema General: No clubbing, No cyanosis and No edema Psych Appearance: grossly normal Mental Status: mental status grossly normal Speech and movement: Normal speech and movement present Results Reviewed Results Reviewed: Ultrasound dated 10/24/2023 demonstrates right side it is 99% left side 0-49%. CT scan dated 06/17/2023 demonstrates right-sided stenosis of about 75%. Written report and images were reviewed. Assessment & Plan Assessment & Plan (1) Bilateral carotid artery stenosis: Comment: 07/04/2023 - left carotid endarterectomy 07/05/2023- take back for left carotid hematoma evacuation Code(s): I65.23 - Occlusion and stenosis of bilateral carotid arteries Category: Medical Plan: In short patient has high-grade right carotid stenosis. He will require right carotid endarterectomy. Risks benefits complications including but not limited to bleeding infection stroke and were discussed in detail with the patient. Understood and consented. He will require cardiac risk stratification although he did get risk stratified just 3-4 months prior for his previous left- sided carotid endarterectomy. Will schedule as soon as possible. Thank you for allowing us to assist in his care. Coding Level of Care Code Est Pt Level 4 (58972) Diagnoses Bilateral carotid artery stenosis I65.23
[2023-11-15 13:08] VITALS: BP 122/64
== END 2023-11-15 13:42 | disposition home or self-care (01) ==
PROVIDERS: PCP Family Medicine; Visit Provider Surgery Vascular Surgery
DX: I65.23 Occlusion and stenosis of bilateral carotid arteries (principal)
CPT/HCPCS: 99214

== ENCOUNTER → 2023-11-15 12:51 | Outpatient (BNVA) | payer MEDICARE, SELFPAY | PROVIDERS: PCP Family Medicine; Visit Provider Surgery Vascular Surgery | DX: I65.23 Occlusion and stenosis of bilateral carotid arteries (principal) | CPT/HCPCS: 99212 ==

== ENCOUNTER 2023-12-19 11:12 | Inpatient (IN) | payer MEDICARE, SELFPAY ==
[2023-12-12 13:42] VITALS: BP 117/57; PULSE 74; RESP 16; O2SAT 96; BMI 45.5
--- NOTE | 2023-12-12 14:05 | HO.ANESPROP2 ---
Documented by User: Magdalene Fitzpatrick NP 12/15/23 12:01 HPI - Anesthesia Eval Consult details Narrative: 68yo M for Right s/p Left Carotid Endarterectomy with GA-ETT 7.5. Post-op aspiration/hematoma requiring emergent trach and expoloration of surgical site. Recovered well and trach removed before surgical discharge. Cardiac cleared prior to Left Carotid: Consider intermediate risk surgery. He is prior cardiac catheterization which had shown nonobstructive with moderate disease. He has no new cardiac symptoms at current point in time. He is underlying ventricular pacemaker. His well treated with medicines. I do not think he requires any further workup prior to carotid endarterectomy and is optimized to undergo surgery with intermediate risk for perioperative cardiovascular morbidity mortality. Continue all medications in the perioperative time including his high blood pressure medications, statins as well as aspirin therapy if possible. Per 12/2023 workload messages, pt remains optimized. No recent illness No CP/SOB with minimal activity Pacer in situ PAD with claudication Smoker. RA - chloroquine. Case reviewed with Dr Mumtaz HATHAWAY Active Problems Active Problems: All Active Problems NSVT (nonsustained ventricular tachycardia) (Acute) Swallowing problem (Acute) Physical deconditioning (Acute) Status post carotid endarterectomy (Acute) Status post tracheostomy (Acute) Pacemaker (Acute) Left carotid stenosis (Acute) Bilateral carotid artery stenosis (Acute) Smoker (Acute) Numbness of left hand (Acute) retirement use of drug (Acute) Osteoarthritis of lumbar spine (Acute) Hyperlipidemia (Acute) Seropositive rheumatoid arthritis (Acute) Osteoarthritis of knees, bilateral (Acute) Abnormal myocardial perfusion study (Acute) Essential hypertension (Acute) Pre-diabetes (Acute) Coronary artery disease (Acute) Past Medical History Medical History Smoker Claudication of calf muscles Ambulates with cane Rheumatoid arthritis Osteoarthritis Hx MRSA infection HLD (hyperlipidemia) Murmur Coronary artery disease Hx of renal calculi History of pacemaker Hypertension Elevated fasting blood sugar Family History Family History Other Mental health disorder Substance use disorder Family history of problems with anesthesia: No Surgical History Surgical History Hx of tracheostomy (07/05/23) History of left-sided carotid endarterectomy (07/04/23) Hx of tonsillectomy Hx of colonoscopy H/O cardiac catheterization History of dental surgery History of cystoscopy History of permanent cardiac pacemaker placement History of Problems with Anesthesia: No Social History Social History Household Members: None Housing: Apartment Are you a primary direct care specialist to a significant other at home: No Do you presently have visiting nurse or other home services: No Alcohol intake: never Comment: aware of trip hazard Patient Tobacco Use Status: Current everyday Tobacco user Tobacco use type: Cigarette Cigarette Packs Per Day: 1 Cigarettes Per Day: 20.0 Years Smoked: 61 Smoked in Last 30 Days: Yes e-Cigarette/Vaping Use: Never Used Patient Interested in Nicotine Replacement: No Second Hand Smoke Exposure: No Use of substances other than those prescribed or required for medical reasons: No Have you been hit, kicked, punched, or otherwise hurt by someone within the past year? If so, by whom?: No Are you DNR?: No Advance Directives: No Advance Directives Information Provided: Yes Advance Directives on File: No Recently lost weight without trying: Yes How much weight loss: 2-13 pounds Eating poorly because of decreased appetite: No Nutrition screen score: 3 Nutrition Risks: No Nutritional Risk service: Yes Current occupational status: retired Current occupational exposures/hazards: No Cognitive needs: No (Cane) Hearing needs: No Vision needs: Yes (Glasses) Meds Allergies Allergy/AdvReac Type Severity Reaction Status Date / Time Penicillins Allergy Severe throat Verified 12/19/23 06:33 swelling Blue Dye Allergy Severe throat Uncoded 12/19/23 06:33 swelling Latex Allergy Severe Rash, Uncoded 12/19/23 06:33 Hives, whole hand Home Medications ?Medication ?Instructions ?Recorded ?Confirmed ?Last Taken ?Type aspirin 81 mg tablet,delayed 81 mg PO DAILY 04/05/22 12/19/23 12/09/23 History release (Adult Low Dose Aspirin) cholecalciferol (vitamin D3) 25 25 mcg PO DAILY 04/05/22 12/19/23 12/18/23 History mcg (1,000 unit) capsule docusate sodium 100 mg capsule 200 mg PO DAILY 04/05/22 12/19/23 12/18/23 History (Colace) hydrochlorothiazide 25 mg tablet 25 mg PO DAILY 07/04/23 12/19/23 12/18/23 History Exam Height,Weight and Vital Signs: Height 5 ft 0.25 in Weight 106.594 kg Last Vital Signs Pulse 74 12/12/23 13:42 Resp 16 12/12/23 13:42 BP 117/57 L 12/12/23 13:42 Pulse Ox 96 12/12/23 13:42 O2 Del Method Room Air 12/12/23 13:42 Pertinent Lab Results Pertinent Lab Results: Lab Results 12/12/23 12/12/23 Range/Units 14:30 14:39 WBC 10.9 H (4.8-10.8) X10*3/uL RBC 5.35 (4.60-5.80) X10*6/uL Hgb 16.8 (14.0-18.0) g/dl Hct 48.5 (42.0-52.0) % MCV 90.7 (80.0-98.0) fL MCH 31.4 (27.0-33.0) pg MCHC 34.6 (31.0-36.0) g/dl RDW 13.9 (11.0-16.0) % Plt Count 263 D (160-400) X10*3/uL MPV 8.6 L (9.4-12.4) fL Absolute Nucleated RBC 0.000 (0.0-0.012) X10*3/uL Nucleated RBC % (auto) 0.0 (0.0-0.2) /100WBC PT 10.7 L (11.1-13.3) SEC INR 0.9 (0.9-1.1) APTT 29.5 (26.0-36.8) SEC Sodium 140 (135-145) mmol/L Potassium 3.9 (3.3-5.1) mmol/L Chloride 102 (96-108) mmol/L Carbon Dioxide 27 (22-29) mmol/L Anion Gap 15 (12-20) BUN 16 (9-16) mg/dL Creatinine 1.08 (0.5-1.4) mg/dL Estim Creat Clear Calc 65.3 Estimated GFR > 60 Random Glucose 123 H (60-115) mg/dL Calcium 10.0 (8.4-10.2) mg/dL Total Bilirubin 0.5 (0.0-1.0) mg/dL AST 19 (5-37) U/L ALT 21 (0-40) U/L Alkaline Phosphatase 79 (39-117) U/L Total Protein 6.9 (6.5-8.0) g/dL Albumin 3.8 (3.5-5.0) g/dL Blood Type A Positive Antibody Screen NEGATIVE Narrative Narrative: Cardiac Device Check 10/2023 (remote) Details: remote pacemaker report generated 11/08/2023. Pacemaker function is adequate. Ventricular pacing 98% of time EKG 06/2023 Details: EKG shows atrially sensed ventricularly paced rhythm. CT angio neck 06/2023 IMPRESSION: Heavily calcified atheromatous plaque involves both carotid bifurcations. There is a 90% stenosis at the origin of the left internal carotid artery and 75% stenosis at the origin of the right internal carotid artery. Cervical vertebral arteries are patent. No intracranial large vessel occlusion. Although only partially included within the [id number] of this examination there are a few ovoid intraparotid lesions within the right parotid gland, the largest of which measures up to 1.3 cm in diameter. Possible diagnostic considerations include a primary parotid neoplasms or enlarged intraparotid lymph nodes. Correlation with prior imaging is recommended if available. Otherwise follow-up is recommended to ensure stability. Cardiac cath 07/2021 - report scanned in Airway Mallampati Class: III TM Dist: >3cm Neck ROM: Limited Partial: Upper (Doesn't wear) Loose/Missing/Broken Teeth: Yes (Missing teeth throughout. States remaining teeth intact) Heart: RRR Lungs: CTAB Assessment and Plan Assessment Anesthesia Assessment: Anesthesia Plan Discussed, Smoking Cess. Discussed and PAT Visit Final Anesthetic Review Family History of Problems with Anesthesia: No History of Problems with Anesthesia: No Documented by User: Chiqui Stack MD 12/19/23 07:52 [facility] Active Problems Active Problems: All Active Problems NSVT (nonsustained ventricular tachycardia) (Acute) Swallowing problem (Acute) Physical deconditioning (Acute) Status post carotid endarterectomy (Acute) Status post tracheostomy (Acute) Pacemaker (Acute) Left carotid stenosis (Acute) Bilateral carotid artery stenosis (Acute) Smoker (Acute)- last cigarette last night Numbness of left hand (Acute) retirement use of drug (Acute) Osteoarthritis of lumbar spine (Acute) Hyperlipidemia (Acute) Seropositive rheumatoid arthritis (Acute) Osteoarthritis of knees, bilateral (Acute) Abnormal myocardial perfusion study (Acute) Essential hypertension (Acute) Pre-diabetes (Acute) Coronary artery disease (Acute) Past Medical History Medical History Smoker Claudication of calf muscles Ambulates with cane Rheumatoid arthritis Osteoarthritis Hx MRSA infection HLD (hyperlipidemia) Murmur Coronary artery disease Hx of renal calculi History of pacemaker Hypertension Elevated fasting blood sugar Family History Family History Other Mental health disorder Substance use disorder Family history of problems with anesthesia: No Surgical History Surgical History Hx of tracheostomy (07/05/23) History of left-sided carotid endarterectomy (07/04/23) Hx of tonsillectomy Hx of colonoscopy H/O cardiac catheterization History of dental surgery History of cystoscopy History of permanent cardiac pacemaker placement History of Problems with Anesthesia: No Social History Social History Household Members: None Housing: Apartment Are you a primary direct care specialist to a significant other at home: No Do you presently have visiting nurse or other home services: No Alcohol intake: never Comment: aware of trip hazard Patient Tobacco Use Status: Current everyday Tobacco user Tobacco use type: Cigarette Cigarette Packs Per Day: 1 Cigarettes Per Day: 20.0 Years Smoked: 61 Smoked in Last 30 Days: Yes e-Cigarette/Vaping Use: Never Used Patient Interested in Nicotine Replacement: No Second Hand Smoke Exposure: No Use of substances other than those prescribed or required for medical reasons: No Have you been hit, kicked, punched, or otherwise hurt by someone within the past year? If so, by whom?: No Are you DNR?: No Advance Directives: No Advance Directives Information Provided: Yes Advance Directives on File: No Recently lost weight without trying: Yes How much weight loss: 2-13 pounds Eating poorly because of decreased appetite: No Nutrition screen score: 3 Nutrition Risks: No Nutritional Risk service: Yes Current occupational status: retired Current occupational exposures/hazards: No Cognitive needs: No (Cane) Hearing needs: No Vision needs: Yes (Glasses) Meds Allergies Allergy/AdvReac Type Severity Reaction Status Date / Time Penicillins Allergy Severe throat Verified 12/19/23 06:33 swelling Blue Dye Allergy Severe throat Uncoded 12/19/23 06:33 swelling Latex Allergy Severe Rash, Uncoded 12/19/23 06:33 Hives, whole hand Home Medications ?Medication ?Instructions ?Recorded ?Confirmed ?Last Taken ?Type aspirin 81 mg tablet,delayed 81 mg PO DAILY 04/05/22 12/19/23 12/09/23 History release (Adult Low Dose Aspirin) cholecalciferol (vitamin D3) 25 25 mcg PO DAILY 04/05/22 12/19/23 12/18/23 History mcg (1,000 unit) capsule docusate sodium 100 mg capsule 200 mg PO DAILY 04/05/22 12/19/23 12/18/23 History (Colace) hydrochlorothiazide 25 mg tablet 25 mg PO DAILY 07/04/23 12/19/23 12/18/23 History Exam Height,Weight and Vital Signs: Height 5 ft 0.25 in Weight 106.594 kg Last Vital Signs Pulse 74 12/12/23 13:42 Resp 16 12/12/23 13:42 BP 117/57 L 12/12/23 13:42 Pulse Ox 96 12/12/23 13:42 O2 Del Method Room Air 12/12/23 13:42 Vital Signs Temp Pulse Resp BP Pulse Ox O2 Del Method 12/19/23 06:51 97.2 F 65 16 148/66 H 98 Room Air Airway Mallampati Class: III TM Dist: >3cm Neck ROM: Limited Partial: Upper (At home) Loose/Missing/Broken Teeth: Yes (Missing teeth. Top partial. Denies broken or loose teeth) Heart: RRR Lungs: CTAB Assessment and Plan Assessment Anesthesia Assessment: Anesthesia Plan Discussed, PAT Visit and Chart Reviewed Final Anesthetic Review Family History of Problems with Anesthesia: No History of Problems with Anesthesia: No NPO: Yes ASA Class: III Final Preanesthetic Review: No Changes in Pt Med Stat, Meds/Allgs Chart Reviewed, Consent Obtained/Reviewed and Anes Risks/Benef Reviewed Patient Risk: Intermediate Procedure Risk: Intermediate Assessment/Block/Sedation in SS: Assess/Block/Sedation-SS Anesthetic Plan Anesthetic Plan: GA and Other (Arterial line) Disposition: Standard PACU and Inp. Admit - ICU
[2023-12-12 14:50] LABS: Hematocrit 48.5 % (42.0-52.0); Hemoglobin 16.8 g/dl (14.0-18.0); Mean Corpuscular HGB Conc 34.6 g/dl (31.0-36.0); Mean Corpuscular Hemoglobin 31.4 pg (27.0-33.0); Mean Corpuscular Volume 90.7 fL (80.0-98.0); Mean Platelet Volume 8.6 fL (9.4-12.4); Platelet Count 263 X10*3/uL (160-400); Red Blood Count 5.35 X10*6/uL (4.60-5.80); Red Cell Distribution Width 13.9 % (11.0-16.0); White Blood Count 10.9 X10*3/uL (4.8-10.8)
[2023-12-12 14:55] LABS: INTERNATIONAL NORM RATIO 0.9 (0.9-1.1); Prothrombin Time 10.7 SEC (11.1-13.3)
[2023-12-12 14:58] LABS: Partial Thromboplastin Time 29.5 SEC (26.0-36.8)
[2023-12-12 15:44] LABS: Alanine Aminotransferase 21 U/L (0-40); Albumin Level 3.8 g/dL (3.5-5.0); Alkaline Phosphatase 79 U/L (39-117); Anion Gap 15 (12-20); Aspartate Amino Transferase 19 U/L (5-37); Bilirubin Total 0.5 mg/dL (0.0-1.0); Blood Urea Nitrogen 16 mg/dL (9-16); Carbon Dioxide 27 mmol/L (22-29); Chloride 102 mmol/L (96-108); Creatinine Clr Calc Pharmacy 65.3; Estimated Glomerular Filt Rate > 60; Glucose Random 123 mg/dL (60-115); Potassium 3.9 mmol/L (3.3-5.1); Sodium 140 mmol/L (135-145); Total Protein 6.9 g/dL (6.5-8.0)
[2023-12-19] VITALS (23 sets, daily range): BP systolic 107–153; BP diastolic 41–79; PULSE 60–78; RESP 11–16; TEMP 36.1–36.9; O2SAT 93–98; BMI 32.5
[2023-12-19] MEDS: Lactated Ringers 1,000 ML 100 ML IVCONT ×2 (07:07→12:59)
[2023-12-19] MEDS: vancomycin HCL 1,500 MG in 0.9 % Sodium Chloride 500 ML 333.33 MG IV ×2 (07:07→20:22)
[2023-12-19] MEDS: Albuterol Sulfate (0.083%) 2.5 MG/3 ML VIAL.NEB INHALE (07:38)
--- NOTE | 2023-12-19 07:40 | MHC.SHP ---
Pre-Procedural Eval Section A - 24 Hr Update-Section A only Date of Service: 12/19/23 The patient is an INPATIENT: No Changes since office visit: Yes Patient answered all questions The patient has been examined within 24 hours of the surgical procedure. The History & Physical has been completed within 30 days and I have reviewed it.: Yes Section B - Complete if H&P > 30 days Chief Complaint: Occlusion and stenosis of right carotid artery Allergies: Allergies Allergy/AdvReac Type Severity Reaction Status Date / Time Penicillins Allergy Severe throat Verified 12/19/23 06:33 swelling Blue Dye Allergy Severe throat Uncoded 12/19/23 06:33 swelling Latex Allergy Severe Rash, Uncoded 12/19/23 06:33 Hives, whole hand Plan I have reviewed the history and physical and performed a pertinent physical examination on my patient. No changes have occurred unless specified. Time Spent With Patient Time: Total time managing care of this patient today ____ minutes.
--- NOTE | 2023-12-19 11:12 | P.OP_ITS ---
Operative Note Operative Note Date of Service: 12/19/23 Narrative: Operative note by [facility] Preoperative diagnosis:1. Right Carotid stenosis Postoperative diagnosis: Same Procedure: right Carotid endarterectomy with patch angioplasty Surgeon:Davey Amezcua M.D. Dye Boarding Machine Operator: Dr. Marmolejo Anesthesia: General Specimens: 1 Drains: 1 Estimated blood loss: 100 mL Indications: pleasant 68-year-old gentleman with prior left carotid endarterectomy. At that time it was known that he had a high-grade right carotid stenosis. He has recovered from his left carotid surgery. Now presents for operative intervention. High-grade right carotid stenosis was seen on CT scan and reconfirmed on ultrasound. The patient has signed the informed consent after reviewing risks, complications, benefits, and alternatives previously discussed with the patient. The patient was given the opportunity to ask any additional questions or voice any concerns. All questions were answered to the patient's satisfaction. Procedure in detail: Patient was taken to the operating room and placed in a supine position and prepped and draped in sterile manner with ChloraPrep. Longitudinal incision was made along the rightanterior border of the sternocleidomastoid carried down through the subcutaneous fat and fascia. Hemostasis was obtained with electrocautery. The platysma muscle was then divided. The carotid sheath was identified in open. The vagus nerve, Ancef cer vicalis, and hypoglossal nerves were identified and avoided. The common internal and external carotids were then freed from the surrounding tissue. At this point, Seven thousand units of heparin was administered and allowed to circulate for 5 minutes time to take effect. The internal, common, external carotids were clamped in that order. Once this was accomplished, we proceeded with the procedure. The carotid bulb was opened with an 11 blade and extended with Dawkins scissors through the very tight lesion into normal internal carotid artery. This was then extended down into the common carotid artery. We then placed a Kumari shunt. Then the plaque was sharply excised proximally and an eversion endarterectomy was performed successfully at the external. The plaque tapered nicely on to the internal and no tacking sutures were necessary. Heparinized saline was injected and no evidence of flapping or other debris was noted. The remaining carotid was examined, which showed no debris or flaps present. At this point a XenoSure patch was brought on to the field. This was anastomosed to the artery using a 6 0 Prolene in a running fashion. Once approximately 4/5 of the patch was sewn in the shunt was then removed. Prior to the last stitch the internal carotid was back bled through this. Heparinized saline was instilled into the carotid. The last stitch was tied. Hemostasis was excellent. The internal carotid was gently occluded while while of the external and internal were open in that order. Finally the internal was then opened and flow was restored to the entire system. Hemostasis was achieved with interrupted 7-0 Prolene sutures. The wound was irrigated thoroughly. We then placed a 7 flat Cachorro-Med[place] drain. Deep layer was reapproximated using a 2-0 poly Sorb and finally the superficial layer with a 3-0 Polysorb. The skin was closed in a subcuticular manner. The patient awoke and neurologic status was checked and appeared to be intact. Sponge, needle and instrument counts were correct. The patient tolerated the procedure well. Returned to recovery with stable vitals. This note is constructed using voice recognition software. While every effort has been made to ensure accuracy, coke crane operator errors may have been included. Thank you for allowing me to participate in the care of your patient. Yours sincerely, Davey Amezcua MD, FACS, R.P.V.I.
--- NOTE | 2023-12-19 11:32 | PHA.MEDREC ---
Addendum entered by Gloria Madden [facility] 12/19/23 11:34: reviewed the review Original Note: Pharmacy Consult ? Medication Reconciliation Pharmacy has reviewed the medication reconciliation done by nursing.
[2023-12-19] MEDS: oxyCODONE HCl Immed Release 5 MG TABLET PO (12:08)
--- NOTE | 2023-12-19 14:10 | P.HPCC_ITS ---
History of Present Illness Date of Service: 12/19/23 Chief Complaint: Status post elective right endarterectomy 68-year-old gentleman with underlying history of hypertension, hyperlipidemia, CAD, RA, carotid stenosis, left carotid endarterectomy complicated by aspiration requiring tracheostomy with reversal, now postoperative day 0 after an elective right carotid endarterectomy being monitored in the intensive care unit. Review of Systems 2 Constitutional: Constitutional: Denies daytime sleepiness, Denies excessive sweating, Denies fatigue, Denies fever(s), Denies lethargy, Denies malaise, Denies night sweats, Denies snoring and Denies weight loss Eyes: Eyes: Denies blurry vision and Denies itchy eyes ENT: Denies nasal congestion, Denies post nasal drip, Denies sinus pain, Denies sinus pressure and Denies other ( Thrush) Cardiovascular: Cardiovascular: Denies chest pain, Denies pedal edema, Denies dyspnea, Denies orthopnea and Denies paroxysmal nocturnal dyspnea Respiratory: Respiratory: Denies cough, Denies hemoptysis, Denies excessive phlegm production, Denies dyspnea, Denies snoring and Denies wheezing Gastrointestinal: Gastrointestinal: Denies abdominal pain and Denies heartburn Musculoskeletal: Musculoskeletal: Denies myalgias, Denies arthralgias and Denies joint swelling Integumentary/Breasts: Skin/Breast: Denies rash Neurologic: Denies memory loss and Denies seizure-like activity Psychiatric: Psychiatric: Denies abnormal sleep pattern, Denies anxiety and Denies memory loss Endocrine: Endocrine: Denies excessive sweating, Denies fatigue and Denies heat intolerance Hematologic/Lymphatic: Hematologic/Lymphatic: Denies easy bruising Allergic/Immunologic: Allergic/Immunologic: Denies itchy eyes, Denies seasonal rhinorrhea and Denies wheezing PMFSH Past Medical History Medical History (Updated 12/19/23 @ 14:13 by Baljeet Vail MD) Smoker Claudication of calf muscles Ambulates with cane Rheumatoid arthritis Osteoarthritis Hx MRSA infection HLD (hyperlipidemia) Murmur Coronary artery disease Hx of renal calculi History of pacemaker Hypertension Elevated fasting blood sugar Family History Family History Other Mental health disorder Substance use disorder Surgical History Surgical History Hx of tracheostomy (07/05/23) History of left-sided carotid endarterectomy (07/04/23) Hx of tonsillectomy Hx of colonoscopy H/O cardiac catheterization History of dental surgery History of cystoscopy History of permanent cardiac pacemaker placement Social History Social History Household Members: None Housing: Apartment Are you a primary care transitions manager to a significant other at home: No Do you presently have visiting nurse or other home services: No Alcohol intake: never Comment: COUNTS CORRECT Patient Tobacco Use Status: Current everyday Tobacco user Tobacco use type: Cigarette Cigarette Packs Per Day: 1 Cigarettes Per Day: 20.0 Years Smoked: 61 Smoked in Last 30 Days: Yes e-Cigarette/Vaping Use: Never Used Patient Interested in Nicotine Replacement: No Second Hand Smoke Exposure: No Use of substances other than those prescribed or required for medical reasons: No Have you been hit, kicked, punched, or otherwise hurt by someone within the past year? If so, by whom?: No Are you DNR?: No Advance Directives: No Advance Directives Information Provided: Yes Advance Directives on File: No Recently lost weight without trying: Yes How much weight loss: 2-13 pounds Eating poorly because of decreased appetite: No Nutrition screen score: 3 Nutrition Risks: No Nutritional Risk service: Yes Current occupational status: retired Current occupational exposures/hazards: No Cognitive needs: No (Cane) Hearing needs: No Vision needs: Yes (Glasses) Meds Allergies Allergy/AdvReac Type Severity Reaction Status Date / Time Penicillins Allergy Severe throat Verified 12/19/23 06:33 swelling Blue Dye Allergy Severe throat Uncoded 12/19/23 06:33 swelling Latex Allergy Severe Rash, Uncoded 12/19/23 06:33 Hives, whole hand Active Medications: Current Medications Acetaminophen (Acetaminophen 325 Mg Tablet) 650 mg PO Q6H PRN PRN Reason: Pain, Mild (Pain Scale 1-3), fever or headache Aspirin (Aspirin Enteric Coated 81 Mg Tablet.Dr) 81 mg PO DAILY MING Atorvastatin Calcium (Atorvastatin Calcium 20 Mg Tablet) 20 mg PO BEDTIME MING Calcium Carbonate (Calcium Carbonate 750 Mg Tab.Chew) 750 mg PO Q4H PRN PRN Reason: Heartburn Docusate Sodium (Docusate Sodium 100 Mg Capsule) 200 mg PO DAILY MING Hydrochlorothiazide (Hydrochlorothiazide 25 Mg Tablet) 25 mg PO DAILY MING; Protocol Lactated Ringer's (Lr) 1,000 mls @ 100 mls/hr IVCONT .Q10H MING Last Admin: 12/19/23 12:59 Dose: 100 mls/hr Vancomycin HCl 1,500 mg/ (Sodium Chloride) 500 mls @ 333.333 mls/hr IV POSTOP ONE Stop: 12/19/23 21:19 Losartan Potassium (Losartan Potassium 50 Mg Tablet) 100 mg PO DAILY MING; Protocol Magnesium Hydroxide (Milk Of Magnesia 30 Ml Oral.Susp) 30 ml PO DAILY PRN PRN Reason: Constipation Melatonin (Melatonin 3 Mg Tablet) 6 mg PO BEDTIME PRN PRN Reason: Insomnia Metoprolol Succinate (Metoprolol Succinate Er 25 Mg Tab.Er.24h) 25 mg PO BID MING; Protocol Morphine Sulfate (Morphine Sulfate 2 Mg/Ml Cartridge) 2 mg IVPUSH Q4H PRN; Protocol PRN Reason: Pain, Severe (Pain Scale 7-10) Non-Formulary Medication (Chloroquine Phosphate) 125 mg PO .COMPLEX MING Oxycodone HCl (Oxycodone Hcl Immed Release 5 Mg Tablet) 5 mg PO Q4H PRN PRN Reason: Pain, Moderate(Pain Scale 4-6) Sodium Chloride (0.9 % Sodium Chloride Flush 3 Ml Syringe) 3 ml IVFLUSH QSHIFT [facility] Vitamin D (Cholecalciferol (Vitamin D3) 25 Mcg Tablet) 25 mcg PO DAILY [facility] Home Medications ?Medication ?Instructions ?Recorded ?Confirmed ?Last Taken ?Type aspirin 81 mg tablet,delayed 81 mg PO DAILY 04/05/22 12/19/23 12/09/23 History release (Adult Low Dose Aspirin) cholecalciferol (vitamin D3) 25 25 mcg PO DAILY 04/05/22 12/19/23 12/18/23 History mcg (1,000 unit) capsule docusate sodium 100 mg capsule 200 mg PO DAILY 04/05/22 12/19/23 12/18/23 History (Colace) hydrochlorothiazide 25 mg tablet 25 mg PO DAILY 07/04/23 12/19/23 12/18/23 History Physical Exam 2 Vital Signs: Vital Signs: Last Vital Signs Temp 98.4 F 12/19/23 13:00 Pulse 78 12/19/23 13:00 Resp 12 12/19/23 13:00 BP 110/47 L 12/19/23 13:00 Pulse Ox 94 12/19/23 13:00 O2 Del Method Nasal Cannula 12/19/23 13:00 O2 Flow Rate 2 12/19/23 13:00 BMI result Body Mass Index 32.5 Const: General: no acute distress and alert Nutritional Appearance: not obese Orientation/consciousness: Other orientation findings ( oriented) HEENT: Head: Yes atraumatic Eyes: General: appearance normal, both eyes and all related structures S clerae: sclerae normal EOM: EOMs intact bilaterally Neck: Neck: Yes supple and Yes other (Right carotid endarterectomy site with surgical dressing and no hematoma) Lymphatic: no lymphadenopathy noted Resp: Effort & Inspection: normal respiratory effort and no use of accessory muscles Auscultation: clear to auscultation bilaterally Cardio: Rate: regular rate Rhythm: regular rhythm Heart sounds: no gallops, no murmurs and no rubs Skin: General skin exam: other ( warm) Extrem: General: No clubbing, No cyanosis and No edema Results Labs 12/12/23 14:39 12/12/23 14:39 Assessment and Plan (1) Status post carotid endarterectomy: Status: Acute (2) Coronary artery disease: Status: Acute (3) Rheumatoid arthritis: Status: Acute Plan Assessment: 68-year-old gentleman postoperative day 0 status post right elective carotid endarterectomy being monitored in the intensive care unit Plan: Neuro: No acute issues. Cardiac: Postoperative day 0 after elective right carotid endarterectomy. Vascular surgery service care appreciated. Maintain systolic blood pressure under 160. Pulmonary: No acute issues. Renal: No acute issues. Endo: No acute issues. GI: No acute issues. ID: No acute issues Heme/Onc: No acute issues. Psych: No acute issues. Miscellaneous: No acute issues. Prophylaxis: Per vascular surgery Diet: Per vascular surgery
[2023-12-19] MEDS: Metoprolol Succinate ER 25 MG TAB.ER.24H PO (21:50)
[2023-12-19] MEDS: 0.9 % Sodium Chloride Flush 3 ML SYRINGE IVFLUSH (21:50)
[2023-12-19] MEDS: Atorvastatin Calcium 20 MG TABLET PO (21:50)
[2023-12-19] MEDS: Melatonin 3 MG TABLET 6 MG PO (21:51)
[2023-12-19] MEDS: Docusate Sodium 100 MG CAPSULE 200 MG PO (22:08)
[2023-12-20] VITALS (16 sets, daily range): BP systolic 100–145; BP diastolic 39–58; PULSE 60–65; RESP 10–17; TEMP 36.3; O2SAT 92–97; BMI 32.9
[2023-12-20 05:56] LABS: MANUAL DIFF FLAG NO
[2023-12-20 05:58] LABS: Basophils Absolute Auto 0.1 X10*3/uL (0.0-0.2); Basophils Percent Auto 0.4 % (0-2); Eosinophils Absolute Auto 0.2 X10*3/uL (0.0-0.4); Eosinophils Percent Auto 1.3 % (0-4); Hematocrit 41.8 % (42.0-52.0); Hemoglobin 14.4 g/dl (14.0-18.0); Imm Gran Abs Auto 0.07 X10*3/uL (0.00-0.03); Imm Gran Pct Auto 0.4 % (0.0-0.4); Lymphocytes Absolute Auto 2.2 X10*3/uL (1.2-4.9); Lymphocytes Percent Auto 13.2 % (20-40); Mean Corpuscular HGB Conc 34.4 g/dl (31.0-36.0); Mean Corpuscular Hemoglobin 31.9 pg (27.0-33.0); Mean Corpuscular Volume 92.5 fL (80.0-98.0); Monocytes Absolute Auto 1.3 X10*3/uL (0.1-1.2); Monocytes Percent Auto 7.9 % (2-11); Neutrophils Absolute Auto 12.6 x10*3/uL (2.0-8.3); Neutrophils Percent Auto 76.8 % (45-73); Platelet Count 229 X10*3/uL (160-400); Red Blood Count 4.52 X10*6/uL (4.60-5.80); Red Cell Distribution Width 13.8 % (11.0-16.0); White Blood Count 16.4 X10*3/uL (4.8-10.8)
[2023-12-20] MEDS: Acetaminophen 325 MG TABLET 650 MG PO (06:11)
[2023-12-20 06:18] LABS: Albumin Level 3.5 g/dL (3.5-5.0); Anion Gap 14 (12-20); Blood Urea Nitrogen 11 mg/dL (9-16); Calcium 9.4 mg/dL (8.4-10.2); Carbon Dioxide 23 mmol/L (22-29); Chloride 106 mmol/L (96-108); Creatinine Clr Calc Pharmacy 114.3; Estimated Glomerular Filt Rate > 60; Glucose Random 110 mg/dL (60-115); Phosphorus 3.2 mg/dL (2.7-4.5); Sodium 139 mmol/L (135-145)
--- NOTE | 2023-12-20 08:39 | HO.POSTANES ---
Post Anesthesia Evaluation Post Anesthesia Evaluation Date of Service: 12/20/23 Vital Signs: Vital Signs Temp Pulse Resp BP Pulse Ox O2 Del Method O2 Flow Rate 12/20/23 08:00 63 12 143/53 H 95 Nasal Cannula 2 12/20/23 07:53 94 Room Air 12/20/23 07:00 64 15 144/51 H 96 Nasal Cannula 2 12/20/23 06:00 62 15 125/56 L 92 Nasal Cannula 2 12/20/23 05:00 61 14 140/50 H 95 Nasal Cannula 2 12/20/23 03:00 60 13 139/49 L 96 Nasal Cannula 2 12/20/23 02:00 64 10 L 120/46 L 96 Nasal Cannula 2 12/20/23 01:00 60 12 109/41 L 96 Nasal Cannula 2 12/20/23 00:02 97.4 F 12/20/23 00:00 60 11 L 121/45 L 96 Nasal Cannula 2 12/19/23 23:00 68 12 115/46 L 95 Nasal Cannula 2 12/19/23 22:00 66 116/48 L 95 Nasal Cannula 2 12/19/23 21:50 70 133/51 L 12/19/23 20:53 76 15 135/62 96 Nasal Cannula 2 Anesthesia: General Endotracheal-GETA Mental Status: Awake Pain Control: Satisfactory Nausea/Vomiting: None Hydration: Adequate Anesthesia-Related Issues: No Anes. Related Issues Comments: Patient is in ICU for blood pressure monitoring after carotid endarterectomy. Care per primary team. Anesthesia team to follow-up as necessary.
[2023-12-20] MEDS: Aspirin Enteric Coated 81 MG TABLET.DR PO (09:33)
[2023-12-20] MEDS: 0.9 % Sodium Chloride Flush 3 ML SYRINGE IVFLUSH (09:33)
[2023-12-20] MEDS: Metoprolol Succinate ER 25 MG TAB.ER.24H PO (09:34)
[2023-12-20] MEDS: hydroCHLOROthiazide 25 MG TABLET PO (09:34)
[2023-12-20] MEDS: Docusate Sodium 100 MG CAPSULE 200 MG PO (09:34)
[2023-12-20] MEDS: Cholecalciferol (Vitamin D3) 25 MCG TABLET PO (09:34)
[2023-12-20] MEDS: Losartan Potassium 50 MG TABLET 100 MG PO (09:34)
--- NOTE | 2023-12-20 10:02 | MHC.CM.PN ---
Addendum entered by Abby Harris 12/20/23 13:35: DP: PT HAS BEEN MEDICALLY CLEARED FOR DC HOME, NO SERVICES. PT HAS OWN RIDE HOME. Original Note: IMM DELIVERED. PT LIVES ALONE. INDEPENDENT/+DRIVES. PT USES A [facility]E FOR MOBILITY. +HCP ON FILE. PCP DR. LANCE AT [facility] [place]. DP: HOME, NO SERVICES IS THE GOAL. PT HAS OWN [facility] HOME. CM WILL CONTINUE TO FOLLOW FOR ANY CHANGE TO DC PLAN/NEEDS.
--- NOTE | 2023-12-20 14:15 | PM.DS ---
DS: Providers Provider Date of Service: 12/20/23 Date of admission: 12/19/23 11:12 Primary care physician: Zion Martinez MD DS: Diagnosis Discharge Diagnosis (1) Status post carotid endarterectomy: Status: Acute (2) Coronary artery disease: Status: Acute (3) Rheumatoid arthritis: Status: Acute DS: Summary Hospital Course Hospital Course: Patient underwent right carotid endarterectomy. Was observed in ICU postoperatively. No significant bleeding or issues overnight. Postop day 1 was tolerating regular diet and was subsequently discharged. Time Attestation Discharge Coordination Time (in mins): 35 min Quality: Safe Use of Opioids Does Pt have an Active Cancer Diagnosis on the Problem List?: No Quality: Stroke Does the patient have a stroke diagnosis?: No Physical Exam Vital Signs: Vital Signs: Last Vital Signs Temp 97.4 F 12/20/23 00:02 Pulse 60 12/20/23 13:00 Resp 17 12/20/23 13:00 BP 115/39 L 12/20/23 13:00 Pulse Ox 97 12/20/23 13:00 O2 Del Method Room Air 12/20/23 13:00 O2 Flow Rate 2 12/20/23 10:00 BMI result Body Mass Index 32.9 Const: General: cooperative, healthy appearing and no acute distress Orientation/consciousness: oriented to person, oriented to place and oriented to time HEENT: Head: Yes normal to inspection Neck: Carotids: no bruits Chest: Chest palpation & inspection: normal inspection of the chest Resp: Effort & Inspection: normal respiratory effort and able to speak in complete sentences Auscultation: clear to auscultation bilaterally Cardio: Rate: regular rate Heart sounds: S1 normal heart sound present and S2 normal heart sound present GI: Inspection: Yes normal to inspection Skin: Other: Right neck well healing General skin exam: no rashes or lesions noted Wounds: no wounds Neuro: General: oriented to person, oriented to place, oriented to time and CN's II-XI intact bilaterally Extrem: General: Yes normal to inspection, Yes full ROM and Yes no clubbing, cyanosis or edema Psych: Appearance: grossly normal and well kempt Speech and movement: Normal speech and movement present Affect: normal affect DS: Data Data Completed and Pending Completed studies during hospitalization [Text1]: Pending at discharge 12/19/23 09:56 Surgical [PTH] Routine Procedures Bypass Trachea to Cutaneous with Tracheostomy Device, Open Approach (07/04/23) Extirpation of Matter from Left External Carotid Artery, Open Approach (07/04/23) Extirpation of Matter from Left Neck Subcutaneous Tissue and Fascia, Open Approach (07/04/23) Respiratory Ventilation, 24-96 Consecutive Hours (07/04/23) Supplement Left Common Carotid Artery with Synthetic Substitute, Open Approach (07/04/23) Labs on day of discharge: Laboratory Results - last 24 hr 12/20/23 05:19 WBC 16.4 H RBC 4.52 L Hgb 14.4 Hct 41.8 L MCV 92.5 MCH 31.9 MCHC 34.4 RDW 13.8 Plt Count 229 MPV 9.0 L Immature Gran % (Auto) 0.4 Neut % (Auto) 76.8 H Lymph % (Auto) 13.2 L Navarro % (Auto) 7.9 Eos % (Auto) 1.3 Baso % (Auto) 0.4 Lymph # (Auto) 2.2 Navarro # (Auto) 1.3 H Eos # (Auto) 0.2 Baso # (Auto) 0.1 Abs Immat Gran (auto) 0.07 H Absolute Neuts (auto) 12.6 H Absolute Nucleated RBC 0.000 Nucleated RBC % (auto) 0.0 Sodium 139 Potassium 4.0 Chloride 106 Carbon Dioxide 23 Anion Gap 14 BUN 11 Creatinine 0.77 Estim Creat Clear Calc 114.3 Estimated GFR > 60 Random Glucose 110 Calcium 9.4 Phosphorus 3.2 Magnesium 2.0 Albumin 3.5 Discharge Plan Discharge Anticipated Discharge Date/Time: 12/20/23 13:11 Patient Disposition: Home, Self-Care Discharge Diagnosis: Status post carotid endarterectomy Referrals: Zion Martinez MD [Primary Care Provider] - 1 Week Discharge Medications: New oxycodone-acetaminophen [Percocet] 5-325 mg tablet 1 tab PO Q8H PRN (Reason: pain) Qty: 10 0RF Rx Instructions: Partial Fill upon patient request. Continued metoprolol succinate 25 mg tablet extended release 24 hr 25 mg PO BID 90 Days Qty: 180 3RF losartan 100 mg tablet 100 mg PO DAILY Qty: 90 3RF chloroquine phosphate 250 mg tablet 125 mg PO .COMPLEX Qty: 36 2RF Rx Instructions: Five days a week simvastatin 40 mg tablet 40 mg PO BEDTIME Qty: 90 2RF hydrochlorothiazide 25 mg tablet 25 mg PO DAILY aspirin [Adult Low Dose Aspirin] 81 mg tablet,delayed release (DR/EC) 81 mg PO DAILY docusate sodium [Colace] 100 mg capsule 200 mg PO DAILY cholecalciferol (vitamin D3) 25 mcg (1,000 unit) capsule 25 mcg PO DAILY Discharge Orders: Discharge Order (Routine); Ordered 12/20/23 Ordered By: Davey Amezcua Diet: Advance to usual diet Activity on Discharge: As tolerated Stand Alone Forms: Patient Portal Discharge page Print Language: Other Activity Restrictions/Additional Instructions: you may shower as early as tomorrow. Take it easy today and you may ambulate around the house. Within 24 hours you can resume normal activity You may climb a flight of stairs as tolerated Do not lift anything heavier than a gallon of milk See Dr. Amezcua in follow-up in approximately 2 weeks time. You should already have an appointment if not please call my office at [phone] Please see above for any change in medications If you notice excessive bleeding from the neck please immediately call my office or return to the emergency room. Care Plan Goals: Carotid surveillance Health Concerns: Carotid stenosis Plan of Treatment: Carotid surveillance follow-up Assessment: Status post carotid endarterectomy Discharge Date/Time: 12/20/23 14:00
== END 2023-12-20 14:00 | disposition home or self-care (01) | DRG 39 ==
LOC: HO.SSSA 11:14 → HO.ICU 11:23
PROVIDERS: Nurse Practitioner; Admitting Provider Surgery Vascular Surgery; PCP Family Medicine; Visit Provider Internal Medicine Pulmonary Disease
PROC: 03CK0ZZ Extirpation of Matter from Right Internal Carotid Artery, Open Approach (ICD-10-PCS; CPT 35301; principal; 2023-12-19 07:30)
DX: I65.21 Occlusion and stenosis of right carotid artery (principal); M06.9 Rheumatoid arthritis, unspecified; Z86.14 Personal history of Methicillin resistant Staphylococcus aureus infection; I25.10 Atherosclerotic heart disease of native coronary artery without angina pectoris; Z95.0 Presence of cardiac pacemaker; F17.210 Nicotine dependence, cigarettes, uncomplicated; Z71.6 Tobacco abuse counseling; Z91.040 Latex allergy status; Z79.82 Long term (current) use of aspirin; Z79.899 Other long term (current) drug therapy
CPT/HCPCS: 36415; 80048; 80053; 82040; 83735; 84100; 85025; 85027; 85610; 85730; 86850; 86900; 86901; 88304; 88311; A4649; C1758; C1768; J0131; J1100; J1596; J1644; J2250; J2405; J2704; J2795; J3010; J3371; J7120

== ENCOUNTER → 2023-12-19 11:12 | Outpatient (BNV) | payer MEDICARE, SELFPAY | PROVIDERS: Admitting Provider Surgery Vascular Surgery; PCP Family Medicine; Visit Provider Surgery Vascular Surgery | DX: Z98.890 Other specified postprocedural states (principal); I25.10 Atherosclerotic heart disease of native coronary artery without angina pectoris; M06.9 Rheumatoid arthritis, unspecified | CPT/HCPCS: 35301; 99024 ==

== ENCOUNTER → 2023-12-19 11:12 | Outpatient (BNV) | payer MEDICARE, SELFPAY | PROVIDERS: Admitting Provider Surgery Vascular Surgery; PCP Family Medicine; Visit Provider Internal Medicine Pulmonary Disease | DX: I25.10 Atherosclerotic heart disease of native coronary artery without angina pectoris (principal); M06.9 Rheumatoid arthritis, unspecified | CPT/HCPCS: 99222 ==

== ENCOUNTER 2023-12-26 12:28 | Outpatient (AMB) | payer MEDICARE, SELFPAY ==
--- NOTE | 2023-12-26 12:39 | MHC.OFFVIS ---
Vital Signs 12/26/23 12:41 Height 6 ft Weight 233 lb 11.04 oz BMI 31.7 BP 118/60 Blood Pressure Location Lt brachial Position Sitting Pulse 91 Intake Visit Reasons: 6 mth w/ biotronic ck Intake Note: 6 month follow-up with Biot[employer] check feeling good Technical Operations Manager Required: No Pay Agent: Pay Agent Present Accompanied by: Brother Allergies Penicillins Allergy (Severe, Verified 12/19/23 06:33) throat swelling Blue Dye Allergy (Severe, Uncoded 12/19/23 06:33) throat swelling Latex Allergy (Severe, Uncoded 12/19/23 06:33) Rash, Hives, whole hand Medication List - Last Reconciled 12/26/23 by Ross Barney MD aspirin (Adult Low Dose Aspirin) 81 mg PO DAILY chloroquine phosphate Five days a week cholecalciferol (vitamin D3) 25 mcg PO DAILY docusate sodium (Colace) 200 mg PO DAILY hydrochlorothiazide 25 mg PO DAILY losartan 100 mg PO DAILY metoprolol succinate ER 25 mg PO BID 90 days oxycodone-acetaminophen 5-325 mg (Percocet) 1 tab PO Q8H PRN simvastatin 40 mg PO BEDTIME HPI Comments Details: Sanford comes for follow-up. Status post carotid endarterectomy we should add to some swallowing issues. Pacemaker showed nonsustained VT. He has no symptoms related to it. No lightheadedness, syncope. No palpitations. Does have exertional shortness of breath which is not change. Comes walking with a cane. Takes all his medications. [facility] Medical History (Updated 12/27/23 @ 12:26 by Ross Barney MD) Smoker Claudication of calf muscles Ambulates with cane Rheumatoid arthritis Osteoarthritis Hx MRSA infection HLD (hyperlipidemia) Murmur Coronary artery disease Hx of renal calculi History of pacemaker Hypertension Elevated fasting blood sugar Surgical History Hx of tracheostomy (07/05/23) History of left-sided carotid endarterectomy (07/04/23) Hx of tonsillectomy Hx of colonoscopy H/O cardiac catheterization History of dental surgery History of cystoscopy History of permanent cardiac pacemaker placement Family History Other Mental health disorder Substance use disorder Social History Household Members: None Caregiver staying overnight: No Housing: House Are you a primary healthcare applications analyst to a significant other at home: No Do you presently have visiting nurse or other home services: No 75 years or older and lives alone: No Alcohol intake: never Comment: COUNTS CORRECT Patient Tobacco Use Status: Current everyday Tobacco user Tobacco use type: Cigarette Cigarette Packs Per Day: 1 Cigarettes Per Day: 20.0 Years Smoked: 61 e-Cigarette/Vaping Use: Never Used Second Hand Smoke Exposure: No service: No Current occupational status: retired Current occupational exposures/hazards: No Cognitive needs: No (Cane) Hearing needs: No Vision needs: Yes (Glasses) Review of Systems Const Denies chills, Denies fatigue, Denies fever(s), Denies frequent falls, Denies weakness, Denies weight gain and Denies weight loss ENT Denies dizziness Card Denies chest pain, Denies leg edema, Denies lightheadedness, Denies palpitations, Denies dyspnea, Denies dyspnea on exertion, Denies orthopnea and Denies other (loss of consciousness) Resp Denies cough, Denies dyspnea and Denies dyspnea on exertion GI Denies hematochezia and Denies change in stool character Musc Denies abnormal gait, Denies muscle weakness, Denies numbness, Denies radiating pain into limb and Denies tingling Neuro Denies Abnormal speech present, Denies abnormal gait, Denies dizziness, Denies frequent falls, Denies numbness, Denies tingling and Denies weakness Endo Denies fatigue and Denies palpitations Physical Exam Vital Signs: Last Vital Signs Pulse 91 12/26/23 12:41 BP 118/60 12/26/23 12:41 BMI result Body Mass Index 31.7 Const General: cooperative, comfortable, no acute distress, alert and awake Nutritional Appearance: obese Orientation/consciousness: patient oriented x3 Limitations: ambulation with cane HEENT Head: Yes normocephalic and Yes atraumatic Neck Neck: Yes trachea midline, Yes supple and Yes no JVD Carotids: bruit bilateral Resp Effort & Inspection: normal respiratory effort Auscultation: clear to auscultation bilaterally and diminished lung sounds Cardio Jugular venous distension: no JVD Palpation: normal PMI Rate: regular rate Rhythm: regular rhythm Heart sounds: S1 normal heart sound present, S2 normal heart sound present, no click, no gallops, no murmurs and no rubs GI Auscultation: normal bowel sounds Skin General skin exam: no rashes or lesions noted Neuro General: patient oriented x3 and no focal motor deficits Speech: No Abnormal speech present Extrem General: Yes no clubbing, cyanosis or edema Office Procedures Cardiac Device Check Cardiac Device Check Details: Dual-chamber Biotronik pacemaker in place. RV pacing 100% of the time. Couple of episodes of nonsustained VT noted. Atrial ventricular sensing is adequate. Atrial ventricular pacing thresholds adequate. Battery life is at 45% [id number] Cardiac Device Check, pacemaker dual lead Procedure code (CPT) selection complete Assessment & Plan Assessment & Plan (1) Coronary artery disease: Comment: Nonobstructive by cardiac catheterization Code(s): I25.10 - Atherosclerotic heart disease of [place] coronary artery without angina pectoris Category: Medical Plan: Diffuse vascular disease with nonobstructive CAD. He needs aggressive risk factor modification. Advised to completely stop smoking. He she was little interested in that. Continue aggressive antiplatelet therapy. May consider low-dose oral anticoagulation therapy to reduce limb loss as well as cerebrovascular events. Continue aggressive statin therapy. He is on currently simvastatin consider switching to rosuvastatin 40 atorvastatin 80 mg. Target goal LDL closer to 50 mg/dL. Continue aggressive blood pressure control. (2) Pacemaker: Code(s): Z95.0 - Presence of cardiac pacemaker Category: Medical Plan: Cardiac pacemaker in-situ, working appropriately. Ventricularly pacer dependent. Continue to monitor remotely. Continue metoprolol therapy for nonsustained VT. Follow-up echocardiogram on annual basis. (3) Aortic stenosis: Code(s): I35.0 - Nonrheumatic aortic (valve) stenosis Category: Medical Plan: Aortic stenosis which is mild. No intervention required. Continue follow-up annually by echocardiogram. Continue aggressive vascular risk factor modification as 1. Follow up in the clinic in 6 months time, sooner p.r.n.. Thank you for allowing me to partake in his care Coding Level of Care Code Est Pt Level 4 (79010) Diagnoses Coronary artery disease I25.10 Pacemaker Z95.0 Aortic stenosis I35.0 CPT Codes Cardiac Device Check - Cardiac Device 2: 54048-SO Cardiac Device Check, pacemaker dual lead ([id number])
[2023-12-26 12:41] VITALS: BP 118/60; PULSE 91; BMI 31.7
== END 2023-12-26 13:44 | disposition home or self-care (01) ==
PROVIDERS: PCP Family Medicine; Visit Provider Internal Medicine Cardiovascular Disease
DX: I25.10 Atherosclerotic heart disease of native coronary artery without angina pectoris (principal); Z95.0 Presence of cardiac pacemaker; I35.0 Nonrheumatic aortic (valve) stenosis
CPT/HCPCS: 93280; 99214

== ENCOUNTER → 2023-12-26 12:28 | Outpatient (BNVA) | payer MEDICARE, SELFPAY | PROVIDERS: PCP Family Medicine; Visit Provider Internal Medicine Cardiovascular Disease | DX: I25.10 Atherosclerotic heart disease of native coronary artery without angina pectoris (principal); I10 Essential (primary) hypertension; I35.0 Nonrheumatic aortic (valve) stenosis; Z95.0 Presence of cardiac pacemaker | CPT/HCPCS: 93280; 99212 ==

== ENCOUNTER 2024-01-03 13:55 | Outpatient (AMB) | payer MEDICARE, SELFPAY ==
--- NOTE | 2024-01-03 14:07 | A.OFFVIS_ITS ---
Vital Signs 01/03/24 14:18 01/03/24 14:19 Height 6 ft Weight 233 lb BMI 31.6 BP 102/58 L 98/56 L Blood Pressure Location Lt brachial Rt brachial Position Sitting Sitting Intake Visit Reasons: Post Op Intake Note: Patient presents for 2 week follow up CEA. Patient states he has been feeling a sharp/lightning pain at his surgical site. Also feels like he might be getting a rash. Allergies Penicillins Allergy (Severe, Verified 01/03/24 14:08) throat swelling Blue Dye Allergy (Severe, Uncoded 12/19/23 06:33) throat swelling Latex Allergy (Severe, Uncoded 12/19/23 06:33) Rash, Hives, whole hand HPI HPI Post Op: Details: Very pleasant 68-year-old gentleman presents for follow-up status post right carotid endarterectomy. He did extremely well after this operation. Has had no interval issues. He now presents for routine postoperative follow-up [facility] Medical History Smoker Claudication of calf muscles Ambulates with cane Rheumatoid arthritis Osteoarthritis Hx MRSA infection HLD (hyperlipidemia) Murmur Coronary artery disease Hx of renal calculi History of pacemaker Hypertension Elevated fasting blood sugar Surgical History Hx of tracheostomy (07/05/23) History of left-sided carotid endarterectomy (07/04/23) Hx of tonsillectomy Hx of colonoscopy H/O cardiac catheterization History of dental surgery History of cystoscopy History of permanent cardiac pacemaker placement Family History Other Mental health disorder Substance use disorder Social History Household Members: None Caregiver staying overnight: No Housing: House Are you a primary personal carer to a significant other at home: No Do you presently have visiting nurse or other home services: No 75 years or older and lives alone: No Alcohol intake: never Comment: COUNTS CORRECT Patient Tobacco Use Status: Current everyday Tobacco user Tobacco use type: Cigarette Cigarette Packs Per Day: 1 Cigarettes Per Day: 20.0 Years Smoked: 61 e-Cigarette/Vaping Use: Never Used Second Hand Smoke Exposure: No service: No Current occupational status: retired Current occupational exposures/hazards: No Cognitive needs: No (Cane) Hearing needs: No Vision needs: Yes (Glasses) Review of Systems Const All systems reviewed & are unremarkable except as noted in HPI and below Reports no additional complaints ENT Reports Normal hearing present Card Denies chest pain, Denies chest pain at rest, Denies chest pain with activity and Denies pedal edema Resp Denies cough GI Denies abdominal pain Musc Denies abnormal gait, Denies muscle cramps and Denies radiating pain into limb Skin/Breast Denies skin ulcer and Denies wounds Neuro Reports Normal hearing present and Denies abnormal gait Psych Reports no additional complaints Physical Exam Vital Signs: Last Vital Signs BP 98/56 L 01/03/24 14:19 BMI result Body Mass Index 31.6 Const General: cooperative, healthy appearing and comfortable Orientation/consciousness: oriented to person, oriented to place and oriented to time HEENT Head: Yes normal to inspection Neck Neck: Yes normal visual inspection Carotids: no bruits Chest Chest palpation & inspection: normal inspection of the chest Resp Effort & Inspection: normal respiratory effort and able to speak in complete sentences Auscultation: clear to auscultation bilaterally, no crackles, no rales, no rhonchi and no wheezes Cardio Rate: regular rate Rhythm: regular rhythm Heart sounds: S1 normal heart sound present and S2 normal heart sound present Bruits: no carotid bruits Peripheral pulses: Peripheral pulses 2+ throughout GI Inspection: Yes normal to inspection Skin Other: Right neck incision well healed Wounds: no wounds Hair: normal Neuro General: oriented to person, oriented to place and oriented to time Cranial nerves: Yes CN's II-XII intact bilaterally and Yes Normal hearing present Cognition (Neuro): normal cognition Motor exam (neuro): 5/5 motor strength present throughout Extrem Other: venous exam: No significant superficial varicosities or spider telangiectasias, minimal edema General: No clubbing, No cyanosis and No edema Psych Appearance: grossly normal Mental Status: mental status grossly normal Speech and movement: Normal speech and movement present Assessment & Plan Assessment & Plan (1) Bilateral carotid artery stenosis: Comment: 07/04/2023 - left carotid endarterectomy 07/05/2023- take back for left carotid hematoma evacuation 12/19/2023 - right carotid endarterectomy Code(s): I65.23 - Occlusion and stenosis of bilateral carotid arteries Category: Medical Plan: In short patient appears to be doing well status post right carotid endarterectomy. We did discuss routine risk factor modification. Will follow up with us in 3 months for routine surveillance ultrasound. Should there be any interval issues happy to see him back sooner. Thank you for allowing us to assist in his care. Orders: Orders US carotid duplex BI 3 Months I65.23 - Occlusion and stenosis of bilateral carotid arteries Coding Level of Care Code Global (22866) Diagnoses Bilateral carotid artery stenosis I65.23
[2024-01-03 14:18] VITALS: BP 102/58; BMI 31.6
[2024-01-03 14:19] VITALS: BP 98/56
== END 2024-01-03 14:30 | disposition home or self-care (01) ==
PROVIDERS: PCP Family Medicine; Visit Provider Surgery Vascular Surgery
DX: I65.23 Occlusion and stenosis of bilateral carotid arteries (principal)
CPT/HCPCS: 99024

== ENCOUNTER → 2024-01-03 13:55 | Outpatient (BNVA) | payer MEDICARE, SELFPAY | PROVIDERS: PCP Family Medicine; Visit Provider Surgery Vascular Surgery | DX: I65.23 Occlusion and stenosis of bilateral carotid arteries (principal) | CPT/HCPCS: 99212 ==

== ENCOUNTER 2024-01-05 13:38 | Outpatient (AMB) | payer MEDICARE, SELFPAY ==
--- NOTE | 2024-01-05 14:22 | A.OFFPC_ITS ---
Vital Signs 01/05/24 14:28 Height 6 ft Weight 235 lb 6 oz BMI 31.9 BP 120/60 Blood Pressure Location Lt brachial Position Sitting Respiration 12 Pulse 80 Pulse Source Pulse Oximeter Temp 97.3 F Temp Source Tympanic Pulse Oximetry (%) 97 Oxygen Delivery Method Room Air Intake Visit Reasons: TCM Intake Note: er discharge Allergies Penicillins Allergy (Severe, Verified 01/05/24 14:27) throat swelling Blue Dye Allergy (Severe, Uncoded 12/19/23 06:33) throat swelling Latex Allergy (Severe, Uncoded 12/19/23 06:33) Rash, Hives, whole hand Medication List - Last Reconciled 01/05/24 by Zion Martinez MD aspirin (Adult Low Dose Aspirin) 81 mg PO DAILY chloroquine phosphate Five days a week cholecalciferol (vitamin D3) 25 mcg PO DAILY docusate sodium (Colace) 200 mg PO DAILY hydrochlorothiazide 25 mg PO DAILY losartan 100 mg PO DAILY metoprolol succinate ER 25 mg PO BID 90 days oxycodone-acetaminophen 5-325 mg (Percocet) 1 tab PO Q8H PRN simvastatin 40 mg PO BEDTIME Tobacco use date assessed: 06/24/23 Dental Screening Dental Screen Date: 06/24/23 HPI TCM HPI Details 68 y/o male presents to [facility] . He is status post R carotid endarterectomy - did well after operation. Had seen Cardiology 12/26/23. Diffuse vascular disease with nonobstructive CAD and stated he needs aggressive risk factor modification. Continued aggressive antiplatelet therapy. Target goal LDL closer to 50mg/dL. Blood pressure today 120/60. He is on losartan 100mg, metoprolol 25mg b.i.d, hydrochlorothiazide 25mg daily. Pt states he feels well today. States wound is healing well. Has complaints of allergic reaction on arms, legs, trunk. Denies any new meds. He had been into some berries lately. TCM TCM Information Date of Discharge 01/20/24 Discharged From [facility] Interactive Contact Date (Reference documentation from this date) 01/05/24 [facility] Medical History Smoker Claudication of calf muscles Ambulates with cane Rheumatoid arthritis Osteoarthritis Hx MRSA infection HLD (hyperlipidemia) Murmur Coronary artery disease Hx of renal calculi History of pacemaker Hypertension Elevated fasting blood sugar Surgical History Hx of tracheostomy (07/05/23) History of left-sided carotid endarterectomy (07/04/23) Hx of tonsillectomy Hx of colonoscopy H/O cardiac catheterization History of dental surgery History of cystoscopy History of permanent cardiac pacemaker placement Family History Other Mental health disorder Substance use disorder Social History Household Members: None Caregiver staying overnight: No Housing: House Are you a primary day care attendant to a significant other at home: No Do you presently have visiting nurse or other home services: No 75 years or older and lives alone: No Alcohol intake: never Comment: COUNTS CORRECT Patient Tobacco Use Status: Current everyday Tobacco user Tobacco use type: Cigarette Cigarette Packs Per Day: 1 Cigarettes Per Day: 20.0 Years Smoked: 61 Packs Per Year: 61 Packs per year/per ci.00 e-Cigarette/Vaping Use: Never Used Second Hand Smoke Exposure: No service: No Current occupational status: retired Current occupational exposures/hazards: No Cognitive needs: No (Cane) Hearing needs: No Vision needs: Yes (Glasses) Questionnaire Thrive Questionnaire Date Thrive assessed: 12/20/23 FARZANA-7 AMB Questionnaire FARZANA-7 Date FARZANA - 7 assessed: 10/14/21 Source: Developed by Drs. Robert Trejo, Consuelo Antoine, Gorge Drew and colleagues, with an educational mushtaq from [employer]. Review of Systems Const Denies chills, Denies fatigue, Denies fever(s), Denies headache(s) and Denies weakness ENT Denies dizziness and Denies headache(s) Card Denies chest pain, Denies lightheadedness, Denies dyspnea and Denies other (Palpitations) Resp Denies cough, Denies dyspnea, Denies wheezing and Denies other ( shortness of breath) Musc Denies numbness and Denies tingling Neuro Denies dizziness, Denies headache(s), Denies numbness, Denies tingling, Denies paresthesias and Denies weakness Psych Denies anxiety and Denies depression Endo Denies fatigue Aller/Immun Denies wheezing Physical exam (Primary Care) Vital Signs: Last Vital Signs Temp 97.3 F 01/05/24 14:28 Pulse 80 01/05/24 14:28 Resp 12 01/05/24 14:28 BP 120/60 01/05/24 14:28 Pulse Ox 97 01/05/24 14:28 Oxygen Delivery Method Room Air 01/05/24 14:28 BMI result Body Mass Index 31.9 Tobacco/Smoking Status: Tobacco use Status Tobacco use date assessed 06/24/23 01/05/24 14:25 Patient Tobacco Use Status Current everyday Tobacco 01/05/24 14:25 Tobacco use type Cigarette 01/05/24 14:25 e-Cigarette/Vaping Use Never Used 01/05/24 14:25 Thrive Assessment: Date of Thrive Assessment Date Thrive assessed 12/20/23 01/05/24 14:25 Const General: no acute distress and well developed Nutritional Appearance: well nourished Orientation/consciousness: patient oriented x3 HENMT Head: Yes normocephalic and Yes atraumatic Eyes General: appearance normal, both eyes and all related structures Pupils: Equal, round and reactive pupils present EOM: EOMs intact bilaterally Resp Effort & Inspection: normal respiratory effort Auscultation: clear to auscultation bilaterally Cardio Rate: regular rate Rhythm: regular rhythm Heart sounds: S1 normal heart sound present, S2 normal heart sound present, no gallops, no murmurs and no rubs Neuro General: patient oriented x3 and gait normal Cranial nerves: Yes Equal, round and reactive pupils present Psych Affect: normal affect Assessment and Plan Assessment & Plan (1) Status post carotid endarterectomy: Code(s): Z98.890 - Other specified postprocedural states Plan: Patient?is?status?post?right?carotid?endarterectomy Feeling?well.??No complications?from?surgery. Wound?is?healing?well He?has?already?seen?the?vascular?surgeon?2?days?ago?who?also?felt?he?is?doing?we ll?and?has?ordered?his?3?month?bilateral?carotid?ultrasound. Follow-up?with?vascular?as?recommended Will?recheck?lipids.??He?is?on?simvastatin?40?mg?daily?and?most?recent?check?fazal wed?LDL?cholesterol?below?70. (2) Essential hypertension: Code(s): I10 - Essential (primary) hypertension Plan: Blood?pressure?is?controlled Goal?is?less?than?130/80 Continue current?medication?regimen (3) Aortic stenosis: Code(s): I35.0 - Nonrheumatic aortic (valve) stenosis Plan: Stable (4) Skin irritation: Code(s): R23.8 - Other skin changes Plan: Mild?allergic?reaction?though?fairly?widespread?on?arms?legs?and?trunk Patient?notes?he?had?some berries?recently.??No?new?medications. He?also?notes?that?he?wore?a?short?he?has?not?worn?for?quite?some?time?but?rash? is?more?extensive?than?just?the?the?area?of?his?shirt. Will?give?him?a?short?script?for?prednisone. He?can?take?some?Benadryl?each?evening?for?the?next?5?days He?can?use?a?moisturizer?without?dyes?or?perfumes (5) Coronary artery disease: Comment: Nonobstructive by cardiac catheterization Code(s): I25.10 - Atherosclerotic heart disease of [place] coronary artery without angina pectoris Plan: Stable (6) Hyperlipidemia: Code(s): E78.5 - Hyperlipidemia, unspecified Plan: As above Orders: Orders Lipid Panel 01/05/24 I65.23 - Occlusion and stenosis of bilateral carotid arteries, Z00.00 - Encounter for general adult medical examination without abnormal findings UA and rflx microscopic 01/05/24 Z00.00 - Encounter for general adult medical examination without abnormal findings Comprehensive [place]. Panel Fast 01/05/24 Z00.00 - Encounter for general adult medical examination without abnormal findings Medications: New prednisone 20 mg PO DAILY 5 tabs 0RF 5 days Coding Level of Care Code TCM Mod MDM <= 14 Days Diagnoses Status post carotid endarterectomy Z98.890 Essential hypertension I10 Aortic stenosis I35.0 Skin irritation R23.8 Coronary artery disease I25.10 Hyperlipidemia E78.5
[2024-01-05 14:28] VITALS: BP 120/60; PULSE 80; RESP 12; TEMP 36.3; O2SAT 97; BMI 31.9
== END 2024-01-05 15:00 | disposition home or self-care (01) ==
PROVIDERS: PCP Family Medicine; Visit Provider Family Medicine
DX: I10 Essential (primary) hypertension (principal); I35.0 Nonrheumatic aortic (valve) stenosis; R23.8 Other skin changes; Z98.890 Other specified postprocedural states; I25.10 Atherosclerotic heart disease of native coronary artery without angina pectoris; E78.5 Hyperlipidemia, unspecified
CPT/HCPCS: 99214

== ENCOUNTER 2024-01-10 08:23 | Outpatient (REF) | payer MEDICARE, SELFPAY ==
[2024-01-10 10:45] LABS: Alanine Aminotransferase 27 U/L (0-40); Albumin Level 3.9 g/dL (3.5-5.0); Alkaline Phosphatase 69 U/L (39-117); Anion Gap 14 (12-20); Aspartate Amino Transferase 23 U/L (5-37); Bilirubin Total 0.5 mg/dL (0.0-1.0); Blood Urea Nitrogen 16 mg/dL (9-16); Calcium 9.6 mg/dL (8.4-10.2); Carbon Dioxide 25 mmol/L (22-29); Chloride 103 mmol/L (96-108); Cholesterol 145 mg/dL (<200); Estimated Glomerular Filt Rate > 60; Glucose Fasting 88 mg/dL (60-99); HDL Cholesterol 49 mg/dL (>40); LDL Cholesterol Calculated 77 mg/dL (<100); Potassium 3.7 mmol/L (3.3-5.1); Sodium 138 mmol/L (135-145); Total Protein 6.7 g/dL (6.5-8.0); Triglycerides 95 mg/dL (<150)
[2024-01-10 10:57] LABS: Appearance Urine Clear; Color Urine Yellow; Glucose Urine UA Negative (Negative); Leukocyte Esterase Urine Negative (Negative); Nitrite Urine Negative (Negative); Specific Gravity - Urine 1.015 (1.005-1.025); Urine Blood Negative (Negative); Urine Ketones Negative (Negative); Urine Protein Negative (Neg-Trace)
== END 2024-01-10 08:24 | disposition home or self-care (01) ==
LOC: HO.HMGCLDS 08:23
PROVIDERS: PCP Family Medicine; Visit Provider Family Medicine
DX: Z00.00 Encounter for general adult medical examination without abnormal findings (principal); I65.23 Occlusion and stenosis of bilateral carotid arteries
CPT/HCPCS: 36415; 80053; 80061; 81003

== ENCOUNTER → 2024-01-17 11:26 | Outpatient (BNVA) | payer MEDICARE, SELFPAY | PROVIDERS: PCP Nurse Practitioner Family; Visit Provider Family Medicine ==

== ENCOUNTER → 2024-02-02 23:59 | Outpatient (BNV) | payer MEDICARE, SELFPAY ==
--- NOTE | 2024-02-06 14:01 | MHC.OFFVIS ---
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 Allergies Penicillins Allergy (Severe, Verified 01/05/24 14:27) throat swelling Blue Dye Allergy (Severe, Uncoded 12/19/23 06:33) throat swelling Latex Allergy (Severe, Uncoded 12/19/23 06:33) Rash, Hives, whole hand PFSH Medical History Smoker Claudication of calf muscles Ambulates with cane Rheumatoid arthritis Osteoarthritis Hx MRSA infection HLD (hyperlipidemia) Murmur Coronary artery disease Hx of renal calculi History of pacemaker Hypertension Elevated fasting blood sugar Surgical History Hx of tracheostomy (07/05/23) History of left-sided carotid endarterectomy (07/04/23) Hx of tonsillectomy Hx of colonoscopy H/O cardiac catheterization History of dental surgery History of cystoscopy History of permanent cardiac pacemaker placement Family History Other Mental health disorder Substance use disorder Social History Household Members: None Housing: House Are you a primary residential care facility manager to a significant other at home: No Do you presently have visiting nurse or other home services: No Alcohol intake: never Comment: COUNTS CORRECT Patient Tobacco Use Status: Current everyday Tobacco user Tobacco use type: Cigarette Cigarette Packs Per Day: 1 Cigarettes Per Day: 20.0 Years Smoked: 61 e-Cigarette/Vaping Use: Never Used Second Hand Smoke Exposure: No service: No Current occupational status: retired Current occupational exposures/hazards: No Cognitive needs: No (Cane) Hearing needs: No Vision needs: Yes (Glasses) Office Procedures Cardiac Device Check Cardiac Device Check Details: Remote pacemaker report generated 02/02/2024. Pacemaker function is adequate [id number] Cardiac Device Interrogation, pacemaker Procedure code (CPT) selection complete Assessment & Plan Assessment & Plan (1) Pacemaker: Code(s): Z95.0 - Presence of cardiac pacemaker Category: Medical Plan: See above Coding Level of Care Code Procedure Only Diagnoses Pacemaker Z95.0 CPT Codes Cardiac Device Check - Cardiac Device 12: [id number] Cardiac Device Interrogation, pacemaker ([id number])
== END ==
PROVIDERS: PCP Family Medicine; Visit Provider Internal Medicine Cardiovascular Disease
DX: Z45.018 Encounter for adjustment and management of other part of cardiac pacemaker (principal)
CPT/HCPCS: 93294

== ENCOUNTER 2024-02-29 13:17 | Outpatient (AMB) | payer MEDICARE, SELFPAY ==
[2024-02-29 13:23] VITALS: BP 124/76; PULSE 79; O2SAT 96; BMI 32.8
--- NOTE | 2024-02-29 13:23 | A.OFFVIS_ITS ---
Vital Signs 02/29/24 13:23 Height 6 ft Weight 241 lb 10.026 oz BMI 32.8 BP 124/76 Blood Pressure Location Lt brachial Position Sitting Pulse 79 Pulse Source Pulse Oximeter Pulse Oximetry (%) 96 Oxygen Delivery Method Room Air Intake Visit Reasons: RA/lm Intake Note: Patient last seen by Tiera Harris on 07/26/23. Presents today for RA follow up and test results. Allergies Penicillins Allergy (Severe, Verified 02/29/24 13:24) throat swelling Blue Dye Allergy (Severe, Uncoded 02/29/24 13:24) throat swelling Latex Allergy (Severe, Uncoded 02/29/24 13:24) Rash, Hives, whole hand Medication List - Last Reconciled 02/29/24 by Amaury Suggs MD aspirin (Adult Low Dose Aspirin) 81 mg PO DAILY chloroquine phosphate Five days a week cholecalciferol (vitamin D3) 25 mcg PO DAILY docusate sodium (Colace) 200 mg PO DAILY hydrochlorothiazide 25 mg PO DAILY 90 days losartan 100 mg PO DAILY metoprolol succinate ER 25 mg PO BID 90 days oxycodone-acetaminophen 5-325 mg (Percocet) 1 tab PO Q8H PRN prednisone 20 mg PO DAILY 5 days simvastatin 40 mg PO BEDTIME HPI Comments Details: This is a 68-year-old male with rheumatoid arthritis who presents for follow-up. He remains on chloroquine 125 mg daily x5 days a week. He states that he feels about the same overall except for slight right-sided neck pain especially when turning his head in bed at night. He is doing reasonably well otherwise. States that he recently saw his eye doctor and was told everything was okay. [facility] Medical History Smoker Claudication of calf muscles Ambulates with cane Rheumatoid arthritis Osteoarthritis Hx MRSA infection HLD (hyperlipidemia) Murmur Coronary artery disease Hx of renal calculi History of pacemaker Hypertension Elevated fasting blood sugar Surgical History Hx of tracheostomy (07/05/23) History of left-sided carotid endarterectomy (07/04/23) Hx of tonsillectomy Hx of colonoscopy H/O cardiac catheterization History of dental surgery History of cystoscopy History of permanent cardiac pacemaker placement Family History Other Mental health disorder Substance use disorder Social History Household Members: None Caregiver staying overnight: No Housing: House Are you a primary adult care provider to a significant other at home: No Do you presently have visiting nurse or other home services: No 75 years or older and lives alone: No Alcohol intake: never Comment: COUNTS CORRECT Patient Tobacco Use Status: Current everyday Tobacco user Tobacco use type: Cigarette Cigarette Packs Per Day: 1 Cigarettes Per Day: 20.0 Years Smoked: 61 e-Cigarette/Vaping Use: Never Used Second Hand Smoke Exposure: No service: No Current occupational status: retired Current occupational exposures/hazards: No Cognitive needs: No (Cane) Hearing needs: No Vision needs: Yes (Glasses) Review of Systems ENT Reports neck pain Musc Reports arthralgias, Denies joint swelling and Reports neck pain Physical Exam Vital Signs: Last Vital Signs Pulse 79 02/29/24 13:23 BP 124/76 02/29/24 13:23 Pulse Ox 96 02/29/24 13:23 Oxygen Delivery Method Room Air 02/29/24 13:23 BMI result Body Mass Index 32.8 Const General: cooperative, healthy appearing and comfortable Nutritional Appearance: obese Orientation/consciousness: patient oriented x3 Limitations: ambulation with cane HEENT Head: Yes normocephalic and Yes atraumatic Resp Effort & Inspection: normal respiratory effort and able to speak in complete sentences Neuro General: patient oriented x3 Extrem Other: Mild osteoarthritic changes of both hands with no active synovitis Normal range of motion of elbows and shoulders without pain Slightly limited neck rotation to the right due to right-sided neck muscle pain Assessment & Plan Assessment & Plan (1) Seropositive rheumatoid arthritis: Comment: Onset ?016 RF and CCP positive 03/19: Hydroxychloroquine not tolerated - constipation 04/18: chloroquine started Eye exam OK 11/17, 07/2020 Code(s): M05.9 - Rheumatoid arthritis with rheumatoid factor, unspecified Category: Medical Plan: This is a 68-year-old male with seropositive RA who presents for follow-up. He is doing quite well on chloroquine 125 mg daily x5 days a week. Continue current meds Labs before next visit in 6 months (2) long term care administrator use of drug: Code(s): Z79.899 - Other long term acute care registered nurse (current) drug therapy Category: Medical Plan: Patient is aware of risk of retinopathy associated with chloroquine. Follows up regularly with sofa cover inspector. States that he recently saw his sofa cover inspector. I will attempt to retrieve records (3) Cervicalgia: Code(s): M54.2 - Cervicalgia Category: Medical Plan: Mild. Likely due to muscle spasm. Advised patient to try using a heating pad Plan I spent 25 minutes reviewing patient's chart, evaluating patient, ordering diagnostic workup, counseling patient and documenting in the chart Orders: Orders C Reactive Protein 6 Months M05.9 - Rheumatoid arthritis with rheumatoid factor, unspecified, Z79.899 - Other long term acute care registered nurse (current) drug therapy Complete Blood Count Auto Diff 6 Months M05.9 - Rheumatoid arthritis with rheumatoid factor, unspecified, Z79.899 - Other [facility] (current) drug therapy Comprehensive Met. Panel 6 Months M05.9 - Rheumatoid arthritis with rheumatoid factor, unspecified, Z79.899 - Other long term acute care registered nurse (current) drug therapy Erythrocyte Sedimentation Rate 6 Months M05.9 - Rheumatoid arthritis with rheumatoid factor, unspecified, Z79.899 - Other [facility] (current) drug therapy Coding Level of Care Code Est Pt Level 4 (30024) Complex EM visit Add On G2211 Diagnoses Seropositive rheumatoid arthritis M05.9 correction use of drug Z79.899 Cervicalgia M54.2
== END 2024-02-29 14:17 | disposition home or self-care (01) ==
LOC: HO.RHE 13:17
PROVIDERS: PCP Family Medicine; Visit Provider Student in an Organized Health Care Education/Training Program
DX: M05.79 Rheumatoid arthritis with rheumatoid factor of multiple sites without organ or systems involvement (principal); Z79.899 Other long term (current) drug therapy; M54.2 Cervicalgia
CPT/HCPCS: 99214; G2211

== ENCOUNTER → 2024-02-29 13:17 | Outpatient (BNVA) | payer MEDICARE, SELFPAY | PROVIDERS: PCP Family Medicine; Visit Provider Student in an Organized Health Care Education/Training Program | DX: M05.9 Rheumatoid arthritis with rheumatoid factor, unspecified (principal); M54.2 Cervicalgia; Z79.899 Other long term (current) drug therapy | CPT/HCPCS: 99212 ==

== ENCOUNTER 2024-04-04 12:34 | Outpatient (REF) | payer MEDICARE, SELFPAY ==
--- NOTE | ~2024-04-04 | US_ITS ---
EXAMINATION: US EXTRACRANIAL CAROTID DUPLEX, BILATERAL CLINICAL INFORMATION: History of bilateral endarterectomy 12/20/2023 COMPARISON: Carotid ultrasound 10/24/2023 TECHNIQUE: Real-time ultrasound and Doppler techniques (integrating B-mode 2-D vascular images, Doppler spectral analysis and color-flow Doppler imaging) were utilized to interrogate the extracranial carotid arteries, the vertebral arteries and proximal subclavian arteries bilaterally. The degree of stenosis is determined by criteria similar to NASCET. FINDINGS: Right Side: 1. There is mild atherosclerotic plaque seen in the bifurcation/proximal ICA region. 2. The common carotid artery PSV proximally is 74 cm/s and distally 90 cm/s. 3. The proximal internal carotid artery velocities are 120 cm/s systolic and 32 cm/s diastolic. At the time of the prior study, values on the right were 422/145. 4. The proximal external carotid artery PSV is 225 cm/s. 5. The vertebral artery shows antegrade flow. 6. The subclavian artery waveforms are normal. Left Side: 1. There is moderate atherosclerotic plaque seen in the bifurcation/proximal ICA region. 2. The common carotid artery PSV proximally is 106 cm/s and distally 68 cm/s. 3. The proximal internal carotid artery velocities are 116 cm/s systolic and 22 cm/s diastolic. 4. The proximal external carotid artery PSV is 251 cm/s. 5. The vertebral artery shows antegrade flow. 6. The subclavian artery waveforms are normal. US/US carotid duplex BI IMPRESSION: 1. RIGHT: Status post endarterectomy with marked improvement with only minimal disease present at this time in the 0-49% category. 2. LEFT: Minimal, non-hemodynamically significant stenosis of the proximal left internal carotid artery corresponding to a 0-49% stenosis by velocity criteria. 3. Right side improved from 80-99% stenosis to a 0-49%. Left side unchanged.. Electronically signed by: Rajiv Hammond MD 04/18/2024 04:58 PM EST
[2024-04-04 16:35] LABS: Blood Urea Nitrogen 14 mg/dL (9-16); Estimated Glomerular Filt Rate > 60
== END 2024-04-04 12:35 | disposition home or self-care (01) ==
LOC: HO.HMGCX 12:34
PROVIDERS: PCP Family Medicine; Visit Provider Surgery Vascular Surgery
DX: I65.23 Occlusion and stenosis of bilateral carotid arteries (principal)
CPT/HCPCS: 36415; 82565; 84520; 93880

== ENCOUNTER 2024-05-08 12:21 | Outpatient (AMB) | payer MEDICARE, SELFPAY ==
--- NOTE | 2024-05-08 13:07 | A.OFFVIS_ITS ---
Vital Signs 05/08/24 13:08 Height 6 ft Weight 241 lb BMI 32.7 Intake Visit Reasons: 3m follow up s/p Carotid US 04/04/24 Intake Note: 3 mo follow up carotid US 04/04/24 s/p bilateral CEA's Left CEA 07/04/23 & Right CEA 12/19/23 w/ left carotid hematoma evacuation 07/05/23. Pt states he get pains on his head at times s/p surgeries and also cant lay on his Left side w/o pain. Accompanied by: Self / Same As Patient Allergies Penicillins Allergy (Severe, Verified 05/08/24 13:12) throat swelling Blue Dye Allergy (Severe, Uncoded 05/08/24 13:12) throat swelling Latex Allergy (Severe, Uncoded 05/08/24 13:12) Rash, Hives, whole hand HPI HPI 3m follow up s/p Carotid US 04/04/24: Details: Very pleasant 68-year-old gentleman presents for evaluation and follow-up regarding carotid disease. He has had no interval issues and reports he is doing fairly well. Now presents for routine surveillance follow-up. Of note he is being maintained on an aspirin and statin. [facility], [facility] Medical History Smoker Claudication of calf muscles Ambulates with cane Rheumatoid arthritis Osteoarthritis Hx MRSA infection HLD (hyperlipidemia) Murmur Coronary artery disease Hx of renal calculi History of pacemaker Hypertension Elevated fasting blood sugar Surgical History Hx of tracheostomy (07/05/23) History of left-sided carotid endarterectomy (07/04/23) Hx of tonsillectomy Hx of colonoscopy H/O cardiac catheterization History of dental surgery History of cystoscopy History of permanent cardiac pacemaker placement Family History Other Mental health disorder Substance use disorder Social History Household Members: None Caregiver staying overnight: No Housing: House Are you a primary primary care nurse practitioner to a significant other at home: No Do you presently have visiting nurse or other home services: No 75 years or older and lives alone: No Alcohol intake: never Comment: COUNTS CORRECT Patient Tobacco Use Status: Current everyday Tobacco user Tobacco use type: Cigarette Cigarette Packs Per Day: 1 Cigarettes Per Day: 20.0 Years Smoked: 61 e-Cigarette/Vaping Use: Never Used Second Hand Smoke Exposure: No service: No Current occupational status: retired Current occupational exposures/hazards: No Cognitive needs: No (Cane) Hearing needs: No Vision needs: Yes (Glasses) Review of Systems Const All systems reviewed & are unremarkable except as noted in HPI and below Reports no additional complaints ENT Reports Normal hearing present Card Denies chest pain, Denies chest pain at rest, Denies chest pain with activity and Denies pedal edema Resp Denies cough GI Denies abdominal pain Musc Denies abnormal gait, Denies muscle cramps and Denies radiating pain into limb Skin/Breast Denies skin ulcer and Denies wounds Neuro Reports Normal hearing present and Denies abnormal gait Psych Reports no additional complaints Physical Exam Vital Signs: BMI result Body Mass Index 32.7 Const General: cooperative, healthy appearing and comfortable Orientation/consciousness: oriented to person, oriented to place and oriented to time HEENT Head: Yes normal to inspection Neck Neck: Yes normal visual inspection Carotids: no bruits Chest Chest palpation & inspection: normal inspection of the chest Resp Effort & Inspection: normal respiratory effort and able to speak in complete sentences Auscultation: clear to auscultation bilaterally, no crackles, no rales, no rhonchi and no wheezes Cardio Rate: regular rate Rhythm: regular rhythm Heart sounds: S1 normal heart sound present and S2 normal heart sound present Bruits: no carotid bruits Peripheral pulses: Peripheral pulses 2+ throughout GI Inspection: Yes normal to inspection Skin Wounds: no wounds Hair: normal Neuro General: oriented to person, oriented to place and oriented to time Cranial nerves: Yes CN's II-XII intact bilaterally and Yes Normal hearing present Cognition (Neuro): normal cognition Motor exam (neuro): 5/5 motor strength present throughout Extrem Other: venous exam: No significant superficial varicosities or spider telangiectasias, minimal edema General: No clubbing, No cyanosis and No edema Psych Appearance: grossly normal Mental Status: mental status grossly normal Speech and movement: Normal speech and movement present Results Reviewed Results Reviewed: Noninvasive carotid testing dated 04/04/2024 demonstrates bilateral 0-49% stenosis. Assessment & Plan Assessment & Plan (1) Bilateral carotid artery stenosis: Comment: 07/04/2023 - left carotid endarterectomy 07/05/2023- take back for left carotid hematoma evacuation 12/19/2023 - right carotid endarterectomy Code(s): I65.23 - Occlusion and stenosis of bilateral carotid arteries Category: Medical Plan: In short patient has asymptomatic carotid disease and is doing well from bilateral carotid endarterectomy. We have reviewed signs and symptoms of a stroke. We also discussed risk factor modification inclusive a healthy diet low in cholesterol. The patient will follow up with us with surveillance ultrasound of the carotids 1 year. Should there be any changes or signs or symptoms of a stroke we will be happy to see them back sooner. Thank you for allowing us to participate in this patient's care. If there are any questions or concerns please do not hesitate to contact us. Orders: Orders US carotid duplex BI 1 Year I65.23 - Occlusion and stenosis of bilateral carotid arteries Coding Level of Care Code Est Pt Level 4 (19166) Complex EM visit Add On G2211 Diagnoses Bilateral carotid artery stenosis I65.23
[2024-05-08 13:08] VITALS: BMI 32.7
== END 2024-05-08 13:45 | disposition home or self-care (01) ==
PROVIDERS: PCP Family Medicine; Visit Provider Surgery Vascular Surgery
DX: I65.23 Occlusion and stenosis of bilateral carotid arteries (principal)
CPT/HCPCS: 99214; G2211

== ENCOUNTER → 2024-05-08 12:21 | Outpatient (BNVA) | payer MEDICARE, SELFPAY | PROVIDERS: PCP Family Medicine; Visit Provider Surgery Vascular Surgery | DX: I65.23 Occlusion and stenosis of bilateral carotid arteries (principal); F17.210 Nicotine dependence, cigarettes, uncomplicated | CPT/HCPCS: 99212 ==

== ENCOUNTER → 2024-05-09 23:59 | Outpatient (BNV) | payer MEDICARE, SELFPAY ==
--- NOTE | 2024-05-09 16:30 | A.OFFVIS_ITS ---
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 Allergies Penicillins Allergy (Severe, Verified 05/08/24 13:12) throat swelling Blue Dye Allergy (Severe, Uncoded 05/08/24 13:12) throat swelling Latex Allergy (Severe, Uncoded 05/08/24 13:12) Rash, Hives, whole hand PFSH Medical History Smoker Claudication of calf muscles Ambulates with cane Rheumatoid arthritis Osteoarthritis Hx MRSA infection HLD (hyperlipidemia) Murmur Coronary artery disease Hx of renal calculi History of pacemaker Hypertension Elevated fasting blood sugar Surgical History Hx of tracheostomy (07/05/23) History of left-sided carotid endarterectomy (07/04/23) Hx of tonsillectomy Hx of colonoscopy H/O cardiac catheterization History of dental surgery History of cystoscopy History of permanent cardiac pacemaker placement Family History Other Mental health disorder Substance use disorder Social History Household Members: None Caregiver staying overnight: No Housing: House Are you a primary associate director career services to a significant other at home: No Do you presently have visiting nurse or other home services: No 75 years or older and lives alone: No Alcohol intake: never Comment: COUNTS CORRECT Patient Tobacco Use Status: Current everyday Tobacco user Tobacco use type: Cigarette Cigarette Packs Per Day: 1 Cigarettes Per Day: 20.0 Years Smoked: 61 e-Cigarette/Vaping Use: Never Used Second Hand Smoke Exposure: No service: No Current occupational status: retired Current occupational exposures/hazards: No Cognitive needs: No (Cane) Hearing needs: No Vision needs: Yes (Glasses) Office Procedures Cardiac Device Check Cardiac Device Check Details: Remote pacemaker report generated 05/09/2024. Pacemaker function is adequate [id number] Cardiac Device Interrogation, pacemaker Procedure code (CPT) selection complete Assessment & Plan Assessment & Plan (1) Pacemaker: Code(s): Z95.0 - Presence of cardiac pacemaker Category: Medical Plan: See above Coding Level of Care Code Procedure Only Diagnoses Pacemaker Z95.0 CPT Codes Cardiac Device Check - Cardiac Device 12: [id number] Cardiac Device Interrogation, pacemaker ([id number])
== END ==
PROVIDERS: PCP Family Medicine; Visit Provider Internal Medicine Cardiovascular Disease
DX: Z45.018 Encounter for adjustment and management of other part of cardiac pacemaker (principal)
CPT/HCPCS: 93294

== ENCOUNTER 2024-05-29 15:37 | Outpatient (AMB) | payer MEDICARE, SELFPAY ==
--- NOTE | 2024-05-29 16:06 | MHC.PC.OV ---
Vital Signs 05/29/24 16:10 Height 6 ft Weight 243 lb BMI 33.0 BP 126/60 Blood Pressure Location Lt brachial Position Sitting Respiration 14 Pulse 97 Pulse Source Pulse Oximeter Temp 98.2 F Temp Source Oral Pulse Oximetry (%) 96 Oxygen Delivery Method Room Air Intake Visit Reasons: Med Follow Up Intake Note: med follow up for metoprol Allergies Penicillins Allergy (Severe, Verified 05/29/24 16:08) throat swelling raspberry Allergy (Intermediate, Verified 05/29/24 16:08) Rash Blue Dye Allergy (Severe, Uncoded 05/08/24 13:12) throat swelling Latex Allergy (Severe, Uncoded 05/08/24 13:12) Rash, Hives, whole hand Medication List - Last Reconciled 05/29/24 by Zion Martinez MD aspirin (Adult Low Dose Aspirin) 81 mg PO DAILY chloroquine phosphate 125 mg orally; cholecalciferol (vitamin D3) 25 mcg PO DAILY docusate sodium (Colace) 200 mg PO DAILY hydrochlorothiazide 25 mg PO DAILY 90 days losartan 100 mg PO DAILY metoprolol succinate ER 25 mg PO BID 90 days prednisone 20 mg PO DAILY 5 days simvastatin 40 mg PO BEDTIME Tobacco use date assessed: 06/24/23 Dental Screening Dental Screen Date: 06/24/23 HPI Med Follow Up HPI Details 69 y/o male presents to f/u chronic conditions. Last lipid panel checked 01/10/24. Triglycerides 95. TC 145. LDL 77. HDL 49. He is on simvastatin 40mg. Hx of CAD, aortic stenosis, pacemaker. Continues to f/u with Cardiology. Blood pressure today 126/60, 97p. He is on losartan 100mg, HCTZ 25mg, metoprolol 25mg b.i.d. HPI Comments History of Present Illness Details Documentation assistance for Zion Martinez MD, was provided by Quan Dewey,? Lockstitch Shoulder Joiner on 05/29/2024 at 4:31 PM EST. I, Dr. Martinez, have read, observed, and verified documentation. ?? [facility] Medical History Smoker Claudication of calf muscles Ambulates with cane Rheumatoid arthritis Osteoarthritis Hx MRSA infection HLD (hyperlipidemia) Murmur Coronary artery disease Hx of renal calculi History of pacemaker Hypertension Elevated fasting blood sugar Surgical History Hx of tracheostomy (07/05/23) History of left-sided carotid endarterectomy (07/04/23) Hx of tonsillectomy Hx of colonoscopy H/O cardiac catheterization History of dental surgery History of cystoscopy History of permanent cardiac pacemaker placement Family History Other Mental health disorder Substance use disorder Social History Household Members: None Caregiver staying overnight: No Housing: House Are you a primary vision care associate to a significant other at home: No Do you presently have visiting nurse or other home services: No 75 years or older and lives alone: No Alcohol intake: never Comment: COUNTS CORRECT Patient Tobacco Use Status: Current everyday Tobacco user Tobacco use type: Cigarette Cigarette Packs Per Day: 1 Cigarettes Per Day: 20.0 Years Smoked: 61 e-Cigarette/Vaping Use: Never Used Second Hand Smoke Exposure: No service: No Current occupational status: retired Current occupational exposures/hazards: No Cognitive needs: No (Cane) Hearing needs: No Vision needs: Yes (Glasses) Questionnaire PHQ-9 Over the last 2 weeks, how often have you been bothered by any of the following problems? 1. Little interest or pleasure in doing things: not at all 2. Feeling down, depressed, or hopeless: not at all 3. Trouble falling or staying asleep, or sleeping too much: more than half the days 4. Feeling tired or having little energy: not at all 5. Poor appetite or overeating: not at all 6. Feeling bad about yourself - or that you are a failure or have let yourself or your family down: not at all 7. Trouble concentrating on things, such as reading the newspaper or watching television: not at all 8. Moving or speaking so slowly that other people could have noticed. Or the opposite - being so fidgety or restless that you have been moving around a lot more than usual: not at all 9. Thoughts that you would be better off or of hurting yourself in some way: not at all Total score: 2 Source: Developed by Drs. L. NeilConsuelo snowden, Gorge Drew and colleagues, with an educational mushtaq from [employer]. Thrive Questionnaire Date Thrive assessed: 12/20/23 I am a: Patient What is your living situation today?: I have a steady place to live Within the past 12 months, did the food you bought not last and you didn't have the money to get more?: Sometimes True Within the past 12 months, did you worry whether your food would run out before you got money to buy more?: Sometimes True Do you have trouble paying for medicines?: No Do you have trouble getting transportation to medical appointments?: No Do you have trouble paying your heating and electricity bill?: No Do you have trouble taking care of your child, family member or friend?: I choose not to answer this question Do you have trouble with day-to-day activities such as bathing, preparing meals, shopping, managing finances, etc.?: I choose not to answer this question Are you currently unemployed and looking for a job?: No Are you interested in more education?: No Please select the resources that you would like help with: None Currently or been in a relationship where the following occur: I choose not to answer THRIVE Score: 2 AUDIT C Alcohol Use Questionnaire (AUDIT-C) 1. How often do you have a drink containing alcohol?: Never Total Score: 0 FARZANA-7 AMB Questionnaire FARZANA-7 Date FARZANA - 7 assessed: 10/14/21 Feeling nervous, anxious, or on edge: 0 = Not at all Not being able to stop or control worryin = Not at all Worrying too much about different things: 0 = Not at all Trouble relaxin = Not at all Being so restless that it is hard to sit still: 0 = Not at all Becoming easily annoyed or irritable: 0 = Not at all Feeling afraid as if something awful might happen: 0 = Not at all Total FARZANA-7 score (0-4 normal; 5-9 mild; 10-14 moderate; 15-21 severe): 0 Source: Developed by Consuelo Sears, Gorge Drew and colleagues, with an educational mushtaq from [employer]. Review of Systems Const Denies chills, Denies fatigue, Denies fever(s), Denies headache(s) and Denies weakness ENT Denies dizziness and Denies headache(s) Card Denies dyspnea Resp Denies cough, Denies dyspnea, Denies wheezing and Denies other (shortness of breath) Musc Denies numbness and Denies tingling Neuro Denies dizziness, Denies headache(s), Denies numbness, Denies tingling and Denies weakness Psych Denies anxiety and Denies depression Endo Denies fatigue Aller/Immun Denies wheezing Physical exam (Primary Care) Vital Signs: Last Vital Signs Temp 98.2 F 05/29/24 16:10 Pulse 97 05/29/24 16:10 Resp 14 05/29/24 16:10 BP 126/60 05/29/24 16:10 Pulse Ox 96 05/29/24 16:10 Oxygen Delivery Method Room Air 05/29/24 16:10 BMI result Body Mass Index 33.0 Tobacco/Smoking Status: Tobacco use Status Tobacco use date assessed 06/24/23 05/29/24 16:14 Patient Tobacco Use Status Current everyday Tobacco 05/29/24 16:14 Tobacco use type Cigarette 05/29/24 16:14 e-Cigarette/Vaping Use Never Used 05/29/24 16:14 PHQ-9: PHQ-9 Score PHQ-9: Total score 2 05/29/24 16:14 Thrive Assessment: Date of Thrive Assessment Date Thrive assessed 12/20/23 05/29/24 16:14 Currently or been in a relationship where the following occur: I choose not to answer Const General: well developed; No acute distress Nutritional Appearance: well nourished Orientation/consciousness: patient oriented x3 [facility] Head: Yes normocephalic and Yes atraumatic Eyes General: appearance normal, both eyes and all related structures Pupils: Equal, round and reactive pupils present EOM: EOMs intact bilaterally Resp Effort & Inspection: normal respiratory effort Auscultation: clear to auscultation bilaterally Cardio Rate: regular rate Rhythm: regular rhythm Heart sounds: S1 normal heart sound present, S2 normal heart sound present, no gallops, no murmurs and no rubs Neuro General: patient oriented x3 and gait normal Cranial nerves: Yes Equal, round and reactive pupils present Psych Affect: normal affect Coding Level of Care Code Est Pt Level 4 (53973) Diagnoses Essential hypertension I10 Coronary artery disease I25.10 Hyperlipidemia E78.5 Assessment & Plan Assessment & Plan (1) Essential hypertension: Code(s): I10 - Essential (primary) hypertension Category: Medical Plan: Blood?pressure?is?controlled.??Goal?is?less?than?130/80 Continue?current?medication (2) Coronary artery disease: Comment: Nonobstructive by cardiac catheterization Code(s): I25.10 - Atherosclerotic heart disease of [place] coronary artery without angina pectoris Category: Medical Plan: Stable LDL?cholesterol?slightly?above?goal?of?less?than?70-see?below Follow-up?with?Cardiology?as?recommended (3) Hyperlipidemia: Code(s): E78.5 - Hyperlipidemia, unspecified Category: Medical Plan: As?above,?LDL?cholesterol?is?slightly?above?goal. He?is?on?simvastatin?40?mg?daily.??Will?switch?to?atorvastatin?40?mg?daily We?can?recheck?lipids?prior?to?his?next?visit?in?a?few?months. Orders: Orders Comprehensive [place]. Panel Fast Today I25.10 - Atherosclerotic heart disease of [place] coronary artery without angina pectoris, Z00.00 - Encounter for general adult medical examination without abnormal findings Lipid Panel Today I25.10 - Atherosclerotic heart disease of [place] coronary artery without angina pectoris, Z00.00 - Encounter for general adult medical examination without abnormal findings Medications: New atorvastatin 40 mg PO BEDTIME 90 days 90 tabs 3RF Discontinued simvastatin Discontinued Reason: Doctor's Order 40 mg PO BEDTIME 90 tabs 2RF
[2024-05-29 16:10] VITALS: BP 126/60; PULSE 97; RESP 14; TEMP 36.8; O2SAT 96; BMI 33.0
--- OUTSIDE RECORDS SUMMARY | 2024-05-29 16:28 | XMS_ITS | Clinical Summary ---
Author Organization [facility] Address [address] [place] [address] Phone Care Team Providers Care Manager Oracle Database Name Role Phone Zion Martinez MD Primary Care Provider Surgical History Surgery Date Site/Laterality Comments PACEMAKER IMPLANT PROCEDURE: HISTORICAL PACEMAKER Medical History Medical History Date Comments LBBB (left bundle branch block) DX:LBBB (left bundle branch block) Essential hypertension DX:Essent ial hypertension Nephrolithiasis DX:Nephrolithias is; COMMENT: right kidney Chronic obstructive pulmonar y disease (CMS/HCC) 12/27/2017 DX:Chronic obstructive pulmo nary disease (HCC) Degenerative joint disease i nvolving multiple joints 03/21/2018 DX:Degenerative joint diseas e involving multiple joints Hyperlipidemia 12/27/2017 DX:Hyperlipidemi a 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 Onychomycosis due to dermatophyte 10/27/2015 DX:Onychomycosis due to dermatophyte Presence of cardiac pacemaker 12/27/2017 DX :Presence of cardiac pacemaker Pulmonary nodules 02/01/2018 DX:Pulmonary n odules Right bundle branch block (RBBB) 02/11/2016 DX:Right bundle branch block (RBBB) 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/2018 DX:Seropositive rheumatoid a rthritis of multiple joints (HCC) Vitamin D deficiency 07/17/2012 DX:Vitamin D deficiency Family History Medical History Relation Name Comments Arthritis Brother Arthritis Father Other cancer Maternal Grandmother Arthritis Mother Diabetes Paternal Grandmother Rheum arthritis Sister Relation Name Status Comments Brother Alive Father Maternal Grandmother Mother Paternal Grandmother Sister Alive Social History Tobacco Use Types Packs/Day Years Used Date Smoking Tobacco: Every Day Smokeless Tobacco: Never Alcohol Use Standard Drinks/Week Comments Yes 0 (1 standard drink = 0.6 oz pur e alcohol) Sex and Gender Information Value Date Recorded Sex Assigned at Not on file Gender Identity Not on file Sexual Orientation Not on file Obstetrics History Plan of Treatment Health Maintenance Due Date Last Done Comments COVID-19 Vaccine (#1) 1958 DTaP,Tdap,and Td Vaccines (1 - Tdap) 1972 Zoster Vaccines (1 of 2) 1972 RSV Immunization Patients 60+ Years Old (1 - Risk 60-74 years 1-dose series) 2013 Pneumococcal Vaccine: 65+ Years (2 of 2 - PPSV23 or PCV20) 04/08/2016 02/12/2016 Abdominal Aortic Aneurysm (AAA) Screen 04/04/2022 Cholesterol Screening (Lipid Panel) 04/04/2022 Colorectal Cancer Screening: Colonoscopy 04/04/2022 Depression Screening 04/04/2022 Falls Risk Assessment 04/04/2022 Hepatitis C Screening 04/04/2022 Social Influencers of Health Screening 04/04/2022 Hypertension/CHF/CAD Annual BMP Blood Test 04/13/2022 Influenza Vaccine (#1) 2024 9, 02/02/2018, 12/07/2016, Additional history exists HIB Vaccines Aged Out No longer eligi ble based on patient's age to complete this topic HPV Vaccines Aged Out No longer eligi ble based on patient's age to complete this topic Hepatitis A Vaccines Aged Out No long er eligible based on patient's age to complete this topic Hepatitis B Vaccines Aged Out No long er eligible based on patient's age to complete this topic IPV Vaccines Aged Out No longer eligi ble based on patient's age to complete this topic MMR Vaccines Aged Out No longer eligi ble based on patient's age to complete this topic Meningococcal ACWY Vaccine Aged Out N o longer eligible based on patient's age to complete this topic RSV Immunization Patients Under 20 months Aged Out No longer eligible based on patient's age to complete this topic Varicella Vaccines Aged Out No longer eligible based on patient's age to complete this topic Care Teams Manager Oracle Database Relationship Specialty Start Date End Date Zion Martinez MD [address] [place] [address] Dr Melanie [place] PCP - General Family Medicine 12/06/19
--- OUTSIDE RECORDS SUMMARY | 2024-05-29 16:28 | XMS_ITS ---
Author Organization [facility] Address Unknown Allergies, Adverse Reactions, Alerts Substance Reaction Status Noted Date Resolved Date Penicillin active 07/13/2023 Environment active 07/13/2023 Blue dye active 07/13/2023 Problems Problem Status Start Date End Date ENCOUNTER FOR SURGICAL AFTER CARE FOLLOWING SURGERY ON THE CIRCULATORY SYSTEM (Primary) (Z48.812 - ICD-10-CM) ACTIVE DYSPHAGIA, PHARYNGEAL PHASE (R13.13 - ICD-10-CM) ACTIV E 07/13/2023 TRACHEOSTOMY STATUS (Z93.0 - ICD-10-CM) ACTIVE 0 07/13/2023 ESSENTIAL (PRIMARY) HYPERTENSION (I10 - ICD-10-CM) ACT VIRI 07/13/2023 HYPERLIPIDEMIA, UNSPECIFIED (E78.5 - ICD-10-CM) ACTIVE 07/13/2023 ATHEROSCLEROTIC HEART DISEAS E OF [place] CORONARY ARTERY WITHOUT ANGINA PECTORIS (I25.10 - ICD-10-CM) ACTIVE 07/13/2023 PRESENCE OF CARDIAC PACEMAKER (Z95.0 - ICD-10-CM) ACTI VE 07/13/2023 MUSCLE WEAKNESS (GENERALIZED) (M62.81 - ICD-10-CM) ACT VIRI 07/13/2023 DIFFICULTY IN WALKING, NOT E LSEWHERE CLASSIFIED (R26.2 - ICD-10-CM) ACTIVE 07/13/2023 NEED FOR ASSISTANCE WITH PERSONAL CARE (Z74.1 - ICD-10 -CM) ACTIVE 07/13/2023 Encounters Encounter Performer Performer Role Encounter Diagnoses Location Date Discharge - Discharged to home or self care - [facility] - Private home/apt. with home health services [facility] 07/13/2023 02:36 pm EDT - 07/17/2023 10:29 am EDT Immunizations Vaccine Date Influenza 01/27/2023 12:00 am EDT Pneumococcal Polysaccharide Vaccine (PPS V23) 05/31/2019 12:00 am EST TDAP( Tetanus/Diptheria/Perutssis) 05/31 12:00 am EST SARS-COV-2 (COVID-19) 01/13/2022 12:00 a m EDT SARS-COV-2 (COVID-19) 08/20/2021 12:00 a m EDT SARS-COV-2 (COVID-19) 08/03/2020 12:00 a m EDT SARS-COV-2 (COVID-19) 07/13/2020 12:00 a m EST SARS-COV-2 (COVID-19 BOOSTER) 02/02/2021 12:00 am EDT RSV, recombinant, protein subunit RSVpre F, adjuvant rec 01/27/2023 12:00 am EDT Social History
--- OUTSIDE RECORDS SUMMARY | 2024-05-29 16:28 | XMS_ITS | Clinical Summary ---
Author Organization [facility] Facility Address [address] [place] [address] Care Team Providers Care Construction Rep Name Role Phone Unavailable Primary Care Provider Unavailabl e Social History Tobacco Use Types Packs/Day Years Used Date Smoking Tobacco: Every Day Alcohol Use Standard Drinks/Week Comments Yes 0 (1 standard drink = 0.6 oz pure alcohol) Alcoholic Drinks/day: 1-2 drinks per day Sex and Gender Information Value Date Recorded Sex Assigned at Not on file Legal Sex Male 5:06 PM EST Gender Identity Not on file Sexual Orientation Not on file Plan of Treatment Health Maintenance Due Date Last Done Comments Pneumococcal Vaccine: 65+ Ye ars (1 of 2 - PCV) 1959 Colorectal Cancer Screening: Annual FOBT 2002 Colorectal Cancer Screening: Colonoscopy 2002 Colorectal Cancer Screening: Sigmoidoscopy 2002 Influenza Vaccine (#1) 2024 Hepatitis B Vaccine Aged Out No longe r eligible based on patient's age to complete this topic Insurance MEDICARE [facility] MEDICARE
--- OUTSIDE RECORDS SUMMARY | 2024-05-29 16:28 | XMS_ITS | Clinical Summary ---
Author Organization [facility] Address [address] [place] [address] Care Team Providers Care Art Objects Salesperson Name Role Phone Zion Martinez MD Primary Care Provider Allergies Active Allergy Reactions Criticality Noted Date Comments Blue Dyes (Parenteral) 12/06/2019 Latex 12/06/2019 Penicillins 12/06/2019 Medications Medication Sig Dispensed Refills Start Date End Date Status chloroquine (ARALEN) 250 MG tablet Take 250 mg by mouth daily. 0 Active losartan (COZAAR) 100 MG tablet Take 100 mg by mouth daily. 0 Active hydroCHLOROthiazide (HYDRODIURIL) tablet 25 mg Take 25 mg by mouth daily. 0 Active simvastatin (ZOCOR) tablet 40 mg Take 40 mg by mouth every night at bedtime. 0 Active Aspirin-Acetaminophen- Caffeine (EXCEDRIN MIGRAINE PO) Take by mouth. 0 Active docusate sodium (COLACE) 100 MG capsule Take 100 mg by mouth 2 (two) times a day. 0 Active vitamin D3 (VITAMIN D3) 25 MCG (1000 UT) tablet Take 1,000 Units by mouth daily. 0 Active aspirin EC 81 MG tablet Take 81 mg by mouth daily. 0 Active albuterol (PROVENTIL HFA;VENTOLIN HFA) 108 (90 Base) MCG/ACT inhaler Inhale 2 puffs into the lungs every 6 (six) hours as needed for wheezing. 0 Active Active Problems Problem Noted Date Diagnosed Date MGUS (monoclonal gammopathy of unknown significa nce) 12/06/2019 Essential hypertension 12/06/2019 Complete heart block 05/04/2018 Seropositive rheumatoid arthritis of multiple danielle ints 03/21/2018 Overview: Overview: Onset ?016 RF and CCP positive 03/19: Hydroxychloroquine not tolerated - constipation 04/18: chloroquine started Eye exam OK 11/17 Presence of cardiac pacemaker 12/27/2017 Hyperlipidemia 12/27/2017 Chronic obstructive pulmonary disease 12/27/2017 Social History Tobacco Use Types Packs/Day Years Used Date Smoking Tobacco: Every Day Smokeless Tobacco: Never Alcohol Use Standard Drinks/Week Comments No 0 (1 standard drink = 0.6 oz pur e alcohol) Sex and Gender Information Value Date Recorded Sex Assigned at Not on file Gender Identity Not on file Sexual Orientation Not on file Last Filed Vital Signs Vital Sign Reading Time Taken Comments Blood Pressure 125/63 12/06/2019 1:09 PM EDT Pulse 90 12/06/2019 1:09 PM EDT Temperature 36.5 ??C (97.7 ??F) 12/06/2019 1:09 PM ED T Respiratory Rate - - Oxygen Saturation - - Inhaled Oxygen Concentration - - Weight 110.2 kg (243 lb) 12/06/2019 1:09 PM EDT Height 182.9 cm (6') 12/06/2019 1:09 PM EDT Body Mass Index 32.96 12/06/2019 1:09 PM EDT Plan of Treatment Health Maintenance Due Date Last Done Comments Hepatitis C Screening 1953 COVID-19 Vaccine (#1) 1958 Depression Screening 1965 Preventative Health Evaluation 1971 DTap / Tdap / Td (1 - Tdap) 1972 Shingrix-Zoster Vaccine (1 of 2) 1972 Colon Cancer Screening (Colonoscopy) 1998 RSV Adult > 60+ Yrs or (1 - Risk 60-74 years 1-dose series) 2013 Pneumococcal Vaccine (2 of 2 - PPSV23 or PCV20) 04/08/2016 02/12/2016 Fall Risk Assessment 2018 Influenza Vaccine (#1) 2024 9, 02/02/2018, 12/07/2016, Additional history exists Hepatitis B Vaccines Aged Out No long er eligible based on patient's age to complete this topic RSV Ped < 20 months Aged Out No longe r eligible based on patient's age to complete this topic Care Teams Art Objects Salesperson Relationship Specialty Start Date End Date Zion Martinez MD [address] [place] [id number] PCP - General Family Medicine 12/06/19
== END 2024-05-29 16:36 | disposition home or self-care (01) ==
PROVIDERS: PCP Family Medicine; Visit Provider Family Medicine
DX: I10 Essential (primary) hypertension (principal); I25.10 Atherosclerotic heart disease of native coronary artery without angina pectoris; E78.5 Hyperlipidemia, unspecified

== ENCOUNTER → 2024-05-29 15:37 | Outpatient (BNVA) | payer MEDICARE, SELFPAY | PROVIDERS: PCP Family Medicine; Visit Provider Family Medicine | DX: I10 Essential (primary) hypertension (principal); I25.10 Atherosclerotic heart disease of native coronary artery without angina pectoris; E78.5 Hyperlipidemia, unspecified | CPT/HCPCS: 99212 ==

== ENCOUNTER 2024-06-25 12:34 | Outpatient (AMB) | payer MEDICARE, SELFPAY ==
[2024-06-25 12:50] VITALS: BP 124/68; PULSE 78; BMI 33.0
--- NOTE | 2024-06-25 12:50 | A.OFFVIS_ITS ---
Vital Signs 06/25/24 12:50 Height 6 ft Weight 243 lb BMI 33.0 BP 124/68 Blood Pressure Location Lt brachial Position Sitting Pulse 78 Pulse Source Pulse Oximeter Intake Visit Reasons: 6 mth w/ biotronick Allergies Penicillins Allergy (Severe, Verified 05/29/24 16:08) throat swelling raspberry Allergy (Intermediate, Verified 05/29/24 16:08) Rash Blue Dye Allergy (Severe, Uncoded 05/08/24 13:12) throat swelling Latex Allergy (Severe, Uncoded 05/08/24 13:12) Rash, Hives, whole hand Medication List - Last Reconciled 06/25/24 by Ross Barney MD aspirin (Adult Low Dose Aspirin) 81 mg PO DAILY atorvastatin 40 mg PO BEDTIME 90 days chloroquine phosphate 125 mg orally; cholecalciferol (vitamin D3) 25 mcg PO DAILY docusate sodium (Colace) 200 mg PO DAILY hydrochlorothiazide 25 mg PO DAILY 90 days losartan 100 mg PO DAILY metoprolol succinate ER 25 mg PO BID 90 days HPI Comments Details: Tico comes for follow-up. He has been doing okay from cardiac perspective. No active cardiac symptoms. No exertional chest pain. No worsening shortness of breath. No orthopnea, PND. Recent carotid duplex shows nonobstructive carotid disease. Unfortunately continues to smoke. His last LDL at 71 mg/dL. Denies any orthopnea, PND, leg edema. No prolonged palpitation, irregular heartbeat, lightheadedness, syncope. [facility] Medical History Smoker Claudication of calf muscles Ambulates with cane Rheumatoid arthritis Osteoarthritis Hx MRSA infection HLD (hyperlipidemia) Murmur Coronary artery disease Hx of renal calculi History of pacemaker Hypertension Elevated fasting blood sugar Surgical History Hx of tracheostomy (07/05/23) History of left-sided carotid endarterectomy (07/04/23) Hx of tonsillectomy Hx of colonoscopy H/O cardiac catheterization History of dental surgery History of cystoscopy History of permanent cardiac pacemaker placement Family History Other Mental health disorder Substance use disorder Social History Household Members: None Caregiver staying overnight: No Housing: House Are you a primary animal care giver to a significant other at home: No Do you presently have visiting nurse or other home services: No 75 years or older and lives alone: No Alcohol intake: never Comment: COUNTS CORRECT Patient Tobacco Use Status: Current everyday Tobacco user Tobacco use type: Cigarette Cigarette Packs Per Day: 1 Cigarettes Per Day: 20.0 Years Smoked: 61 e-Cigarette/Vaping Use: Never Used Second Hand Smoke Exposure: No service: No Current occupational status: retired Current occupational exposures/hazards: No Cognitive needs: No (Cane) Hearing needs: No Vision needs: Yes (Glasses) Review of Systems Const Denies weakness ENT Denies dizziness Card Denies chest pain, Denies chest pain with activity, Denies syncope, Denies rapid heart rate, Denies pedal edema, Denies edema, Denies leg edema, Denies lightheadedness, Denies palpitations, Denies dyspnea, Denies dyspnea on exertion and Denies orthopnea Resp Denies cough, Denies dyspnea and Denies dyspnea on exertion GI Denies hematochezia and Denies change in stool character Musc Denies abnormal gait, Denies muscle cramps, Denies muscle weakness, Denies numbness, Denies radiating pain into limb and Denies tingling Neuro Denies Abnormal speech present, Denies abnormal gait, Denies dizziness, Denies syncope, Denies numbness, Denies tingling and Denies weakness Endo Denies palpitations Physical Exam Vital Signs: Last Vital Signs Pulse 78 06/25/24 12:50 BP 124/68 06/25/24 12:50 BMI result Body Mass Index 33.0 Const General: cooperative, comfortable, no acute distress, alert and awake Nutritional Appearance: obese Orientation/consciousness: patient oriented x3 Limitations: ambulation with cane HEENT Head: Yes normocephalic and Yes atraumatic Neck Neck: Yes trachea midline, Yes supple and Yes no JVD Carotids: bruit bilateral Resp Effort & Inspection: normal respiratory effort Auscultation: clear to auscultation bilaterally and diminished lung sounds Cardio Jugular venous distension: no JVD Palpation: normal PMI Rate: regular rate Rhythm: regular rhythm Heart sounds: S1 normal heart sound present, S2 normal heart sound present, no click, no gallops, no murmurs and no rubs GI Auscultation: normal bowel sounds Skin General skin exam: no rashes or lesions noted Neuro General: patient oriented x3 and no focal motor deficits Speech: No Abnormal speech present Extrem General: Yes no clubbing, cyanosis or edema Office Procedures Cardiac Device Check Cardiac Device Check Details: Dual-chamber Biotronik pacemaker in place. Programmed in DDD at 60 beats per minute. Atrial pacing 14% of time. Ventricular pacing 98% of time. Atrial ventricular pacing thresholds excellent. Atrial ventricular lead impedance is stable. Atrial ventricular sensing is adequate. Battery life is at 3 years and 9 months [id number] Cardiac Device Check, pacemaker dual lead Procedure code (CPT) selection complete Assessment & Plan Assessment & Plan (1) Coronary artery disease: Comment: Nonobstructive by cardiac catheterization Code(s): I25.10 - Atherosclerotic heart disease of torres martinez coronary artery without angina pectoris Category: Medical Plan: Coronary artery disease, nonobstructive without any obvious symptoms at this point time. No further workup is indicated. Does have bilateral carotid disease with left carotid endarterectomy. Carotid disease now nonobstructive. Continue aggressive vascular risk factor modification. Low-dose aspirin therapy for life is recommended. Blood pressure is currently well optimized advised to monitor blood pressure at home maintain a log. Goal blood pressure less than 130/84. LDL is not well optimized and consider adding ezetimibe 10 mg to his regimen target goal LDL closer to 55 mg/dL. (2) Aortic stenosis: Code(s): I35.0 - Nonrheumatic aortic (valve) stenosis Category: Medical Plan: Aortic stenosis which is mild clinically. Follow-up echocardiogram in 1 year's time. Continue aggressive vascular risk factor modification as above. No interventions required. (3) Pacemaker: Code(s): Z95.0 - Presence of cardiac pacemaker Category: Medical Plan: Cardiac pacemaker in-situ, working well. Will continue follow remotely every 3 months. Follow up in the clinic in 1 year's time. Follow up in the clinic in 1 year's time, sooner p.r.n.. Thank you for allowing me to partake in his care Coding Level of Care Code Est Pt Level 4 (79897) Complex EM visit Add On G2211 Diagnoses Coronary artery disease I25.10 Aortic stenosis I35.0 Pacemaker Z95.0 CPT Codes Cardiac Device Check - Cardiac Device 2: [id number] Cardiac Device Check, pacemaker dual lead ([id number])
--- OUTSIDE RECORDS SUMMARY | 2024-06-25 14:15 | XMS_ITS | Clinical Summary ---
Author Organization [facility] Facility Address [address] [place] [address] Care Team Providers Care Evaluation Analyst Name Role Phone Unavailable Primary Care Provider [...] age to complete this topic Insurance MEDICARE [facility] MEDICARE
--- OUTSIDE RECORDS SUMMARY | 2024-06-25 14:15 | XMS_ITS | Clinical Summary ---
Author Organization [facility] Address [address] [place] [address] Care Team Providers Care Basket Mender Name Role Phone Zion Martinez MD Primary [...] age to complete this topic Care Teams Basket Mender Relationship Specialty Start Date End Date Zino Martinez MD [address] [place] [id number] PCP - General Family Medicine 12/06/19
--- OUTSIDE RECORDS SUMMARY | 2024-06-25 14:16 | XMS_ITS | Clinical Summary ---
Author Organization [facility] Address [address] [place] [address] Phone Care Team Providers Care Senior Adults Director Name Role Phone Zion Martinez MD Primary [...] at Not on file Legal Sex Male 4:26 AM EST Gender Identity Not on file Sexual Orientation Not on file Obstetrics History Plan of Treatment Health Maintenance Due Date Last Done Comments COVID-19 Vaccine (#1) 1958 DTaP,Tdap,and Td Vaccines (1 - Tdap) 1972 Zoster Vaccines (1 of 2) 1972 RSV Immunization Patients 60+ Years Old (1 - Risk 60-74 years 1-dose series) 2013 Pneumococcal Vaccine: 50+ Years (2 of 2 - PPSV23) 04/08/2016 02/12/2016 Abdominal Aortic Aneurysm (AAA) Screen [...] patient's age to complete this topic Meningococcal B Vacine Aged Out No lo nger eligible based on patient's age to complete this topic RSV Immunization Patients Under 20 months Aged Out No longer eligible based on patient's age to complete this topic Varicella Vaccines Aged Out No longer eligible based on patient's age to complete this topic Care Teams Senior Adults Director Relationship Specialty Start Date End Date Zion Martinez MD [address] [place] [address] Dr Melanie [place] PCP - General Family Medicine 12/06/19
== END 2024-06-25 13:06 | disposition home or self-care (01) ==
PROVIDERS: PCP Family Medicine; Visit Provider Internal Medicine Cardiovascular Disease
DX: I25.10 Atherosclerotic heart disease of native coronary artery without angina pectoris (principal); I35.0 Nonrheumatic aortic (valve) stenosis; Z95.0 Presence of cardiac pacemaker
CPT/HCPCS: 93280; 99214; G2211

== ENCOUNTER → 2024-06-25 12:34 | Outpatient (BNVA) | payer MEDICARE, SELFPAY | PROVIDERS: PCP Family Medicine; Visit Provider Internal Medicine Cardiovascular Disease | DX: I25.10 Atherosclerotic heart disease of native coronary artery without angina pectoris (principal); I10 Essential (primary) hypertension; I35.0 Nonrheumatic aortic (valve) stenosis; Z45.010 Encounter for checking and testing of cardiac pacemaker pulse generator [battery] | CPT/HCPCS: 93280; 99212 ==

== ENCOUNTER 2024-07-09 10:00 | Outpatient (AMB) | payer MEDICARE, SELFPAY ==
[2024-07-09 10:03] VITALS: BP 132/90; PULSE 72; TEMP 36.6; O2SAT 100; BMI 33.5
--- NOTE | 2024-07-09 10:03 | AM.OFFWIN_ITS ---
Intake Vital Signs 07/09/24 10:03 Height 6 ft Weight 247 lb BMI 33.5 BP 132/90 H Blood Pressure Location Lt brachial Position Sitting Pulse 72 Pulse Source Pulse Oximeter Temp 98 F Temp Source Oral Pulse Oximetry (%) 100 Oxygen Delivery Method Room Air Intake Visit Reasons: EP loss of voice, cold symptoms Intake Note: Patient here for loss of voice that has been present for about 1 week. Patient Tobacco Use Status: Current everyday Tobacco user Allergies Penicillins Allergy (Severe, Verified 07/09/24 10:05) throat swelling raspberry Allergy (Intermediate, Verified 07/09/24 10:05) Rash Blue Dye Allergy (Severe, Uncoded 07/09/24 10:05) throat swelling Latex Allergy (Severe, Uncoded 07/09/24 10:05) Rash, Hives, whole hand Do you need a note to return to daycare/school/sports/work: No HPI HPI Comments History of Present Illness Details 69 y/o male patient who presents to the walk in clinic with c/o URI symptoms and loss of voice for 1 week. Denies cough, fevers, chills, Nausea or vomiting. H/o Tracheostomy 2023. [facility] Medical History (Updated 07/09/24 @ 10:10 by Sayda Levine NP) Acute respiratory disease Smoker Claudication of calf muscles Ambulates with cane Rheumatoid arthritis Osteoarthritis Hx MRSA infection HLD (hyperlipidemia) Murmur Coronary artery disease Hx of renal calculi History of pacemaker Hypertension Elevated fasting blood sugar Surgical History Hx of tracheostomy (07/05/23) History of left-sided carotid endarterectomy (07/04/23) Hx of tonsillectomy Hx of colonoscopy H/O cardiac catheterization History of dental surgery History of cystoscopy History of permanent cardiac pacemaker placement Family History Other Mental health disorder Substance use disorder Social History Household Members: None Caregiver staying overnight: No Housing: House Are you a primary care program director to a significant other at home: No Do you presently have visiting nurse or other home services: No 75 years or older and lives alone: No Alcohol intake: never Comment: COUNTS CORRECT Patient Tobacco Use Status: Current everyday Tobacco user Tobacco use type: Cigarette Cigarette Packs Per Day: 1 Cigarettes Per Day: 20.0 Years Smoked: 61 e-Cigarette/Vaping Use: Never Used Second Hand Smoke Exposure: No service: No Current occupational status: retired Current occupational exposures/hazards: No Cognitive needs: No (Cane) Hearing needs: No Vision needs: Yes (Glasses) Review of Systems Const All systems reviewed & are unremarkable except as noted in HPI and below Physical Exam Vital Signs: Last Vital Signs Temp 98 F 07/09/24 10:03 Pulse 72 07/09/24 10:03 BP 132/90 H 07/09/24 10:03 Pulse Ox 100 07/09/24 10:03 Oxygen Delivery Method Room Air 07/09/24 10:03 BMI result Body Mass Index 33.5 Const General: cooperative and no acute distress Orientation/consciousness: patient oriented x3 HEENT Head: Yes normocephalic Ears: external ears normal and TM's normal bilaterally General nose exam: No nasal discharge present Face and sinus: Yes sinuses nontender Mouth: moist mucous membranes and Abnormal oral and palatal mucosa present white patches and leukoplakia Throat: Yes uvula midline Resp Effort & Inspection: normal respiratory effort and able to speak in complete sentences Auscultation: clear to auscultation bilaterally, no crackles, no rales, no rhonchi and no wheezes Cardio Heart sounds: S1 normal heart sound present and S2 normal heart sound present Neuro General: patient oriented x3 Assessment & Plan Assessment & Plan (1) Acute respiratory disease: Code(s): J06.9 - Acute upper respiratory infection, unspecified Plan: Ordered SARs to r/o Viral infection. 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 Orders: Orders SARS-CoV2/FLU/RSV Today J06.9 - Acute upper respiratory infection, unspecified, Z93.0 - Tracheostomy status Coding Level of Care Code Est Pt Level 4 (93271) Diagnoses Acute respiratory disease J06.9 Status post tracheostomy Z93.0 Time Spent (min) 20
--- OUTSIDE RECORDS SUMMARY | 2024-07-09 11:00 | XMS_ITS | Clinical Summary ---
Author Organization [facility] Address [address] [place] [address] Phone Care Team Providers Care Hydraulic Boom Operator Name Role Phone Zion Martinez MD Primary Care Provider [phone] Surgical History Surgery Date Site/Laterality Comments PACEMAKER [...] age to complete this topic Care Teams Hydraulic Boom Operator Relationship Specialty Start Date End Date Zion Martinez MD [address] [place] [address] Dr Melanie [place] PCP - General Family Medicine 12/06/19
--- OUTSIDE RECORDS SUMMARY | 2024-07-09 11:00 | XMS_ITS ---
Author Organization [facility] Care Team Providers Care Solution Spec Name Role Phone Kate Stallings Unavailable Unavailable Ramy Gomez Unavailable Unavailable Lily Sanford Unavailable Unavailable Desirae Paredes Unavailable Unavailable Allergies and adverse reactions Code CodeSystem Substance Reaction Severity StartDate Concern Status 7984 RXNORM Penicillin Unknown 07/13/[address] Environment Unknown 07/13/[address] Blue dye Unknown 07/13/2023 active Care Team Name Role Address Phone Organization Dates Ramy Gomez PCP [address], [place], [address], [facility] (Office): [facility] 07/13/2023 - 07/17/2023 Kate Stallings Attending Physician [address] [address], [place], [address], [facility] (Office): [facility] 07/13/2023 - 07/17/2023 Lily Sanford Attending Physician [address] [facility] [address] [place] [address], [address], [facility] (Office): [facility] 07/13/2023 - 07/17/2023 Desirae Paredes Attending Physician [address] [place], [address], [facility] (Office): [facility] 07/13/2023 - 07/17/2023 Immunizations Immunization Status Vaccine Details Vaccine Code CodeSystem Date Notes Influenza completed Influenza, split virus, quadrivalent, injectable, contains preservative Given 0.5 ml Left Deltoid intramuscularly 158 CVX created date: 07/14/2023 administer ed date: 01/27/2023 Pneumococcal Polysaccharide Vaccine (PPSV23) completed pneumococcal polysaccharide vaccine, 23 valent Given 0.5 ml Left Deltoid intramuscularly 33 CVX created date: 07/14/2023 administer ed date: 05/31/2019 TDAP( Tetanus/Diptheria/ Perutssis) completed tetanus toxoid, reduced diphtheria toxoid, and acellular pertussis vaccine, adsorbed Given 0.5 ml Left Deltoid intramuscularly 115 CVX created date: 07/14/2023 administer ed date: 05/31/2019 SARS-COV-2 (COVID-19) completed SARS-COV-2 (COVID-19) vaccine, mRNA, spike protein, LNP, preservative free, catracho-sucrose, 30 mcg/0.3 mL dose Given 0.3 ml Left Deltoid intradermally Step 1 of Multi-step with next step required 309 CVX created date: 07/14/2023 administer ed date: 01/13/2022 SARS-COV-2 (COVID-19) completed SARS-COV-2 (COVID-19) vaccine, mRNA, spike protein, LNP, preservative free, 25 mcg/0.25 mL dose Given 0.25 ml Left Deltoid intramuscularly Step 1 of Multi-step with next step required 311 CVX created date: 07/14/2023 administer ed date: 08/20/2021 SARS-COV-2 (COVID-19) completed SARS-COV-2 (COVID-19) vaccine, mRNA, spike protein, LNP, preservative free, catracho-sucrose, 30 mcg/0.3 mL dose Given 0.3 ml Left Deltoid intramuscularly Step 2 of Multi-step with next step required 309 CVX created date: 07/14/2023 administer ed date: 08/03/2020 SARS-COV-2 (COVID-19) completed SARS-COV-2 (COVID-19) vaccine, mRNA, spike protein, LNP, preservative free, catracho-sucrose, 3 mcg/0.3 mL dose Given 0.3 ml Left Deltoid intramuscularly Step 1 of Multi-step with next step required 308 CVX created date: 07/14/2023 administer ed date: 07/13/2020 SARS-COV-2 (COVID-19 BOOSTER) completed SARS-COV-2 (COVID-19) vaccine, mRNA, spike protein, LNP, preservative free, catracho-sucrose, 30 mcg/0.3 mL dose Given 0.3 ml Left Deltoid intramuscularly 309 CVX created date: 07/14/2023 administer ed date: 02/02/2021 RSV, recombinant, protein subunit RSVpreF, adjuvant rec completed Respiratory syncytial virus (RSV), vaccine, recombinant, protein subunit RSV prefusion F, adjuvant reconstituted, 0.5 mL, preservative free Given 0.5 ml Left Deltoid intramuscularly 303 CVX created date: 07/14/2023 administer ed date: 01/27/2023 Mental Status Section Date Assessment Total Score Description 07/17/2023 BIMS 15 cognitively int act CAM 0 No delirium ind icated 07/17/2023 BIMS 15 cognitively int act CAM 0 No delirium ind icated Problems Problem # Description Date of onset Resolved Date Code CodeSystem Concern Status 1 ATHEROSCLEROTIC HEART DISEASE OF [place] CORONARY ARTERY WITHOUT ANGINA PECTORIS 07/13/[address] active 2 DIFFICULTY IN WALKING, NOT ELSEWHERE CLASSIFIED 07/13/[address] active 3 DYSPHAGIA, PHARYNGEAL PHASE 07/13/[address] active 4 ENCOUNTER FOR SURGICAL AFTERCARE FOLLOWING SURGERY ON THE CIRCULATORY SYSTEM 07/13/[address] active 5 ESSENTIAL (PRIMARY) HYPERTENSION 07/13/[address] active 6 HYPERLIPIDEMIA, UNSPECIFIED 07/13/[address] active 7 MUSCLE WEAKNESS (GENERALIZED) 07/13/[address] active 8 NEED FOR ASSISTANCE WITH PERSONAL CARE 07/13/[address] active 9 PRESENCE OF CARDIAC PACEMAKER 07/13/[address] active 10 TRACHEOSTOMY STATUS 07/13/[address] active Reason for Referral No Reasons for Referral Entered Social History Social History Observation Description Start Date End Date Code Code System Current Smoking Status Tobacco smoking consumption unknown 349609360 SNOMED CT Sex Assigned At Male 1955 91212-6 [facility] Vital Signs Code Code System Vitals Name Values and Units Timing Information 04691-6 [facility] Pain Level Value=0.0 07/17/2023 9279-1 [facility] Respiratory Rate Value=18.0 Units=/m in 07/17/2023 8462-4 [facility] Blood Pressure-Diastolic Value=63 Un its=mmHg 07/17/2023 8480-6 [facility] Blood Pressure-Systolic Lzlho=892 Un its=mmHg 07/17/2023 8310-5 [facility] Body Temperature Value=97.1 Units=?? F 07/17/2023 8867-4 [facility] Heart rate Value=68.0 Units=/min 48525-9 [facility] O2 % BldC Oximetry Value=93.0 Units= % 07/17/2023 43402-8 [facility] Weight Teeth=146.2 Units=Lbs 8302-2 [facility] Height Value=72.0 Units=Inches 07/14/2023
--- OUTSIDE RECORDS SUMMARY | 2024-07-09 11:00 | XMS_ITS | Clinical Summary ---
Author Organization [facility] Facility Address [address] [place] [address] Care Team Providers Care Sleeve Fixer Name Role Phone Unavailable Primary Care Provider [...] age to complete this topic Insurance MEDICARE [facility] MEDICARE
== END 2024-07-09 10:25 | disposition home or self-care (01) ==
PROVIDERS: PCP Family Medicine; Visit Provider Nurse Practitioner Family
DX: J06.9 Acute upper respiratory infection, unspecified (principal); Z93.0 Tracheostomy status

== ENCOUNTER 2024-07-09 10:00 | Outpatient (REF) | payer MEDICARE, SELFPAY ==
--- OUTSIDE RECORDS SUMMARY | 2024-07-09 11:51 | XMS_ITS | Clinical Summary ---
Author Organization [facility] Address [address] [place] [address] Care Team Providers Care Patient Support Specialist Name Role Phone Zion Martinez MD Primary Care Provider [phone] Allergies Active Allergy Reactions Criticality Noted Date [...] age to complete this topic Care Teams Patient Support Specialist Relationship Specialty Start Date End Date Zion Martinez MD [address] [place] [address] PCP - General Family Medicine 12/06/19
--- OUTSIDE RECORDS SUMMARY | 2024-07-09 11:51 | XMS_ITS ---
Author Organization [facility] Care Team Providers Care Crate Tier Name Role Phone Kate Stallings Unavailable Unavailable Ramy Gomez Unavailable Unavailable Lily Sanford Unavailable Unavailable Desirae Paredes Unavailable Unavailable Allergies and adverse reactions Code CodeSystem Substance Reaction Severity StartDate Concern Status 7984 RXNORM Penicillin Unknown 07/13/[address] Environment Unknown 07/13/[address] Blue dye Unknown 07/13/2023 active Care Team Name Role Address Phone Organization Dates Ramy Gomez PCP [address], [place], [address], [facility] (Office): [facility] 07/13/2023 - 07/17/2023 Kate Stallings Attending Physician [address] [address], [place], [address], [facility] (Office): [facility] 07/13/2023 - 07/17/2023 Lily Sanford Attending Physician [address] [facility] [address] [place] [address], [address], [facility] (Office): [facility] 07/13/2023 - 07/17/2023 Desirae Paredes Attending Physician [address] [place], [address], [facility] (Office): [facility] 07/13/2023 - 07/17/2023 Immunizations Immunization Status Vaccine [...] Concern Status 1 ATHEROSCLEROTIC HEART DISEASE OF [place] CORONARY ARTERY WITHOUT ANGINA PECTORIS 07/13/[address] active 2 DIFFICULTY IN WALKING, NOT ELSEWHERE CLASSIFIED 07/13/[address] active 3 DYSPHAGIA, PHARYNGEAL PHASE 07/13/[address] active 4 ENCOUNTER FOR SURGICAL AFTERCARE FOLLOWING SURGERY ON THE CIRCULATORY SYSTEM 07/13/[address] active 5 ESSENTIAL (PRIMARY) HYPERTENSION 07/13/[address] active 6 HYPERLIPIDEMIA, UNSPECIFIED 07/13/[address] active 7 MUSCLE WEAKNESS (GENERALIZED) 07/13/[address] active 8 NEED FOR ASSISTANCE WITH PERSONAL CARE 07/13/[address] active 9 PRESENCE OF CARDIAC PACEMAKER 07/13/[address] active 10 TRACHEOSTOMY STATUS 07/13/[address] active Reason for Referral No Reasons for Referral Entered Social History Social History Observation Description Start Date End Date Code Code System Current Smoking Status Tobacco smoking consumption unknown 027816124 SNOMED CT Sex Assigned At Male 1955 34871-3 [facility] Vital Signs Code Code System Vitals Name Values and Units Timing Information 86802-9 [facility] Pain Level Value=0.0 07/17/2023 9279-1 [facility] Respiratory Rate Value=18.0 Units=/m in 07/17/2023 8462-4 [facility] Blood Pressure-Diastolic Value=63 Un its=mmHg 07/17/2023 8480-6 [facility] Blood Pressure-Systolic Swegu=342 Un its=mmHg 07/17/2023 8310-5 [facility] Body Temperature Value=97.1 Units=?? F 07/17/2023 8867-4 [facility] Heart rate Value=68.0 Units=/min 90820-5 [facility] O2 % BldC Oximetry Value=93.0 Units= % 07/17/2023 08114-8 [facility] Weight Ltila=149.2 Units=Lbs 8302-2 [facility] Height Value=72.0 Units=Inches 07/14/2023
--- OUTSIDE RECORDS SUMMARY | 2024-07-09 11:51 | XMS_ITS | Clinical Summary ---
Author Organization [facility] Address [address] [place] [address] Phone Care Team Providers Care Freezer Worker Name Role Phone Zion Martinez MD Primary [...] age to complete this topic Care Teams Freezer Worker Relationship Specialty Start Date End Date Zion Martinez MD [address] [place] [address] Dr Melanie MA PCP - General Family Medicine 12/06/19
--- OUTSIDE RECORDS SUMMARY | 2024-07-09 11:51 | XMS_ITS | Clinical Summary ---
Author Organization [facility] Facility Address [address] [place] [address] Care Team Providers Care Temperature Logging Operator Name Role Phone Unavailable Primary Care Provider [...] age to complete this [place] [address] [facility] [place] [address]
[2024-07-09 14:19] LABS: Influenza A PCR NEGATIVE (Negative); Influenza B PCR NEGATIVE (Negative); Resp Syncy Virus RNA Qual PCR NEGATIVE (Negative); SARS COV2 PCR INHOUSE NEGATIVE (Negative)
== END 2024-07-09 10:01 | disposition home or self-care (01) ==
LOC: HO.LAB 10:00
PROVIDERS: PCP Family Medicine; Visit Provider Nurse Practitioner Family
DX: J06.9 Acute upper respiratory infection, unspecified (principal); Z93.0 Tracheostomy status
CPT/HCPCS: 0241U; 99212

== ENCOUNTER → 2024-08-02 23:59 | Outpatient (BNV) | payer MEDICARE, SELFPAY ==
--- NOTE | 2024-08-06 14:17 | MHC.OFFVIS ---
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 Allergies Penicillins Allergy (Severe, Verified 07/09/24 10:05) throat swelling raspberry Allergy (Intermediate, Verified 07/09/24 10:05) Rash Blue Dye Allergy (Severe, Uncoded 07/09/24 10:05) throat swelling Latex Allergy (Severe, Uncoded 07/09/24 10:05) Rash, Hives, whole hand PFSH Medical History (Updated 07/09/24 @ 10:10 by Sayda Levine NP) Acute respiratory disease Smoker Claudication of calf muscles Ambulates with cane Rheumatoid arthritis Osteoarthritis Hx MRSA infection HLD (hyperlipidemia) Murmur Coronary artery disease Hx of renal calculi History of pacemaker Hypertension Elevated fasting blood sugar Surgical History Hx of tracheostomy (07/05/23) History of left-sided carotid endarterectomy (07/04/23) Hx of tonsillectomy Hx of colonoscopy H/O cardiac catheterization History of dental surgery History of cystoscopy History of permanent cardiac pacemaker placement Family History Other Mental health disorder Substance use disorder Social History Household Members: None Caregiver staying overnight: No Housing: House Are you a primary resident care technician to a significant other at home: No Do you presently have visiting nurse or other home services: No 75 years or older and lives alone: No Alcohol intake: never Comment: COUNTS CORRECT Patient Tobacco Use Status: Current everyday Tobacco user Tobacco use type: Cigarette Cigarette Packs Per Day: 1 Cigarettes Per Day: 20.0 Years Smoked: 61 e-Cigarette/Vaping Use: Never Used Second Hand Smoke Exposure: No service: No Current occupational status: retired Current occupational exposures/hazards: No Cognitive needs: No (Cane) Hearing needs: No Vision needs: Yes (Glasses) Office Procedures Cardiac Device Check Cardiac Device Check Details: Remote pacemaker report generated 08/02/2024. Pacemaker function is adequate [id number] Cardiac Device Interrogation, pacemaker Procedure code (CPT) selection complete Assessment & Plan Assessment & Plan (1) Pacemaker: Code(s): Z95.0 - Presence of cardiac pacemaker Category: Medical Plan: As above Coding Level of Care Code Procedure Only Diagnoses Pacemaker Z95.0 CPT Codes Cardiac Device Check - Cardiac Device 12: [id number] Cardiac Device Interrogation, pacemaker ([id number])
== END ==
PROVIDERS: PCP Family Medicine; Visit Provider Internal Medicine Cardiovascular Disease
DX: Z45.018 Encounter for adjustment and management of other part of cardiac pacemaker (principal)
CPT/HCPCS: 93294

== ENCOUNTER 2024-08-16 09:17 | Outpatient (REF) | payer MEDICARE, SELFPAY ==
[2024-08-16 10:09] LABS: MANUAL DIFF FLAG NO
[2024-08-16 10:15] LABS: Basophils Absolute Auto 0.1 X10*3/uL (0.0-0.2); Basophils Percent Auto 0.6 % (0-2); Eosinophils Absolute Auto 0.3 X10*3/uL (0.0-0.4); Eosinophils Percent Auto 2.5 % (0-4); Hematocrit 50.2 % (42.0-52.0); Hemoglobin 17.4 g/dl (14.0-18.0); Imm Gran Abs Auto 0.03 X10*3/uL (0.00-0.03); Imm Gran Pct Auto 0.2 % (0.0-0.4); Lymphocytes Absolute Auto 2.1 X10*3/uL (1.2-4.9); Lymphocytes Percent Auto 16.7 % (20-40); Mean Corpuscular HGB Conc 34.7 g/dl (31.0-36.0); Mean Corpuscular Hemoglobin 32.1 pg (27.0-33.0); Mean Corpuscular Volume 92.6 fL (80.0-98.0); Mean Platelet Volume 9.2 fL (9.4-12.4); Monocytes Absolute Auto 0.9 X10*3/uL (0.1-1.2); Monocytes Percent Auto 7.5 % (2-11); Neutrophils Absolute Auto 8.9 x10*3/uL (2.0-8.3); Neutrophils Percent Auto 72.5 % (45-73); Platelet Count 301 X10*3/uL (160-400); Red Blood Count 5.42 X10*6/uL (4.60-5.80); Red Cell Distribution Width 12.4 % (11.0-16.0); White Blood Count 12.3 X10*3/uL (4.8-10.8)
--- OUTSIDE RECORDS SUMMARY | 2024-08-16 10:29 | XMS_ITS | Clinical Summary ---
Author Organization [facility] Facility Address [address] [place] [address] Care Team Providers Care Drill Sharpener Name Role Phone Unavailable Primary Care Provider [...] Due Date Last Done Comments Pneumococcal Vaccine: 50+ Ye ars (1 of 2 - PCV) 1972 Colorectal Cancer Screening: Annual FOBT 2002 Colorectal Cancer Screening: Colonoscopy 2002 Colorectal Cancer Screening: Sigmoidoscopy 2002 Influenza Vaccine (Season Ended) 2024 Hepatitis B Vaccine Aged Out No longe r eligible based on patient's age to complete this topic Insurance Medicare [facility] Medicare
--- OUTSIDE RECORDS SUMMARY | 2024-08-16 10:29 | XMS_ITS | Clinical Summary ---
Author Organization [facility] Address [address] [place] [address] Care Team Providers Care Performance Consultant Name Role Phone Zion Martinez MD Primary [...] age to complete this topic Care Teams Performance Consultant Relationship Specialty Start Date End Date Zion Martinez MD [address] [place] [id number] PCP - General Family Medicine 12/06/19
--- OUTSIDE RECORDS SUMMARY | 2024-08-16 10:29 | XMS_ITS | Clinical Summary ---
Author Organization [facility] Address [address] [place] [address] Phone Care Team Providers Care Weaving Inspector Name Role Phone Zion Martinez MD Primary Care Provider [phone] Surgical History Surgery Date Site/Laterality Comments PACEMAKER IMPLANT PROCEDURE: HISTORICAL PACEMAKER Medical History Medical History Date Comments LBBB (left bundle branch block) DX:LBBB (left bundle branch block) Essential hypertension DX:Essent ial hypertension Nephrolithiasis DX:Nephrolithias is; COMMENT: right kidney Chronic obstructive pulmonar y disease ([facility] V24, [facility] V28) 12/27/2017 DX:Chronic obstructive pulm onary disease (HCC) Degenerative joint disease i nvolving [...] 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 ([facility] V24, [facility] V28) 03/21/2018 DX:Seropositive rheumatoid a rthritis of multiple [...] Vaccines (1 of 2) 1972 RSV Immunization Adult Patients (1 - Risk 60-74 years 1-dose series) 2013 Pneumococcal Vaccine: 50+ Years (2 of 2 - PPSV23) 04/08/2016 02/12/2016 Abdominal Aortic Aneurysm (AAA) Screen 04/04/2022 Cholesterol Screening (Lipid Panel) 04/04/2022 Colorectal Cancer Screening: Colonoscopy 04/04/2022 Depression Screening 04/04/2022 Falls Risk Assessment 04/04/2022 Hepatitis C Screening 04/04/2022 Social Influencers of Health Screening 04/04/2022 Hypertension/CHF/CAD Annual BMP Blood Test 04/13/2022 Influenza Vaccine (Season Ended) 2024 02/27/2019, 02/02/2018, 12/07/2016, Additional history exists HIB Vaccines [...] age to complete this topic Meningococcal B Vaccine Aged Out No l onger eligible based on patient's age to complete this topic RSV Immunization Patients Under 20 months Aged Out No longer eligible based on patient's age to complete this topic Varicella Vaccines Aged Out No longer eligible based on patient's age to complete this topic Care Teams Weaving Inspector Relationship Specialty Start Date End Date Zion Martinez MD [address] [place] [address] Dr Melanie [place] PCP - General Family Medicine 12/06/19
[2024-08-16 11:01] LABS: Erythrocyte Sedimentation Rate 11 MM/HR (0-15)
[2024-08-16 11:51] LABS: Alanine Aminotransferase 26 U/L (0-40); Albumin Level 3.9 g/dL (3.5-5.0); Alkaline Phosphatase 88 U/L (39-117); Anion Gap 12 (12-20); Aspartate Amino Transferase 30 U/L (5-37); Bilirubin Total 0.7 mg/dL (0.0-1.0); Blood Urea Nitrogen 10 mg/dL (9-16); C Reactive Protein 0.47 mg/dL (< or = 0.50); Calcium 9.6 mg/dL (8.4-10.2); Carbon Dioxide 27 mmol/L (22-29); Chloride 103 mmol/L (96-108); Cholesterol 110 mg/dL (<200); Estimated Glomerular Filt Rate > 60; Glucose Fasting 101 mg/dL (60-99); HDL Cholesterol 38 mg/dL (>40); LDL Cholesterol Calculated 52 mg/dL (<100); Potassium 3.9 mmol/L (3.3-5.1); Sodium 138 mmol/L (135-145); Total Protein 7.1 g/dL (6.5-8.0); Triglycerides 102 mg/dL (<150)
== END 2024-08-16 09:18 | disposition home or self-care (01) ==
LOC: HO.HMGCLDS 09:17
PROVIDERS: PCP Family Medicine; Referring Provider Student in an Organized Health Care Education/Training Program; Visit Provider Family Medicine
DX: Z00.00 Encounter for general adult medical examination without abnormal findings (principal); M05.9 Rheumatoid arthritis with rheumatoid factor, unspecified; I25.10 Atherosclerotic heart disease of native coronary artery without angina pectoris; Z79.899 Other long term (current) drug therapy
CPT/HCPCS: 36415; 80053; 80061; 85025; 85652; 86140

== ENCOUNTER 2024-08-27 08:42 | Outpatient (AMB) | payer MEDICARE, SELFPAY ==
--- OUTSIDE RECORDS SUMMARY | 2024-08-27 09:12 | XMS_ITS | Clinical Summary ---
Author Organization [facility] Address [address] [place] [address] Phone Care Team Providers Care It Support Consultant Name Role Phone Zion Martinez MD Primary Care Provider Surgical History Surgery Date Site/Laterality Comments PACEMAKER IMPLANT PROCEDURE: HISTORICAL PACEMAKER Medical History Medical History Date Comments LBBB (left bundle branch block) DX:LBBB (left bundle branch block) Essential hypertension DX:Essent ial hypertension Nephrolithiasis DX:Nephrolithias is; COMMENT: right kidney Chronic obstructive pulmonar y disease ([facility] V24, [facility] V28) 12/27/2017 DX:Chronic obstructive pulm onary disease [...] 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
--- OUTSIDE RECORDS SUMMARY | 2024-08-27 09:12 | XMS_ITS | Clinical Summary ---
Author Organization [facility] Facility Address [address] [place] [address] Care Team Providers Care Guidance Director Name Role Phone Unavailable Primary Care Provider [...] age to complete this topic Insurance Medicare [facility] Medicare
--- OUTSIDE RECORDS SUMMARY | 2024-08-27 09:12 | XMS_ITS | Clinical Summary ---
Author Organization [facility] Address [address] [place] [address] Care Team Providers Care Laboratory Worker Name Role Phone Zion Martinez MD Primary Care Provider [phone] Allergies Active Allergy Reactions Criticality Noted Date [...] age to complete this topic Care Teams Laboratory Worker Relationship Specialty Start Date End Date Zion Martinez MD [address] [place] [id number] PCP - General Family Medicine 12/06/19
--- NOTE | 2024-08-27 10:00 | MHC.OFFWIV ---
Intake Vital Signs 08/27/24 10:01 Weight 247 lb BP 126/82 Blood Pressure Location Rt brachial Position Sitting Pulse 86 Pulse Source Pulse Oximeter Pulse Oximetry (%) 96 Oxygen Delivery Method Room Air Intake Visit Reasons: EP LT hand pain/redness moving up wrist Intake Note: Patient here for left hand swelling that started a couple days ago. Patient Tobacco Use Status: Current everyday Tobacco user Allergies Penicillins Allergy (Severe, Verified 08/27/24 10:02) throat swelling raspberry Allergy (Intermediate, Verified 08/27/24 10:02) Rash Blue Dye Allergy (Severe, Uncoded 08/27/24 10:02) throat swelling Latex Allergy (Severe, Uncoded 08/27/24 10:02) Rash, Hives, whole hand Do you need a note to return to daycare/school/sports/work: No HPI HPI Comments History of Present Illness Details History of Present Illness - The patient is a 69-year-old male presenting with erythema and swelling in the left wrist - Previously, the patient reported episodes of wrist swelling and redness without obvious trauma or injury. - Symptoms have included a warmer and larger appearance of the affected arm, with no significant pain currently noted. - Episodes have shifted from one arm to the other sporadically in the past and he thinks that will happen soon - The patient has rheumatoid arthritis managed with Chloroquine and is a smoker. Denies hx of blood clots or active cancers. Physical Exam General: Cooperative, healthy appearing, comfortable, no acute distress and well developed Orientation: Patient oriented x3 Limitations: No limitations Head: Normal to inspection Ears: Hearing grossly normal bilaterally Nose: Normal External nose present Face and sinus: Normal facial exam Eyes: Appearance normal, both eyes and all related structures Neck: Normal visual inspection and Yes full ROM Respiratory: Normal respiratory effort and able to speak in complete sentences. Skin: Redness noted on both hands, feels warm compared to the other areas Neuro: Patient oriented x3 Extremities: Erythema on palmar aspect of bilateral hands, full range of motion bilateral hands. Left wrist has some erythema and swelling, full range of motion in left wrist. No warmth on the left wrist or the left hand. No rash noted on bilateral hands PFSH Medical History (Updated 08/27/24 @ 10:39 by Payal Strange PA-C) Acute respiratory disease Smoker Claudication of calf muscles Ambulates with cane Rheumatoid arthritis Osteoarthritis Hx MRSA infection HLD (hyperlipidemia) Murmur Coronary artery disease Hx of renal calculi History of pacemaker Hypertension Elevated fasting blood sugar Surgical History Hx of tracheostomy (07/05/23) History of left-sided carotid endarterectomy (07/04/23) Hx of tonsillectomy Hx of colonoscopy H/O cardiac catheterization History of dental surgery History of cystoscopy History of permanent cardiac pacemaker placement Family History Other Mental health disorder Substance use disorder Social History Household Members: None Caregiver staying overnight: No Housing: House Are you a primary home care coordinator to a significant other at home: No Do you presently have visiting nurse or other home services: No 75 years or older and lives alone: No Alcohol intake: never Comment: COUNTS CORRECT Patient Tobacco Use Status: Current everyday Tobacco user Tobacco use type: Cigarette Cigarette Packs Per Day: 1 Cigarettes Per Day: 20.0 Years Smoked: 61 e-Cigarette/Vaping Use: Never Used Second Hand Smoke Exposure: No service: No Current occupational status: retired Current occupational exposures/hazards: No Cognitive needs: No (Cane) Hearing needs: No Vision needs: Yes (Glasses) Review of Systems Const All systems reviewed & are unremarkable except as noted in HPI and below Physical Exam Vital Signs: Last Vital Signs Pulse 43 L 08/27/24 10:01 BP 126/82 08/27/24 10:01 Pulse Ox 96 08/27/24 10:01 Oxygen Delivery Method Room Air 08/27/24 10:01 Assessment & Plan Assessment & Plan (1) Rheumatoid arthritis flare: Code(s): M06.9 - Rheumatoid arthritis, unspecified Plan: For the erythema and edema of the left wrist, I initiated treatment with diclofenac to control inflammation potentially related to a rheumatoid arthritis flare. The patient was instructed to take diclofenac every 12 hours ATC x 2 days then as needed and advised that this should be administered temporarily until follow-up which he already has scheduled with his clinical social work therapist on 08/29. Normal renal function as per last labs. Though the presentation of symptoms did not strongly suggest a clot, it remains important to monitor for any worsening. The patient is a smoker, which was noted for overall health considerations, but smoking cessation support was not specifically discussed in this visit. Patient was informed and verbally consented to the use of an ambient scribe for clinic note documentation during this visit. Medications: New diclofenac sodium 50 mg PO Q12H PRN 20 tabs 0RF pain Coding Level of Care Code Est Pt Level 3 (36291) Diagnoses Rheumatoid arthritis flare M06.9
[2024-08-27 10:01] VITALS: BP 126/82; PULSE 86; O2SAT 96
== END 2024-08-27 10:44 | disposition home or self-care (01) ==
PROVIDERS: PCP Family Medicine; Visit Provider Physician Assistant
DX: M06.9 Rheumatoid arthritis, unspecified (principal)

== ENCOUNTER → 2024-08-27 08:42 | Outpatient (BNVA) | payer MEDICARE, SELFPAY | PROVIDERS: PCP Family Medicine; Visit Provider Physician Assistant | DX: M06.9 Rheumatoid arthritis, unspecified (principal) | CPT/HCPCS: 99212 ==

== ENCOUNTER 2024-08-29 12:22 | Outpatient (AMB) | payer MEDICARE, SELFPAY ==
--- NOTE | 2024-08-29 12:31 | A.OFFVIS_ITS ---
Vital Signs 08/29/24 12:34 Height 6 ft Weight 240 lb 11.916 oz BMI 32.6 BP 128/70 Blood Pressure Location Lt brachial Position Sitting Pulse 69 Pulse Source Pulse Oximeter Pulse Oximetry (%) 98 Oxygen Delivery Method Room Air Intake Visit Reasons: RA Intake Note: Patient presents for follow up on RA and lab review. Patient complains of a bump in left inner wrist area, he states it started last week sometime. Allergies Penicillins Allergy (Severe, Verified 08/29/24 12:36) throat swelling raspberry Allergy (Intermediate, Verified 08/29/24 12:36) Rash Blue Dye Allergy (Severe, Uncoded 08/29/24 12:36) throat swelling Latex Allergy (Severe, Uncoded 08/29/24 12:36) Rash, Hives, whole hand Medication List - Last Reconciled 08/29/24 by Kristi Linton MD aspirin (Adult Low Dose Aspirin) 81 mg PO DAILY atorvastatin 40 mg PO BEDTIME 90 days chloroquine phosphate 125 mg orally; cholecalciferol (vitamin D3) 25 mcg PO DAILY diclofenac sodium 50 mg PO Q12H PRN docusate sodium (Colace) 200 mg PO DAILY hydrochlorothiazide 25 mg PO DAILY 90 days losartan 100 mg PO DAILY metoprolol succinate ER 25 mg PO BID 90 days HPI Comments Details: Patient is a 69-year-old male current everyday smoker with hypertension, hyperlipidemia complicated by carotid stenosis status post carotid endarterectomy and coronary artery disease, and seropositive rheumatoid arthritis here today for follow up Interval History: Patient last seen 02/29/[address] Suggs. At that time he was following up for rheumatoid arthritis on chloroquine 105 mg daily 10 5 days a week. Doing reasonably well otherwise. Complaining of right-sided neck pain especially when turning his head in bed at night. Thought to be mild muscle spasm and advised heating pad. Today, Neck pain improved Had left wrist pain. Went to Urgent Care and was given diclofenac tablets with improvement Complains of intermittent knee and left hip pain (history of a fall a work) Rheumatologic History: Onset ?2015 RF and CCP positive 03/19: Hydroxychloroquine not tolerated - constipation 04/18: chloroquine started Eye exam [place] 11/17, 07/2020 Current Rheumatology Medication(s): Chloroquine 125mg x 5 days a week [facility] Medical History (Updated 08/29/24 @ 12:52 by Kristi Linton MD) Left carotid stenosis Acute respiratory disease Smoker Claudication of calf muscles Ambulates with cane Osteoarthritis Hx MRSA infection HLD (hyperlipidemia) Murmur Coronary artery disease Hx of renal calculi History of pacemaker Hypertension Elevated fasting blood sugar Surgical History (Updated 08/29/24 @ 12:52 by Kristi Linton MD) Status post tracheostomy Status post carotid endarterectomy Hx of tracheostomy (07/05/23) History of left-sided carotid endarterectomy (07/04/23) Hx of tonsillectomy Hx of colonoscopy H/O cardiac catheterization History of dental surgery History of cystoscopy History of permanent cardiac pacemaker placement Family History Other Mental health disorder Substance use disorder Social History Household Members: None Caregiver staying overnight: No Housing: House Are you a primary daytime caregiver to a significant other at home: No Do you presently have visiting nurse or other home services: No 75 years or older and lives alone: No Alcohol intake: never Comment: COUNTS CORRECT Patient Tobacco Use Status: Current everyday Tobacco user Tobacco use type: Cigarette Cigarette Packs Per Day: 1 Cigarettes Per Day: 20.0 Years Smoked: 61 e-Cigarette/Vaping Use: Never Used Second Hand Smoke Exposure: No service: No Current occupational status: retired Current occupational exposures/hazards: No Cognitive needs: No (Cane) Hearing needs: No Vision needs: Yes (Glasses) Review of Systems Const Details: Review of Systems Constitutional: Denies fever, chills, weight loss ENT: Denies vision changes, eye pain or eye redness, dental caries, dry mouth GI: Denies nausea, vomiting, diarrhea, abdominal pain, change in BM Pulm: Denies SOB, KAY, hemoptysis, wheezing Cards: Denies chest pain, palpitations Skin: Denies Raynaud's, rash, nail changes, photosensitivity, CUSTODY ASSISTANT: Denies headaches, weakness, paresthesias, recurrent falls MSK: as per HPI All other systems reviewed and are unremarkable except noted above Physical Exam Vital Signs: Last Vital Signs Pulse 69 08/29/24 12:34 BP 128/70 08/29/24 12:34 Pulse Ox 98 08/29/24 12:34 Oxygen Delivery Method Room Air 08/29/24 12:34 BMI result Body Mass Index 32.6 Vital signs reviewed Physical Examination CONSTITUITIONAL Patient alert and cooperative. Well appearing and in no apparent painful distress HEENT Conjunctiva and sclera clear. ?Pupils equal round and reactive to light. ?No lymphadenopathy. ? CHEST/RESPIRATORY SYSTEM Normal respiratory effort and able to speak in complete sentences. ?Clear to auscultation bilaterally. ?No crackles, rales, rhonchi, wheezes heard. CARDIAC SYSTEM Regular rate and rhythm. ?S1 and S2 heard no murmurs. ?Radial pulses intact bilaterally MSK Hands: ?Able to make a fist. No synovitis noted to the MCPs, PIPs or DIPs. ?No tenderness to palpation of these joints. Herbeden's nodes Wrists: ?Full range of motion at the wrists without pain. ?No tenderness to palpation or synovitis noted to the wrists. Elbows: Full range of motion without pain. No tenderness, weakness, swelling, increased warmth or erythema. Shoulders: Full range of active range of motion without pain. No tenderness, weakness, swelling, increased warmth or erythema. Knees: ?Full range of motion. ?No tenderness, swelling, increased warmth or erythema.?Crepitations Ankles: Full range of motion. ?No tenderness, swelling, increased warmth or erythema.? Feet: ?Negative squeeze test. ?No tenderness to palpation or swelling of the MTPs. Tender points:?No tenderness to palpation of the bilateral trapezius, supraspinatus, greater trochanters, anterior costochondral junctions, bilateral gluteal areas, bilateral suboccipital muscle insertions SKIN Skin intact without rashes. Results Reviewed Results Reviewed: Laboratory Tests 08/16/24 09:25 WBC 12.3 H RBC 5.42 Hgb 17.4 D Hct 50.2 D Plt Count 301 D ESR 11 Sodium 138 Potassium 3.9 Chloride 103 Carbon Dioxide 27 BUN 10 Creatinine 0.79 AST 30 ALT 26 C-Reactive Protein 0.47 Assessment & Plan Assessment & Plan (1) Polyarticular osteoarthritis: Code(s): M15.9 - Polyosteoarthritis, unspecified Plan: #Polyarticular OA Currently stable (2) Seropositive rheumatoid arthritis: Comment: Onset ?016 RF and CCP positive 03/19: Hydroxychloroquine not tolerated - constipation 04/18: chloroquine started Eye exam OK 11/17, 07/2020 Code(s): M05.9 - Rheumatoid arthritis with rheumatoid factor, unspecified Category: Medical Plan: #Seropositive RA Patient is a 69 y.o. male with seropositive RA here today for follow up. Patient is currently in remission on chloroquine 125 mg every day for 5 days of the week. No evidence of active synovitis on examination. right wrist pain is likely some tendonitis. Okay with diclofenac prescribed by urgent care Plan - Chlorquine 125mg 5 days a week - Continue diclofenac from urgent care. Can get refills for his polyarticular OA once his kidney function remains intact - RTC 6 months - Labs before visit: CBC, CMP, ESR, CRP (3) long-term use of drug: Code(s): Z79.899 - Other manager intermediate (current) drug therapy Category: Medical Plan: #Long-term Use of Chloroquine Discussed with patient the risks and benefits of hydroxychloroquine in managing the rheumatic condition Benefits include: - Reduced pain, reduce mortality, maintenance of remission and reduction of flares Risks include: - GI upset, skin hyperpigmentation, retinal toxicity (especially after more than 5 years of use), myopathy Advised yearly ophthalmology visits Last ophthalmology visit: 07/2024 Plan I spent 30 minutes reviewing the record and labs, taking a history, examining the patient, discussing the treatment plan, ordering diagnostic work up and documenting in the medical record Orders: Orders Comprehensive Met. Panel 6 Months M05.9 - Rheumatoid arthritis with rheumatoid factor, unspecified Complete Blood Count Auto Diff 6 Months M05.9 - Rheumatoid arthritis with rheumatoid factor, unspecified C Reactive Protein 6 Months M05.9 - Rheumatoid arthritis with rheumatoid factor, unspecified Erythrocyte Sedimentation Rate 6 Months M05.9 - Rheumatoid arthritis with rheumatoid factor, unspecified Medications: Changed From chloroquine phosphate (1/2 x 250 mg) 125 mg orally; 36 tabs 2RF M05.9 - Rheumatoid arthritis with rheumatoid factor, unspecified To chloroquine phosphate (1/2 x 250 mg) 125 mg orally 5 days a week 30 tabs 1RF M05.9 - Rheumatoid arthritis with rheumatoid factor, unspecified Coding Level of Care Code Est Pt Level 4 (14480) Complex EM visit Add On G2211 Diagnoses Polyarticular osteoarthritis M15.9 Seropositive rheumatoid arthritis M05.9 long-term use of drug Z79.899
[2024-08-29 12:34] VITALS: BP 128/70; PULSE 69; O2SAT 98; BMI 32.6
--- OUTSIDE RECORDS SUMMARY | 2024-08-29 13:43 | XMS_ITS | Clinical Summary ---
Author Organization [facility] Facility Address [address] [place] [address] Care Team Providers Care Optical Lab Technician Name Role Phone Unavailable Primary Care Provider [...] age to complete this topic [place] [address] [facility] [place] [address]
--- OUTSIDE RECORDS SUMMARY | 2024-08-29 13:43 | XMS_ITS | Clinical Summary ---
Author Organization [facility] Address [address] [place] [address] Phone Care Team Providers Care Chief Lending Officer Name Role Phone Zion Martinez MD Primary Care Provider Surgical History Surgery Date Site/Laterality Comments PACEMAKER IMPLANT PROCEDURE: HISTORICAL PACEMAKER Medical History Medical History Date Comments LBBB (left bundle branch block) DX:LBBB (left bundle branch block) Essential hypertension DX:Essent ial hypertension Nephrolithiasis DX:Nephrolithias is; COMMENT: right kidney Chronic obstructive pulmonar y disease ([facility] V24, 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 V24, [facility] V28) 03/21/2018 DX:Seropositive rheumatoid a rthritis of [...] age to complete this topic Care Teams Chief Lending Officer Relationship Specialty Start Date End Date Zion Martinez MD [address] [place] [address] Dr Melanie [place] PCP - General Family Medicine 12/06/19
--- OUTSIDE RECORDS SUMMARY | 2024-08-29 13:43 | XMS_ITS | Clinical Summary ---
[facility] Address [address] [place] [address] Care Team Providers Care Grain Oilseed Or Pasture Farm Worker Name Role Phone Zion Martinez MD [...] age to complete this topic Care Teams Grain Oilseed Or Pasture Farm Worker Relationship Specialty Start Date End Date Zion Martinez MD [address] [place] [id number] PCP - General Family Medicine 12/06/19
== END 2024-08-29 13:11 | disposition home or self-care (01) ==
LOC: HO.RHE 12:23
PROVIDERS: PCP Family Medicine; Visit Provider Student in an Organized Health Care Education/Training Program
DX: M05.79 Rheumatoid arthritis with rheumatoid factor of multiple sites without organ or systems involvement (principal); M15.9 Polyosteoarthritis, unspecified; Z79.899 Other long term (current) drug therapy
CPT/HCPCS: 99214; G2211

== ENCOUNTER → 2024-08-29 12:22 | Outpatient (BNVA) | payer MEDICARE, SELFPAY | PROVIDERS: PCP Family Medicine; Visit Provider Student in an Organized Health Care Education/Training Program | DX: Z00.00 Encounter for general adult medical examination without abnormal findings (principal); I10 Essential (primary) hypertension; E78.5 Hyperlipidemia, unspecified; M25.532 Pain in left wrist; I25.10 Atherosclerotic heart disease of native coronary artery without angina pectoris; M15.9 Polyosteoarthritis, unspecified; M05.9 Rheumatoid arthritis with rheumatoid factor, unspecified; F17.210 Nicotine dependence, cigarettes, uncomplicated; Z79.899 Other long term (current) drug therapy | CPT/HCPCS: 96127; 99212 ==

== ENCOUNTER 2024-08-29 16:03 | Outpatient (AMB) | payer MEDICARE, SELFPAY ==
--- NOTE | 2024-08-29 16:07 | MHC.PC.OV ---
Vital Signs 08/29/24 16:17 Height 6 ft Weight 245 lb 2 oz BMI 33.2 BP 126/70 Blood Pressure Location Lt brachial Position Sitting Respiration 14 Pulse 88 Pulse Source Pulse Oximeter Temp 97.5 F Temp Source Oral Pulse Oximetry (%) 94 Oxygen Delivery Method Room Air Intake Visit Reasons: f/u hld, htn Intake Note: patient explains that on left wrist had lump and hard to rotate wrist Negative Cleaner Required: No Information Interpreted: clinical only Allergies Penicillins Allergy (Severe, Verified 08/29/24 16:08) throat swelling raspberry Allergy (Intermediate, Verified 08/29/24 16:08) Rash Blue Dye Allergy (Severe, Uncoded 08/29/24 16:08) throat swelling Latex Allergy (Severe, Uncoded 08/29/24 16:08) Rash, Hives, whole hand Medication List - Last Reconciled 08/29/24 by Zion Martinez MD aspirin (Adult Low Dose Aspirin) 81 mg PO DAILY atorvastatin 40 mg PO BEDTIME 90 days chloroquine phosphate 125 mg orally 5 days a week cholecalciferol (vitamin D3) 25 mcg PO DAILY diclofenac sodium 50 mg PO Q12H PRN docusate sodium (Colace) 200 mg PO DAILY hydrochlorothiazide 25 mg PO DAILY 90 days losartan 100 mg PO DAILY metoprolol succinate ER 25 mg PO BID 90 days Tobacco use date assessed: 06/24/23 Dental Screening Dental Screen Date: 06/24/23 HPI f/u hld, htn HPI Details 69 y/o male presents to f/u HLD, HTN. Labs drawn 08/16/24. Reviewed labs with pt. Triglycerides 102. TC 110. LDL 52. HDL low at 38. She is on artovastatin 40mg. Fasting glucose of 101. Hx of pre-diabetes. Blood pressure today 126/70, 88p. He is on losartan 100mg, metoprolol 25 mg b.i.d, HCTZ 25mg daily. He reports L wrist pain. [facility] Medical History (Updated 08/29/24 @ 16:25 by Quan Dewey) Left carotid stenosis Acute respiratory disease Smoker Claudication of calf muscles Ambulates with cane Osteoarthritis Hx MRSA infection HLD (hyperlipidemia) Murmur Coronary artery disease Hx of renal calculi History of pacemaker Hypertension Elevated fasting blood sugar Surgical History (Updated 08/29/24 @ 12:52 by Kristi Linton MD) Status post tracheostomy Status post carotid endarterectomy Hx of tracheostomy (07/05/23) History of left-sided carotid endarterectomy (07/04/23) Hx of tonsillectomy Hx of colonoscopy H/O cardiac catheterization History of dental surgery History of cystoscopy History of permanent cardiac pacemaker placement Family History Other Mental health disorder Substance use disorder Social History Household Members: None Caregiver staying overnight: No Housing: House Are you a primary respiratory care faculty to a significant other at home: No Do you presently have visiting nurse or other home services: No 75 years or older and lives alone: No Alcohol intake: never Comment: COUNTS CORRECT Patient Tobacco Use Status: Current everyday Tobacco user Tobacco use type: Cigarette Cigarette Packs Per Day: 1 Cigarettes Per Day: 20.0 Years Smoked: 61 Packs Per Year: 61 Packs per year/per ci.00 e-Cigarette/Vaping Use: Never Used Second Hand Smoke Exposure: No service: No Current occupational status: retired Current occupational exposures/hazards: No Cognitive needs: No (Cane) Hearing needs: No Vision needs: Yes (Glasses) Questionnaire PHQ-9 Over the last 2 weeks, how often have you been bothered by any of the following problems? 1. Little interest or pleasure in doing things: several days 2. Feeling down, depressed, or hopeless: not at all 3. Trouble falling or staying asleep, or sleeping too much: nearly every day 4. Feeling tired or having little energy: not at all 5. Poor appetite or overeating: not at all 6. Feeling bad about yourself - or that you are a failure or have let yourself or your family down: not at all 7. Trouble concentrating on things, such as reading the newspaper or watching television: not at all 8. Moving or speaking so slowly that other people could have noticed. Or the opposite - being so fidgety or restless that you have been moving around a lot more than usual: not at all 9. Thoughts that you would be better off or of hurting yourself in some way: not at all Total score: 4 Depression Screening Interpretation: Negative Depression Screening Done: Yes 55101 - PHQ-9 Billing: Yes Source: Developed by Drs. Robert Trejo, Consuelo Antoine, Gorge Drew and colleagues, with an educational mushtaq from [employer]. Thrive Questionnaire Date Thrive assessed: 08/29/24 I am a: Patient What is your living situation today?: I have a steady place to live Within the past 12 months, did the food you bought not last and you didn't have the money to get more?: Sometimes True Within the past 12 months, did you worry whether your food would run out before you got money to buy more?: Sometimes True Do you have trouble paying for medicines?: No Do you have trouble getting transportation to medical appointments?: No Do you have trouble paying your heating and electricity bill?: No Do you have trouble taking care of your child, family member or friend?: I choose not to answer this question Do you have trouble with day-to-day activities such as bathing, preparing meals, shopping, managing finances, etc.?: I choose not to answer this question Are you currently unemployed and looking for a job?: No Are you interested in more education?: No Please select the resources that you would like help with: None Currently or been in a relationship where the following occur: I choose not to answer THRIVE Score: 2 FARZANA-7 AMB Questionnaire FARZANA-7 Date FARZANA - 7 assessed: 10/14/21 Feeling nervous, anxious, or on edge: 0 = Not at all Not being able to stop or control worryin = Not at all Worrying too much about different things: 0 = Not at all Trouble relaxin = Several days Being so restless that it is hard to sit still: 0 = Not at all Becoming easily annoyed or irritable: 0 = Not at all Feeling afraid as if something awful might happen: 0 = Not at all Total FARZANA-7 score (0-4 normal; 5-9 mild; 10-14 moderate; 15-21 severe): 1 Source: Developed by Drs. Robert Trejo, Gorge Vasquez and colleagues, with an educational mushtaq from [employer]. FARZANA-7 Assessment Billing FARZANA-7 Assessment Tool: FARZANA-7 Assessment 94113 Physical exam (Primary Care) Vital Signs: Last Vital Signs Temp 97.5 F 08/29/24 16:17 Pulse 88 08/29/24 16:17 Resp 14 08/29/24 16:17 BP 126/70 08/29/24 16:17 Pulse Ox 94 08/29/24 16:17 Oxygen Delivery Method Room Air 08/29/24 16:17 BMI result Body Mass Index 33.2 Tobacco/Smoking Status: Tobacco use Status Tobacco use date assessed 06/24/23 08/29/24 16:08 Patient Tobacco Use Status Current everyday Tobacco 08/29/24 16:08 Tobacco use type Cigarette 08/29/24 16:08 e-Cigarette/Vaping Use Never Used 08/29/24 16:08 PHQ-9: PHQ-9 Score PHQ-9: Total score 4 08/29/24 16:19 Depression Screening Interpretation: Negative Thrive Assessment: Date of Thrive Assessment Date Thrive assessed 08/29/24 08/29/24 16:15 Currently or been in a relationship where the following occur: I choose not to answer Coding Level of Care Code Est Pt Level 4 (39221) Diagnoses Hyperlipidemia E78.5 Essential hypertension I10 Coronary artery disease I25.10 Left hand pain M79.642 Additional Codes FARZANA-7 Assessment Billing - FARZANA-7 Assessment Tool: FARZANA-7 Assessment 14790 ([id number]) PHQ-9 - 62326 - PHQ-9 Billing: Yes ([id number]) Assessment & Plan Assessment & Plan (1) Hyperlipidemia: Code(s): E78.5 - Hyperlipidemia, unspecified Category: Medical Plan: LDL?cholesterol?now?at?goal?of?less?than?70 Continue?current?medication HDL?slightly?low - encouraged?increased?exercise (2) Essential hypertension: Code(s): I10 - Essential (primary) hypertension Category: Medical Plan: Blood?pressure?is?controlled.??Goal?is?less?than?130/80 Continue?current?medication?regimen (3) Coronary artery disease: Comment: Nonobstructive by cardiac catheterization Code(s): I25.10 - Atherosclerotic heart disease of [place] coronary artery without angina pectoris Category: Medical Plan: Stable Follow-up?with?Cardiology?as?recommended (4) Left hand pain: Code(s): M79.642 - Pain in left hand Category: Medical Plan: Left?hand?and?wrist?pain?with?redness?and?swelling. Most?of?the?swelling?has?decreased?but?still?has?residual?there. Patient?says?wrist?was?significantly?inflamed?and?red.??He?went?to?urgent?care?and?was?given?diclofenac.??He?has?been?taking?this. Most?likely?rheumatoid?arthritis?flare?or?possibly?osteoarthritis. He?can?continue?diclofenac?and?his?RA?medication Encouraged?cold?packs?and?elevation Lastly,?will?check?uric?acid?level?to?rule?out?gout Orders: Orders Complete Blood Count Auto Diff Today M79.642 - Pain in left hand, Z00.00 - Encounter for general adult medical examination without abnormal findings Comprehensive Met. Panel Today M79.642 - Pain in left hand Uric Acid Today M79.642 - Pain in left hand
[2024-08-29 16:17] VITALS: BP 126/70; PULSE 88; RESP 14; TEMP 36.4; O2SAT 94; BMI 33.2
--- OUTSIDE RECORDS SUMMARY | 2024-08-29 16:42 | XMS_ITS | Clinical Summary ---
Author Organization [facility] Address [address] [place] [address] Care Team Providers Care Fur Machine Operator Name Role Phone Unavailable Primary Care [...] age to complete this topic Insurance Medicare [facility] Medicare
--- OUTSIDE RECORDS SUMMARY | 2024-08-29 16:42 | XMS_ITS | Clinical Summary ---
[facility] Address [address] [place] [address] Care Team Providers Care Medical Equipment Repairer Name Role Phone Zion Martinez MD Primary [...] age to complete this topic Care Teams Medical Equipment Repairer Relationship Specialty Start Date End Date Zion Martinez MD [address] [place] [id number] PCP - General Family Medicine 12/06/19
--- OUTSIDE RECORDS SUMMARY | 2024-08-29 16:42 | XMS_ITS | Clinical Summary ---
Author Organization [facility] Address [address] [place] [address] Phone Care Team Providers Care Prescription Benefit Specialist Name Role Phone Zion Martinez MD Primary Care Provider Surgical History Surgery Date Site/Laterality Comments PACEMAKER IMPLANT PROCEDURE: HISTORICAL PACEMAKER Medical History Medical History Date Comments LBBB (left bundle branch block) DX:LBBB (left bundle branch block) Essential hypertension DX:Essent ial hypertension Nephrolithiasis DX:Nephrolithias is; COMMENT: right kidney Chronic obstructive pulmonar y disease ([facility] V24, [facility] V28) 12/27/2017 DX:Chronic obstructive pulm onary disease ([facility]) Degenerative joint disease i nvolving multiple joints [...] 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
== END 2024-08-29 16:39 | disposition home or self-care (01) ==
LOC: HO.HMCFM 16:04
PROVIDERS: PCP Family Medicine; Visit Provider Family Medicine
DX: E78.5 Hyperlipidemia, unspecified (principal); I10 Essential (primary) hypertension; I25.10 Atherosclerotic heart disease of native coronary artery without angina pectoris; M79.642 Pain in left hand

== ENCOUNTER 2024-08-30 09:54 | Outpatient (REF) | payer MEDICARE, SELFPAY ==
[2024-08-30 10:13] LABS: MANUAL DIFF FLAG NO
[2024-08-30 10:38] LABS: Basophils Absolute Auto 0.1 X10*3/uL (0.0-0.2); Basophils Percent Auto 0.7 % (0-2); Eosinophils Absolute Auto 0.4 X10*3/uL (0.0-0.4); Eosinophils Percent Auto 3.1 % (0-4); Hematocrit 47.8 % (42.0-52.0); Hemoglobin 16.6 g/dl (14.0-18.0); Imm Gran Abs Auto 0.04 X10*3/uL (0.00-0.03); Imm Gran Pct Auto 0.4 % (0.0-0.4); Lymphocytes Absolute Auto 2.5 X10*3/uL (1.2-4.9); Lymphocytes Percent Auto 22.2 % (20-40); Mean Corpuscular HGB Conc 34.7 g/dl (31.0-36.0); Mean Corpuscular Hemoglobin 31.9 pg (27.0-33.0); Mean Corpuscular Volume 91.9 fL (80.0-98.0); Monocytes Absolute Auto 0.9 X10*3/uL (0.1-1.2); Neutrophils Absolute Auto 7.3 x10*3/uL (2.0-8.3); Neutrophils Percent Auto 65.6 % (45-73); Platelet Count 319 X10*3/uL (160-400); Red Cell Distribution Width 12.4 % (11.0-16.0); White Blood Count 11.2 X10*3/uL (4.8-10.8)
[2024-08-30 11:04] LABS: Alanine Aminotransferase 23 U/L (0-40); Albumin Level 3.8 g/dL (3.5-5.0); Anion Gap 14 (12-20); Aspartate Amino Transferase 26 U/L (5-37); Bilirubin Total 0.4 mg/dL (0.0-1.0); Blood Urea Nitrogen 18 mg/dL (9-16); Carbon Dioxide 27 mmol/L (22-29); Chloride 102 mmol/L (96-108); Estimated Glomerular Filt Rate > 60; Glucose Random 92 mg/dL (60-115); Potassium 3.9 mmol/L (3.3-5.1); Sodium 139 mmol/L (135-145); Uric Acid 5.5 mg/dL (3.4-7.0)
--- OUTSIDE RECORDS SUMMARY | 2024-08-30 11:05 | XMS_ITS | Clinical Summary ---
[facility] Address [address] [place] [address] Care Team Providers Care Wastewater Treatment Operator Name Role Phone Zion Martinez MD Primary Care Provider [phone] Allergies Active Allergy Reactions Criticality Noted Date [...] age to complete this topic Care Teams Wastewater Treatment Operator Relationship Specialty Start Date End Date Zion Martinez MD [address] [place] [id number] PCP - General Family Medicine 12/06/19
--- OUTSIDE RECORDS SUMMARY | 2024-08-30 11:06 | XMS_ITS | Clinical Summary ---
Author Organization [facility] Facility Address [address] [place] [address] Care Team Providers Care Fold Skiver Name Role Phone Unavailable Primary Care Provider [...] age to complete this topic Insurance Medicare [facility] Medicare
--- OUTSIDE RECORDS SUMMARY | 2024-08-30 11:06 | XMS_ITS | Clinical Summary ---
Author Organization [facility] Address [address] [place] [address] Phone Care Team Providers Care Antique Furniture Repairer Name Role Phone Zion Martinez MD Primary Care Provider Surgical History Surgery Date Site/Laterality Comments PACEMAKER IMPLANT PROCEDURE: HISTORICAL PACEMAKER Medical History Medical History Date Comments LBBB (left bundle branch block) DX:LBBB (left bundle branch block) Essential hypertension DX:Essent ial hypertension Nephrolithiasis DX:Nephrolithias is; COMMENT: right kidney Chronic obstructive pulmonar y disease ([facility] V24, [facility] V28) 12/27/2017 DX:Chronic obstructive pulm onary [...] 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
[2024-08-30 11:28] LABS: Alkaline Phosphatase 82 U/L (39-117)
== END 2024-08-30 09:55 | disposition home or self-care (01) ==
LOC: HO.LAB 09:54
PROVIDERS: PCP Family Medicine; Visit Provider Family Medicine
DX: Z00.00 Encounter for general adult medical examination without abnormal findings (principal); M79.642 Pain in left hand
CPT/HCPCS: 36415; 80053; 84550; 85025

== ENCOUNTER 2024-10-22 08:01 | Outpatient (AMB) | payer MEDICARE, SELFPAY ==
[2024-10-22 08:06] VITALS: BP 132/60; PULSE 84; TEMP 36.7; O2SAT 96; BMI 32.8
--- NOTE | 2024-10-22 08:06 | MHC.OFFWIV ---
Intake Vital Signs 10/22/24 08:06 Height 6 ft Weight 242 lb BMI 32.8 BP 132/60 Blood Pressure Location Lt brachial Position Sitting Pulse 84 Pulse Source Pulse Oximeter Temp 98.0 F Pulse Oximetry (%) 96 Oxygen Delivery Method Room Air Intake Visit Reasons: EP LT elbow/RT hand Intake Note: Patient did take excederin migraine as a pain reliever last night Patient Tobacco Use Status: Current everyday Tobacco user Farm Manager Required: No Allergies Penicillins Allergy (Severe, Verified 10/22/24 08:12) throat swelling raspberry Allergy (Intermediate, Verified 10/22/24 08:12) Rash Blue Dye Allergy (Severe, Uncoded 08/29/24 16:08) throat swelling Latex Allergy (Severe, Uncoded 08/29/24 16:08) Rash, Hives, whole hand Do you need a note to return to daycare/school/sports/work: No HPI HPI Comments History of Present Illness Details History of Present Illness - The patient is a 69-year-old male presenting with right hand, wrist and arm pain. - The patient reports wrist pain and swelling, primarily affecting the right hand, which has been going on for awhile. - Symptoms include numbness and tingling in the fingers, particularly at night, leading to difficulty in closing the hand upon waking. - The patient has a history of arthritis and has been using diclofenac for pain management, which has been ineffective and exacerbates pain. - The patient has not undergone any prior testing for carpal tunnel syndrome and has not seen an home mortgage disclosure act specialist for this condition. - The patient engages in regular computer use, which may contribute to symptom exacerbation. - He feels like he is weaker in the hand and can't grab things. - He denies trauma or falls. He denies shoulder pain. He is right hand dominant. Physical Exam General: Cooperative, healthy appearing, comfortable, no acute distress and well developed Respiratory: Normal respiratory effort and able to speak in complete sentences. Clear to auscultation bilaterally Cardiovascular: Regular rate and rhythm. Normal S1 and S2 Skin: No rashes or lesions noted. No swelling, erythema, or warmth noted. Neuro: Sensation is intact. Extremities: Normal to inspection, no deformity noted. FROM of the right wrist and digits on the right hand. FROM of the right elbow. Negative Tinel's and Phalen's test on the right, negative Prayer test noted. Negattive Finklestein's test noted on the right. Hand vine fruit farming supervisor is intact. Strength is 4/5 on the right UE. Patient was informed and verbally consented to the use of an ambient scribe for clinic note documentation during this visit. [facility] Medical History (Updated 08/29/24 @ 16:25 by Quan Dewey) Left carotid stenosis Acute respiratory disease Smoker Claudication of calf muscles Ambulates with cane Osteoarthritis Hx MRSA infection HLD (hyperlipidemia) Murmur Coronary artery disease Hx of renal calculi History of pacemaker Hypertension Elevated fasting blood sugar Surgical History (Updated 08/29/24 @ 12:52 by Kristi Litnon MD) Status post tracheostomy Status post carotid endarterectomy Hx of tracheostomy (07/05/23) History of left-sided carotid endarterectomy (07/04/23) Hx of tonsillectomy Hx of colonoscopy H/O cardiac catheterization History of dental surgery History of cystoscopy History of permanent cardiac pacemaker placement Family History Other Mental health disorder Substance use disorder Social History Household Members: None Caregiver staying overnight: No Housing: House Are you a primary patient care technician to a significant other at home: No Do you presently have visiting nurse or other home services: No 75 years or older and lives alone: No Alcohol intake: never Comment: COUNTS CORRECT Patient Tobacco Use Status: Current everyday Tobacco user Tobacco use type: Cigarette Cigarette Packs Per Day: 1 Cigarettes Per Day: 20.0 Years Smoked: 61 e-Cigarette/Vaping Use: Never Used Second Hand Smoke Exposure: No service: No Current occupational status: retired Current occupational exposures/hazards: No Cognitive needs: No (Cane) Hearing needs: No Vision needs: Yes (Glasses) Review of Systems Const All systems reviewed & are unremarkable except as noted in HPI and below Physical Exam Vital Signs: Last Vital Signs Temp 98.0 F 10/22/24 08:06 Pulse 84 10/22/24 08:06 BP 132/60 10/22/24 08:06 Pulse Ox 96 10/22/24 08:06 Oxygen Delivery Method Room Air 10/22/24 08:06 BMI result Body Mass Index 32.8 Assessment & Plan Assessment & Plan (1) Right wrist pain: Code(s): M25.531 - Pain in right wrist Plan Most likely strain vs carpal tunnel vs tenosynovitis vs tendonitis vs arthritis Plan - Wear the wrist splints - Heat to the area - Naproxen 500 mg BID as needed for pain - Referral to an home mortgage disclosure act specialist for further evaluation and management of carpal tunnel syndrome. Orders: Referrals Orthopedics Referral M25.531 - Pain in right wrist Medications: New naproxen 500 mg PO Q12H PRN 20 tabs 0RF pain 7 days Coding Level of Care Code Est Pt Level 3 (41136) Diagnoses Right wrist pain M25.531
--- OUTSIDE RECORDS SUMMARY | 2024-10-22 08:06 | XMS_ITS | Clinical Summary ---
[facility] Address [address] [place] [address] Care Team Providers Care Lighting Equipment Operator Name Role Phone Zion Martinez MD [...] 90 12/06/2019 1:09 PM EDT Temperature 36.5 C (97.7 F) 12/06/2019 1:09 PM EDT Respiratory Rate - - Oxygen Saturation - [...] 02/12/2016 Fall Risk Assessment 2018 Influenza Vaccine (Season Ended) 2024 02/27/2019, 02/02/2018, 12/07/2016, Additional history exists Hepatitis B Vaccines Aged Out No long er eligible based on patient's age to complete this topic RSV Ped < 20 months Aged Out No longe r eligible based on patient's age to complete this topic Care Teams Lighting Equipment Operator Relationship Specialty Start Date End Date Zion Martinez MD [address] [place], [place] [id number] PCP - General Family Medicine 12/06/19
== END 2024-10-22 09:22 | disposition home or self-care (01) ==
PROVIDERS: PCP Family Medicine; Visit Provider Physician Assistant Medical
DX: M25.531 Pain in right wrist (principal)

== ENCOUNTER → 2024-10-22 08:01 | Outpatient (BNVA) | payer MEDICARE, SELFPAY | PROVIDERS: PCP Family Medicine; Visit Provider Physician Assistant Medical | DX: M25.531 Pain in right wrist (principal) | CPT/HCPCS: 99212 ==

== ENCOUNTER → 2024-11-01 23:59 | Outpatient (BNV) | payer MEDICARE, SELFPAY ==
--- NOTE | 2024-11-06 14:35 | MHC.OFFVIS ---
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 Allergies Penicillins Allergy (Severe, Verified 10/22/24 08:12) throat swelling raspberry Allergy (Intermediate, Verified 10/22/24 08:12) Rash Blue Dye Allergy (Severe, Uncoded 08/29/24 16:08) throat swelling Latex Allergy (Severe, Uncoded 08/29/24 16:08) Rash, Hives, whole hand PFSH Medical History (Updated 08/29/24 @ 16:25 by Quan Dewey) Left carotid stenosis Acute respiratory disease Smoker Claudication of calf muscles Ambulates with cane Osteoarthritis Hx MRSA infection HLD (hyperlipidemia) Murmur Coronary artery disease Hx of renal calculi History of pacemaker Hypertension Elevated fasting blood sugar Surgical History (Updated 08/29/24 @ 12:52 by Kristi Linton MD) Status post tracheostomy Status post carotid endarterectomy Hx of tracheostomy (07/05/23) History of left-sided carotid endarterectomy (07/04/23) Hx of tonsillectomy Hx of colonoscopy H/O cardiac catheterization History of dental surgery History of cystoscopy History of permanent cardiac pacemaker placement Family History Other Mental health disorder Substance use disorder Social History Household Members: None Caregiver staying overnight: No Housing: House Are you a primary intensive care medicine specialist to a significant other at home: No Do you presently have visiting nurse or other home services: No 75 years or older and lives alone: No Alcohol intake: never Comment: COUNTS CORRECT Patient Tobacco Use Status: Current everyday Tobacco user Tobacco use type: Cigarette Cigarette Packs Per Day: 1 Cigarettes Per Day: 20.0 Years Smoked: 61 e-Cigarette/Vaping Use: Never Used Second Hand Smoke Exposure: No service: No Current occupational status: retired Current occupational exposures/hazards: No Cognitive needs: No (Cane) Hearing needs: No Vision needs: Yes (Glasses) Office Procedures Cardiac Device Check Cardiac Device Check Details: Remote pacemaker report generated 11/01/2024. Pacemaker function is adequate [id number] Cardiac Device Interrogation, pacemaker Procedure code (CPT) selection complete Assessment & Plan Assessment & Plan (1) Pacemaker: Code(s): Z95.0 - Presence of cardiac pacemaker Category: Medical Plan: See above Coding Level of Care Code Procedure Only Diagnoses Pacemaker Z95.0 CPT Codes Cardiac Device Check - Cardiac Device 12: [id number]-[id number] Cardiac Device Interrogation, pacemaker ([id number])
== END ==
PROVIDERS: PCP Family Medicine; Visit Provider Internal Medicine Cardiovascular Disease
DX: Z45.018 Encounter for adjustment and management of other part of cardiac pacemaker (principal)
CPT/HCPCS: 93294

== ENCOUNTER 2024-11-07 14:39 | Outpatient (AMB) | payer MEDICARE, SELFPAY ==
--- NOTE | 2024-11-07 14:46 | A.OFFPC_ITS ---
Intake Visit Reasons: Physical / Dr. Martinez's pt. - see comments Allergies Penicillins Allergy (Severe, Verified 10/22/24 08:12) throat swelling raspberry Allergy (Intermediate, Verified 10/22/24 08:12) Rash Blue Dye Allergy (Severe, Uncoded 08/29/24 16:08) throat swelling Latex Allergy (Severe, Uncoded 08/29/24 16:08) Rash, Hives, whole hand Tobacco use date assessed: 06/24/23 Dental Screening Dental Screen Date: 06/24/23 [facility] Medical History (Updated 08/29/24 @ 16:25 by Quan Dewey) Left carotid stenosis Acute respiratory disease Smoker Claudication of calf muscles Ambulates with cane Osteoarthritis Hx MRSA infection HLD (hyperlipidemia) Murmur Coronary artery disease Hx of renal calculi History of pacemaker Hypertension Elevated fasting blood sugar Surgical History (Updated 08/29/24 @ 12:52 by Kristi Linton MD) Status post tracheostomy Status post carotid endarterectomy Hx of tracheostomy (07/05/23) History of left-sided carotid endarterectomy (07/04/23) Hx of tonsillectomy Hx of colonoscopy H/O cardiac catheterization History of dental surgery History of cystoscopy History of permanent cardiac pacemaker placement Family History Other Mental health disorder Substance use disorder Social History Household Members: None Caregiver staying overnight: No Housing: House Are you a primary lawn care professional to a significant other at home: No Do you presently have visiting nurse or other home services: No 75 years or older and lives alone: No Alcohol intake: never Comment: COUNTS CORRECT Patient Tobacco Use Status: Current everyday Tobacco user Tobacco use type: Cigarette Cigarette Packs Per Day: 1 Cigarettes Per Day: 20.0 Years Smoked: 61 e-Cigarette/Vaping Use: Never Used Second Hand Smoke Exposure: No service: No Current occupational status: retired Current occupational exposures/hazards: No Cognitive needs: No (Cane) Hearing needs: No Vision needs: Yes (Glasses) Questionnaire Thrive Questionnaire Date Thrive assessed: 05/29/24 I am a: Patient What is your living situation today?: I have a steady place to live Within the past 12 months, did the food you bought not last and you didn't have the money to get more?: Sometimes True Within the past 12 months, did you worry whether your food would run out before you got money to buy more?: Sometimes True Do you have trouble paying for medicines?: No Do you have trouble getting transportation to medical appointments?: No Do you have trouble paying your heating and electricity bill?: No Do you have trouble taking care of your child, family member or friend?: I choose not to answer this question Do you have trouble with day-to-day activities such as bathing, preparing meals, shopping, managing finances, etc.?: I choose not to answer this question Are you currently unemployed and looking for a job?: No Are you interested in more education?: No Please select the resources that you would like help with: None Currently or been in a relationship where the following occur: I choose not to answer THRIVE Score: 2 FARZANA-7 AMB Questionnaire FARZANA-7 Date FARZANA - 7 assessed: 10/14/21 Source: Developed by Drs. Robert Trejo, Consuelo Antoine, Gorge Drew and colleagues, with an educational mushtaq from [employer]. Physical exam (Primary Care) Tobacco/Smoking Status: Tobacco use Status Tobacco use date assessed 06/24/23 11/01/24 09:15 Patient Tobacco Use Status Current everyday Tobacco 11/01/24 09:15 Tobacco use type Cigarette 11/01/24 09:15 e-Cigarette/Vaping Use Never Used 11/01/24 09:15 Thrive Assessment: Date of Thrive Assessment Date Thrive assessed 05/29/24 11/01/24 09:15 Currently or been in a relationship where the following occur: [facility] C[facility]
--- NOTE | 2024-11-07 14:51 | AM.OFFVISMDC ---
Intake Vital Signs 11/07/24 15:00 Height 6 ft Weight 247 lb 4 oz BMI 33.5 BP 126/70 Blood Pressure Location Lt brachial Position Sitting Respiration 16 Pulse 89 Pulse Source Pulse Oximeter Temp 98.2 F Temp Source Oral Pulse Oximetry (%) 94 Oxygen Delivery Method Room Air Intake Visit Reasons: Physical / Dr. Martinez's pt. - see comments Intake Note: Medical Wellness Visit. Refill on Naproxen Commercial Fisher Required: No Allergies Penicillins Allergy (Severe, Verified 11/07/24 15:01) throat swelling raspberry Allergy (Intermediate, Verified 11/07/24 15:01) Rash Blue Dye Allergy (Severe, Uncoded 11/07/24 14:48) throat swelling Latex Allergy (Severe, Uncoded 11/07/24 14:48) Rash, Hives, whole hand Medication List - Last Reconciled 11/07/24 by Crys Wang, WELFARE OFFICER- aspirin (Adult Low Dose Aspirin) 81 mg PO DAILY atorvastatin 40 mg PO BEDTIME 90 days chloroquine phosphate 125 mg orally 5 days a week cholecalciferol (vitamin D3) 25 mcg PO DAILY diclofenac sodium 50 mg PO Q12H PRN docusate sodium (Colace) 200 mg PO DAILY hydrochlorothiazide 25 mg PO DAILY 90 days losartan 100 mg PO DAILY metoprolol succinate ER 25 mg PO BID 90 days naproxen 500 mg PO Q12H PRN 7 days HPI HPI Comments History of Present Illness Details Here today for AWV. The Medicare Annual Wellness Visit (AWV) is a yearly appointment with a health professional to identify health risks and help reduce them and to create or update a personalized prevention plan. During a Medicare AWV, health professionals should also review any current opioid prescriptions, detect any cognitive impairment, and establish or update medical and family history. 69 y/o M with HLD, HTN, Pacemaker, prediabetes, RA, current smoker, CAD SurgHx: Y FHx: Y SocHx: Y Health Maintenance: See scanned preventative medicine assessment with personalized health plan and screening schedule. Colon: 2008, reports cologaurd pending Vaccines: TDAP 2019; reports UTD on Shingles. AAA screen: NA done today EKG: done today, showing Atrial sensed V paced rhythym w/ prolonged AV conduction A1C 6.0% today [facility]: as documented in chart Visual Acuity: Wears glasses, last exam 1 week ago Hearing Screening: no concerns ACP: HCP completed today; MOLST AND 5 WISHES reviewed and provided today. Dietary/Nutrition/Exercise Edu provided: Y During the course of the visit the patient was educated and counseled about appropriate screening and preventative services. Patient instructions were provided to the patient in written or electronic format. I have reviewed and verified the above information. History of Present Illness - The patient is a 69-year-old male presenting for an annual Medicare wellness visit and reported issues with R arm and wrist pain. - One-month history of R arm and wrist pain, initially presenting in the wrist. - Pain radiates up the arm, worsens when lying down, intensity reaching level 10 at night. - Past episodes of pain in arms, knees, hips; predominantly begins in hands. - Managed pain with Naproxen 500 mg at night, awaiting a hand specialist visit on November 30. Social History - Lives alone; siblings noted as healthcare agents. 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 - Reports financial constraints affecting healthcare and daily living. - Smokes, though acknowledged enrollment in a lung cancer screening program. Health Maintenance - Eye and ear screenings up to date. - Engaged in lung cancer screening program. - Up-to-date herpes zoster vaccination reported. - Recent colon cancer screening via Cologuard; results pending. - Noted prediabetes on screening; no diabetes. - EKG shows stable pacemaker status. - Discussion on healthcare proxy and advanced care planning initiated. Review of Systems - Musculoskeletal: Reports pain in bilateral arms, wrists, knees, and hips. - Sleep: Reports sleep disruption due to pain. - Ophthalmological: Reports use of corrective lenses; denies recent changes. - Hearing: Denies problems in hearing. - Gastrointestinal: Denies abdominal pain and confirms regular bowel movements. Physical Exam General: Well developed, well nourished, in no acute distress. Head: Normocephalic, atraumatic. Eyes: Pupils are equal, round and reactive to light and accommodation. Conjunctivae are clear. Vision grossly normal. Ears: TMs clear AU, EACS WNL. Nose: Patent, without discharge. Neck: Supple, no adenopathy or thyromegaly. Breast: Edu on SBE Lungs: Clear to auscultation bilaterally. No rales, rhonchi or wheeze noted. Good air flow in all helm. Heart: Regular rate and rhythm. No murmurs, click, rubs or gallops are noted. Abdomen: Bowel sounds present in all quadrants. The abdomen is soft, nontender, with no masses or organomegaly noted. No hernias are noted. : Deferred. Reviewed RUBINA & recommendations Pulses: Peripheral pulses are equal and palpable bilaterally. Extremities: No clubbing, cyanosis nor edema is noted. Thick calluses noted on feet along w/ thickened toenails Neurologic: Gait and station normal. Cranial Nerves 2-12 intact. Motor strength grossly symmetrical and intact. No sensory loss. Balance normal. Uses cane. Skin: No rashes, ulcers, or lesions noted. Turgor is good. Skin color is good. Hair and nails are without abnormalities. Psych: Normal eye contact, affect and mood appropriate, and normal interactions. Patient is alert and appropriate to context. Results - Labs: Noted screen for prediabetes, result stable; no diabetes indication. - Tests: EKG confirms stable pacemaker function. - Diagnostics: Colon cancer screening via Cologuard, results pending. Discussion Notes I discussed with the patient the importance of managing musculoskeletal pain, especially as it adversely impacts sleep and daily functioning. We reviewed continuation of Naproxen until the upcoming specialist visit on November 30 for detailed examination. I have emphasized maintaining regular medication for hypertension and hyperlipidemia, and assured a refill for Naproxen. Discussed the use of advanced care planning and the necessity of completing healthcare proxies. Addressed the need for additional support due to functional limitations and connected him with our nurse navigator for at-home assistance. Additionally, proper disease screening and vaccination were confirmed to be up to date. Assessment and Plan 1. Musculoskeletal Pain - Continue Naproxen. Referral for unemployment specialist visit. 2. Essential Hypertension - Maintain current medication regimen. Regular blood pressure monitoring. 3. Hyperlipidemia - Continue atorvastatin. Emphasize medication adherence. 4. Vitamin D Deficiency - Continue management as currently prescribed. 5. Healthcare Proxy and Advanced Planning - Proposed amendments to proxy, advised completion of signatures. 6. refer to podiatry for foot care 7. refer to NN to help assess for help in the home and other @ home resources to keep him Ind and safe in his ADLs. 8. Labs ordered. Patient Instructions - Continue Naproxen 500 mg at bedtime. - Maintain blood pressure and cholesterol medications as prescribed. - Visit unemployment specialist on November 30. - Await referrals and contact healthcare proxy agents for form completion. - Contact healthcare navigator for home assistance. - Revisit clinic for regular health follow-ups. - RTO in 3 months w/ PCP for HTN HLD FU, sooner PRN Consent Patient was informed and verbally consented to the use of an ambient scribe for clinic note documentation during this visit. An additional 40 minutes was spent addressing the problem(s) noted at todays visit. This includes time spent before the visit reviewing the chart, time spent during the visit, and time spent after the visit on documentation reviewing laboratory results, diagnostic imaging, medications, performing a medically necessary evaluation, counseling on diagnoses, care coordination, ordering appropriate tests, ordering appropriate medications, review of tests performed by other providers, reporting test results with the patient, communication with other healthcare providers. PFSH Medical History Acute respiratory disease Ambulates with cane Claudication of calf muscles Coronary artery disease Elevated fasting blood sugar History of pacemaker HLD (hyperlipidemia) Hx MRSA infection Hx of renal calculi Hypertension Left carotid stenosis Murmur Osteoarthritis Smoker Surgical History (Updated 08/29/24 @ 12:52 by Kristi Linton MD) H/O cardiac catheterization History of cystoscopy History of dental surgery History of left-sided carotid endarterectomy (07/04/23) History of permanent cardiac pacemaker placement Hx of colonoscopy Hx of tonsillectomy Hx of tracheostomy (07/05/23) Status post carotid endarterectomy Status post tracheostomy Family History Other Mental health disorder Substance use disorder Social History Household Members: None Caregiver staying overnight: No Housing: House Are you a primary care director to a significant other at home: No Do you presently have visiting nurse or other home services: No 75 years or older and lives alone: No Alcohol intake: never Comment: COUNTS CORRECT Patient Tobacco Use Status: Current everyday Tobacco user Tobacco use type: Cigarette Cigarette Packs Per Day: 1 Cigarettes Per Day: 20.0 Years Smoked: 61 e-Cigarette/Vaping Use: Never Used Second Hand Smoke Exposure: No service: No Current occupational status: retired Current occupational exposures/hazards: No Cognitive needs: No (Cane) Hearing needs: No Vision needs: Yes (Glasses) Questionnaire Medicare Wellness Checkup What [age] your [age]?: [age] What gender do you identify with?: male During the past 4 weeks, how much have you been bothered by emotional problems such as feeling anxious, depressed, irritable, sad or downhearted, and blue?: quite a bit During the past 4 weeks, has your physical & emotional health limited your social activities with family, friends, neighbors, or groups?: not at all During the past 4 weeks, how much bodily pain have you generally had?: severe pain During the past 4 weeks, was someone available to help you if you needed & wanted help?: no, not at all (would call 911) During the past 4 weeks, what was the hardest physical activity you could do for at least 2 minutes?: moderate Can you get to places out of walking distance without help? (For eg., can you travel alone on buses, taxis or drive your car?): Yes Can you go shopping for groceries or clothes without someone's help?: Yes Can you prepare your own meals?: No Can you do your housework without help?: Yes Because of any health problems, do you need the help of another person with your personal care needs such as eating, bathing, dressing or getting around the house?: No Can you handle your own money without help?: Yes During the past 4 weeks, how would you rate your health in general?: good During the past 4 weeks how have things been going for you?: good & bad parts about equal Are you having difficulties driving your car?: no Do you always fasten your seat belt when you are in a car?: yes, usually During past 4 weeks, have you been bothered by the following: never: Sexual problems?, Trouble eating well? and Problems using the telephone? and sometimes: Falling or dizzy when standing up, Teeth or denture problems? (couple cavities) and Tiredness or fatigue? Have you fallen 2 or more times in the past year?: No Are you afraid of falling?: Yes Are you a smoker?: yes, but I'm not ready to quit (both, might quit but not ready) During the past 4 weeks, how many drinks of wine, beer, or other alcoholic beverages did you have?: no alcohol at all Do you exercise for about 20 minutes 3 or more times a week?: no, I usually do not exercise this much (walks for 5 minutes a day) Have you been given information to help with the following?: yes: Keeping track of your medications? and no: Hazards in your house that might hurt you? How often do you have trouble taking medicines the way you have been told to take them?: I always take medicine as prescribed How confident are you that you can control & manage most of your health problems?: very confident What is your race?: White Activity of Daily Living Bathing - sponge bath, tub bath or shower: receives no assistance (gets in/out by self, if usual bathing means Dressing - getting clothes from closets & drawers, including inner/outer garments & fasteners.: gets clothes & gets completely dressed without help Toileting - going to the 'toilet room' for urine/bowel elimination & cleaning self/arranging clothes: goes to toilet room, cleans self, arranges clothes without help Transfer: moves in & out of bed and chair without help (may use support object) Continence: controls urination/bowel movements completely by self Feeding: feeds self without help Total Score: 0 Information obtained from: patient Using telephone: independent Traveling: independent Shopping: independent Preparing meals: independent Housework: independent Taking medicine: independent Managing money: independent PHQ-9 Over the last 2 weeks, how often have you been bothered by any of the following problems? 1. Little interest or pleasure in doing things: not at all 2. Feeling down, depressed, or hopeless: not at all 3. Trouble falling or staying asleep, or sleeping too much: not at all 4. Feeling tired or having little energy: not at all 5. Poor appetite or overeating: not at all 6. Feeling bad about yourself - or that you are a failure or have let yourself or your family down: not at all 7. Trouble concentrating on things, such as reading the newspaper or watching television: not at all 8. Moving or speaking so slowly that other people could have noticed. Or the opposite - being so fidgety or restless that you have been moving around a lot more than usual: not at all 9. Thoughts that you would be better off or of hurting yourself in some way: not at all Total score: 0 Depression Screening Interpretation: Negative Depression Screening Done: Yes 84847 - PHQ-9 Billing: Yes Source: Developed by Drs. Robert Trejo, Consuelo Antoine, Gorge Drew and colleagues, with an educational mushtaq from [employer]. Physical Exam Vital Signs: Last Vital Signs Temp 98.2 F 11/07/24 15:00 Pulse 89 11/07/24 15:00 Resp 16 11/07/24 15:00 BP 126/70 11/07/24 15:00 Pulse Ox 94 11/07/24 15:00 Oxygen Delivery Method Room Air 11/07/24 15:00 BMI result Body Mass Index 33.5 Office Procedures EKG [id number], Complete Vision Screening Right Eye: 20/25 Left Eye: 20/20 Bilateral: 20/20 Corrected: Pass Overall Vision Screening Results: Pass [id number] - Vision Screening Results AMB Hemoglobin A1c AMB Hemoglobin A1c 6.0 % Last Edit by Sugar Teran CMA on 11/07/24 15:23 Results Reviewed Results Reviewed: Laboratory Last Values Hgb A1c (Clinic) 6.0 % (4.0-6.0) 11/07/24 15:21 Assessment & Plan Assessment & Plan (1) Encounter for subsequent annual wellness visit (AWV) in Medicare patient: Onset Date: ~11/07/24 Code(s): Z00.00 - Encounter for general adult medical examination without abnormal findings (2) ACP (advance care planning): Code(s): Z71.89 - Other specified counseling (3) Coronary artery disease: Comment: Nonobstructive by cardiac catheterization Code(s): I25.10 - Atherosclerotic heart disease of [place] coronary artery without angina pectoris Qualifiers: Coronary Disease-Associated Artery/Lesion type: [place] artery [place] vs. transplanted heart: [place] heart Associated angina: without angina Qualified Code(s): I25.10 - Atherosclerotic heart disease of [place] coronary artery without angina pectoris (4) Pacemaker: Code(s): Z95.0 - Presence of cardiac pacemaker (5) Hyperlipidemia: Code(s): E78.5 - Hyperlipidemia, unspecified Qualifiers: Hyperlipidemia type: mixed hyperlipidemia Qualified Code(s): E78.2 - Mixed hyperlipidemia (6) Pre-diabetes: Code(s): R73.03 - Prediabetes (7) Seropositive rheumatoid arthritis: Comment: Onset ?016 RF and CCP positive 03/19: Hydroxychloroquine not tolerated - constipation 04/18: chloroquine started Eye exam OK 11/17, 07/2020 Code(s): M05.9 - Rheumatoid arthritis with rheumatoid factor, unspecified (8) Smoker: Code(s): F17.200 - Nicotine dependence, unspecified, uncomplicated (9) Essential hypertension: Code(s): I10 - Essential (primary) hypertension (10) Screening for prostate cancer: Code(s): Z12.5 - Encounter for screening for malignant neoplasm of prostate (11) Onychomycosis: Code(s): B35.1 - Tinea unguium (12) Foot callus: Code(s): L84 - Corns and callosities (13) Encounter for screening involving social determinants of health (SDoH): Code(s): Z13.9 - Encounter for screening, unspecified Plan . Orders: Orders AMB Vision Screening Today Z00.00 - Encounter for general adult medical examination without abnormal findings Lipid Panel Today E78.5 - Hyperlipidemia, unspecified AMB Hemoglobin A1c Today R73.03 - Prediabetes Prostate Specific Antigen Scr Today Z00.00 - Encounter for general adult medical examination without abnormal findings, Z12.5 - Encounter for screening for malignant neoplasm of prostate Microalbumin, Random (w Creat) Today E78.5 - Hyperlipidemia, unspecified Referrals Podiatry Referral B35.1 - Tinea unguium, L84 - Corns and callosities Nurse Navigator Referral Z13.9 - Encounter for screening, unspecified Medications: Changed From naproxen 500 mg PO Q12H 7 days PRN 20 tabs 0RF pain To naproxen 500 mg PO Q12H PRN 30 tabs 0RF pain Patient Instructions: Health screenings for men You should visit your health care provider regularly, even if you feel healthy. The purpose of these visits is to: Screen for medical issues Assess your risk for future medical problems Encourage a healthy lifestyle Update vaccinations and other preventive care services Help you get to know your provider in case of an illness Information Even if you feel fine, you should still see your provider for regular checkups. These visits can help you avoid problems in the future. For example, the only way to find out if you have high blood pressure is to have it checked regularly. High blood sugar and high cholesterol level also may not have any symptoms in the early stages. Simple blood tests can check for these conditions. There are specific times when you should see your provider or receive specific health screenings. The [place] Preventive Services Task Force publishes a list of recommended screenings. Below are screening guidelines for men ages 40 to 64. BLOOD PRESSURE SCREENING Have your blood pressure checked at least once every year. Watch for blood pressure screenings in your area. Ask your provider if you can stop in to have your blood pressure checked. Ask your provider if you need your blood pressure checked more often if: You have diabetes, heart disease, kidney problems, or are overweight or have certain other health conditions You have a first-degree relative with high blood pressure You are Black Your blood pressure top number is from 120 to 129 mm Hg, or the bottom number is from 70 to 79 mm Hg If the top number is 130 mm Hg or greater or the bottom number is 80 mm Hg or greater, this is considered stage 1 hypertension. Schedule an appointment with your provider to learn how you can lower your blood pressure. Effects of age on blood pressure CHOLESTEROL SCREENING Cholesterol screening should begin at age 35 for men with no known risk factors for coronary heart disease. Repeat cholesterol screening should take place: Every 5 years for men with normal cholesterol levels More often if changes occur in lifestyle (including weight gain and diet) More often if you have diabetes, heart disease, kidney problems, or certain other conditions COLORECTAL CANCER SCREENING If you are under age 45, talk to your provider about getting screened. You may need to be screened if you have a strong family history of colon cancer or polyps. Screening may also be considered if you have risk factors such as a history of inflammatory bowel disease or polyps. If you are age 45 to 75, you should be screened for colorectal cancer. There are several screening tests available: A stool-based fecal occult blood (gFOBT) or fecal immunochemical test (FIT) every year A stool sDNA test every 1 to 3 years Flexible sigmoidoscopy every 5 years or every 10 years with stool testing FIT done every year CT colonography (virtual colonoscopy) every 5 years Colonoscopy every 10 years You may need a colonoscopy more often if you have risk factors for colorectal cancer, such as: Ulcerative colitis A personal or family history of colorectal cancer A history of growths in your colon called adenomatous polyps DENTAL EXAM Go to the dentist once or twice every year for an exam and cleaning. Your dentist will evaluate if you have a need for more frequent visits. DIABETES SCREENING All adults who do not have risk factors for diabetes should be screened starting at age 35 and repeated every 3 years. If you have other risk factors for diabetes, such as a first degree relative with diabetes, overweight or obesity, high blood pressure, prediabetes, or a history of heart disease, you may be tested more often. If you are overweight and have other risk factors, such as high blood pressure and are planning to become , screening is recommended. EYE EXAM Have an eye exam every 2 to 4 years ages 40 to 54 and every 1 to 3 years ages 55 to 64. Your provider may recommend more frequent eye exams if you have vision problems or glaucoma risk. Have an eye exam that includes an examination of your retina (back of your eye) at least every year if you have diabetes. IMMUNIZATIONS Commonly needed vaccines include: Flu shot: get one every year COVID-19 vaccine: ask your provider what is best for you Tetanus-diphtheria and acellular pertussis (Tdap) vaccine: have as one of your tetanus-diphtheria vaccines if you did not receive it as an adolescent Tetanus-diphtheria: have a booster (or Tdap) every 10 years Varicella vaccine: receive 2 doses if you never had chickenpox or the varicella vaccine and were born in 1979 or after Hepatitis B vaccine: receive 2, 3, or 4 doses, depending on your exact circumstances, if you did not receive these as a child or adolescent, until age 59 Shingles (herpes zoster) vaccine: at or after age 50 Ask your provider if you should receive other immunizations, especially if you have certain medical conditions, such as diabetes or are at increased risk for some diseases such as pneumonia. INFECTIOUS DISEASE SCREENING Screening for hepatitis C: all adults ages 18 to 79 should get a one-time test for hepatitis C. Screening for human immunodeficiency virus (HIV): all people ages 15 to 65 should get a one-time test for HIV. Depending on your lifestyle and medical history, you may need to be screened for infections such as syphilis, chlamydia, and other infections. LUNG CANCER SCREENING You should have an annual screening for lung cancer with low-dose computed tomography (LDCT) if: You are age 50 to 80 years AND You have a 20 pack-year smoking history AND You currently smoke or have quit within the past 15 years OSTEOPOROSIS SCREENING If you are age 50 to 64 and have risk factors for osteoporosis, you should discuss screening with your provider. Risk factors can include long-term steroid use, low body weight, smoking, heavy alcohol use, having a fracture after age 50, or a family history of hip fracture or osteoporosis. Osteoporosis PHYSICAL EXAM All adults should visit their provider from time to time, even if they are healthy. The purpose of these visits is to: Screen for diseases Assess risk of future medical problems Encourage a healthy lifestyle Update vaccinations and other preventive care services Maintain a relationship with a provider in case of an illness Your height, weight, and body mass index (BMI) should be checked at every exam. During your exam, your provider may ask you about: Depression and anxiety Diet and exercise Alcohol and tobacco use Safety, such as use of seat belts and smoke detectors Your medicines and risk for interactions PROSTATE CANCER SCREENING If you're 55 through 69 years old, before having the test, talk to your provider about the pros and cons of having a PSA test. Ask about: Whether screening decreases your chance of dying from prostate cancer. Whether there is any harm from prostate cancer screening, such as side effects from testing or overtreatment of cancer when discovered. Whether you have a higher risk of prostate cancer than others. If you are age 55 or younger, screening is not generally recommended. You should talk with your provider about if you have a higher risk for prostate cancer. Risk factors include: Having a family history of prostate cancer (especially a brother or father) Being If you choose to be tested, the PSA blood test is repeated over time (yearly or less often), though the best frequency is not known. Prostate examinations are no longer routinely done on men with no symptoms. Prostate cancer SKIN EXAM Your provider may check your skin for signs of skin cancer, especially if you're at high risk. People at high risk include those who have had skin cancer before, have close relatives with skin cancer, or have a weakened immune system. TESTICULAR EXAM The US Preventive Services Task Force (USPSTF) now recommends against performing testicular self-exams. Doing testicular self-exams has been shown to have little to no benefit. Quality Reporting (2019) Adult ([facility] 13806/23/68) Smoking risk assessment performed?: Yes Patient Tobacco Use Status: Current everyday Tobacco user Tobacco cessation counseling provided: Yes Items discussed: Nicotine replacement, QuitWorks and Other Depression screening performed: Yes Screen Results: Yes Negative screen Systolic BP not done?: No Diastolic BP not done?: No BMI screening not done: No Sexual Activity Screening ([facility] 153) Sexually active?: No Immunizations (CMS 147, 117) Annual Influenza Vaccine: No (not flu season ) Measles Antibody Test: No Mumps Antibody Test: No Rubella Antibody Test: No Varicella Antibody Test: No Anti Hepatitis A IgG Antigen test: No Anti Hepatitis B Virus Surface Ab test: No Fall Risk Screening ([facility] 139) Last assessed Fall Risk: 11/07/24 Fall risk assessment: No Falls in past year Dementia Assessment ([facility] 149) Cognitive assessment recorded: Yes Assessment of cognition with standardized tool: Yes Depression/Bipolar (159/160/161/177) PHQ-9: Total score: 0 Ophthalmol:Cataracts Visual Acuity (133) Visual acuity exam performed: Yes (see results) Coding Level of Care Code Medicare Subsequent (G0439) Est Pt Level 5 (45738) Diagnoses Encounter for subsequent annual wellness visit (AWV) in Medicare patient Z00.00 ACP (advance care planning) Z71.89 Coronary artery disease involving [place] coronary artery of [place] heart without angina pectoris I25.10 Coronary Disease-Associated Artery/Lesion type: [place] artery [place] vs. 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 Smoker F17.200 Essential hypertension I10 Screening for prostate cancer Z12.5 Onychomycosis B35.1 Foot callus L84 Encounter for screening involving social determinants of health (SDoH) Z13.9 CPT Codes Advance Care Planning - Time spent: 1-15 minutes, not on file ([id number]) EKG - CPT: 29912-Anhqahnardooqsfti, Complete ([id number]) Vision Screening - Vision Screenin - Vision Screening ([id number]) Additional Codes PHQ-9 - 76275 - PHQ-9 Billing: Yes ([id number]) Advance Care Planning Advance Care Planning discussion: Exists, not on file Date of discussion: 11/07/24 Who was present: self Forms completed: Health Care Proxy, MOLST and Living will Time spent: 1-15 minutes, not on file Actual minutes spent: 5
[2024-11-07 15:00] VITALS: BP 126/70; PULSE 89; RESP 16; TEMP 36.8; O2SAT 94; BMI 33.5
--- OUTSIDE RECORDS SUMMARY | 2024-11-07 15:10 | XMS_ITS | Clinical Summary ---
[facility] [address] [place] [address] Care Team Providers Care Sales Team Recruiter Name Role Phone Zion Martinez MD Primary [...] age to complete this topic Care Teams Sales Team Recruiter Relationship Specialty Start Date End Date Zion Martinez MD [address] [place] [address] PCP - General Family Medicine 12/06/19
--- OUTSIDE RECORDS SUMMARY | 2024-11-07 15:10 | XMS_ITS | Clinical Summary ---
Author Organization [facility] Address [address] [place] [address] Phone Care Team Providers Care Locomotive Engineer Diesel Name Role Phone Zion Martinez MD Primary Care Provider Surgical History Surgery Date Site/Laterality Comments PACEMAKER IMPLANT PROCEDURE: HISTORICAL PACEMAKER Medical History Medical History Date Comments LBBB (left bundle branch block) DX:LBBB (left bundle branch block) Essential hypertension DX:Essent ial hypertension Nephrolithiasis DX:Nephrolithias is; COMMENT: right kidney Chronic obstructive pulmonar y disease ([facility] V24, [facility] V28) 12/27/2017 DX:Chronic obstructive pulm onary disease ([facility]) Degenerative joint disease i nvolving multiple [...] 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
--- OUTSIDE RECORDS SUMMARY | 2024-11-07 15:10 | XMS_ITS | Clinical Summary ---
Author Organization [facility] Address [address] [place] [address] Care Team Providers Care Centrifugal Machine Tender Name Role Phone Unavailable Primary Care Provider [...] age to complete this topic Insurance Medicare [facility] Medicare
--- OUTSIDE RECORDS SUMMARY | 2024-11-07 15:10 | XMS_ITS | Patient Health Record ---
Author Organization [facility] Address [address] [facility] [place] [address] Care Team Providers Care Vehicle Safety Inspector Name Role Phone Paola DE LA PAZ, Yang Primary Care Provider Duane Medellin Unavailable [phone] Allergies Allergen (clinical drug ingredient) Drug/Non Drug Allergy documented on EMR Reaction Allergy Type Onset Date Status Blue dye/ food coloring (uncoded) anaphylaxis Allergy Active Penicillin anaphylaxis Drug Allergy Acti ve Latex hives Drug Allergy Active Reason For Referral No Information Medications Medication SIG (Take, Route, Frequency, Duration) Notes Start Date End Date Status Urea 40 % 1 application to affected area on feet Externally Twice a day; Duration: 30 days 08/19/2016 Active Aspirin 81 MG 1 tablet Orally Once a day Active Simvastatin Active Stool Softener 100 MG 1 capsule as neede d Orally Once a day Active Zantac 150 MG 1 tablet at bedtime Orally Once a day Active Chantix Not-Taking Excedrin Migraine 250-250-65 MG 2 tablets as needed Orally every 6 hrs PRN Active hydroCHLOROthiazide Active Losartan Potassium-HCTZ Active Social History Tobacco Use: Social History Observation Description Date Details (start date - stop date) Current Smoker NA - NA Tobacco Use/Smoking Question Answer Notes Are you a: current smoker When did you start smoking? 1965 How often do you smoke cigarettes? every day How many cigarettes a day do you smoke? 11-20 How soon after you wake up do you smoke your fir st cigarette? 31-60 minutes Are you interested in quitting? Not ready to lexi t Tobacco use other than smoking: Question Answer Notes Are you an other tobacco user? No Section Notes: Pt denies social HX Pt denies social HX Pt denies social HX Pt denies social HX Pt denies social HX Pt denies social HX Pt denies social HX Pt denies social HX Pt denies social HX Pt denies social HX Problems Problem Type SNOMED Code ICD Code Onset Dates Problem Status W/U Status Risk Notes Problem Tinea unguium (950818391) Tinea unguium (B35.1) Active confirmed Plan Of Treatment Pending Test Test Name Order Date [id number] NAIL, 6 OR MORE 02/19/2016 [id number] NAIL, 6 OR MORE 05/20/2016 [id number] NAIL, 6 OR MORE 08/19/2016 [id number] NAIL, 6 OR MORE 11/18/2016 [id number] NAIL, 6 OR MORE 03/02/2017 [id number] NAIL, 6 OR MORE 06/01/2017 [id number] NAIL, 6 OR MORE 08/10/2017 [id number] NAIL, 6 OR MORE 04/03/2018 [id number] NAIL, 6 OR MORE 11/06/2015 [id number] Plate 11/06/2015 Insurance Providers Payer Name Payer Address Payer Phone Subscriber Number Group Number Insured Name Patient Relationship to Insured Coverage Start Date Coverage End Date AARP Medicare Complete [address] [address] [place] [address] [id number] [employer] Stack Self - patient is the insured Medical (General) History Medical History History ICD Code Arthritis - RA Back,Hip,and Knee pain High blood pressure Measles Mumps Chicken pox Cholesterol Surgical History Surgery Date(Month/Year) cardiac pacemaker 2015
== END 2024-11-07 15:59 | disposition home or self-care (01) ==
LOC: HO.HMCFM 14:40
PROVIDERS: PCP Family Medicine; Visit Provider Nurse Practitioner Family
DX: Z00.00 Encounter for general adult medical examination without abnormal findings (principal); M05.9 Rheumatoid arthritis with rheumatoid factor, unspecified; I25.10 Atherosclerotic heart disease of native coronary artery without angina pectoris; E78.2 Mixed hyperlipidemia; Z71.89 Other specified counseling; Z95.0 Presence of cardiac pacemaker; R73.03 Prediabetes; F17.200 Nicotine dependence, unspecified, uncomplicated; I10 Essential (primary) hypertension; Z12.5 Encounter for screening for malignant neoplasm of prostate; B35.1 Tinea unguium; L84 Corns and callosities

== ENCOUNTER → 2024-11-07 14:39 | Outpatient (BNVA) | payer MEDICARE, SELFPAY | PROVIDERS: PCP Family Medicine; Visit Provider Nurse Practitioner Family | DX: Z00.00 Encounter for general adult medical examination without abnormal findings (principal); Z71.89 Other specified counseling; I25.10 Atherosclerotic heart disease of native coronary artery without angina pectoris; Z95.0 Presence of cardiac pacemaker; E78.2 Mixed hyperlipidemia; R73.03 Prediabetes; M05.9 Rheumatoid arthritis with rheumatoid factor, unspecified; I10 Essential (primary) hypertension; L84 Corns and callosities; B35.1 Tinea unguium; F17.200 Nicotine dependence, unspecified, uncomplicated; Z71.6 Tobacco abuse counseling | CPT/HCPCS: 83036; 93005; 96127; 99212 ==

== ENCOUNTER 2024-11-08 08:02 | Outpatient (REF) | payer MEDICARE, SELFPAY ==
--- OUTSIDE RECORDS SUMMARY | 2024-11-08 08:07 | XMS_ITS | Patient Health Record ---
Author Organization [facility] Address [address] [place] [address] Care Team Providers Care Asbestos Shingle Roofer Name Role Phone Paola DE LA PAZ, Yang Primary Care Provider Duane Medellin Unavailable [phone] Allergies Allergen (clinical drug ingredient) Drug/Non Drug [...] W/U Status Risk Notes Problem Tinea unguium (B35.1) Active confirmed Plan Of Treatment Pending Test Test Name Order Date [id number] NAIL, 6 OR MORE 02/19/2016 [id number] NAIL, 6 OR MORE 05/20/2016 [id number] NAIL, 6 OR MORE 08/19/2016 [id number] NAIL, 6 OR MORE 11/18/2016 [id number] NAIL, 6 OR MORE 03/02/2017 [id number] NAIL, 6 OR MORE 06/01/2017 [id number] NAIL, 6 OR MORE 08/10/2017 [id number] NAIL, 6 OR MORE 04/03/2018 [id number] NAIL, 6 OR MORE 11/06/2015 [id number] Plate 11/06/2015 Insurance Providers Payer Name Payer Address Payer Phone Subscriber Number Group Number Insured Name Patient Relationship to Insured Coverage Start Date Coverage End Date AARP Medicare Complete [address] [address] [place], [place] [id number] [employer] Self - patient is the insured Medical (General) History Medical History History ICD Code Arthritis - RA Back,Hip,and Knee pain High blood pressure Measles Mumps Chicken pox Cholesterol Surgical History Surgery Date(Month/Year) cardiac pacemaker 2015
--- OUTSIDE RECORDS SUMMARY | 2024-11-08 08:07 | XMS_ITS | Clinical Summary ---
Author [facility] Address [address] [place] [address] Care Team Providers Care Stockroom Clerk Name Role Phone Zion Martinez MD Primary [...] age to complete this topic Care Teams Stockroom Clerk Relationship Specialty Start Date End Date Zion Martinez MD [address] [place] [address] PCP - General Family Medicine 12/06/19
--- OUTSIDE RECORDS SUMMARY | 2024-11-08 08:07 | XMS_ITS | Clinical Summary ---
Author Organization [facility] Address [address] [place] [address] Phone Care Team Providers Care Change Management Analyst Name Role Phone Zion Martinez MD Primary Care Provider Surgical History Surgery Date Site/Laterality Comments PACEMAKER IMPLANT PROCEDURE: HISTORICAL PACEMAKER Medical History Medical History Date Comments LBBB (left bundle branch block) DX:LBBB (left bundle branch block) Essential hypertension DX:Essent ial hypertension Nephrolithiasis DX:Nephrolithias is; COMMENT: right kidney Chronic obstructive pulmonar y disease ([facility] V24, [facility] V28) 12/27/2017 DX:Chronic obstructive pulm onary disease ([facility]) Degenerative joint disease i nvolving multiple [...] 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 ([facility] V24, [facility] V28) 03/21/2018 DX:Seropositive rheumatoid a rthritis [...] age to complete this topic Care Teams Change Management Analyst Relationship Specialty Start Date End Date Zion Martinez MD [address] [place] [address] Dr Melanie [place] PCP - General Family Medicine 12/06/19
--- OUTSIDE RECORDS SUMMARY | 2024-11-08 08:07 | XMS_ITS | Clinical Summary ---
Author Organization [facility] Address [address] [place] [address] Care Team Providers Care Block Cableman Name Role Phone Unavailable Primary Care Provider [...] age to complete this topic Insurance Medicare [facility] Medicare
[2024-11-08 11:36] LABS: Cholesterol 102 mg/dL (<200); HDL Cholesterol 39 mg/dL (>40); Triglycerides 129 mg/dL (<150)
[2024-11-08 11:39] LABS: Microalbum/Creatinine Ratio Ur 3.9 ug/mg cr (<30)
== END 2024-11-08 08:03 | disposition home or self-care (01) ==
LOC: HO.HMGCLDS 08:02
PROVIDERS: PCP Nurse Practitioner Family; Visit Provider Nurse Practitioner Family
DX: Z12.5 Encounter for screening for malignant neoplasm of prostate (principal); Z00.00 Encounter for general adult medical examination without abnormal findings; E78.5 Hyperlipidemia, unspecified
CPT/HCPCS: 36415; 80061; 82043; 82570; 84153

== ENCOUNTER 2024-11-23 08:31 | Outpatient (REF) | payer MEDICARE, SELFPAY ==
--- NOTE | ~2024-11-23 | XR_ITS ---
EXAMINATION: XR WRIST, RIGHT CLINICAL INFORMATION: M79.641 - Pain in right hand COMPARISON: None available. TECHNIQUE: PA, lateral, and oblique views of the right wrist. Scaphoid projection. FINDINGS: The carpal bones are intact. The alignment is normal. Distal radius and ulna are intact. 1 mm well-corticated calcification at the ulnar carpal joint. No subcutaneous emphysema. Scaphoid bone is intact. No lytic or blastic lesions.. XR/XR wrist RT w scaphoid IMPRESSION: No acute cortical disruption or malalignment. Nonspecific 1 mm calcification, ulnar carpal joint. Electronically signed by: Christofer Keith MD 11/23/2024 09:45 AM EDT
--- OUTSIDE RECORDS SUMMARY | 2024-11-23 08:43 | XMS_ITS | Clinical Summary ---
Author Organization [facility] Address [address] [place] [address] Care Team Providers Care Corrosion Prevention Metal Sprayer Name Role Phone Unavailable Primary Care Provider [...] age to complete this topic Insurance Medicare [facility] Medicare
--- OUTSIDE RECORDS SUMMARY | 2024-11-23 08:43 | XMS_ITS | Clinical Summary ---
[facility] Address [address] [place] [address] Care Team Providers Care Oral Health Therapist Name Role Phone Zion Martinez MD Primary [...] age to complete this topic Care Teams Oral Health Therapist Relationship Specialty Start Date End Date Zion Martinez MD [address] [place] [address] PCP - General Family Medicine 12/06/19
--- OUTSIDE RECORDS SUMMARY | 2024-11-23 08:43 | XMS_ITS | Patient Health Record ---
Author Organization [facility] Address [address] [facility] [place] [address] Care Team Providers Care Brim Stiffener Name Role Phone Paola DE LA PAZ, Yang Primary Care Provider Duane Medellin Unavailable [phone] Allergies Allergen (clinical drug ingredient) Drug/Non Drug [...] Notes Problem Tinea unguium (B35.1) Active confirmed Encounters Encounter Location Date [facility] [address] [place] [address] 11/19/2024 Duane Quan Plan Of Treatment Pending Test Test Name Order Date [id number] NAIL, 6 OR MORE 02/19/2016 [id number] NAIL, 6 OR MORE 05/20/2016 [id number] NAIL, 6 OR MORE 08/19/2016 [id number] NAIL, 6 OR MORE 11/18/2016 [id number] NAIL, 6 OR MORE 03/02/2017 [id number] NAIL, 6 OR MORE 06/01/2017 [id number] NAIL, 6 OR MORE 08/10/2017 [id number] NAIL, 6 OR MORE 04/03/2018 [id number] NAIL, 6 OR MORE 11/06/2015 [id number] Plate 11/06/2015 Next Appt Details Provider Name:Duane Michael Quan , 02/18/2025 10:00:00 AM, [address] [address], [place], [address], Insurance Providers Payer Name Payer Address Payer Phone Subscriber Number Group Number Insured Name Patient Relationship to Insured Coverage Start Date Coverage End Date [employer] Medicare [id number] [address] [address] [place] [phone] [employer] Stack Self - patient is the insured Medical (General) History Medical History History ICD Code Arthritis - RA Back,Hip,and Knee pain High blood pressure Measles Mumps Chicken pox Cholesterol Surgical History Surgery Date(Month/Year) cardiac pacemaker 2015
--- OUTSIDE RECORDS SUMMARY | 2024-11-23 08:43 | XMS_ITS | Encounter Summary ---
Author Organization [facility] Address [address] [place] [address] Phone Care Team Providers Care Tire Repairman Name Role Phone Zion Martinez MD Primary Care Provider Encounter Details Date Type Department Care Team (Late st Contact Info) Description 06/27/2023 Procedure Pass [facility] [address] [place] [address] Social History Tobacco Use Types Packs/Day Years Used Date Smoking Tobacco: Never Assessed Education Answer Date Recorded Are you interested in more education? Not on sonal e 05/27/2023 Are you concerned about learning? Not on file 05/27/2023 No 05/27/2023 No 05/27/2023 Digital Access Answer Date Recorded No 05/27/2023 No 05/27/2023 Reliable internet access at home? Not on file 05/27/2023 Device with a working camera? Not on file Sex and Gender Information Value Date Recorded Sex Assigned at Not on file Legal Sex Male 11:48 AM EST Gender Identity Not on file Sexual Orientation Not on file documented as of this encounter Plan of Treatment Not on file documented as of this encounter Visit Diagnoses Not on filedocumented in this encounter Care Teams Tire Repairman Relationship Specialty Start Date End Date Zion Martinez MD [address] [place] [address] PCP - General 06/09/23 documented as of this encounter Additional Source Comments The information contained in this document represents components of the legal health record. It is not the complete legal health record.[facility]
--- OUTSIDE RECORDS SUMMARY | 2024-11-23 08:44 | XMS_ITS | Clinical Summary ---
Author Organization [facility] Address [address] [place] [address] Phone Care Team Providers Care Admin Dir Name Role Phone Zion Martinez MD Primary Care Provider [phone] Surgical History Surgery Date Site/Laterality Comments PACEMAKER IMPLANT PROCEDURE: HISTORICAL PACEMAKER Medical History Medical History Date Comments LBBB (left bundle branch block) DX:LBBB (left bundle branch block) Essential hypertension DX:Essent ial hypertension Nephrolithiasis DX:Nephrolithias is; COMMENT: right kidney Chronic obstructive pulmonar y disease ([facility] V24, [facility] V28) 12/27/2017 DX:Chronic obstructive pulm onary disease ([facility]) Degenerative joint disease i nvolving multiple joints [...] 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 ([facility] V24, [facility] V28) 03/21/2018 DX:Seropositive rheumatoid a [...] Panel) 04/04/2022 Colorectal Cancer Screening: Colonoscopy 04/04/2022 Falls Risk Assessment 04/04/2022 Hepatitis C Screening 04/04/2022 Social Influencers of Health Screening 04/04/2022 Hypertension/CHF/CAD Annual BMP Blood Test 04/13/2022 Depression Screening 05/02/2024 Influenza Vaccine (#1) 2024 9, 02/02/2018, 12/07/2016, [...] age to complete this topic Care Teams Admin Dir Relationship Specialty Start Date End Date Zion Martinez MD [address] [place] [address] Dr Melanie [place] PCP - General Family Medicine 12/06/19
== END 2024-11-23 08:32 | disposition home or self-care (01) ==
LOC: HO.HOSX 08:31
DX: M65.4 Radial styloid tenosynovitis [de Quervain] (principal); M25.531 Pain in right wrist; M79.641 Pain in right hand; R20.0 Anesthesia of skin; R20.2 Paresthesia of skin
CPT/HCPCS: 20550; 73110; 99202; J1100; J2003

== ENCOUNTER 2024-11-23 09:20 | Outpatient (AMB) | payer MEDICARE, SELFPAY ==
[2024-11-23 09:35] VITALS: BMI 33.5
--- NOTE | 2024-11-23 09:35 | MHC.OFFVIS ---
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 States pain is mainly around his wrist, however states he is also having pain, numbness and tingling in his elbow and radiating pain to his shoulder. Patient reports he has swelling in his joints and is very tender to touch. He has on and off numbness in his finger tips and occurs mainly at night time. Hx of RA. No EMG done. 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 States pain is mainly around his wrist, however states he is also having pain, numbness and tingling in his hand radiating to his elbow and radiating pain to his shoulder. Patient reports he has swelling in his joints and is very tender to touch. He has on and off numbness in his finger tips and occurs mainly at night time. Hx of RA. No EMG done. [facility] Medical History (Updated 11/23/24 @ 11:41 by HENNA Hatfield) Left carotid stenosis Acute respiratory disease Smoker Claudication of calf muscles Ambulates with cane Osteoarthritis Hx MRSA infection HLD (hyperlipidemia) Murmur Coronary artery disease Hx of renal calculi History of pacemaker Hypertension Elevated fasting blood sugar Surgical History Status post tracheostomy Status post carotid endarterectomy Hx of tracheostomy (07/05/23) History of left-sided carotid endarterectomy (07/04/23) Hx of tonsillectomy Hx of colonoscopy H/O cardiac catheterization History of dental surgery History of cystoscopy History of permanent cardiac pacemaker placement Family History Other Mental health disorder Substance use disorder Social History Household Members: None Caregiver staying overnight: No Housing: House Are you a primary career center advisor to a significant other at home: No Do you presently have visiting nurse or other home services: No 75 years or older and lives alone: No Alcohol intake: never Comment: COUNTS CORRECT Patient Tobacco Use Status: Current everyday Tobacco user Tobacco use type: Cigarette Cigarette Packs Per Day: 1 Cigarettes Per Day: 20.0 Years Smoked: 61 e-Cigarette/Vaping Use: Never Used Second Hand Smoke Exposure: No service: No Current occupational status: retired Current occupational exposures/hazards: No Cognitive needs: No (Cane) Hearing needs: No Vision needs: Yes (Glasses) Review of Systems Const All systems reviewed & are unremarkable except as noted in HPI and below Physical Exam Vital Signs: BMI result Body Mass Index 33.5 Extrem Other: Patient is alert, oriented, and in no acute distress. Neuro: Normal sensation of the tips of all digits of the right hand at this time Vascular: Cap refill brisk Pain: Tenderness to palpation of the right radial styloid Pain with range of motion of the right wrist over the radial styloid extending into the forearm in the thumb Positive Jolene test on the right ROM: Patient is able to make a closed fist and extend all digits of the right hand fully Skin: No lacerations or abrasions. General: No ecchymosis, erythema, or evidence of infection. Psych: Appears grossly normal Affect normal Attitude cooperative Office Procedures AMB Tendon Injection Tendon Injection [id number] Tendon Sheath Injection All charges added?: Procedure code (CPT) selection complete Results Reviewed Results Reviewed: X-rays obtained in the office today and independently reviewed by me, Jose Harris PA-C, demonstrate no fracture or acute bony abnormality of the right hand or wrist. Assessment & Plan Assessment & Plan (1) De Quervain's tenosynovitis, right: Code(s): M65.4 - Radial styloid tenosynovitis [de Quervain] Category: Medical (2) Numbness and tingling of right hand: Code(s): R20.0 - Anesthesia of skin; R20.2 - Paresthesia of skin Category: Medical Plan 1. De Quervain tenosynovitis, right Patient is educated about this condition Patient is educated about the typical recovery course Patient would like to proceed with steroid injection at this time Injection #1: The risks and benefits of a steroid injection including but not limited to risk of damage to blood vessels, nerves, tendons, infection, skin bleaching, failure to improve symptoms, increased pain, and possible need for further injections or other intervention were discussed with the patient and the patient wishes to proceed with the steroid injection. Once consent was obtained, I sterilely prepped the area over the 1st dorsal compartment of the right thumb. I then injected the 1st dorsal compartment with a combination of 1 mL of dexamethasone (4mg/ml), and 1% lidocaine. The patient tolerated the procedure well with no complications and good resolution of their symptoms prior to leaving clinic. If the patient continues to have pain 6-8 weeks following this injection, they may call to schedule appointment to discuss alternative treatment options 2. Numbness and tingling of right hand Patient is educated about this condition Patient is educated about the typical recovery course At this time, patient is referred for EMG and nerve conduction study for assessment of the health of the nerves of the right upper extremity Patient will follow-up after EMG and nerve conduction study for results review and discussion of further treatment options if indicated Patient is amenable to this plan Orders: Orders XR wrist RT w scaphoid Today M79.641 - Pain in right hand Coding Level of Care Code New Pt Level 3 (27124) Diagnoses De Quervain's tenosynovitis, right M65.4 Numbness and tingling of right hand R20.0; R20.2 CPT Codes Tendon Injection - Tendon Injection 1: 52791-Gsymyl Tendon Sheath Injection ([id number])
== END 2024-11-23 10:08 | disposition home or self-care (01) ==
LOC: HO.HOS 09:20
PROVIDERS: PCP Family Medicine
DX: M65.4 Radial styloid tenosynovitis [de Quervain] (principal); R20.0 Anesthesia of skin; R20.2 Paresthesia of skin
CPT/HCPCS: 20550; 99203

== ENCOUNTER → 2024-11-23 09:22 | Outpatient (BNV) | payer MEDICARE, SELFPAY | PROVIDERS: Visit Provider Radiology Diagnostic Radiology | DX: M25.531 Pain in right wrist (principal) | CPT/HCPCS: 73110 ==

== ENCOUNTER 2025-01-21 09:23 | Outpatient (AMB) | payer MEDICARE, SELFPAY ==
[2025-01-21 09:29] VITALS: BP 128/70; PULSE 63; RESP 18; TEMP 36.6; O2SAT 95; BMI 32.0
--- NOTE | 2025-01-21 09:29 | MHC.OFFWIV ---
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: No Accompanied by: Self / Same As Patient Allergies Penicillins Allergy (Severe, Verified 01/21/25 09:32) throat swelling raspberry Allergy (Intermediate, Verified 01/21/25 09:32) Rash Blue Dye Allergy (Severe, Uncoded 11/23/24 09:41) throat swelling Latex Allergy (Severe, Uncoded 11/23/24 09:41) Rash, Hives, whole hand Medication List - Last Reconciled 01/21/25 by Sayda Levine NP aspirin (Adult Low Dose Aspirin) 81 mg PO DAILY atorvastatin 40 mg PO BEDTIME 90 days chloroquine phosphate 125 mg orally 5 days a week cholecalciferol (vitamin D3) 25 mcg PO DAILY docusate sodium (Colace) 200 mg PO DAILY hydrochlorothiazide 25 mg PO DAILY 90 days losartan 100 mg PO DAILY metoprolol succinate ER 25 mg PO BID 90 days naproxen 500 mg PO Q12H PRN HPI HPI Comments History of Present Illness Details 69 y/o Male patient who presents to the walk in clinic with c/o Chronic Right hand Pain and swelling. Pain Started Last year - and he was seen by Orthopedics back in 10/2024. He was referred for an EMG but he never got an appointment. Pt reports pain worse with movement of wrist. He wears Hand Brace but feels uncomfortable. Pt has an appointment with Ortho scheduled 03/2025 - he does not want to wait for that long. [facility] Medical History (Updated 11/23/24 @ 11:41 by HENNA Hatfield) Left carotid stenosis Acute respiratory disease Smoker Claudication of calf muscles Ambulates with cane Osteoarthritis Hx MRSA infection HLD (hyperlipidemia) Murmur Coronary artery disease Hx of renal calculi History of pacemaker Hypertension Elevated fasting blood sugar Surgical History Status post tracheostomy Status post carotid endarterectomy Hx of tracheostomy (07/05/23) History of left-sided carotid endarterectomy (07/04/23) Hx of tonsillectomy Hx of colonoscopy H/O cardiac catheterization History of dental surgery History of cystoscopy History of permanent cardiac pacemaker placement Family History Other Mental health disorder Substance use disorder Social History Household Members: None Caregiver staying overnight: No Housing: House Are you a primary janitor caretaker to a significant other at home: No Do you presently have visiting nurse or other home services: No 75 years or older and lives alone: No Alcohol intake: never Comment: COUNTS CORRECT Patient Tobacco Use Status: Current everyday Tobacco user Tobacco use type: Cigarette Cigarette Packs Per Day: 1 Cigarettes Per Day: 20.0 Years Smoked: 61 e-Cigarette/Vaping Use: Never Used Second Hand Smoke Exposure: No service: No Current occupational status: retired Current occupational exposures/hazards: No Cognitive needs: No (Cane) Hearing needs: No Vision needs: Yes (Glasses) Review of Systems Const All systems reviewed & are unremarkable except as noted in HPI and below Physical Exam Vital Signs: Last Vital Signs Temp 98 F 01/21/25 09:29 Pulse 63 01/21/25 09:29 Resp 18 01/21/25 09:29 BP 128/70 01/21/25 09:29 Pulse Ox 95 01/21/25 09:29 Oxygen Delivery Method Room Air 01/21/25 09:29 BMI result Body Mass Index 32.0 Const General: no acute distress Nutritional Appearance: obese Orientation/consciousness: patient oriented x3 Neuro General: patient oriented x3, gait normal (Walks with a Cane.) and moves all extremities Extrem Right upper extremity: normal capillary refill and wrist Details: tenderness Location: of the distal radius, of the distal ulna and of the dorsal wrist, swelling Location: of the dorsal wrist and abnormal ROM Details: pain with active ROM during and pain with passive ROM during Psych Speech and movement: Normal speech and movement present Assessment & Plan Assessment & Plan (1) De Quervain's tenosynovitis, right: Code(s): M65.4 - Radial styloid tenosynovitis [de Quervain] Plan: Ordered NSAIDs and Acetaminophen for pain relief. Wrapped Wrist with Joey Bandage. Ice/Heat Medications: New acetaminophen 1,000 mg (2 x 500 mg) PO Q6H PRN 30 caps 0RF pain M65.4 - Radial styloid tenosynovitis [de Quervain] Refilled naproxen 500 mg PO Q12H PRN 30 tabs 0RF pain M65.4 - Radial styloid tenosynovitis [de Quervain] Discontinued diclofenac sodium Discontinued Reason: Doctor's Order 50 mg PO Q12H PRN 20 tabs 0RF pain Coding Level of Care Code Est Pt Level 4 (86448) Diagnoses De Quervain's tenosynovitis, right M65.4 Time Spent (min) 20
--- OUTSIDE RECORDS SUMMARY | 2025-01-21 11:05 | XMS_ITS | Patient Health Record ---
Author Organization [facility] [place] Address [address] [place] [address] Care Team Providers Care Clerk Television Production Name Role Phone Paola DE LA PAZ, Yang Primary Care Provider Duane Medellin Unavailable [phone] Allergies Allergen (clinical drug ingredient) Drug/Non Drug [...] W/U Status Risk Notes Problem Tinea unguium ([id number]) Tinea unguium (B35.1) Active confirmed Encounters En[facility] [address] [place] [address] [facility]/19/2024 Duane Quan Plan Of Treatment Pending Test Test Name Order Date [id number] NAIL, 6 OR MORE 02/19/2016 [id number] NAIL, 6 OR MORE 05/20/2016 [id number] NAIL, 6 OR MORE 08/19/2016 [id number] NAIL, 6 OR MORE 11/18/2016 [id number] NAIL, 6 OR MORE 03/02/2017 [id number] NAIL, 6 OR MORE 06/01/2017 [id number] NAIL, 6 OR MORE 08/10/2017 [id number] NAIL, 6 OR MORE 04/03/2018 [id number] NAIL, 6 OR MORE 11/06/2015 [id number] Plate 11/06/2015 Next Appt Details Provider Name:Duane Quan , 02/18/2025 10:00:00 AM, [address] [facility], [facility] [address], [place], [address], Insurance Providers Payer Name Payer Address Payer Phone Subscriber Number Group Number Insured Name Patient Relationship to Insured Coverage Start Date Coverage End Date [employer] Medicare [id number] [address] [address] [place] [address] Sanford Stack Self - patient is the insured Medical (General) History Medical History History ICD Code Arthritis - RA Back,Hip,and Knee pain High blood pressure Measles Mumps Chicken pox Cholesterol Surgical History Surgery Date(Month/Year) cardiac pacemaker 2015
--- OUTSIDE RECORDS SUMMARY | 2025-01-21 11:05 | XMS_ITS | Clinical Summary ---
Author Organization [facility] Address [address] [place] [address] Care Team Providers Care Director Writing Name Role Phone Unavailable Primary Care Provider [...] age to complete this topic Insurance Medicare [facility] Medicare
--- OUTSIDE RECORDS SUMMARY | 2025-01-21 11:05 | XMS_ITS | Encounter Summary ---
Author Organization [facility] Address [address] [place] [id number] Phone Care Team Providers Care Sales Rep Name Role Phone Zion Martinez MD Primary Care Provider Encounter Details Date Type Department Care Team (Late st Contact Info) Description 06/27/2023 Procedure Pass [facility] [address] [place] [address] Social History Tobacco Use Types Packs/Day Years [...] on filedocumented in this encounter Care Teams Sales Rep Relationship Specialty Start Date End Date Zion Martinez MD [address] [place] [address] PCP - General 06/09/23 documented as of this encounter Additional Source Comments The information contained in this document represents components of the legal health record. It is not the complete legal health record.[facility]
--- OUTSIDE RECORDS SUMMARY | 2025-01-21 11:05 | XMS_ITS | Clinical Summary ---
[facility] Address [address] [place] [address] Care Team Providers Care Department Head College Or [employer] Name Role Phone Zion Martinez MD Primary [...] age to complete this topic Care Teams Department Head College [employer] Relationship Specialty Start Date End Date Zion Martinez MD [address] [place] [address] PCP - General Family Medicine 12/06/19
--- OUTSIDE RECORDS SUMMARY | 2025-01-21 11:05 | XMS_ITS | Clinical Summary ---
Author Organization [facility] Address [address] [place] [address] Phone Care Team Providers Care Blue Leather Sorter Name Role Phone Zion Martinez MD Primary Care Provider [phone] Surgical History Surgery Date Site/Laterality Comments PACEMAKER IMPLANT PROCEDURE: HISTORICAL PACEMAKER Medical History Medical History Date Comments LBBB (left bundle branch block) DX:LBBB (left bundle branch block) Essential hypertension DX:Essent ial hypertension Nephrolithiasis DX:Nephrolithias is; COMMENT: right kidney Chronic obstructive pulmonar y disease ([facility] V24, [facility] V28) 12/27/2017 DX:Chronic obstructive pulm onary disease ([facility]) Degenerative joint disease i nvolving multiple joints [...] 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 ([facility] V24, [facility] V28) 03/21/2018 DX:Seropositive rheumatoid a rthritis of [...] on file Obstetrics History Plan of Treatment Upcoming Encounters Date Type Department Care Team (Late st Contact Info) Description 02/20/2025 1:00 PM EDT Appointment [facility] Scan [address] [place] [address] Health Maintenance Due Date Last Done Comments DTaP,Tdap,and Td Vaccines (1 - Tdap) 1972 Zoster Vaccines (1 of 2) 2003 RSV Immunization Adult Patients (1 - Risk 60-74 years 1-dose series) 2013 Pneumococcal Vaccine: 50+ Years (2 of 2 - PPSV23) 04/08/2016 02/12/2016 Abdominal Aortic Aneurysm (AAA) Screen 04/04/2022 Cholesterol Screening (Lipid Panel) 04/04/2022 Colorectal Cancer Screening: Colonoscopy 04/04/2022 Falls Risk Assessment 04/04/2022 Hepatitis C Screening 04/04/2022 Medicare Annual Wellness Visit 04/04/2022 Social Influencers of Health Screening 04/04/2022 Hypertension/CHF/CAD Annual BMP Blood Test 04/13/2022 Depression Screening 05/02/2024 COVID-19 Vaccine ( season) 2024 Influenza Vaccine (#1) 2024 9, 02/02/2018, 12/07/2016, [...] patient's age to complete this topic Insurance [employer] [address] MEDICAID - [place] Care Teams Blue Leather Sorter Relationship Specialty Start Date End Date Zion Martinez MD [address] [place] [address] Dr Melanie [place] PCP - General Family Medicine 12/06/19
--- OUTSIDE RECORDS SUMMARY | 2025-01-21 11:05 | XMS_ITS | Clinical Summary ---
Author Organization [facility] Address [address] [place] [phone] Phone Care Team Providers Care Refinery Process Engineer Name Role Phone Zion Martinez MD Primary Care Provider Allergies Active Allergy Reactions Criticality Noted Date Comments Blue Dye 06/22/2023 Latex 06/22/2023 Penicillin 06/22/2023 Medications hydroCHLOROthia zide (HYDRODIURIL) 25 MG tablet Take 25 mg by mouth daily. Active simvastatin (ZOCOR) 40 MG tablet Take 40 mg by mouth nightly at bedtime. Active aspirin 81 mg chewable tablet Take 81 mg by mouth daily. Active docusate sodium (COLACE) 100 MG capsule Take 100 mg by mouth 2 (two) times a day as needed for mild constipation . Active cholecalciferol (VITAMIN D3) 2,000 unit capsule Take by mouth daily. Active CHLOROQUINE PHOSPHATE ORAL Take by mouth. Active losartan (COZAAR) 25 MG tablet Take 25 mg by mouth daily. Active metoprolol succinate (TOPROL-XL) 25 MG 24 hr tablet Take 25 mg by mouth daily. Active albuterol 90 mcg/actuation inhaler Inhale 2 puffs into the lungs every 6 (six) hours as needed for wheezing. Active Social History Tobacco Use Types Packs/Day Years [...] Orientation Not on file Plan of Treatment Not on file Medical Devices Not on file Insurance Member Subscriber Plan / Payer (Ef fective 2023-Present) Name:RichmiquelSanford valdez Relation to Subscriber:Self Name:Sanford Stack Payer ID:[id number] (NAIC) Type:Medicare Address: [place] [id number] MEDICARE REPLACEMENT MEDICARE REPLACEMENT MEDICARE REPLACEMENT MEDICARE REPLACEMENT Care Teams Refinery Process Engineer Relationship Specialty Start Date End Date Zion Martinez MD [address] [place] [address] PCP - General 06/09/23 Additional Source Comments The information contained in this document represents components of the legal health record. It is not the complete legal health record.[facility]
== END 2025-01-21 10:33 | disposition home or self-care (01) ==
PROVIDERS: PCP Family Medicine; Visit Provider Nurse Practitioner Family
DX: M65.4 Radial styloid tenosynovitis [de Quervain] (principal)

== ENCOUNTER → 2025-01-21 09:23 | Outpatient (BNVA) | payer MEDICARE, SELFPAY | PROVIDERS: PCP Family Medicine; Visit Provider Nurse Practitioner Family | DX: M65.4 Radial styloid tenosynovitis [de Quervain] (principal) | CPT/HCPCS: 99212 ==

== ENCOUNTER 2025-01-28 11:38 | Outpatient (AMB) | payer MEDICARE, SELFPAY ==
--- NOTE | 2025-01-28 11:53 | A.OFFVIS_ITS ---
Vital Signs 01/28/25 12:04 Height 6 ft Weight 236 lb BMI 32.0 Intake Visit Reasons: INJ: Right D'Quervain injection, last inj 11/23/24 Intake Note: Sanford greco a 69 year old right hand dominant male who presents today for follow up of this Right De Quervain Tenosynovitis. He was last seen on 11/23/24 where he was given an injection over the 1st dorsal compartment of the right thumb. Patient reports today he was seen at [facility] on [place]21[place]25 where he was prescribed Tylenol and Naproxen. Patient states the medication provided great relief. He is unsure if he wants to repeat his injection today. Patient continues wearing his Velcro wrist brace. Allergies Penicillins Allergy (Severe, Verified 01/28/25 12:04) throat swelling raspberry Allergy (Intermediate, Verified 01/28/25 12:04) Rash Blue Dye Allergy (Severe, Uncoded 01/28/25 12:04) throat swelling Latex Allergy (Severe, Uncoded 01/28/25 12:04) Rash, Hives, whole hand HPI HPI INJ: Right D'Quervain injection, last inj 11/23/24: Details: Sanford greco a 69 year old right hand dominant male who presents today for follow up of this Right De Quervain Tenosynovitis. He was last seen on 11/23/24 where he was given an injection over the 1st dorsal compartment of the right thumb. Patient reports today he was seen at [facility] [place]/21[place]25 where he was prescribed Tylenol and Naproxen. Patient states the medication provided great relief. He is unsure if he wants to repeat his injection today. Patient continues wearing his Velcro wrist brace. patient does state that he has had a cyst growing in the area for the last month or so, and would like to discuss removal of the cyst, as he feels that this might be pushing on some of the structures of his wrist in his likely contributing to his pain. [facility] Medical History (Updated 01/28/25 @ 17:04 by HENNA Hatfield) Left carotid stenosis Acute respiratory disease Smoker Claudication of calf muscles Ambulates with cane Osteoarthritis Hx MRSA infection HLD (hyperlipidemia) Murmur Coronary artery disease Hx of renal calculi History of pacemaker Hypertension Elevated fasting blood sugar Surgical History Status post tracheostomy Status post carotid endarterectomy Hx of tracheostomy (07/05/23) History of left-sided carotid endarterectomy (07/04/23) Hx of tonsillectomy Hx of colonoscopy H/O cardiac catheterization History of dental surgery History of cystoscopy History of permanent cardiac pacemaker placement Family History Other Mental health disorder Substance use disorder Social History Household Members: None Caregiver staying overnight: No Housing: House Are you a primary senior care specialist to a significant other at home: No Do you presently have visiting nurse or other home services: No 75 years or older and lives alone: No Alcohol intake: never Comment: COUNTS CORRECT Patient Tobacco Use Status: Current everyday Tobacco user Tobacco use type: Cigarette Cigarette Packs Per Day: 1 Cigarettes Per Day: 20.0 Years Smoked: 61 e-Cigarette/Vaping Use: Never Used Second Hand Smoke Exposure: No service: No Current occupational status: retired Current occupational exposures/hazards: No Cognitive needs: No (Cane) Hearing needs: No Vision needs: Yes (Glasses) Review of Systems Const All systems reviewed & are unremarkable except as noted in HPI and below Physical Exam Vital Signs: BMI result Body Mass Index 32.0 Extrem Other: Patient is alert, oriented, and in no acute distress. Neuro: Normal sensation of the tips of all digits of the right hand at this time Vascular: Cap refill brisk Pain: Tenderness to palpation of the right radial styloid More tenderness to palpation noted of the mass of the volar and radial aspect of the right wrist Pain with range of motion of the right wrist over the radial styloid extending into the forearm in the thumb Positive Jolene test on the right ROM: Patient is able to make a closed fist and extend all digits of the right hand fully Skin: No lacerations or abrasions. General: there is an approximately 1-1.5 cm in diameter mass noted of the radial and volar aspect of the right wrist No ecchymosis, erythema, or evidence of infection. Psych: Appears grossly normal Affect normal Attitude cooperative Assessment & Plan Assessment & Plan (1) Ganglion cyst of volar aspect of right wrist: Code(s): M67.431 - Ganglion, right wrist Category: Medical Plan 1. Volar wrist ganglion cyst of right wrist I educated the patient about the condition. I discussed both operative and nonoperative treatment options. The patient would like to proceed with surgery. The risks and benefits of operative treatment were discussed with the patient and the patient wishes to proceed with surgery. These risks include, but are not limited to, risk of damage to blood vessels, nerves, tendons, infection, recurrence, incomplete relief of preoperative symptoms, persistent pain, possible need for further surgery, and the risks associated with regional blocks and/or anesthesia. Plan is to take the patient to the operating room at some point in the next few weeks for the following procedures: 1. Right volar wrist ganglion excision under general All of the preoperative paperwork including the consent was discussed today. All of the patient's questions were answered in the clinic today. The patient understands that they will be in contact with our medical or surgical instrument maker to discuss scheduling their procedure. patient does have a very significant cardiac history, therefore I do feel that he should get clearance from both his primary care and welder apprentice gas prior to any surgical intervention Coding Level of Care Code Est Pt Level 4 (30081) Diagnoses Ganglion cyst of volar aspect of right wrist M67.431
[2025-01-28 12:04] VITALS: BMI 32.0
--- OUTSIDE RECORDS SUMMARY | 2025-01-28 13:07 | XMS_ITS | Clinical Summary ---
[facility] Address [address] [place] [address] Care Team Providers Care Medication Tech Name Role Phone Zion Martinez MD Primary Care Provider [phone] Allergies Active Allergy Reactions Criticality Noted Date [...] age to complete this topic Care Teams Medication Tech Relationship Specialty Start Date End Date Zion Martinez MD [address] [place] [address] PCP - General Family Medicine 12/06/19
--- OUTSIDE RECORDS SUMMARY | 2025-01-28 13:08 | XMS_ITS | Patient Health Record ---
Author Organization [facility] Lela winnie Artesian Address [address] [facility] [place] [address] Care Team Providers Care Carpet Tile Layer Name Role Phone Paola DE LA PAZ, Yang Primary Care Provider Duane Medellin Unavailable [phone] Allergies Allergen (clinical drug ingredient) Drug/Non Drug [...] W/U Status Risk Notes Problem Tinea unguium (730070555) Tinea unguium (B35.1) Active confirmed Encounters Encounter Location Date Provider Diagnosis [facility] [address] [place] [address] 11/19/2024 Duane Quan Plan Of Treatment Pending Test Test Name Order Date [id number] NAIL, 6 OR MORE 02/19/2016 [id number] NAIL, 6 OR MORE 05/20/2016 [id number] NAIL, 6 OR MORE 08/19/2016 [id number] NAIL, 6 OR MORE 11/18/2016 [id number] NAIL, 6 OR MORE 03/02/2017 [id number] NAIL, 6 OR MORE 06/01/2017 [id number] NAIL, 6 OR MORE 08/10/2017 [id number] NAIL, 6 OR MORE 04/03/2018 [id number] NAIL, 6 OR MORE 11/06/2015 [id number] Plate 11/06/2015 Next Appt Details Provider Name:Duane Quan , 02/18/2025 10:00:00 AM, [address] [facility], [facility] [address], [place], [address], Insurance Providers Payer Name Payer Address Payer Phone Subscriber Number Group Number Insured Name Patient Relationship to Insured Coverage Start Date Coverage End Date [employer] Medicare [id number] [address] [address] [place] [address] Sanford Stack Self - patient is the insured Medical (General) History Medical History History ICD Code Arthritis - RA Back,Hip,and Knee pain High blood pressure Measles Mumps Chicken pox Cholesterol Surgical History Surgery Date(Month/Year) cardiac pacemaker 2015
--- OUTSIDE RECORDS SUMMARY | 2025-01-28 13:08 | XMS_ITS | Clinical Summary ---
Author Organization [facility] Address [address] [place] [address] Care Team Providers Care Paper Ruler Name Role Phone Unavailable Primary Care Provider [...] complete this topic Insurance Medicare [facility] Medicare
== END 2025-01-28 12:13 | disposition home or self-care (01) ==
LOC: HO.HOS 11:39
PROVIDERS: PCP Family Medicine
DX: M67.431 Ganglion, right wrist (principal)
CPT/HCPCS: 99214

== ENCOUNTER → 2025-01-28 11:38 | Outpatient (BNVA) | payer MEDICARE, SELFPAY | PROVIDERS: PCP Family Medicine | DX: M67.431 Ganglion, right wrist (principal) | CPT/HCPCS: 99212 ==

== ENCOUNTER → 2025-01-28 23:59 | Outpatient (BNV) | payer MEDICARE, SELFPAY ==
--- NOTE | 2025-02-04 09:29 | A.OFFVIS_ITS ---
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 Allergies Penicillins Allergy (Severe, Verified 01/28/25 12:04) throat swelling raspberry Allergy (Intermediate, Verified 01/28/25 12:04) Rash Blue Dye Allergy (Severe, Uncoded 01/28/25 12:04) throat swelling Latex Allergy (Severe, Uncoded 01/28/25 12:04) Rash, Hives, whole hand PFSH Medical History (Updated 01/28/25 @ 17:04 by HENNA Hatfield) Left carotid stenosis Acute respiratory disease Smoker Claudication of calf muscles Ambulates with cane Osteoarthritis Hx MRSA infection HLD (hyperlipidemia) Murmur Coronary artery disease Hx of renal calculi History of pacemaker Hypertension Elevated fasting blood sugar Surgical History Status post tracheostomy Status post carotid endarterectomy Hx of tracheostomy (07/05/23) History of left-sided carotid endarterectomy (07/04/23) Hx of tonsillectomy Hx of colonoscopy H/O cardiac catheterization History of dental surgery History of cystoscopy History of permanent cardiac pacemaker placement Family History Other Mental health disorder Substance use disorder Social History Household Members: None Caregiver staying overnight: No Housing: House Are you a primary child care centre manager to a significant other at home: No Do you presently have visiting nurse or other home services: No 75 years or older and lives alone: No Alcohol intake: never Comment: COUNTS CORRECT Patient Tobacco Use Status: Current everyday Tobacco user Tobacco use type: Cigarette Cigarette Packs Per Day: 1 Cigarettes Per Day: 20.0 Years Smoked: 61 e-Cigarette/Vaping Use: Never Used Second Hand Smoke Exposure: No service: No Current occupational status: retired Current occupational exposures/hazards: No Cognitive needs: No (Cane) Hearing needs: No Vision needs: Yes (Glasses) Office Procedures Cardiac Device Check Cardiac Device Check Details: Remote pacemaker report generated 01/28/2025. Pacemaker function is adequate. Patient pacer dependent ventricularly [id number] Cardiac Device Interrogation, pacemaker Procedure code (CPT) selection complete Assessment & Plan Assessment & Plan (1) Pacemaker: Code(s): Z95.0 - Presence of cardiac pacemaker Category: Medical Plan: See above Coding Level of Care Code Procedure Only Diagnoses Pacemaker Z95.0 CPT Codes Cardiac Device Check - Cardiac Device 12: [id number]-Qhylis Cardiac Device Interrogation, pacemaker ([id number])
== END ==
PROVIDERS: PCP Family Medicine; Visit Provider Internal Medicine Cardiovascular Disease
DX: Z45.018 Encounter for adjustment and management of other part of cardiac pacemaker (principal)
CPT/HCPCS: 93294

== ENCOUNTER 2025-02-12 14:11 | Outpatient (AMB) | payer MEDICARE, SELFPAY ==
--- NOTE | 2025-02-12 14:15 | A.OFFPC_ITS ---
Vital Signs 02/12/25 14:22 Height 6 ft Weight 237 lb 4 oz BMI 32.2 BP 102/62 Blood Pressure Location Rt brachial Position Sitting Respiration 18 Pulse 79 Pulse Source Pulse Oximeter Temp 98 F Temp Source Temporal Artery Scan Pulse Oximetry (%) 95 Oxygen Delivery Method Room Air Intake Visit Reasons: HTN HLD FU Intake Note: Sanford presents in the office today to follow up on his hypertension and cholesterol. Patient needs refill of his Metoprolol. Patient having surgery on his right wrist. Allergies Penicillins Allergy (Severe, Verified 02/12/25 14:18) throat swelling raspberry Allergy (Intermediate, Verified 02/12/25 14:18) Rash Blue Dye Allergy (Severe, Uncoded 02/12/25 14:18) throat swelling Latex Allergy (Severe, Uncoded 02/12/25 14:18) Rash, Hives, whole hand Tobacco use date assessed: 02/12/25 Fall risk assessment: 1 Fall in past year Last assessed Fall Risk: 02/12/25 Dental Screening Dental Screen Date: 02/12/25 Did you have a dental visit in the last 12 months?: Yes Did you have a dental problem in the last 6 months where you did not have access to dental care?: No Was dental information given to patient?: Patient has dentist HPI HTN HLD FU HPI Details 69 y/o male presents to f/u HTN, HLD. A1c today 6.1% - prediabetes. Blood pressure today 102/62, 79p. He is on losartan 100mg, HCTZ 25mg daily. Most recent lipid panel drawn 11/08/24. Triglycerides 129. TC 102. LDL 38. HDL low at 39. PSA 1.50 ng/mL. HPI Comments History of Present Illness Details Documentation assistance for Zion Martinez MD, was provided by Quan Dewey,? Public Health Inspector on 02/12/2025 at 2:39 PM EST. I, Dr. Martinez, have read, observed, and verified documentation. ?? PFS Medical History (Updated 01/28/25 @ 17:04 by HENNA Hatfield) Left carotid stenosis Acute respiratory disease Smoker Claudication of calf muscles Ambulates with cane Osteoarthritis Hx MRSA infection HLD (hyperlipidemia) Murmur Coronary artery disease Hx of renal calculi History of pacemaker Hypertension Elevated fasting blood sugar Surgical History Status post tracheostomy Status post carotid endarterectomy Hx of tracheostomy (07/05/23) History of left-sided carotid endarterectomy (07/04/23) Hx of tonsillectomy Hx of colonoscopy H/O cardiac catheterization History of dental surgery History of cystoscopy History of permanent cardiac pacemaker placement Family History Other Mental health disorder Substance use disorder Social History (Updated 02/12/25 @ 14:22 by Marion Siddiqi CMA) Household Members: None Caregiver staying overnight: No Housing: House Are you a primary director of health care marketing to a significant other at home: No Do you presently have visiting nurse or other home services: No 75 years or older and lives alone: No Alcohol intake: never Comment: COUNTS CORRECT Patient Tobacco Use Status: Current everyday Tobacco user Tobacco use type: Cigarette Cigarette Packs Per Day: 1 Cigarettes Per Day: 20.0 Years Smoked: 61 e-Cigarette/Vaping Use: Never Used Second Hand Smoke Exposure: No service: No Current occupational status: retired Current occupational exposures/hazards: No Cognitive needs: No (Cane) Hearing needs: No Vision needs: Yes (Glasses) Questionnaire Thrive Questionnaire Date Thrive assessed: 05/29/24 I am a: Patient What is your living situation today?: I have a steady place to live Within the past 12 months, did the food you bought not last and you didn't have the money to get more?: Sometimes True Within the past 12 months, did you worry whether your food would run out before you got money to buy more?: Sometimes True Do you have trouble paying for medicines?: No Do you have trouble getting transportation to medical appointments?: No Do you have trouble paying your heating and electricity bill?: No Do you have trouble taking care of your child, family member or friend?: I choose not to answer this question Do you have trouble with day-to-day activities such as bathing, preparing meals, shopping, managing finances, etc.?: I choose not to answer this question Are you currently unemployed and looking for a job?: No Are you interested in more education?: No Please select the resources that you would like help with: None Currently or been in a relationship where the following occur: I choose not to answer THRIVE Score: 2 FARZANA-7 AMB Questionnaire FARZANA-7 Date FARZANA - 7 assessed: 10/14/21 Source: Developed by Drs. Robert Trejo, Consuelo Antoine, Gorge Drew and colleagues, with an educational mushtaq from [employer]. Review of Systems Const Denies chills, Denies fatigue, Denies fever(s), Denies headache(s) and Denies weakness ENT Denies dizziness and Denies headache(s) Card Denies chest pain, Denies lightheadedness, Denies dyspnea and Denies other (Palpitations) Resp Denies cough, Denies dyspnea, Denies wheezing and Denies other ( shortness of breath) Musc Denies numbness and Denies tingling Neuro Denies dizziness, Denies headache(s), Denies numbness, Denies tingling, Denies paresthesias and Denies weakness Psych Denies anxiety and Denies depression Endo Denies fatigue Aller/Immun Denies wheezing Physical exam (Primary Care) Vital Signs: Last Vital Signs Temp 98 F 02/12/25 14:22 Pulse 79 02/12/25 14:22 Resp 18 02/12/25 14:22 BP 102/62 02/12/25 14:22 Pulse Ox 95 02/12/25 14:22 Oxygen Delivery Method Room Air 02/12/25 14:22 BMI result Body Mass Index 32.2 Tobacco/Smoking Status: Tobacco use Status Tobacco use date assessed 02/12/25 02/12/25 14:24 Patient Tobacco Use Status Current everyday Tobacco 02/12/25 14:22 Tobacco use type Cigarette 02/12/25 14:22 e-Cigarette/Vaping Use Never Used 02/12/25 14:22 Thrive Assessment: Date of Thrive Assessment Date Thrive assessed 05/29/24 02/12/25 14:17 Currently or been in a relationship where the following occur: I choose not to answer Const General: no acute distress and well developed Nutritional Appearance: well nourished Orientation/consciousness: patient oriented x3 HENMT Head: Yes normocephalic and Yes atraumatic Eyes General: appearance normal, both eyes and all related structures Pupils: Equal, round and reactive pupils present EOM: EOMs intact bilaterally Resp Effort & Inspection: normal respiratory effort Auscultation: clear to auscultation bilaterally Cardio Rate: regular rate Rhythm: regular rhythm Heart sounds: S1 normal heart sound present, S2 normal heart sound present, no gallops, no murmurs and no rubs Neuro General: patient oriented x3 and gait normal Cranial nerves: Yes Equal, round and reactive pupils present Psych Affect: normal affect Coding Level of Care Code Est Pt Level 4 (60038) Diagnoses Essential hypertension I10 Coronary artery disease involving [place] coronary artery of [place] heart without angina pectoris I25.10 Associated angina: without angina Coronary Disease-Associated Artery/Lesion type: [place] artery [place] vs. transplanted heart: [place] heart Pre-diabetes R73.03 Mixed hyperlipidemia E78.2 Hyperlipidemia type: mixed hyperlipidemia Screening for prostate cancer Z12.5 Assessment & Plan Assessment & Plan (1) Essential hypertension: Code(s): I10 - Essential (primary) hypertension Category: Medical Plan: Blood pressure is controlled. Goal is less than 130/80 Continue current medication (2) Coronary artery disease: Comment: Nonobstructive by cardiac catheterization Code(s): I25.10 - Atherosclerotic heart disease of [place] coronary artery without angina pectoris Category: Medical Qualifiers: Associated angina: without angina Coronary Disease-Associated Artery/Lesion type: [place] artery [place] vs. transplanted heart: [place] heart Qualified Code(s): I25.10 - Atherosclerotic heart disease of [place] coronary artery without angina pectoris Plan: Stable on atorvastatin and metoprolol with an aspirin Follow-up with Cardiology as recommended (3) Pre-diabetes: Code(s): R73.03 - Prediabetes Category: Medical Plan: A1c shows good control. Continue diet low in sugars and starches (4) Hyperlipidemia: Code(s): E78.5 - Hyperlipidemia, unspecified Category: Medical Qualifiers: Hyperlipidemia type: mixed hyperlipidemia Qualified Code(s): E78.2 - Mixed hyperlipidemia Plan: LDL cholesterol is well controlled and at goal of less than 70 HDL slightly below goal greater than 40 Continue atorvastatin 40 mg daily as prescribed Increase exercise (5) Screening for prostate cancer: Code(s): Z12.5 - Encounter for screening for malignant neoplasm of prostate Category: Medical Plan: PSA was within normal range Will continue annual screening Orders: Orders AMB Hemoglobin A1c Today R73.03 - Prediabetes
[2025-02-12 14:22] VITALS: BP 102/62; PULSE 79; RESP 18; TEMP 36.6; O2SAT 95; BMI 32.2
--- OUTSIDE RECORDS SUMMARY | 2025-02-12 17:10 | XMS_ITS | Clinical Summary ---
Author Organization [facility] Address [address] [place] [id number] Phone Care Team Providers Care Dairy Processing Supervisor Name Role Phone Zion Martinez MD Primary [...] Name:Sanford Stack Payer ID:[id number] (NAIC) Type:Medicare Address: [place] [id number] MEDICARE REPLACEMENT MEDICARE REPLACEMENT MEDICARE REPLACEMENT MEDICARE REPLACEMENT Care Teams Dairy Processing Supervisor Relationship Specialty Start Date End Date Zion Martinez MD [address] [place] [address] PCP - General 06/09/23 Additional Source Comments The information contained in this document represents components of the legal health record. It is not the complete legal health record.[facility]
--- OUTSIDE RECORDS SUMMARY | 2025-02-12 17:10 | XMS_ITS | Encounter Summary ---
Author Organization [facility] Address [address] [place] [address] Phone Care Team Providers Care Top Dyeing Machine Tender Name Role Phone Zion Martinez MD Primary Care Provider Encounter Details Date Type Department Care Team (Late st Contact Info) Description 06/27/2023 Procedure Pass [facility] [address] [place] [address] Social History Tobacco Use Types Packs/Day Years [...] on filedocumented in this encounter Care Teams Top Dyeing Machine Tender Relationship Specialty Start Date End Date Zion Martinez MD [address] [place] [address] PCP - General 06/09/23 documented as of this encounter Additional Source Comments The information contained in this document represents components of the legal health record. It is not the complete legal health record.[facility]
--- OUTSIDE RECORDS SUMMARY | 2025-02-12 17:10 | XMS_ITS | Patient Health Record ---
Author Organization [facility] Lela zhou [facility] Address [address] [place] [address] Care Team Providers Care Tile Burner Name Role Phone Yang Guevara MD Primary Care Provider Duane Medellin Unavailable [phone] Allergies Allergen (clinical drug ingredient) Drug/Non Drug [...] W/U Status Risk Notes Problem Tinea unguium ([id number]) Tinea unguium (B35.1) Active confirmed Encounters Encounter Location Date Provider [facility] [address] [place] [address] 11/19/2024 Duane Quan Plan Of Treatment Pending Test Test Name Order Date [id number] NAIL, 6 OR MORE 02/19/2016 [id number] NAIL, 6 OR MORE 05/20/2016 [id number] NAIL, 6 OR MORE 08/19/2016 [id number] NAIL, 6 OR MORE 11/18/2016 [id number] NAIL, 6 OR MORE 03/02/2017 [id number] NAIL, 6 OR MORE 06/01/2017 [id number] NAIL, 6 OR MORE 08/10/2017 [id number] NAIL, 6 OR MORE 04/03/2018 [id number] NAIL, 6 OR MORE 11/06/2015 [id number] Plate 11/06/2015 Next Appt Details Provider Name:Duane Quan , 02/18/2025 10:00:00 AM, [address] [facility], [facility] [address], [place], [address], Insurance Providers Payer Name Payer Address Payer Phone Subscriber Number Group Number Insured Name Patient Relationship to Insured Coverage Start Date Coverage End Date [employer] Medicare [id number] [address] [address] [place] [phone] Sanford Stack Self - patient is the insured Medical (General) History Medical History History ICD Code Arthritis - RA Back,Hip,and Knee pain High blood pressure Measles Mumps Chicken pox Cholesterol covid-19 Headaches/Migraines Heart disease Pacemaker Surgical History Surgery Date(Month/Year) cardiac pacemaker 2016
--- OUTSIDE RECORDS SUMMARY | 2025-02-12 17:10 | XMS_ITS | Clinical Summary ---
Author Organization [facility] Address [address] [place] [address] Care Team Providers Care Consultant Name Role Phone Unavailable Primary Care Provider [...] age to complete this topic Insurance Medicare [facility] Medicare
--- OUTSIDE RECORDS SUMMARY | 2025-02-12 17:10 | XMS_ITS | Clinical Summary ---
[facility] Organization [facility] Address [address] [place] [address] Care Team Providers Care Psychology Instructor Name Role Phone Zion Martinez MD Primary Care Provider [phone] Allergies Active Allergy Reactions Criticality Noted Date [...] age to complete this topic Care Teams Psychology Instructor Relationship Specialty Start Date End Date Zion Martinez MD [address] [place] [address] PCP - General Family Medicine 12/06/19
== END 2025-02-12 14:44 | disposition home or self-care (01) ==
LOC: HO.HMCFM 14:12
PROVIDERS: PCP Family Medicine; Visit Provider Family Medicine
DX: I10 Essential (primary) hypertension (principal); I25.10 Atherosclerotic heart disease of native coronary artery without angina pectoris; R73.03 Prediabetes; E78.2 Mixed hyperlipidemia; Z12.5 Encounter for screening for malignant neoplasm of prostate

== ENCOUNTER → 2025-02-12 14:11 | Outpatient (BNVA) | payer MEDICARE, SELFPAY | PROVIDERS: PCP Family Medicine; Visit Provider Family Medicine | DX: I10 Essential (primary) hypertension (principal); I25.10 Atherosclerotic heart disease of native coronary artery without angina pectoris; E78.2 Mixed hyperlipidemia; R73.03 Prediabetes | CPT/HCPCS: 99212 ==

== ENCOUNTER 2025-02-19 13:39 | Outpatient (AMB) | payer MEDICARE, SELFPAY ==
--- OUTSIDE RECORDS SUMMARY | 2025-02-18 06:00 | XMS_ITS ---
Author Organization [facility] Lela winnie Alejandro Address [address] [place] [address] Care Team Providers Care Furniture Removalist Name Role Phone Paola DE LA PAZ, Yang Primary Care Provider Duane Medellin Unavailable [phone] Allergies Allergen (clinical drug ingredient) Drug/Non Drug Allergy documented on EMR Reaction Allergy Type Onset Date Status Blue Dyes (Parenteral) Unknown Drug Allergy Active Latex Latex Unknown Allergy Active Penicillin Unknown Drug Allergy Active REASON FOR VISIT At Risk Footcare, Painful Nail(s) aggravated by shoes and causing difficulty standing/walking., Painful Toe(s) Medications Medication SIG (Take, Route, Frequency, Duration) Notes Start Date End Date Status Zantac 150 MG 1 tablet at bedtime Orally Once a day Not-Taking Chantix Not-Taking Vitamin D3 25 MCG (1000 UT) 1 tablet Ora lly Once a day Active Excedrin Migraine 250-250-65 MG 2 tablets as needed Orally every 6 hrs PRN Not-Taking Simvastatin Not-Taki ng Diclofenac Sodium 50 MG 1 tablet as need ed Orally Twice a day Active Metoprolol Succinate 25 MG 1 capsule Ora lly Once a day Active Stool Softener 100 MG 1 capsule as neede d Orally Once a day Active hydroCHLOROthiazide Active Losartan Potassium-HCTZ Active Atorvastatin Calcium 40 MG 1 tablet Oral ly Once a day Active Aspirin 81 MG 1 tablet Orally Once a day Active Social History Tobacco Use: Social History [...] ast year? No Points 0 Interpretation Negative Problems Problem Type SNOMED Code ICD Code Onset Dates Problem Status W/U Status Risk Notes Problem Bilateral atherosclerosis of arteries of lower limbs (disorder) ([id number] ) Atherosclerosis of levelock artery of both lower extremities, with unspecified presence of clinical manifestation (I70.203) Active confirmed Q7(A), Q8(2B), Q9(1B,2 C) Vital Signs Height 6ft in 02/18/2025 Weight 245 lbs 02/18/2025 BMI 33.22 kg/m2 02/18/2025 Procedures Procedure Date Ordered Date Performed Result Body Sit e 06466-RNMICYW NAIL, 6 OR MORE 02/18/2025 N/A 13305-BDBY SKIN LESIONS, OVER 4 02/18/2025 N/A Encounters Encounter Location Date Provider Diagnosis [facility] [address] [address] 02/18/2025 Duane Quan Atherosclerosis of levelock artery of both lower extremities, with unspecified presence of clinical manifestation I70.203 ; Tinea unguium B35.1 ; Pain in right toe(s) M79.674 ; Pain in left toe(s) M79.675 ; Other hammer toe(s) (acquired), right foot M20.41 ; Arthritis of joint of lesser toe, right M19.071 ; Other hammer toe(s) (acquired), left foot M20.42 and Arthritis of joint of lesser toe, left M19.072 Assessments Encounter Date Diagnosis (ICD Code) Assessment Notes Treatment Notes Treatment Clinical Notes Section Notes 02/18/2025 Atherosclerosis of levelock artery of both lower extremities, with unspecified presence of clinical manifestation (ICD-10 - I70.203) Q7(A), Q8(2B), Q9(1B,2C) 02/18/2025 Tinea unguium (ICD-10 - B35.1) 02/18/2025 Pain in right toe(s) (ICD-10 - M79.674) 02/18/2025 Pain in left toe(s) (ICD-10 - M79.675) 02/18/2025 Other hammer toe(s) (acquired), right foot (ICD-10 - M20.41) 02/18/2025 Arthritis of joint of lesser toe, right (ICD-10 - M19.071) 02/18/2025 Other hammer toe(s) (acquired), left foot (ICD-10 - M20.42) 02/18/2025 Arthritis of joint of lesser toe, left (ICD-10 - M19.072) Plan Of Treatment Pending Test Test Name Order Date 29467-MRVLYWO NAIL, 6 OR MORE 02/18/2025 31154-RDTM SKIN LESIONS, OVER 4 02/19/20 25 Next Appt Details Follow Up: prn, Reason: Provider Name:Duane Quan , 06/03/2025 01:00:00 PM, [address] [facility], [address], [place], [address], Procedure Notes * Category Sub-Category Detail Notes Debride Nail 6-10 Nail debridement Due to the cl inical pathology outlined in the exam findings, performance of this nail treatment is medically necessary as its management by an unskilled/untrained nonprofessional would put this patients foot and overall health at risk. Therefore, debridement to affected nail(s), as described in exam ( TA, T1, T2, T4, T5, T6, T7, T8, T9 ), was performed exclusively by the physician of record to reduce/remove overall nail length, girth, thickness, subungual debris, and necrotic tissue, by manual and/or electrical means through the use of a nail nipper and/or dremel-type jig grinder, to a more viable healthy nail plate or bed tissue 6-10 nails in total. Silver nitrate was used for any petechial bleeding as necessary. Definitive antifungal treatment options, both pharmaceutical and surgical, have been reviewed and discussed with the patient. The patient solely prefers the use of intermittent/as needed professional debridement services for their nail condition and understands the need for additional periodic treatments to maintain effectiveness in symptomatic relief - 47989 Keratoma Treatment Parring or Cutting o f Benign Hyperkeratotic Lesion(s) (-57) More than 4 Lesions - Due to the at risk nature of the patients medical condition as documented in the exam findings, performance of this keratoderma treatment is medically necessary as its management by an unskilled/untrained nonprofessional would put this patients foot and overall health at risk. Therefore, the benign hyperkeratotic lesions, (8) in total, locations as stated and described in the exam ( Medial, IPJ, TA, Medial, IPJ, T5, SUB MTH (s), 1, B/L, SUB MTH (s), 5, B/L, Plantar Heel(s), B/L ), were pared, and/or cut utilizing a sterile 15 blade, tissue nippers, and/or power dremel instrumentation by the physician of record - 54811, Q8 Progress Notes * Sanford MERCEDES ADOB:[birth year] (69 yo M)Acc No.[id number]:02/18/2025 Progress Notes Patient: Sanford POLLARD Provider: Joshua Quan DPM :1955 A ge:69 Y S ex:Male Date:02/18/2025 Address:[address] [place], [place] [id number] Pcp:Yang Guevara MD Subjective: * Chief Complaints: * A t Risk FootcarePainful Nail(s) aggravated by shoes and causing difficulty standing/walking.Painful Toe(s) * HPI: A t Risk footcare: Pt States Last PCP Visit: D ate 1 T oe pain: Nature: t enderness. Location: B /L feet. Duration: s everal years. Aggravated by: s hoes, any pressure. Treatments: r est/alter normal daily activity, change in shoes. * ROS: G eneral/Constitutional: Nausea d enies. V omiting d enies. H rupali Thirst d enies. L oss appetite d enies. C hills d enies. F atigue d enies.?Fever d enies. N ight Sweats d enies. U nexplained weight loss d enies. U nexplained weight gain d enies. H EENTM: Dentures d enies. D izziness d enies. G lasses/contacts a dmits. R etinopathy d enies. B lurred/double vision d enies. T MJ?denies. D ischarge/drainage d enies. I mplants d enies. S ore throat d enies. D ental implants d enies. H dana of hearing d enies. D ifficulty chewing/swallowing/speaking d enies. N ose bleeds d enies. S ore mouth d enies. ? R espiratory: On Oxygen d enies. P neumonia/pleurisy d enies.?Bronchitis d enies. E mphysema d enies. C oughing d enies. C ough blood?denies. S hortness of breath d enies. W heezing d enies. C ardiovascular: Pacemaker d enies. M AUTOMOBILE INSPECTOR d enies. W PW d enies. C HF d enies. H eart attack d enies. S eptal defect d enies. R apid beat d enies. C hest pain d enies. A trial Fib. d enies. M urmur/Palpitations d enies. G astrointestinal: Hemorrhoids d enies. S tomach/Abdominal pain d enies. D ark blood stool d enies. I rritable bowel d enies. C onstipation d enies. D iarrhea d enies. H ematology: Swelling d enies. C lots d enies. V aricose Veins d enies. B ruising d enies. B leeding problem d enies. G enitourinary: Blood urine d enies. F requent/Painfu/urination/bladder control d enies. K idney stones d enies. I nfection (UTI) d enies. N ephropathy d enies. s ex trans dis (STD) d enies. P rostate d enies. M usculoskeletal: Hammertoes a dmits. B unions d enies. B ack Pain d enies. M uscle Cramps/ Resting d enies. M uscle cramps / walking d enies.?Generalized aches and pains d enies. W eakness d enies. I nteg.: Saleh d enies. S cars d enies. C orns/calluses?admits. I ngrown nails a dmits. P ainful nails a dmits. O pen Sores d enies. R ashes d enies. N eurologic: Difficulty sleeping d enies. B rain disorder d enies. N umbness d enies. B alance trouble d enies. C onfusion d enies. F ainting/blackouts d enies. T ingling d enies. T remors d enies. * Medical History: * Surgical History: c ardiac pacemaker 2015 * Hospitalization/Major Diagno stic Procedure: N o Hospitalization History. * Family History: M other: , diagnosed with Unspecified cerebral artery occlusion with cerebral infarction, Unspecified essential hypertension, Unspecified heart disease. F ather: , diagnosed with Unspecified heart disease. P aternal Grand Mother: diagnosed with Other malignant neoplasm of unspecified site. * Social History: T obacco Use: T obacco use other than smoking A re you an other tobacco user? N o Tobacco Control (Standard) T obacco use: C urrent smoker W hen did you start smoking? 0 05/08/1962 H ow often do you smoke cigarettes? E very day H ow many cigarettes a day do you smoke? 1 1-20 H ow soon after you wake up do you smoke your first cigarette? 3 1-60 minutes A re you interested in quitting? N ot ready to quit A dditional Findings: Tobacco user M oderate cigarette smoker (10-19 cigs/day) D rugs/Alcohol: D rugs H ave you used drugs other than those for medical reasons in the past 12 months? N o M iscellaneous: C affeine: yes. Children: no. Exercise: no. Marital status: single. Occupation: retired. D rug/Alcohol: A ROLANDO-C (Standard) D id you have a drink containing alcohol in the past year? N o P oints 0 I nterpretation N egative * Medications: T akingAspirin 81 MG Tablet Chewable 1 tablet Orally Once a day Atorvastatin Calcium 40 MG Tablet 1 tablet Orally Once a day Diclofenac Sodium 50 MG Tablet Delayed Release 1 tablet as needed Orally Twice a day hydroCHLOROthiazide Losartan Potassium-HCTZ Metoprolol Succinate 25 MG Capsule ER 24 Hour Sprinkle 1 capsule Orally Once a day Stool Softener 100 MG Capsule 1 capsule as needed Orally Once a day Vitamin D3 25 MCG (1000 UT) Tablet 1 tablet Orally Once a day Taking Aspirin 81 MG Tablet Chewable 1 tablet Orally Once a day Taking Atorvastatin Calcium 40 MG Tablet 1 tablet Orally Once a day Taking Diclofenac Sodium 50 MG Tablet Delayed Release 1 tablet as needed Orally Twice a day Taking hydroCHLOROthiazide Taking Losartan Potassium-HCTZ Taking Metoprolol Succinate 25 MG Capsule ER 24 Hour Sprinkle 1 capsule Orally Once a day Taking Stool Softener 100 MG Capsule 1 capsule as needed Orally Once a day Taking Vitamin D3 25 MCG (1000 UT) Tablet 1 tablet Orally Once a day Not- Taking/PRNExcedrin Migraine 250-250-65 MG Tablet 2 tablets as needed Orally every 6 hrs , Notes to Pharmacist: PRNSimvastatin Zantac 150 MG Tablet 1 tablet at bedtime Orally Once a day Chantix Medication List reviewed and reconciled with the patientNot-Taking/PRN Excedrin Migraine 250-250-65 MG Tablet 2 tablets as needed Orally every 6 hrs , Notes to Pharmacist: PRNNot-Taking/PRN Simvastatin Not-Taking/PRN Zantac 150 MG Tablet 1 tablet at bedtime Orally Once a day Not-Taking/PRN Chantix Medication List reviewed and reconciled with the patient * Allergies: P enicillinLatexBlue Dyes (Parenteral)yes[Allergies Verified] Objective: * Vitals: H t: 6ft, Wt:245, BMI:33.22, Shoe size: 11, Ht-cm: 182.88 cm, Wt-k.13 kg. * Examination: V ascular: DP PULSES (B): 0/4, B/L. PT PULSES (B): 0/4, B/L. CAPILLARY FILL TIME: delayed, all digits, B/L. TROPHIC CONDITION-TEXTURE/ELASTICITY/TURGOR/HAIR GROWTH (B):? decreased, fragile, thin, shiny skin, with sparse to absent hair growth, B/L. TEMPERTURE GRADIENT (C): decreased, cool to cool, proximal to distal, B/L. PIGMENTATION: r ubrous, B/L. EDEMA (C): a bsent, B/L. CLAUDICATION (C): d enies, B/L. REST PAIN: d enies, B/L. PARESTHESIA (C): a bsent, B/L. BURNING (C): a bsent, B/L. N ails: NAILS are: E longated, overgrown, dystrophic, lytic, greater than 3mm thick, discolored and friable with crumbly malodorous subungual debris, with pain on palpation, TA, T1, T2, T4, T5, T6, T7, T8, T9, a ll other nails not described with characteristics as possessing mycosis are elongated, overgrown, and dystrophic,TROY-HORNappearance 10mm thickness or greater noted, T A, T1, T2, T4, T5, T6, T7, T8, T9. D ermatologic: SKIN FINDINGS: S kin exam reveals Keratotic lesion(s) located at , Medial, IPJ, TA, Medial, IPJ, T5, SUB MTH (s), 1, B/L, SUB MTH (s), 5, B/L, Plantar Heel(s), B/L. O rthopedic: MUSCLE STRENGTH: 5 /5 all groups in a symmetrical fashion, B/L. DIGITAL DEFORMITIES: D igital contracture, PIPJ, 2-5 B/L, incompl-reducible with WB, or to push-up test, no over, nor underlapping. FOOTWEAR EVALUATION: s hoe gear properties exacerbate patients complaints in relation to their foot/toe deformity. N eurological: SENSORY: N eurological exam reveals intact sensorium, pain sensation normal, vibration sensation intact, pinprick sensation is normal in the lower extremities, Pt denies, anesthesia, burning, paresthesia, tingling, B/L. G eneral Examination: GENERAL APPEARANCE: R dereckeals a pleasant, alert, well nourished, well-developed, well hydrated individual, who demonstrates proper attention to hygiene/body habitus, and is in no acute distress, Pt serves as own historian for office visit today. ORIENTED: p isidro, place, and time. Assessment: * Assessment: 1. T annie sheldon - B35.1 2 . A therosclerosis of levelock artery of both lower extremities, with unspecified presence of clinical manifestation - I70.203 (Primary) ?Specify :Q8 N otes :Q7(A), Q8(2B), Q9(1B,2C) 3 . P ain in right toe(s) - M79.674 4 . P ain in left toe(s) - M79.675 5 . O ther hammer toe(s) (acquired), right foot - M20.41 S pecify :Chronic problem, Stable (1=3,2=4) 6 . A rthritis of joint of lesser toe, right - M19.071 7 . Other hammer toe(s) (acquired), left foot - M20.42 S pecify :Chronic problem, Stable (1=3,2=4) 8 . A rthritis of joint of lesser toe, left - M19.072 Plan: * Treatment: 2. T annie conradum P rocedure: 33137-[id number] NAIL, 6 OR MORE * Procedures: D ebride Nail 6-10: Nail debridement D ue to the clinical pathology outlined in the exam findings, performance of this nail treatment is medically necessary as its management by an unskilled/untrained nonprofessional would put this patients foot and overall health at risk. Therefore, debridement to affected nail(s), as described in exam ( TA, T1, T2, T4, T5, T6, T7, T8, T9 ), was performed exclusively by the physician of record to reduce/remove overall nail length, girth, thickness, subungual debris, and necrotic tissue, by manual and/or electrical means through the use of a nail nipper and/or dremel- type jig grinder, to a more viable healthy nail plate or bed tissue 6-10 nails in total. Silver nitrate was used for any petechial bleeding as necessary. Definitive antifungal treatment options, both pharmaceutical and surgical, have been reviewed and discussed with the patient. The patient solely prefers the use of intermittent/as needed professional debridement services for their nail condition and understands the need for additional periodic treatments to maintain effectiveness in symptomatic relief - 02900. K eratoma Treatment: Parring or Cutting of Benign Hyperkeratotic Lesion(s) ( -57) More than 4 Lesions - Due to the at risk nature of the patients medical condition as documented in the exam findings, performance of this keratoderma treatment is medically necessary as its management by an unskilled/untrained nonprofessional would put this patients foot and overall health at risk. Therefore, the benign hyperkeratotic lesions, (8) in total, locations as stated and described in the exam ( M nilo, Juno ORTEGA, T A, M Juno corcoran, T 5, S UB MTH (s), 1 , B /L, S UB MTH (s), 5 , B /L, P lantar Heel(s), B /L ) , were pared, and/or cut utilizing a sterile 15 blade, tissue nippers, and/or power dremel instrumentation by the physician of record - 76354, Q8. * Procedure Codes: 1 1721 DEBRIDE NAIL, 6 OR MORE, Modifiers: XS 27083 TRIM SKIN LESIONS, OVER 4, Modifiers: XS , Q8 * Preventive Medicine: Counseling: D iscussion: - 03: Office or other outpatient visit for the evaluation and management of a new patient, which required a medically appropriate history and/or examination and LOW level of DECISION MAKING for: 1 STABLE ACUTE UNCOMPLICATED PROBLEM, 2 OR MORE MINOR PROBLEMS, OR 1 STABLE CHRONIC PROBLEM, THAT POSE(S) A LOW RISK FOR MORBIDITY/MORTALITY. The visit on the day of the encounter encompassed interpreting the data and educating the patient as to the nature of their condition, treatment options available according to their individual PMH, meds, allergies, and overall health/living conditions, as well as any potential risks or complications that may occur from a failure to adhere to, and participate in, the recommended course of therapy. The discussion included a complete verbal, and/or written explanation of the examination results, any x-rays taken, the proposed diagnosis, and outline of the treatment plan. A schedule for future care needs was also explained. The patient verbalized an understanding of the instructions at this time and agreed to be an active participant in their treatment. If the patient should think of any questions or concerns after the visit, I have encouraged the patient to call the office. A t Risk Diabetic/ASO/PVD Footcare: T he patient was advised against self nail/callus care due to inherent risks for infection, loss of limb/life given, peripheral vascular disease. D igital Surgery: Luis robb elected to try conservative treatment at the present time, due to the patients age, medical history, and circulatory constraints.? D igital Treatment: H T- I explained to the patient the possible etiologies of Hammertoes, including genetics/foot type/shoegear/activity level/exercise routine and the risks/benefits of all the different treatment options for their pain including: No treatment at all, Rest, Ice, New/supportive/wider/deeper Shoe gear, Digital Padding/Strapping/Taping/Bracing/Gel protective sleeves, Foot/Ankle AFO Bracing, Stretching exercises, Deep Tissue Massage, Arch support/shoe inserts with splay metatarsal padding, and Custom orthoses. I insisted that any digital devices be removed daily and not worn overnight for safety. The patient is to carefully examine the toes daily for any skin irritation while using any splinting or padding device. The advantages and disadvantages of each option were discussed and the patients questions re: shoe gear, padding, custom vs prefabricated inserts, activity level, and consistency in home treatment regimens for optimal success were answered to their verbally confirmed satisfaction. S hoe Gear Counseling: T he patient and I reviewed the types of shoes they should be wearing. My recommendation included obtaining a well-fitted shoe with a good supportive, non-foldable nor twistable sole, plenty of toe/room for the forefoot, and proper arch support. Based on todays examination, I recommended the patient look for new shoes, by having their feet professionally measured. We discussed that generally the best time of the day for a shoe fitting is the afternoon. Different shoes types and brands to best match the patients occupation and vocation were discussed. Specific brand selection will be up to the patient, their individual foot condition/deformities, and fit. The patient and I reviewed the standard new shoe break in period by wearing them for a few hours a day while checking for redness or sores as wear time is increased. The patient verbally confirmed to understanding the information discussed. Screening/Special Tests: F all Risk Screening: N o falls in the past year F ALLS: Screening for Future Fall Risk Have you had any falls with injury in the past year? N o * Follow Up: p rn * Images: * Sign off status: Completed true * Provider: Joshua Quan DPM Date: Generated for Darlene beard/Alicia/Acosta on: 05:58 PM EDT History and Physical Notes * HPI (History of Present Illness) Category Sub-Category Detail Notes Category Not es Toe pain Nature: tenderness Location: B/L feet Duration: several years Aggravated by: shoes, any pressure Treatments: rest/alter normal da lexie activity, change in shoes At Risk footcare Pt States Last PCP Visit: Date: Examination Category Sub-Category Detail Notes Category Not es Neurological SENSORY: Neurological exa m reveals intact sensorium, pain sensation normal, vibration sensation intact, pinprick sensation is normal in the lower extremities, Pt denies, anesthesia, burning, paresthesia, tingling, B/L Dermatologic SKIN FINDINGS: Skin exam reveal s Keratotic lesion(s) located at , Medial, IPJ, TA, Medial, IPJ, T5, SUB MTH (s), 1, B/L, SUB MTH (s), 5, B/L, Plantar Heel(s), B/L Orthopedic FOOTWEAR EVALUATION: shoe gear p roperties exacerbate patients complaints in relation to their foot/toe deformity DIGITAL DEFORMITIES: Digital contracture , PIPJ, 2-5 B/L, incompl-reducible with WB, or to push-up test, no over, nor underlapping MUSCLE STRENGTH: 5/5 all groups in a symmetrical fashion, B/L General Examination GENERAL APPEARANCE: Reveals a pleasant, alert, well nourished, well-developed, well hydrated individual, who demonstrates proper attention to hygiene/body habitus, and is in no acute distress, Pt serves as own historian for office visit today ORIENTED: person, place, and t anival Vascular DP PULSES (B): 0/4, B/L PT PULSES (B): 0/4, B/L CAPILLARY FILL TIME: delayed, all digits , B/L TEMPERTURE GRADIENT (C): decreased, cool to cool, proximal to distal, B/L TROPHIC CONDITION-TEXTURE/ELASTICITY/TURGOR/HAIR GROWTH (B): decreased, fragile, thin, shiny skin, wi th sparse to absent hair growth, B/L EDEMA (C): absent, B/L CLAUDICATION (C): denies, B/L REST PAIN: denies, B/L PIGMENTATION: rubrous, B/L PARESTHESIA (C): absent, B/L BURNING (C): absent, B/L Nails NAILS are: Elongated, overg rown, dystrophic, lytic, greater than 3mm thick, discolored and friable with crumbly malodorous subungual debris, with pain on palpation, TA, T1, T2, T4, T5, T6, T7, T8, T9, all other nails not described with characteristics as possessing mycosis are elongated, overgrown, and dystrophic, TROY-HORN appearance 10mm thickness or greater noted, TA, T1, T2, T4, T5, T6, T7, T8, T9
--- NOTE | 2025-02-19 13:48 | MHC.PC.OV ---
Vital Signs 02/19/25 13:53 Height 6 ft Weight 238 lb 8 oz BMI 32.3 BP 120/60 Blood Pressure Location Rt brachial Position Sitting Respiration 16 Pulse 76 Pulse Source Pulse Oximeter Temp 97.5 F Temp Source Oral Pulse Oximetry (%) 96 Oxygen Delivery Method Room Air Intake Visit Reasons: right volar wrist ganglion excision 02/28/25 Intake Note: patient is here for preop clearance for procedure Executive Legal Secretary Required: No Allergies Penicillins Allergy (Severe, Verified 02/19/25 13:52) throat swelling raspberry Allergy (Intermediate, Verified 02/19/25 13:52) Rash Blue Dye Allergy (Severe, Uncoded 02/12/25 14:18) throat swelling Latex Allergy (Severe, Uncoded 02/12/25 14:18) Rash, Hives, whole hand Medication List - Last Reconciled 02/19/25 by Zion Martinez MD acetaminophen 1,000 mg (2 x 500 mg) PO Q6H PRN aspirin (Adult Low Dose Aspirin) 81 mg PO DAILY atorvastatin 40 mg PO BEDTIME 90 days chloroquine phosphate 125 mg orally 5 days a week cholecalciferol (vitamin D3) 25 mcg PO DAILY docusate sodium (Colace) 200 mg PO DAILY hydrochlorothiazide 25 mg PO DAILY 90 days losartan 100 mg PO DAILY metoprolol succinate ER 25 mg PO BID 90 days naproxen 500 mg PO Q12H PRN Tobacco use date assessed: 02/12/25 Dental Screening Dental Screen Date: 02/12/25 HPI right volar wrist ganglion excision 02/28/25 HPI Details Patient presents for preoperative clearance prior to ganglion cyst removal Procedure: Right volar wrist ganglion excision Date: 02/28/2025 [place] [facility] [place] Anesthesia: General Cardiac Hx: Coronary artery disease, and his VT with pacer, aortic stenosis, hypertension - well controlled. Pulmonary Hx: None Prior Surgical Complications: None Prior Anesthesia Complications: None Coag Issues: None. On ASA Functional [place]: Patient walks 1-2 miles per day and has no problem with hills. Uses walking stick or cane. [facility] Medical History (Updated 02/19/25 @ 14:10 by Quan Dewey) Left carotid stenosis Acute respiratory disease Smoker Claudication of calf muscles Ambulates with cane Osteoarthritis Hx MRSA infection HLD (hyperlipidemia) Murmur Coronary artery disease Hx of renal calculi History of pacemaker Hypertension Elevated fasting blood sugar Surgical History Status post tracheostomy Status post carotid endarterectomy Hx of tracheostomy (07/05/23) History of left-sided carotid endarterectomy (07/04/23) Hx of tonsillectomy Hx of colonoscopy H/O cardiac catheterization History of dental surgery History of cystoscopy History of permanent cardiac pacemaker placement Family History Other Mental health disorder Substance use disorder Social History (Updated 02/12/25 @ 14:22 by Marion Siddiqi CMA) Household Members: None Caregiver staying overnight: No Housing: House Are you a primary lead care manager to a significant other at home: No Do you presently have visiting nurse or other home services: No 75 years or older and lives alone: No Alcohol intake: never Comment: COUNTS CORRECT Patient Tobacco Use Status: Current everyday Tobacco user Tobacco use type: Cigarette Cigarette Packs Per Day: 1 Cigarettes Per Day: 20.0 Years Smoked: 61 Packs Per Year: 61 Packs per year/per ci.00 e-Cigarette/Vaping Use: Never Used Second Hand Smoke Exposure: No service: No Current occupational status: retired Current occupational exposures/hazards: No Cognitive needs: No (Cane) Hearing needs: No Vision needs: Yes (Glasses) Questionnaire Thrive Questionnaire Date Thrive assessed: 05/29/24 I am a: Patient What is your living situation today?: I have a steady place to live Within the past 12 months, did the food you bought not last and you didn't have the money to get more?: Sometimes True Within the past 12 months, did you worry whether your food would run out before you got money to buy more?: Sometimes True Do you have trouble paying for medicines?: No Do you have trouble getting transportation to medical appointments?: No Do you have trouble paying your heating and electricity bill?: No Do you have trouble taking care of your child, family member or friend?: I choose not to answer this question Do you have trouble with day-to-day activities such as bathing, preparing meals, shopping, managing finances, etc.?: I choose not to answer this question Are you currently unemployed and looking for a job?: No Are you interested in more education?: No Please select the resources that you would like help with: None Currently or been in a relationship where the following occur: I choose not to answer THRIVE Score: 2 FARZANA-7 AMB Questionnaire FARZANA-7 Date FARZANA - 7 assessed: 10/14/21 Source: Developed by Drs. Robert Trejo, Consuelo Antoine, Gorge Drew and colleagues, with an educational mushtaq from [employer]. Review of Systems Const Denies chills, Denies fatigue, Denies fever(s), Denies headache(s) and Denies weakness ENT Denies dizziness and Denies headache(s) Card Denies dyspnea Resp Denies cough, Denies dyspnea, Denies wheezing and Denies other (shortness of breath) Musc Denies numbness and Denies tingling Neuro Denies dizziness, Denies headache(s), Denies numbness, Denies tingling and Denies weakness Psych Denies anxiety and Denies depression Endo Denies fatigue Aller/Immun Denies wheezing Physical exam (Primary Care) Vital Signs: Last Vital Signs Temp 97.5 F 02/19/25 13:53 Pulse 76 02/19/25 13:53 Resp 16 02/19/25 13:53 BP 120/60 02/19/25 13:53 Pulse Ox 96 02/19/25 13:53 Oxygen Delivery Method Room Air 02/19/25 13:53 BMI result Body Mass Index 32.3 Tobacco/Smoking Status: Tobacco use Status Tobacco use date assessed 02/12/25 02/19/25 13:49 Patient Tobacco Use Status Current everyday Tobacco 02/19/25 13:49 Tobacco use type Cigarette 02/19/25 13:49 e-Cigarette/Vaping Use Never Used 02/19/25 13:49 Thrive Assessment: Date of Thrive Assessment Date Thrive assessed 05/29/24 02/19/25 13:49 Currently or been in a relationship where the following occur: I choose not to answer Const General: well developed; No acute distress Nutritional Appearance: well nourished Orientation/consciousness: patient oriented x3 HENMT Head: Yes normocephalic and Yes atraumatic Eyes General: appearance normal, both eyes and all related structures Pupils: Equal, round and reactive pupils present EOM: EOMs intact bilaterally Resp Effort & Inspection: normal respiratory effort Auscultation: clear to auscultation bilaterally Cardio Rate: regular rate Rhythm: regular rhythm Heart sounds: S1 normal heart sound present, S2 normal heart sound present, no gallops, no murmurs and no rubs Neuro General: patient oriented x3 and gait normal Cranial nerves: Yes Equal, round and reactive pupils present Psych Affect: normal affect Coding Level of Care Code Est Pt Level 3 (07656) Diagnoses Pre-operative clearance Z01.818 Coronary artery disease involving [place] coronary artery of [place] heart without angina pectoris I25.10 Associated angina: without angina Coronary Disease-Associated Artery/Lesion type: [place] artery [place] vs. transplanted heart: [place] mountain heart Assessment & Plan Assessment & Plan (1) Pre-operative clearance: Code(s): Z01.818 - Encounter for other preprocedural examination Category: Medical (2) Coronary artery disease: Comment: Nonobstructive by cardiac catheterization Code(s): I25.10 - Atherosclerotic heart disease of [place] coronary artery without angina pectoris Category: Medical Qualifiers: Associated angina: without angina Coronary Disease-Associated Artery/Lesion type: [place] artery [place] vs. transplanted heart: [place] mountain heart Qualified Code(s): I25.10 - Atherosclerotic heart disease of [place] coronary artery without angina pectoris Plan 69-year-old male with history of coronary artery disease and NSVT with pacer, aortic stenosis and hypertension presents for clearance prior to ganglion cyst removal under general anesthesia. History of CAD, NSVT & pacer, Aortic stenosis & htn which is well controlled on losartan, hydrochlorothiazide, metoprolol. No chest pain or other cardiac symptoms. EKG today shows atrial sensed, V paced rhythm with prolonged conduction. No significant change from EKG in October 2024. Cardiac exam within normal limits No significant pulmonary history though patient is a smoker. Pulmonary exam normal. No complications with prior surgeries or anesthesia No coagulopathies though patient is on aspirin Walking 1-2 miles per day and up hill without problems. Good functional reserve. Low-Intermediate risk patient for intermediate risk procedure. Currently optimized. * no contraindications to proceeding with procedure Orders: Orders AMB Hemoglobin A1c 02/19/25 R73.03 - Prediabetes
[2025-02-19 13:53] VITALS: BP 120/60; PULSE 76; RESP 16; TEMP 36.4; O2SAT 96; BMI 32.3
--- OUTSIDE RECORDS SUMMARY | 2025-02-19 17:58 | XMS_ITS | Clinical Summary ---
[facility] Address [address] [place] [address] Care Team Providers Care Golf Superintendent Name Role Phone Zion Martinez MD Primary [...] age to complete this topic Care Teams Golf Superintendent Relationship Specialty Start Date End Date Zion Martinez MD [address] [place] [address] PCP - General Family Medicine 12/06/19
--- OUTSIDE RECORDS SUMMARY | 2025-02-19 17:58 | XMS_ITS | Patient Health Record ---
Author Organization [facility] Lela zhou Tiff Address [address] [place] [address] Care Team Providers Care Hedis Abstractor Name Role Phone Yang Guevara MD Primary Care Provider Duane Medellin Unavailable [phone] Allergies Allergen (clinical drug ingredient) Drug/Non Drug Allergy documented on EMR Reaction Allergy Type Onset Date Status Blue Dyes (Parenteral) Unknown Drug Allergy Active Latex Latex Unknown Allergy Active Penicillin Unknown Drug Allergy Active Reason For Referral No Information Medications Medication SIG (Take, Route, Frequency, Duration) Notes Start Date End Date Status Atorvastatin Calcium 40 MG 1 tablet Oral ly Once a day Active Diclofenac Sodium 50 MG 1 tablet as need ed Orally Twice a day Active Zantac 150 MG 1 tablet at bedtime Orally Once a day Not-Taking Aspirin 81 MG 1 tablet Orally Once a day Active Chantix Not-Taking Metoprolol Succinate 25 MG 1 capsule Ora lly Once a day Active Stool Softener 100 MG 1 capsule as neede d Orally Once a day Active hydroCHLOROthiazide Active Losartan Potassium-HCTZ Active Vitamin D3 25 MCG (1000 UT) 1 tablet Ora lly Once a day Active Excedrin Migraine 250-250-65 MG 2 tablets as needed Orally every 6 hrs PRN Not-Taking Simvastatin Not-Marcus beard Social History Tobacco Use: Social History Observation [...] atherosclerosis of arteries of lower limbs (disorder) ([id number] ) Atherosclerosis of [place] artery of both lower extremities, with unspecified presence of clinical manifestation (I70.203) Active confirmed Q7(A), Q8(2B), Q9(1B,2 C) Vital Signs Height 6ft in 02/18/2025 Weight 245 lbs 02/18/2025 BMI 33.22 kg/m2 02/18/2025 Procedures Procedure Date Ordered Date Performed Result Body Sit e 05389-QCXIYTV NAIL, 6 OR MORE 02/18/2025 N/A 65712-OFIX SKIN LESIONS, OVER 4 02/18/2025 N/A Encounters Encounter Location Date Provider Diagnosis [facility] [address] [place] [phone] 02/18/2025 Duane Quan Atherosclerosis of [place]scar[place] artery of both lower extremities, with unspecified presence of clinical manifestation I70.203 ; Tinea unguium B35.1 ; Pain in right toe(s) M79.674 ; Pain in left toe(s) M79.675 ; Other hammer toe(s) (acquired), right foot M20.41 ; Arthritis of joint of lesser toe, right M19.071 ; Other hammer toe(s) (acquired), left foot M20.42 and Arthritis of joint of lesser toe, left M19.072 [facility] [place] [place] [address] [place] [address] 11/19/2024 Duane Quan Assessments Encounter Date Diagnosis (ICD Code) Assessment Notes Treatment Notes Treatment Clinical Notes Section Notes 02/18/2025 Tinea unguium (ICD-10 - B35.1) 02/18/2025 Atherosclerosis of [place] artery of both lower extremities, with unspecified presence of clinical manifestation (ICD-10 - I70.203) Q7(A), Q8(2B), Q9(1B,2C) 02/18/2025 Pain in right toe(s) (ICD-10 - [...] Treatment Pending Test Test Name Order Date [id number] NAIL, 6 OR MORE 02/19/2016 [id number] NAIL, 6 OR MORE 05/20/2016 17110-OOOUZEG NAIL, 6 OR MORE 08/19/2016 [id number] NAIL, 6 OR MORE 11/18/2016 [id number] NAIL, 6 OR MORE 03/02/2017 [id number] NAIL, 6 OR MORE 06/01/2017 [id number] NAIL, 6 OR MORE 08/10/2017 [id number] NAIL, 6 OR MORE 04/03/2018 [id number] NAIL, 6 OR MORE 02/18/2025 [id number] NAIL, 6 OR MORE 11/06/2015 46341-[id number] Plate 11/06/2015 77211-ELMF SKIN LESIONS, OVER 4 02/19/20 25 Next Appt Details Provider Name:Duane Quan , 06/03/2025 01:00:00 PM, [address] [facility], [address], [place], [address], Insurance Providers Payer Name Payer Address Payer Phone Subscriber Number Group Number Insured Name Patient Relationship to Insured Coverage Start Date Coverage End Date [employer] Medicare Adv-[id number] [address] [address] [place] [address] [id number] Sanford Stack Self - patient is the insured Medical (General) History Medical History History ICD Code Arthritis - RA Back,Hip,and Knee pain High blood pressure Measles Mumps Chicken pox Cholesterol covid-19 Headaches/Migraines Heart disease Pacemaker Surgical History Surgery Date(Month/Year) cardiac pacemaker 2015
--- OUTSIDE RECORDS SUMMARY | 2025-02-19 17:58 | XMS_ITS | Encounter Summary ---
Author Organization [facility] Address [address] [place] [address] Phone Care Team Providers Care Cattle And Wheat Farmer Name Role Phone Zion Martinez MD Primary Care Provider Encounter Details Date Type Department Care Team (Late st Contact Info) Description 06/27/2023 Procedure Pass [facility] [address] [place] [address] Social History Tobacco Use Types Packs/Day Years [...] on filedocumented in this encounter Care Teams Cattle And Wheat Farmer Relationship Specialty Start Date End Date Zion Martinez MD [address] [place] [address] PCP - General 06/09/23 documented as of this encounter Additional Source Comments The information contained in this document represents components of the legal health record. It is not the complete legal health record.[facility]
--- OUTSIDE RECORDS SUMMARY | 2025-02-19 17:59 | XMS_ITS | Encounter Summary ---
Author Organization [facility] Address [address] [place] [address] Care Team Providers Care Pcat Instructor Name Role Phone Zion Martinez MD Primary Care Provider Reason for Visit * Reason Onset Date Comments Appointment 02/01/2025 1st notification Encounter Details Date Type Department Care Team ([facility] st Contact Info) Description 02/01/2025 Telephone Lung Screening Program - [place] [address] [phone] Ryanne Javier MD [address] [address] Social History Tobacco Use Types Packs/Day Years [...] as of this encounter Progress Notes * Marcelina Antoine MA - 02/19/2025 2:28 PM EDT Reached out and left a friendly reminder of appointment on 02/20/25 . Unable to text * Danya Lopez - 02/01/2025 1:30 PM EDT Sanford Stack was contacted by the Lung Cancer Screening Program today to confirm the appointmentof their Lung Cancer Screening. The patient is currently scheduled to have their screening on 02/20/25 at 1:00pm at [facility]. For all screenings scheduled during the week, the patient will check in at Patient Registration on the first floor of the main hospital. For screenings that take place on [...] Info) Description 02/20/2025 1:00 PM EDT Appointment [facility] CT Scan [address] [place] [address] documented as of this encounter Visit Diagnoses Not on filedocumented in this encounter Care Teams Pcat Instructor Relationship Specialty Start Date End Date Zion Martinez MD [address] [place] [address] Dr Melanie [place] PCP - General Family Medicine 12/06/19 documented as of this encounter
--- OUTSIDE RECORDS SUMMARY | 2025-02-19 17:59 | XMS_ITS | Clinical Summary ---
Author Organization [facility] Address [address] [place] [address] Phone Care Team Providers Care Semiconductor Equipment Technician Name Role Phone Zion Martinez MD Primary Care Provider Encounters Date Type Department Care Team Description 02/01/2025 Telephone Lung Screening Program - [place] [address] [facility] [address] [place] [phone] Ryanne Javier MD from Last 3 Months [...] Info) Description 02/20/2025 1:00 PM EDT Appointment [facility] Scan [address] [place] [address] Health Maintenance Due Date Last Done Comments Colorectal Cancer Screening: Colonoscopy 1955 DTaP,Tdap,and Td Vaccines (1 - Tdap) 1972 RSV Immunization Adult Patients (1 - Risk 50-74 years 1-dose series) 2003 Zoster Vaccines (1 of 2) 2003 Pneumococcal Vaccine: 50+ Years (2 of 2 [...] HEALTHCARE MEDICARE MEDICAID - [place] Care Teams Semiconductor Equipment Technician Relationship Specialty Start Date End Date Zion Martinez MD [address] [place] [address] Dr Melanie [place] PCP - General Family Medicine 12/06/19
--- OUTSIDE RECORDS SUMMARY | 2025-02-19 17:59 | XMS_ITS | Clinical Summary ---
Author Organization [facility] Address [address] [place] [address] Care Team Providers Care Postal Clerk Name Role Phone Unavailable Primary Care Provider [...] age to complete this topic [place] [address] [facility] [place] [address]
--- OUTSIDE RECORDS SUMMARY | 2025-02-19 17:59 | XMS_ITS | Clinical Summary ---
Author Organization [facility] Address [address] [place] [address] Phone Care Team Providers Care Actuarial Consultant Name Role Phone Zion Martinez MD [...] Plan / Payer (Ef fective 2023-Present) Name:RichmiquelSanford valdze Relation to Subscriber:Self Name:Sanford Stack Payer ID:[id number] (NAIC) Type:Medicare Address: [place] [id number] MEDICARE REPLACEMENT MEDICARE REPLACEMENT MEDICARE REPLACEMENT MEDICARE REPLACEMENT Care Teams Actuarial Consultant Relationship Specialty Start Date End Date Zion Martinez MD [address] [place] [address] PCP - General 06/09/23 Additional Source Comments The information contained in this document represents components of the legal health record. It is not the complete legal health record.[facility]
== END 2025-02-19 14:40 | disposition home or self-care (01) ==
LOC: HO.HMCFM 13:39
PROVIDERS: PCP Family Medicine; Visit Provider Family Medicine
DX: Z01.818 Encounter for other preprocedural examination (principal); I25.10 Atherosclerotic heart disease of native coronary artery without angina pectoris

== ENCOUNTER → 2025-02-19 13:39 | Outpatient (BNVA) | payer MEDICARE, SELFPAY | PROVIDERS: PCP Family Medicine; Visit Provider Family Medicine | DX: Z01.818 Encounter for other preprocedural examination (principal); M67.432 Ganglion, left wrist; I25.10 Atherosclerotic heart disease of native coronary artery without angina pectoris | CPT/HCPCS: 99212 ==

== ENCOUNTER 2025-02-22 12:55 | Outpatient (REF) | payer MEDICARE, SELFPAY ==
--- OUTSIDE RECORDS SUMMARY | 2025-02-18 06:00 | XMS_ITS ---
Author Organization [facility] Lela winnie Alejandro Address [address] [place] [address] Care Team Providers Care Warehouse Administrator Name Role Phone Paola DE LA PAZ, Yang Primary Care Provider Duane Medellin Unavailable [phone] Allergies Allergen (clinical drug ingredient) Drug/Non Drug [...] atherosclerosis of arteries of lower limbs (disorder) ([id number] ) Atherosclerosis of shosh[place]aiute artery of both lower extremities, with unspecified presence of clinical manifestation (I70.203) Active confirmed Q7(A), Q8(2B), Q9(1B,2 C) Vital Signs Height 6ft in 02/18/2025 Weight 245 lbs 02/18/2025 BMI 33.22 kg/m2 02/18/2025 Procedures Procedure Date Ordered Date Performed Result Body Sit e 99609-YZJESLH NAIL, 6 OR MORE 02/18/2025 N/A 98559-HETS SKIN LESIONS, OVER 4 02/18/2025 N/A Encounters Encounter Location Date Provider Diagnosis [facility] [address] [address] 02/18/2025 Duane Quan Atherosclerosis of [place] artery of both lower extremities, with unspecified [...] Clinical Notes Section Notes 02/18/2025 Atherosclerosis of [place] artery of both lower extremities, with unspecified [...] Treatment Pending Test Test Name Order Date 20741-[id number] NAIL, 6 OR MORE 02/18/2025 57622-OYFJ SKIN LESIONS, OVER 4 02/19/20 25 Next Appt Details Follow Up: prn, Reason: Provider Name:Duane Quan , 06/03/2025 01:00:00 PM, [address] [facility], [address], [place], [address], Procedure Notes * Category Sub-Category [...] use of a nail nipper and/or dremel-type edge grinder machine, to a more viable healthy nail plate [...] to maintain effectiveness in symptomatic relief - 23931 Keratoma Treatment Parring or Cutting o f [...] instrumentation by the physician of record - 95326, Q8 Progress Notes * Sanford MERCEDES ADOB:[birth year] (69 yo M)Acc No.[id number]:02/18/2025 Progress Notes Patient: Sanford POLLARD Provider: Joshua Quan DPM :1955 A ge:69 Y S ex:Male Date:02/18/2025 Address:[address] [place], [place] [address] Pcp:Yang Guevara MD Subjective: * Chief Complaints: [...] enies. C ardiovascular: Pacemaker d enies. M RESAW TAILER d enies. W PW d enies. C [...] - B35.1 2 . A therosclerosis of shosh[place]ute artery of both lower extremities, with unspecified [...] Treatment: 2. T annie conradum P rocedure: 65032-LTQKTNI NAIL, 6 OR MORE * Procedures: D [...] of a nail nipper and/or dremel- type edge grinder machine, to a more viable healthy nail plate [...] to maintain effectiveness in symptomatic relief - 83270. K eratoma Treatment: Parring or Cutting of [...] instrumentation by the physician of record - 58333, Q8. * Procedure Codes: 1 1721 DEBRIDE NAIL, 6 OR MORE, Modifiers: XS 41101 TRIM SKIN LESIONS, OVER 4, Modifiers: XS [...] DPM Date: Generated for Darlene beard/Alicia/Acosta on: 02:52 PM EDT History and Physical Notes * [...]
--- OUTSIDE RECORDS SUMMARY | 2025-02-20 12:43 | XMS_ITS | Encounter Summary ---
Author Organization [facility] Address [address] [place] [address] Care Team Providers Care Buying Intern Name Role Phone Zion Martinez MD Primary Care Provider [phone] Reason for Referral * Imaging (Routine) - Authorized Specialty Diagnoses / Procedures Referred By Contac t Referred To Contact Radiology Diagnoses Encounter for screening for malignant neoplasm of respiratory organs Nicotine dependence, cigarettes, uncomplicated Procedures CT Lung Screening Ryanne Javier MD [address] [address] Phone: tel: fax: [address] [address] Phone: tel: Referral ID Status Reason Start Date Expiration Date V isits Requested Visits Authorized [id number] Authorized 12/17/2024 12/17/2025 1 1 Reason for Visit * Imaging (Routine) - Authorized Specialty Diagnoses / Procedures Referred By Contac t Referred To Contact Radiology Diagnoses Encounter for screening for malignant neoplasm of respiratory organs Nicotine dependence, cigarettes, uncomplicated Procedures CT Lung Screening Ryanne Javier MD [address] [address] Phone: tel: fax: [address] [address] Phone: tel: Referral ID Status Reason Start Date Expiration Date V isits Requested Visits Authorized [id number] Authorized 12/17/2024 12/17/2025 1 1 Encounter Details Date Type Department Care Team (Latest Contact Info) Description 02/20/2025 12:43 PM EDT - 02/20/2025 11:59 PM EDT Hospital Encounter [facility] Scan [address] [place] [address] Encounter for screening for malignant neoplasm of respiratory organs; Nicotine dependence, cigarettes, uncomplicated Discharge Disposition: Home or Self Care Social History Tobacco Use Types Packs/Day Years [...] on file documented as of this encounter Discharge Disposition Disposition Code Departure Means Destination Home or Self Care documented in this encounter Plan of Treatment Pending Results Name Type Priority Associated Diagnoses Date /Time CT Lung Screening Imaging Routine Encounter for screening for malignant neoplasm of respiratory organs Nicotine dependence, cigarettes, uncomplicated 02/20/2025 12:51 PM EDT Scheduled Orders Name Type Priority Associated Diagnoses Orde r Schedule CT Lung Screening Imaging Routine Encounter for screening for malignant neoplasm of respiratory organs Nicotine dependence, cigarettes, uncomplicated Once for 1 Occurrences starting 02/20/2025 until 02/20/2025 documented as of this encounter Visit Diagnoses Diagnosis Encounter for screening for malignant neoplasm of respiratory organs Nicotine dependence, cigarettes, uncomplicated documented in this encounter Care Teams Buying Intern Relationship Specialty Start Date End Date Zion Martinez MD [address] [place] [address] Dr Melanie [place] PCP - General Family Medicine 12/06/19 documented as of this encounter
--- NOTE | 2025-02-22 12:58 | EMG_ITS ---
Chief complaint: Right hand numbness, ganglion cyst on wrist Reason for referral: Evaluate for Carpal Tunnel Syndrome Referred by: Jose AGUILLON Procedure done: Right upper extremity NCS/EMG Precautions and/or limitations: Pacemaker Previous ACDF The limb temperature was monitored continuously and remained between 32-36 degrees C during the performance of the NCS. Nerve Conduction Studies Anti Sensory Summary Table ?Stim Site NR Onset (ms) Norm Onset (ms) Peak (ms) Norm Peak (ms) O-P Amp (?V) Norm O-P Amp Site1 Site2 Delta-0 (ms) Dist (cm) Milad (m/s) Norm Milad (m/s) Right Median Anti Sensory (2nd Digit) Wrist ? 3.9 4.8 <3.6 9.2 >10 Wrist 2nd Digit 3.9 14.0 36 Right Radial Anti Sensory (Thumb) Forearm ? 1.2 2.1 <3.1 9.1 Forearm Thumb 1.2 0.0 Right Ulnar Anti Sensory (5th Digit) Wrist ? 1.8 3.3 <3.7 16.0 >15.0 Wrist 5th Digit 1.8 14.0 78 Motor Summary Table ?Stim Site NR Onset (ms) Norm Onset (ms) O-P Amp (mV) Norm O-P Amp iAmp (mV) Amp (1st) (%) Site1 Site2 Delta-0 (ms) Dist (cm) Milad (m/s) Norm Milad (m/s) Right Median Motor (Abd Poll Brev) Wrist ? 5.2 <3.9 5.5 >4.5 6.9 100.0 Elbow Wrist 3.9 23.0 59 >45 Elbow ? 9.1 5.2 6.6 94.5 Right Ulnar Motor (Abd Dig Minimi) Wrist ? 2.8 <3.0 5.3 >5 6.4 100.0 B Elbow Wrist 4.0 20.0 50 >45 B Elbow ? 6.8 5.6 6.9 105.7 A Elbow B Elbow 1.9 10.0 53 >45 A Elbow ? 8.7 4.9 6.1 92.5 EMG ?Side Muscle Nerve Root Ins Act Fibs Psw Amp Dur Poly Recrt Int Pat Comment Right 1stDorInt Ulnar C8-T1 Nml Nml Nml Nml Nml 0 Nml Complete Right FlexCarRad Median C6-7 Nml Nml Nml Nml Nml 0 Nml Complete Right Biceps Musculocut C5-6 Nml Nml Nml Nml Nml 0 Nml Complete Right Triceps Radial C6-7-8 Nml Nml Nml Nml Nml 0 Nml Complete Right Deltoid Axillary C5-6 Nml Nml Nml Incr Incr 0 Nml Complete FINDINGS: Right median motor nerve showed prolonged distal latency, normal amplitude and normal conduction velocity. Right median sensory nerve showed small amplitude and prolonged peak latency. All other nerves tested were within normal. Concentric needle EMG was performed in selected muscles of the right upper extremity. Study revealed signs of electric abnormalities as shown in the table above. Right deltoid showed increased duration activity. IMPRESSION: 1. This is an abnormal study. 2. There is electrodiagnostic evidence for right moderate- median neuropathy at the wrist, consistent with carpal tunnel syndrome. 3. Possible chronic right C5-6 radiculopathy. There is no electrodiagnostic evidence for ulnar neuropathy, brachial plexopathy, or cervical radiculopathy. Thank you for your kind referral. Toya Card MD, WILLIE Board Certified, [place] Board [employer] and Rehabilitation (ABPMR) Board Certified, [place] Board of Electrodiagnostic Medicine (ABEM) CODIN [address], 1 extremity MTDD
--- OUTSIDE RECORDS SUMMARY | 2025-02-22 14:52 | XMS_ITS | Encounter Summary ---
Author Organization [facility] Address [address] [place] [address] Phone Care Team Providers Care Freight Handler Name Role Phone Zion Martinez MD Primary Care Provider Encounter Details Date Type Department Care Team (Late st Contact Info) Description 06/27/2023 Procedure Pass [facility] [address] [place] [address] Social History Tobacco Use Types Packs/Day Years [...] on filedocumented in this encounter Care Teams Freight Handler Relationship Specialty Start Date End Date Zion Martinez MD [address] [place] [address] PCP - General 06/09/23 documented as of this encounter Additional Source Comments The information contained in this document represents components of the legal health record. It is not the complete legal health record.[facility]
--- OUTSIDE RECORDS SUMMARY | 2025-02-22 14:52 | XMS_ITS | Clinical Summary ---
Author Organization [facility] Address [address] [place] [address] Phone Care Team Providers Care Project Estimator Name Role Phone Zion Martinez MD Primary Care Provider [phone] Allergies No known active allergies Encounters Date Type Department Care Team Description 02/20/2025 12:43 PM EDT - 02/20/2025 11:59 PM EDT Hospital Encounter [facility] CT Scan [address] [place] [phone] Encounter for screening for malignant neoplasm of respiratory organs; Nicotine dependence, cigarettes, uncomplicated Discharge Disposition: Home or Self Care 02/01/2025 Telephone Lung Screening Program - [place] [address] [facility] [address] [place] [phone] Ryanne Javier MD from Last 3 Months [...] Done Comments Colorectal Cancer Screening: Colonoscopy 1955 Zoster Vaccines (1 of 2) 2003 Abdominal Aortic Aneurysm (AAA) Screen 04/04/2022 Cholesterol Screening (Lipid Panel) 04/04/2022 Falls Risk Assessment 04/04/2022 Hepatitis C Screening 04/04/2022 Medicare Annual Wellness Visit 04/04/2022 Social Influencers of Health Screening 04/04/2022 Hypertension/CHF/CAD Annual BMP Blood Test 04/13/2022 Depression Screening 05/02/2024 DTaP,Tdap,and Td Vaccines (2 - Td or Tdap) 05/31/2029 05/31/2019 Pneumococcal Vaccine: 50+ Years Completed 05/31/2019, 02/12/2016 RSV Immunization Adult Patients Completed 01/27/2023 COVID-19 Vaccine Completed 12/15/2024, 03/2024, 01/27/2023, Additional history exists Influenza Vaccine Completed 12/15/2024, , 01/27/2023, Additional history exists HIB Vaccines Aged Out [...] HEALTHCARE MEDICARE MEDICAID - [place] Care Teams Project Estimator Relationship Specialty Start Date End Date Zion Martinez MD [address] [place] [address] Dr Melanie [place] PCP - General Family Medicine 12/06/19
--- OUTSIDE RECORDS SUMMARY | 2025-02-22 14:52 | XMS_ITS | Patient Health Record ---
Author Organization [facility] Lela zhou Cushman Address [address] [facility] [place] [facility] [place] [address] Care Team Providers Care Seismograph Recorder Name Role Phone Yang Guevara MD Primary Care Provider Duane Medellin Unavailable [phone] Allergies Allergen (clinical drug ingredient) Drug/Non Drug [...] atherosclerosis of arteries of lower limbs (disorder) ([id number] ) Atherosclerosis of [place] artery of both lower extremities, with unspecified presence of clinical manifestation (I70.203) Active confirmed Q7(A), Q8(2B), Q9(1B,2 C) Vital Signs Height 6ft in 02/18/2025 Weight 245 lbs 02/18/2025 BMI 33.22 kg/m2 02/18/2025 Procedures Procedure Date Ordered Date Performed Result Body Sit e 77737-[id number] NAIL, 6 OR MORE 02/18/2025 N/A 39333-NAYP SKIN LESIONS, OVER 4 02/18/2025 N/A Encounters Encounter Location Date Provider Diagnosis [facility] [address] [place] [phone] 02/18/2025 Duane Quan Atherosclerosis of [place] artery of both lower extremities, with unspecified presence of clinical manifestation I70.203 ; Tinea unguium B35.1 ; Pain in right toe(s) M79.674 ; Pain in left toe(s) M79.675 ; Other hammer toe(s) (acquired), right foot M20.41 ; Arthritis of joint of lesser toe, right M19.071 ; Other hammer toe(s) (acquired), left foot M20.42 and Arthritis of joint of lesser toe, left M19.072 [facility] [address] [place] [address] 11/19/2024 Duane Quan Assessments Encounter Date Diagnosis (ICD Code) Assessment Notes Treatment Notes Treatment Clinical Notes Section Notes 02/18/2025 Tinea unguium (ICD-10 - B35.1) 02/18/2025 Atherosclerosis of [place] artery of both lower extremities, with unspecified [...] Treatment Pending Test Test Name Order Date [id number] NAIL, 6 OR MORE 02/19/2016 [id number] NAIL, 6 OR MORE 05/20/2016 [id number] NAIL, 6 OR MORE 08/19/2016 [id number] NAIL, 6 OR MORE 11/18/2016 [id number] NAIL, 6 OR MORE 03/02/2017 [id number] NAIL, 6 OR MORE 06/01/2017 73572-[id number] NAIL, 6 OR MORE 08/10/2017 [id number] NAIL, 6 OR MORE 04/03/2018 [id number] NAIL, 6 OR MORE 02/18/2025 [id number] NAIL, 6 OR MORE 11/06/2015 [id number] Plate 11/06/2015 56040-ZWKL SKIN LESIONS, OVER 4 02/19/20 25 Next Appt Details Provider Name:Duane Quan , 06/03/2025 01:00:00 PM, [address] [facility], [address], [place], [address], Insurance Providers Payer Name Payer Address Payer Phone Subscriber Number Group Number Insured Name Patient Relationship to Insured Coverage Start Date Coverage End Date [employer] Medicare [id number] [address] [address] [place] [address] [id number] Sanford Stack Self - patient is the insured Medical (General) History Medical History History ICD Code Arthritis - RA Back,Hip,and Knee pain High blood pressure Measles Mumps Chicken pox Cholesterol covid-19 Headaches/Migraines Heart disease Pacemaker Surgical History Surgery Date(Month/Year) cardiac pacemaker 2015
--- OUTSIDE RECORDS SUMMARY | 2025-02-22 14:52 | XMS_ITS | Clinical Summary ---
Author Organization [facility] Address [address] [place] [address] Care Team Providers Care Muskrat Trapper Name Role Phone Zion Martinez MD Primary [...] age to complete this topic Care Teams Muskrat Trapper Relationship Specialty Start Date End Date Zion Martinez MD [address] [place] [address] PCP - General Family Medicine 12/06/19
--- OUTSIDE RECORDS SUMMARY | 2025-02-22 14:53 | XMS_ITS | Clinical Summary ---
Author Organization [facility] Address [address] [place] [address] Phone Care Team Providers Care Boat Dock Operator Name Role Phone Zion Martinez MD [...] Name:Sanford Stack Payer ID:[id number] (NAIC) Type:Medicare Address: [place] [id number] MEDICARE REPLACEMENT MEDICARE REPLACEMENT MEDICARE REPLACEMENT MEDICARE REPLACEMENT Care Teams Boat Dock Operator Relationship Specialty Start Date End Date Zion Martinez MD [address] [place] [address] PCP - General 06/09/23 Additional Source Comments The information contained in this document represents components of the legal health record. It is not the complete legal health record.[facility]
--- OUTSIDE RECORDS SUMMARY | 2025-02-22 14:53 | XMS_ITS | Clinical Summary ---
Author Organization [facility] Address [address] [place] [address] Care Team Providers Care Project Admin Name Role Phone Unavailable Primary Care Provider [...] age to complete this [place] [address] [facility] [place] [address]
--- OUTSIDE RECORDS SUMMARY | 2025-02-22 14:53 | XMS_ITS | Encounter Summary ---
Author Organization [facility] Address [address] [place] [address] Care Team Providers Care Records Analysis Manager Name Role Phone Zion Martinez MD Primary Care Provider [phone] Reason for Visit * Reason Onset Date Comments Appointment 02/01/2025 1st notification Encounter Details Date Type Department Care Team ([facility] st Contact Info) Description 02/01/2025 Telephone Lung Screening Program - [place] [address] [phone] Ryanne Javier MD [address] [address] Social History Tobacco Use Types Packs/Day Years [...] their screening on 02/20/25 at 1:00pm at [facility]. For all screenings scheduled during the week, [...] documented in this encounter Plan of Treatment Not on file documented as of this encounter Visit Diagnoses Not on filedocumented in this encounter Care Teams Records Analysis Manager Relationship Specialty Start Date End Date Zion Martinez MD [address] [place] [address] Dr Melanie [place] PCP - General Family Medicine 12/06/19 documented as of this encounter
== END 2025-02-22 12:56 | disposition home or self-care (01) ==
LOC: HO.NEURO 12:55
PROVIDERS: PCP Nurse Practitioner Family
DX: R20.0 Anesthesia of skin (principal); R20.2 Paresthesia of skin
CPT/HCPCS: 95886; 95909

== ENCOUNTER → 2025-02-22 13:36 | Outpatient (BNV) | payer MEDICARE, SELFPAY | PROVIDERS: PCP Nurse Practitioner Family; Visit Provider Physical Medicine & Rehabilitation | DX: G56.11 Other lesions of median nerve, right upper limb (principal) | CPT/HCPCS: 95886; 95909 ==

== ENCOUNTER 2025-02-28 05:43 | Day surgery (SDC) | payer MEDICARE, SELFPAY ==
--- OUTSIDE RECORDS SUMMARY | 2025-02-04 17:30 | XMS_ITS | Encounter Summary ---
Author Organization [facility] Address [address] [place] [address] Care Team Providers Care Thread Grinder Name Role Phone Zion Martinez MD Primary Care Provider Reason for Visit * Reason Onset Date Comments Appointment 02/01/2025 1st notification Encounter Details Date Type Department Care Team ([facility] st Contact Info) Description 02/01/2025 Telephone Lung Screening Program - [place] [address] [address] Ryanne Javier MD [address] [address] Social History Tobacco Use Types Packs/Day Years [...] on file documented as of this encounter Progress Notes * Danya Lopez - 02/01/2025 1:30 PM EDT Sanford Stack was contacted by the Lung Cancer Screening Program today to confirm the appointmentof their Lung Cancer Screening. The patient is currently scheduled to have their screening on 02/20/25 at 1:00pm at . For all screenings scheduled during the week, the patient will check in at Patient Registration on the first floor of the [facility]. For screenings that take place on the weekend or after 5pm, check-in directly in Radiology. The patient was given the Lung Cancer Screening Program phone number, , to contact if they have any additional questions, concerns or need to reschedule. Patients are encouraged to call our office and reschedule if they are exhibiting any cold-like symptoms, have recently been treated for Pneumonia or Influenza (the flu) or have had another CT of their Chest since their last screening. documented in this encounter Plan of Treatment Upcoming Encounters Date Type Department Care Team (Late st Contact Info) Description 02/20/2025 1:[address] Scan [address] [place] [address] documented as of this encounter Visit Diagnoses Not on filedocumented in this encounter Care Teams Thread Grinder Relationship Specialty Start Date End Date Zion Martinez MD [address] [place] [address] Dr Melanie [place] PCP - General Family Medicine 12/06/19 documented as of this encounter
--- OUTSIDE RECORDS SUMMARY | 2025-02-04 17:30 | XMS_ITS | Clinical Summary ---
Author Organization [facility] Address [address] [place] [address] Phone Care Team Providers Care Laborer Tree Tapping Name Role Phone Zion Martinez MD Primary Care Provider Encounters Date Type Department Care Team Description 02/01/2025 Telephone Lung Screening Program - [place] [address] [facility] [address] [place] [id number] Ryanne Javier MD from Last 3 Months Surgical History Surgery Date Site/Laterality Comments PACEMAKER IMPLANT PROCEDURE: HISTORICAL PACEMAKER Medical History Medical History Date Comments LBBB (left bundle branch block) DX:LBBB (left bundle branch block) Essential hypertension DX:Essent ial hypertension Nephrolithiasis DX:Nephrolithias is; COMMENT: right kidney Chronic obstructive pulmonar y disease (CMS/HCC V24, CMS/HCC V28) 12/27/2017 DX:Chronic obstructive pulm onary disease [...] 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 (CMS/HCC V24, CMS/HCC V28) 03/21/2018 DX:Seropositive rheumatoid a rthritis of [...] Info) Description 02/20/2025 1:00 PM EDT Appointment [facility] Scan [address] [place] [address] Health Maintenance Due Date Last Done Comments Colorectal Cancer Screening: Colonoscopy 1953 DTaP,Tdap,and Td Vaccines (1 - Tdap) 1972 Zoster Vaccines (1 of 2) 2003 RSV Immunization Adult Patients (1 - Risk 60-74 years 1-dose series) 2013 Pneumococcal Vaccine: 50+ Years (2 of 2 - PPSV23, PCV20, or PCV21) 04/08/2016 02/12/2016 Abdominal Aortic Aneurysm (AAA) Screen 04/04/2022 Cholesterol Screening (Lipid Panel) 04/04/2022 Falls Risk Assessment 04/04/2022 Hepatitis C Screening 04/04/2022 Medicare Annual Wellness Visit 04/04/2022 Social Influencers of Health Screening 04/04/2022 Hypertension/CHF/CAD Annual BMP Blood Test 04/13/2022 Depression Screening 05/02/2024 COVID-19 Vaccine ( - season) 2024 Influenza Vaccine (#1) 2024 9, [...] complete this topic Insurance [employer] MEDICARE MEDICAID - [place] Care Teams Laborer Tree Tapping Relationship Specialty Start Date End Date Zion Martinez MD [address] [place] [address] Dr Melanie [place] PCP - General Family Medicine 12/06/19
--- OUTSIDE RECORDS SUMMARY | 2025-02-04 17:30 | XMS_ITS | Patient Health Record ---
Author Organization [facility] Lela zhou Gary Address [address] [facility] [place] [address] Care Team Providers Care Windshield Installer Name Role Phone Yang Guevara MD Primary Care Provider Duane Medellin Unavailable [phone] Allergies Allergen (clinical drug ingredient) Drug/Non Drug Allergy documented on EMR Reaction Allergy Type Onset Date Status Blue Dyes (Parenteral) Unknown Drug Allergy Active Latex Latex Unknown Allergy Active Penicillin Unknown Drug Allergy Active Reason For Referral No [...] (start date - stop date) Current Smoker 05/08/1964 - NA Tobacco use other than smoking: Question Answer Notes Are you an other tobacco user? No Tobacco Control (Standard) Question Answer Notes Tobacco use: Current smoker When did you start smoking? 05/08/1962 How often do you smoke cigarettes? Every day How many cigarettes a day do you smoke? 11-20 How soon after you wake up d o you smoke your first cigarette? 31-60 minutes Are you interested in quitting? Not ready to lexi t Additional Findings: Tobacco user Modera te cigarette smoker (10-19 cigs/day) AUDIT-C (Standard) Question Answer Notes Did you have a drink containing alcohol in the p ast year? No Points 0 Interpretation Negative Section Notes: Pt denies social HX Pt denies social HX Pt denies social HX Pt denies social HX Pt denies social HX Pt denies social HX Pt denies social HX Pt denies social HX Pt denies social HX Pt denies social HX Problems Problem Type SNOMED Code ICD Code Onset Dates Problem Status W/U Status Risk Notes Problem Tinea unguium (480067275) Tinea unguium (B35.1) Active confirmed Encounters Encounter Location Date Provider [facility] [address] [place] [address] 11/19/2024 Duane Quan Plan Of Treatment Pending Test Test Name Order Date [id number] NAIL, 6 OR MORE 02/19/2016 [id number] NAIL, 6 OR MORE 05/20/2016 [id number] NAIL, 6 OR MORE 08/19/2016 [id number] NAIL, 6 OR MORE 11/18/2016 [id number] NAIL, 6 OR MORE 03/02/2017 [id number] NAIL, 6 OR MORE 06/01/2017 [id number] NAIL, 6 OR MORE 08/10/2017 [id number] NAIL, 6 OR MORE 04/03/2018 [id number] NAIL, 6 OR MORE 11/06/2015 [id number] Plate 11/06/2015 Next Appt Details Provider Name:Duane Quan , 02/18/2025 10:00:00 AM, [address] [facility] [address], [place], [address], Insurance Providers Payer Name Payer Address Payer Phone Subscriber Number Group Number Insured Name Patient Relationship to Insured Coverage Start Date Coverage End Date [employer] Medicare [id number] [address] [address] [place] [address] Sanford Stack Self - patient is the insured Medical (General) History Medical History History ICD Code Arthritis - RA Back,Hip,and Knee pain High blood pressure Measles Mumps Chicken pox Cholesterol covid-19 Headaches/Migraines Heart disease Pacemaker Surgical History Surgery Date(Month/Year) cardiac pacemaker 2016
--- OUTSIDE RECORDS SUMMARY | 2025-02-04 17:30 | XMS_ITS | Encounter Summary ---
Author Organization [facility] Address [address] [place] [address] Phone Care Team Providers Care Data Analytics Architect Name Role Phone Zion Martinez MD Primary Care Provider Encounter Details Date Type Department Care Team (Late st Contact Info) Description 06/27/2023 Procedure Pass [facility] [address] [place] [address] Social History Tobacco Use Types Packs/Day Years [...] on filedocumented in this encounter Care Teams Data Analytics Architect Relationship Specialty Start Date End Date Zion Martinez MD [address] [place] [address] PCP - General 06/09/23 documented as of this encounter Additional Source Comments The information contained in this document represents components of the legal health record. It is not the complete legal health record.[facility]
--- OUTSIDE RECORDS SUMMARY | 2025-02-04 17:30 | XMS_ITS | Clinical Summary ---
[facility] Address [address] [place] [address] Care Team Providers Care Manager Environmental Health And Safety Name Role Phone Zion Martinez MD Primary [...] to complete this topic Care Teams Manager Environmental Health And Safety Relationship Specialty Start Date End Date Zion Martinez MD [address] [place] [address] PCP - General Family Medicine 12/06/19
--- OUTSIDE RECORDS SUMMARY | 2025-02-04 17:30 | XMS_ITS | Clinical Summary ---
Author Organization [facility] Address [address] [place] [address] Phone Care Team Providers Care Sausage Cutter Name Role Phone Zion Martinez MD Primary [...] Name:Sanford Stack Payer ID:[id number] (NAIC) Type:Medicare Address: [place] [id number] MEDICARE REPLACEMENT MEDICARE REPLACEMENT MEDICARE REPLACEMENT MEDICARE REPLACEMENT Care Teams Sausage Cutter Relationship Specialty Start Date End Date Zion Martinez MD [address] [place] [address] PCP - General 06/09/23 Additional Source Comments The information contained in this document represents components of the legal health record. It is not the complete legal health record[facility]
--- NOTE | 2025-02-26 09:17 | HO.ANESPROP2 ---
Documented by User: Magdalene Fitzpatrick NP 02/26/25 09:26 HPI - Anesthesia Eval Consult details Narrative: 69yo M for Right Excision Ganglion Medically optimized per PCP. Nml cardiac exam. Walking 1-2 miles per day and up hill without problems. Follows [facility] Cardiology for: CAD, NSVT & pacer, Aortic stenosis & htn. Stable at 06/2024 office visit with routine f/u s/p bilat carotids. After Left side 07/2023 Post-op aspiration/hematoma requiring emergent trach and expoloration of surgical site. Recovered well and trach removed before surgical discharge. Current smoker [facility] Active Problems Active Problems: All Active Problems Pre-operative clearance (Acute) Ganglion cyst of volar aspect of right wrist (Acute) Numbness and tingling of right hand (Acute) De Quervain's tenosynovitis, right (Acute) Encounter for screening involving social determinants of health (SDoH) (Acute) Foot callus (Acute) Onychomycosis (Acute) ACP (advance care planning) (Acute) Encounter for subsequent annual wellness visit (AWV) in Medicare patient (Acute ~11/07/24) Left hand pain (Acute) Acute respiratory disease (Acute) Cervicalgia (Acute) Aortic stenosis (Acute) NSVT (nonsustained ventricular tachycardia) (Acute) Swallowing problem (Acute) Physical deconditioning (Acute) Pacemaker (Acute) Bilateral carotid artery stenosis (Acute) Smoker (Acute) Numbness of left hand (Acute) 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 (Acute) Osteoarthritis of lumbar spine (Acute) Hyperlipidemia (Acute) Seropositive rheumatoid arthritis (Acute) Osteoarthritis of knees, bilateral (Acute) Essential hypertension (Acute) Pre-diabetes (Acute) Coronary artery disease (Acute) Past Medical History Medical History (Updated 02/28/25 @ 06:27 by Tori James RN) AV bloc first degree Premature supraventricular beat Left axis deviation Left bundle branch block (LBBB) Left carotid stenosis Acute respiratory disease Smoker Claudication of calf muscles Ambulates with cane Osteoarthritis Hx MRSA infection HLD (hyperlipidemia) Murmur Coronary artery disease Hx of renal calculi History of pacemaker Hypertension Elevated fasting blood sugar Family History Family History Other Mental health disorder Substance use disorder Family history of problems with anesthesia: No Surgical History Surgical History Status post tracheostomy Status post carotid endarterectomy Hx of tracheostomy (07/05/23) History of left-sided carotid endarterectomy (07/04/23) Hx of tonsillectomy Hx of colonoscopy H/O cardiac catheterization History of dental surgery History of cystoscopy History of permanent cardiac pacemaker placement History of Problems with Anesthesia: No Social History Social History (Updated 02/12/25 @ 14:22 by Marion Siddiqi CMA) Household Members: None Housing: House Are you a primary home care rn to a significant other at home: No Do you presently have visiting nurse or other home services: No Alcohol intake: never Comment: COUNTS CORRECT Patient Tobacco Use Status: Current everyday Tobacco user Tobacco use type: Cigarette Cigarette Packs Per Day: 1 Cigarettes Per Day: 20.0 Years Smoked: 61 e-Cigarette/Vaping Use: Never Used Second Hand Smoke Exposure: No Have you been hit, kicked, punched, or otherwise hurt by someone within the past year? If so, by whom?: No Are you DNR?: No Advance Directives: No Advance Directives Information Provided: Yes service: No Current occupational status: retired Current occupational exposures/hazards: No Cognitive needs: No (Cane) Hearing needs: No Vision needs: Yes (Glasses) Meds Allergies Allergy/AdvReac Type Severity Reaction Status Date / Time Penicillins Allergy Severe throat Verified 02/19/25 13:52 swelling raspberry Allergy Intermediate Rash Verified 02/19/25 13:52 Blue Dye Allergy Severe throat Uncoded 02/12/25 14:18 swelling Latex Allergy Severe Rash, Uncoded 02/12/25 14:18 Hives, whole hand Home Medications ?Medication ?Instructions ?Recorded ?Confirmed ?Last Taken ?Type aspirin 81 mg tablet,delayed 81 mg PO DAILY 04/05/22 02/26/25 02/20/25 History release (Adult Low Dose Aspirin) cholecalciferol (vitamin D3) 25 25 mcg PO DAILY 04/05/22 02/26/25 02/27/25 History mcg (1,000 unit) capsule docusate sodium 100 mg capsule 200 mg PO DAILY 04/05/22 02/26/25 02/27/25 History (Colace) Exam Pertinent Lab Results Pertinent Lab Results: Laboratory Tests 06/22/23 08/30/24 09:54 10:11 WBC 12.2 H 11.2 H RBC 5.58 Hgb 18.0 16.6 Hct 52.1 H 47.8 MCV 93.4 MCH 32.3 MCHC 34.5 Plt Count 319 Sodium 139 Potassium 3.9 Chloride 102 Carbon Dioxide 27 BUN 18 H Creatinine 0.83 Narrative Narrative: EKG 01/2025 A sensed, V paced w/ prolonged AV conduction. No change from previous ECHO 2023 Conclusions: - 1. Low normal LV ejection fraction 50-55% with elevated filling pressures 2. Mildly dilated left atrium 3. Mild aortic stenosis 4. Normal RV systolic pressure 5. Upper limits of normal ascending aortic size 6. No pericardial effusion Aortic Valve There is mild calcification of the aortic valve. There is mild thickening of the aortic valve. The peak aortic velocity is 1.69 m/s with a calculated peak gradient of 11 mmHg. The mean gradient is 6 mmHg. The aortic valve area is 1.93 cm2. There is no aortic valve regurgitation. Remote device check Cardiac Device Check Details: Remote pacemaker report generated 01/28/2025. Pacemaker function is adequate. Patient pacer dependent ventricularly Office device check 06/2024 Cardiac Device Check Details: Dual-chamber Biotronik pacemaker in place. Programmed in DDD at 60 beats per minute. Atrial pacing 14% of time. Ventricular pacing 98% of time. Atrial ventricular pacing thresholds excellent. Atrial ventricular lead impedance is stable. Atrial ventricular sensing is adequate. Battery life is at 3 years and 9 months Assessment and Plan Assessment Anesthesia Assessment: Chart Reviewed Final Anesthetic Review Family History of Problems with Anesthesia: No History of Problems with Anesthesia: No Documented by User: Candido Angela MD 02/28/25 07:42 [facility] Past Medical History Medical History (Updated 02/28/25 @ 06:27 by Tori James RN) AV bloc first degree Premature supraventricular beat Left axis deviation Left bundle branch block (LBBB) Left carotid stenosis Acute respiratory disease Smoker Claudication of calf muscles Ambulates with cane Osteoarthritis Hx MRSA infection HLD (hyperlipidemia) Murmur Coronary artery disease Hx of renal calculi History of pacemaker Hypertension Elevated fasting blood sugar Family History Family History Other Mental health disorder Substance use disorder Surgical History Surgical History Status post tracheostomy Status post carotid endarterectomy Hx of tracheostomy (07/05/23) History of left-sided carotid endarterectomy (07/04/23) Hx of tonsillectomy Hx of colonoscopy H/O cardiac catheterization History of dental surgery History of cystoscopy History of permanent cardiac pacemaker placement Social History Social History (Updated 02/12/25 @ 14:22 by Marion Siddiqi CMA) Household Members: None Housing: House Are you a primary home care rn to a significant other at home: No Do you presently have visiting nurse or other home services: No Alcohol intake: never Comment: COUNTS CORRECT Patient Tobacco Use Status: Current everyday Tobacco user Tobacco use type: Cigarette Cigarette Packs Per Day: 1 Cigarettes Per Day: 20.0 Years Smoked: 61 e-Cigarette/Vaping Use: Never Used Second Hand Smoke Exposure: No Have you been hit, kicked, punched, or otherwise hurt by someone within the past year? If so, by whom?: No Are you DNR?: No Advance Directives: No Advance Directives Information Provided: Yes service: No Current occupational status: retired Current occupational exposures/hazards: No Cognitive needs: No (Cane) Hearing needs: No Vision needs: Yes (Glasses) Meds Allergies Allergy/AdvReac Type Severity Reaction Status Date / Time Penicillins Allergy Severe throat Verified 02/19/25 13:52 swelling raspberry Allergy Intermediate Rash Verified 02/19/25 13:52 Blue Dye Allergy Severe throat Uncoded 02/12/25 14:18 swelling Latex Allergy Severe Rash, Uncoded 02/12/25 14:18 Hives, whole hand Home Medications ?Medication ?Instructions ?Recorded ?Confirmed ?Last Taken ?Type aspirin 81 mg tablet,delayed 81 mg PO DAILY 04/05/22 02/26/25 02/20/25 History release (Adult Low Dose Aspirin) cholecalciferol (vitamin D3) 25 25 mcg PO DAILY 04/05/22 02/26/25 02/27/25 History mcg (1,000 unit) capsule docusate sodium 100 mg capsule 200 mg PO DAILY 04/05/22 02/26/25 02/27/25 History (Colace) Exam Airway Mallampati Class: II TM Dist: <=3cm Neck ROM: Full Partial: Upper Heart: ok Lungs: CTA. Clear tracheal sounds. Assessment and Plan Assessment Anesthesia Assessment: Anesthesia Plan Discussed Final Anesthetic Review NPO: Yes ASA Class: III Final Preanesthetic Review: No Changes in Pt Med Stat, Meds/Allgs Chart Reviewed, Consent Obtained/Reviewed and Anes Risks/Benef Reviewed Patient Risk: Intermediate Procedure Risk: Low Anesthetic Plan Anesthetic Plan: GA and Agree w/ Assess. and Plan Disposition: Standard PACU
[2025-02-26 11:55] VITALS: BMI 32.3
[2025-02-28 06:20] VITALS: BP 151/92; PULSE 68; RESP 18; TEMP 36.4; O2SAT 95; BMI 31.4
[2025-02-28] MEDS: Lactated Ringers 1,000 ML 100 ML IVCONT (06:39)
[2025-02-28] MEDS: Albuterol Sulfate (0.083%) 2.5 MG/3 ML VIAL.NEB INHALE (06:41)
--- NOTE | 2025-02-28 09:04 | MHC.SHP ---
Pre-Procedural Eval Section A - 24 Hr Update-Section A only Date of Service: 02/28/25 The patient is an INPATIENT: No Changes since office visit: No Cold of Flu in the past 2 weeks, No New Medical Problems, No Changes in Medication and No Patient answered all questions The patient has been examined within 24 hours of the surgical procedure. The History & Physical has been completed within 30 days and I have reviewed it.: Yes Section B - Complete if H&P > 30 days Chief Complaint: Ganglion, right wrist Allergies: Allergies Allergy/AdvReac Type Severity Reaction Status Date / Time Penicillins Allergy Severe throat Verified 02/19/25 13:52 swelling raspberry Allergy Intermediate Rash Verified 02/19/25 13:52 Blue Dye Allergy Severe throat Uncoded 02/12/25 14:18 swelling Latex Allergy Severe Rash, Uncoded 02/12/25 14:18 Hives, whole hand Plan I have reviewed the history and physical and performed a pertinent physical examination on my patient. No changes have occurred unless specified. Time Spent With Patient Time: Total time managing care of this patient today ____ minutes.
--- NOTE | 2025-02-28 09:05 | W.PM.OPN ---
Operative Note Operative Note Date of Service: 02/28/25 Narrative: Operative Note Narrative: Preop diagnosis: 1. Right Volar wrist ganglion Postop diagnosis: Same Procedure: 1. Right Volar wrist ganglion excision Surgeon: Dipika Carey MD Office Professionals: Jose AGUILLON Anesthesia: General Anesthesia Findings: Right volar wrist ganglion filled with yellow viscous fluid with precipitate. Fluid consistent with possible pseudogout, though I also obtained cultures. The patient had preoperative discomfort localized to the ganglion but no problem with wrist range of motion and no erythema swelling or other evidence of infection. Implants: None Tourniquet time: 25 minutes EBL: 5.0 ml Specimen: Right Volar wrist ganglion, I also sent cultures and about 1 mL of fluid for cellular analysis and crystals. Drains: None Complications: None Disposition: Brought to the recovery room in stable condition Plan: Follow-up in 10-14 days for wound check, suture removal and to check pathology, cultures and evaluation for crystals analysis. Indications: The patient is 69 years old with right volar wrist ganglion . The risks and benefits of operative treatment, including but not limited to risk of damage to blood vessels, nerves, tendons, infection, recurrence, persistent pain or numbness, incomplete resolution of preoperative symptoms, or need for further surgery were discussed with the patient and they wished to proceed with surgery. Procedure: Once consent was obtained patient was brought back to the operating suite and placed in the operating table in a supine position. . Perioperative antibiotics and anesthesia was administered by the anesthesia team. A tourniquet was applied to the proximal aspect of the right upper extremity and the limb was prepped and draped in a standard surgical fashion. The limb was elevated exsanguinated with Esmarch bandage and the tourniquet inflated to 250 mm of mercury for a total tourniquet time of 25 minutes. A 3 cm longitudinal incision was made centered over the patient's right volar wrist ganglion. The incision was made through the skin the subcutaneous tissues using a 15. Blade. Careful dissection was then made down to the level of the volar wrist ganglion using tenotomy scissors. The ganglion was noted to be multi lobular and situated against in just volar to the radial artery approximately 2.5 cm proximal to the distal wrist crease. Bipolar electrocautery was utilized to cauterize several of the small arterial branches from about the ganglion. The ganglion was then carefully dissected free from the radial artery using tenotomy and iris scissors. Interestingly there was thick yellow fluid coming from the ganglion with some precipitate. I cultured this fluid and also with marily some fluid into a syringe to send for cellular analysis and cultures. My opinion is most consistent with possible pseudogout. The stalk to the ganglion was then isolated and cauterized using bipolar electrocautery. The ganglion was then removed and placed on the back table to be sent for histopathology. At this point the tourniquet was deflated and hemostasis obtained with a brief period of local pressure and bipolar electrocautery. The wound was copiously irrigated with normal saline. The skin edges were reapproximated with 5-0 nylon suture. The wound was infiltrated with some 1% lidocaine with epinephrine for postop pain control and a sterile dressing was applied. The patient appears to have tolerated the procedure well and with no complications. All digits were well vascularized conclusion of the case.
[2025-02-28 10:57] VITALS: BP 112/42; PULSE 62; RESP 20; TEMP 36.3; O2SAT 92
[2025-02-28 11:02] VITALS: BP 95/47; PULSE 60; RESP 11; O2SAT 92
[2025-02-28 11:07] VITALS: BP 108/38; PULSE 61; RESP 12; O2SAT 93
[2025-02-28 11:12] VITALS: BP 115/52; PULSE 60; RESP 12; O2SAT 96
[2025-02-28 11:27] VITALS: BP 126/59; PULSE 63; RESP 14; O2SAT 97
== END 2025-02-28 12:05 | disposition home or self-care (01) ==
PROVIDERS: PCP Nurse Practitioner Family; Visit Provider Orthopaedic Surgery
PROC: (CPT 25111; principal; 2025-02-28 09:50)
DX: M67.431 Ganglion, right wrist (principal); I10 Essential (primary) hypertension; I25.10 Atherosclerotic heart disease of native coronary artery without angina pectoris; Z95.5 Presence of coronary angioplasty implant and graft; E78.5 Hyperlipidemia, unspecified; R73.01 Impaired fasting glucose; J06.9 Acute upper respiratory infection, unspecified; Z91.041 Radiographic dye allergy status; Z91.040 Latex allergy status; Z99.89 Dependence on other enabling machines and devices; Z88.0 Allergy status to penicillin; F17.210 Nicotine dependence, cigarettes, uncomplicated; Z98.890 Other specified postprocedural states
CPT/HCPCS: 25111; 87070; 87073; 87205; 88304; 89060; J0131; J0736; J2003; J2004; J2704; J2795; J3010

== ENCOUNTER → 2025-02-28 05:43 | Outpatient (BNV) | payer MEDICARE, SELFPAY | PROVIDERS: PCP Nurse Practitioner Family; Visit Provider Orthopaedic Surgery | DX: M67.431 Ganglion, right wrist (principal) | CPT/HCPCS: 25111 ==

== ENCOUNTER 2025-03-04 10:21 | Outpatient (REF) | payer MEDICARE, SELFPAY ==
--- OUTSIDE RECORDS SUMMARY | 2025-03-04 12:24 | XMS_ITS | Encounter Summary ---
Author Organization [facility] Address [address] [place] [id number] Phone Care Team Providers Care Aws Consultant Name Role Phone Zion Martinez MD Primary Care Provider Encounter Details Date Type Department Care Team (Late st Contact Info) Description 06/27/2023 Procedure Pass [facility] [address] [place] [address] Social History Tobacco Use Types Packs/Day Years [...] on filedocumented in this encounter Care Teams Aws Consultant Relationship Specialty Start Date End Date Zion Martinez MD PCP - General 06/09/23 documented as of this encounter Additional Source Comments The information contained in this document represents components of the legal health record. It is not the complete legal health record.[facility]
--- OUTSIDE RECORDS SUMMARY | 2025-03-04 12:24 | XMS_ITS | Clinical Summary ---
Author Organization [facility] Address [address] [place] [address] Phone Care Team Providers Care Welding Machine Assembler Name Role Phone Zion Martinez MD Primary [...] Name:Sanford Stack Payer ID:[id number] (NAIC) Type:Medicare Address: [place] [id number] MEDICARE REPLACEMENT MEDICARE REPLACEMENT MEDICARE REPLACEMENT MEDICARE REPLACEMENT Care Teams Welding Machine Assembler Relationship Specialty Start Date End Date Zion Martinez MD PCP - General 06/09/23 Additional Source Comments The information contained in this document represents components of the legal health record. It is not the complete legal health record.[facility]
--- OUTSIDE RECORDS SUMMARY | 2025-03-04 12:24 | XMS_ITS | Patient Health Record ---
Author Organization [facility] Address [address] [place] [address] Care Team Providers Care Housekeeping Coordinator Name Role Phone Yang Guevara MD Primary Care Provider Duane Medellin Unavailable [phone] Allergies Allergen (clinical drug ingredient) Drug/Non Drug [...] atherosclerosis of arteries of lower limbs (disorder) ([id number] ) Atherosclerosis of [place] artery of both lower extremities, with unspecified presence of clinical manifestation (I70.203) Active confirmed Q7(A), Q8(2B), Q9(1B,2 C) Vital Signs Height 6ft in 02/18/2025 Weight 245 lbs 02/18/2025 BMI 33.22 kg/m2 02/18/2025 Procedures Procedure Date Ordered Date Performed Result Body Sit e 31066-SXRRBFI NAIL, 6 OR MORE 02/18/2025 N/A [id number] SKIN LESIONS, OVER 4 02/18/2025 N/A Encounters Encounter Location Date Provider [facility] [address] [place] [id number] 02/18/2025 Duane Quan Atherosclerosis of [place] artery of both lower extremities, with unspecified presence of clinical manifestation I70.203 ; Tinea unguium B35.1 ; Pain in right toe(s) M79.674 ; Pain in left toe(s) M79.675 ; Other hammer toe(s) (acquired), right foot M20.41 ; Arthritis of joint of lesser toe, right M19.071 ; Other hammer toe(s) (acquired), left foot M20.42 and Arthritis of joint of lesser toe, left M19.072 [facility] [place] [address] [place] [address] 11/19/2024 Duane Quan Assessments Encounter Date Diagnosis (ICD Code) Assessment Notes Treatment Notes Treatment Clinical Notes Section Notes 02/18/2025 Tinea unguium (ICD-10 - B35.1) 02/18/2025 Atherosclerosis of [place] artery of both lower extremities, with unspecified [...] Treatment Pending Test Test Name Order Date [id number] NAIL, 6 OR MORE 02/19/2016 [id number] NAIL, 6 OR MORE 05/20/2016 [id number] NAIL, 6 OR MORE 08/19/2016 [id number] NAIL, 6 OR MORE 11/18/2016 [id number] NAIL, 6 OR MORE 03/02/2017 [id number] NAIL, 6 OR MORE 06/01/2017 [id number] NAIL, 6 OR MORE 08/10/2017 63041-UQXDWMS NAIL, 6 OR MORE 04/03/2018 13377-CUHZSJG NAIL, 6 OR MORE 02/18/2025 66551-HIFCQFT NAIL, 6 OR MORE 11/06/2015 78244-Aocclzdz Plate 11/06/2015 37933-XFPF SKIN LESIONS, OVER 4 02/19/20 25 Next Appt Details Provider Name:Duane Quan , 06/03/2025 01:00:00 PM, [address] [facility], [address], [place], [address], Insurance Providers Payer Name Payer Address Payer Phone Subscriber Number Group Number Insured Name Patient Relationship to Insured Coverage Start Date Coverage End Date [employer] Medicare Adv-[id number] [address] [address] [place] [address] [id number] Sanford Stack Self - patient is the insured Medical (General) History Medical History History ICD Code Arthritis - RA Back,Hip,and Knee pain High blood pressure Measles Mumps Chicken pox Cholesterol covid-19 Headaches/Migraines Heart disease Pacemaker Surgical History Surgery Date(Month/Year) cardiac pacemaker 2015
--- OUTSIDE RECORDS SUMMARY | 2025-03-04 12:24 | XMS_ITS | Clinical Summary ---
Author [facility] Address [address] [place] [address] Care Team Providers Care Cras Name Role Phone Zion Martinez MD Primary [...] age to complete this topic Care Teams Cras Relationship Specialty Start Date End Date Zion Martinez MD [address] [place] [address] PCP - General Family Medicine 12/06/19
[2025-03-04 13:37] LABS: MANUAL DIFF FLAG NO
[2025-03-04 13:41] LABS: Hematocrit 47.7 % (42.0-52.0); Hemoglobin 16.5 g/dl (14.0-18.0); Imm Gran Abs Auto 0.05 X10*3/uL (0.00-0.03); Imm Gran Pct Auto 0.4 % (0.0-0.4); Lymphocytes Absolute Auto 2.5 X10*3/uL (1.2-4.9); Mean Corpuscular HGB Conc 34.6 g/dl (31.0-36.0); Mean Corpuscular Hemoglobin 32.1 pg (27.0-33.0); Mean Corpuscular Volume 92.8 fL (80.0-98.0); NRBC Abs Auto 0.000 X10*3/uL (0.0-0.012); NRBC Pct Auto 0.0 /100WBC (0.0-0.2); Platelet Count 325 X10*3/uL (160-400); Red Blood Count 5.14 X10*6/uL (4.60-5.80); White Blood Count 12.2 X10*3/uL (4.8-10.8)
[2025-03-04 14:16] LABS: Alanine Aminotransferase 23 U/L (0-40); Albumin Level 4.3 g/dL (3.5-5.0); Alkaline Phosphatase 76 U/L (39-117); Anion Gap 11 (12-20); Aspartate Amino Transferase 63 U/L (5-37); Blood Urea Nitrogen 12 mg/dL (9-16); Calcium 10.0 mg/dL (8.4-10.2); Carbon Dioxide 28 mmol/L (22-29); Chloride 103 mmol/L (96-108); Estimated Glomerular Filt Rate > 60; Potassium 4.1 mmol/L (3.3-5.1); Sodium 138 mmol/L (135-145); Total Protein 7.3 g/dL (6.5-8.0)
== END 2025-03-04 10:22 | disposition home or self-care (01) ==
LOC: HO.HMGCLDS 10:21
PROVIDERS: PCP Family Medicine; Visit Provider Student in an Organized Health Care Education/Training Program
DX: M05.9 Rheumatoid arthritis with rheumatoid factor, unspecified (principal)
CPT/HCPCS: 36415; 80053; 85025; 85652; 86140

== ENCOUNTER 2025-03-13 12:44 | Outpatient (AMB) | payer MEDICARE, SELFPAY ==
[2025-03-13 12:57] VITALS: BMI 31.3
--- NOTE | 2025-03-13 12:57 | MHC.OFFVIS ---
Vital Signs 03/13/25 12:57 Height 6 ft Weight 231 lb BMI 31.3 Intake Visit Reasons: PO RT volar wrist ganglion exc 02/28/25 AR Intake Note: Sanford is a 69 year old right hand dominant female who presents today for a Post-operative visit status post Right Volar Wrist Ganglion Excision performed 02/28/[address] Carey. Patient reports he is doing well. He has discontinued his pain medications. Patient was under the impression his 2 lb weight restriction was only for the first week after surgery. Patient has an EMG review scheduled for 03/25/25. Allergies Penicillins Allergy (Severe, Verified 03/13/25 13:06) throat swelling raspberry Allergy (Intermediate, Verified 03/13/25 13:06) Rash Blue Dye Allergy (Severe, Uncoded 03/13/25 13:06) throat swelling Latex Allergy (Severe, Uncoded 03/13/25 13:06) Rash, Hives, whole hand HPI HPI PO RT volar wrist ganglion exc 02/28/25 AR: Details: Sanford is a 69 year old right hand dominant female who presents today for a Post-operative visit status post Right Volar Wrist Ganglion Excision performed 02/28/[address] Carey. Patient reports he is doing well. He has discontinued his pain medications. Patient was under the impression his 2 lb weight restriction was only for the first week after surgery. Patient has an EMG review scheduled for 03/25/25. [facility] Medical History (Updated 02/28/25 @ 06:27 by Tori James RN) AV bloc first degree Premature supraventricular beat Left axis deviation Left bundle branch block (LBBB) Left carotid stenosis Acute respiratory disease Smoker Claudication of calf muscles Ambulates with cane Osteoarthritis Hx MRSA infection HLD (hyperlipidemia) Murmur Coronary artery disease Hx of renal calculi History of pacemaker Hypertension Elevated fasting blood sugar Surgical History Status post tracheostomy Status post carotid endarterectomy Hx of tracheostomy (07/05/23) History of left-sided carotid endarterectomy (07/04/23) Hx of tonsillectomy Hx of colonoscopy H/O cardiac catheterization History of dental surgery History of cystoscopy History of permanent cardiac pacemaker placement Family History Other Mental health disorder Substance use disorder Social History (Updated 02/12/25 @ 14:22 by Marion Siddiqi CMA) Household Members: None Caregiver staying overnight: No Housing: House Are you a primary healthcare marketer to a significant other at home: No Do you presently have visiting nurse or other home services: No 75 years or older and lives alone: No Alcohol intake: never Comment: COUNTS CORRECT Patient Tobacco Use Status: Current everyday Tobacco user Tobacco use type: Cigarette Cigarette Packs Per Day: 1 Cigarettes Per Day: 20.0 Years Smoked: 61 e-Cigarette/Vaping Use: Never Used Second Hand Smoke Exposure: No service: No Current occupational status: retired Current occupational exposures/hazards: No Cognitive needs: No (Cane) Hearing needs: No Vision needs: Yes (Glasses) Review of Systems Const All systems reviewed & are unremarkable except as noted in HPI and below Physical Exam Vital Signs: BMI result Body Mass Index 31.3 Extrem Other: Patient is alert, oriented, and in no acute distress. Neuro: Normal sensation of the tips of all digits of the right hand at this time Vascular: Cap refill brisk Pain: Very minimal Tenderness to palpation of the right radial styloid Pain with range of motion of the right wrist over the radial styloid extending into the forearm in the thumb Positive Jolene test on the right ROM: Patient is able to make a closed fist and extend all digits of the right hand fully Skin: No lacerations or abrasions. General: There is an area of swelling in the area where the ganglion cyst used to be on the right wrist No ecchymosis, erythema, or evidence of infection. Psych: Appears grossly normal Affect normal Attitude cooperative Assessment & Plan Assessment & Plan (1) Ganglion cyst of volar aspect of right wrist: Code(s): M67.431 - Ganglion, right wrist Category: Medical Plan 1. Volar wrist ganglion cyst of right wrist Status post excision Patient appears to be recovering fairly well postoperatively Patient is educated about the typical recovery course Sutures removed, Steri-Strips applied without issue No under water times one-week, 2 lb weight limit x2 weeks Patient understands this and is amenable to this plan Follow-up to discuss potential right carpal tunnel release, sooner with any acute concerns Coding Level of Care Code Global (46174) Diagnoses Ganglion cyst of volar aspect of right wrist M67.431
--- OUTSIDE RECORDS SUMMARY | 2025-03-13 15:21 | XMS_ITS | Clinical Summary ---
Author Organization [facility] Address [address] [place] [address] Phone Care Team Providers Care Sinter Press Operator Name Role Phone Zion Martinez MD [...] Name:Sanford Stack Payer ID:[id number] (NAIC) Type:Medicare Address: [place] [id number] MEDICARE REPLACEMENT MEDICARE REPLACEMENT MEDICARE REPLACEMENT MEDICARE REPLACEMENT Care Teams Sinter Press Operator Relationship Specialty Start Date End Date Zion Martinez MD PCP - General 06/09/23 Additional Source Comments The information contained in this document represents components of the legal health record. It is not the complete legal health record.[facility]
--- OUTSIDE RECORDS SUMMARY | 2025-03-13 15:21 | XMS_ITS | Encounter Summary ---
Author Organization [facility] Address [address] [place] [address] Phone Care Team Providers Care Steel Inspector Name Role Phone Zion Martinez MD Primary Care Provider Encounter Details Date Type Department Care Team (Late st Contact Info) Description 06/27/2023 Procedure Pass [facility] [address] [place] [address] Social History Tobacco Use Types Packs/Day Years [...] on filedocumented in this encounter Care Teams Steel Inspector Relationship Specialty Start Date End Date Zion Martinez MD PCP - General 06/09/23 documented as of this encounter Additional Source Comments The information contained in this document represents components of the legal health record. It is not the complete legal health record.[facility]
--- OUTSIDE RECORDS SUMMARY | 2025-03-13 15:21 | XMS_ITS | Clinical Summary ---
Author Organization [facility] Address [address] [place] [address] Phone Care Team Providers Care Antisqueak Applier Name Role Phone Zion Martinez MD Primary Care Provider Allergies No known active allergies Encounters Date Type Department Care Team Description 02/20/2025 12:43 PM EDT - 02/20/2025 11:59 PM EDT Hospital Encounter [facility] CT Scan [address] [place] [phone] Encounter for screening for malignant neoplasm of respiratory organs; Nicotine dependence, cigarettes, uncomplicated Discharge Disposition: Home or Self Care 02/01/2025 Telephone Lung Screening Program - [place] [address] [facility] [address] [place] [phone] Ryanne Javier MD from Last 3 Months [...] Depression Screening 05/02/2024 COVID-19 Vaccine ( season) 2025 12/15/2024, 01/11/2024, 01/27/2023, Additional history exists DTaP,Tdap,and Td Vaccines (2 - Td or Tdap) 05/31/2029 05/31/2019 Pneumococcal Vaccine: 50+ Years Completed 05/31/2019, 02/12/2016 RSV Immunization Adult Patients Completed 01/27/2023 Influenza Vaccine Completed 12/15/2024, , 01/27/2023, Additional [...] on patient's age to complete this topic Procedures Procedure Name Priority Date/Time Associated Diagnosis Comments CT LUNG SCREENING Routine 02/20/2025 12: 51 PM EDT Encounter for screening for malignant neoplasm of respiratory organs Nicotine dependence, cigarettes, uncomplicated from Last 3 Months Results * CT Lung Screening (02/20/2025 12:51 PM EDT) Anatomical Region Laterality Modality Chest Computed Tomogra phy 02/27/2025 1:34 PM EDT Impressions 02/27/2025 2:10 PM EDT No new or suspicious pulmonary nodules. Lung RADS 2-benign. Recommend continued screening with low-dose chest CT in 12 months. -------- FINAL REPORT -------- Dictated By: GUS PINEDO Dictated Date: 02/27/2025 13:34 ET Assigned Physician: GUS PINEDO Reviewed and Electronically Signed By: GUS PINEDO Signed Date: 02/27/2025 14:10 ET Workstation ID: [id number] Transcribed By: Self Edit Transcribed Date: 02/27/2025 13:34 ET Narrative 02/27/2025 2:10 PM EDT PROCEDURE: Chest CT INDICATION: Current smoker, 126 pack year smoking history, lung cancer screening TECHNIQUE: Chest CT without contrast. Multi planar reformats were created and interpreted. The examination was performed utilizing dose reduction techniques. Total DLP 184 COMPARISON: 02/15/2024 FINDINGS: LUNGS/PLEURA: Central airways are patent. 3 mm left lower lobe nodule is stable compared to prior. 2 mm right upper lobe nodule is stable compared to prior . 3 mm subpleural nodule in the left lower lobe is stable compared to prior. Emphysema. No new or suspicious pulmonary nodules. Chronic bronchitis and bronchiolitis is stable compared to prior. No pleural effusion or pneumothorax. MEDIASTINUM: Thyroid gland is unremarkable. No mediastinal or hilar lymphadenopathy. Cardiac chambers are normal in size. No pericardial effusion. Severe coronary artery calcifications. Pacemaker leads terminating in the right atrium and right ventricle. Esophagus is normal. CHEST WALL: No axillary lymphadenopathy or superficial hematoma. Mild bilateral gynecomastia. Left chest wall pacemaker generator. UPPER ABDOMEN:Arterial calcifications. BONES: No acute fracture. Scattered degenerative changes seen throughout the bones. Procedure Note Gus Pinedo MD - 02/27/2025 PROCEDURE: Chest CT INDICATION: Current smoker, 126 pack year smoking history, lung cancerscreening TECHNIQUE: Chest CT without contrast. Multi planar reformats were createdand interpreted. The examination was performed utilizing dose reductiontechniques. Total DLP 184 COMPARISON: 02/15/2024 FINDINGS: LUNGS/PLEURA: Central airways are patent. 3 mm left lower lobe nodule isstable compared to prior. 2 mm right upper lobe nodule is stable comparedto prior . 3 mm subpleural nodule in the left lower lobe is stablecompared to prior. Emphysema. No new or suspicious pulmonary nodules.Chronic bronchitis and bronchiolitis is stable compared to prior. Nopleural effusion or pneumothorax. MEDIASTINUM: Thyroid gland is unremarkable. No mediastinal or hilarlymphadenopathy. Cardiac chambers are normal in size. No pericardialeffusion. Severe coronary artery calcifications. Pacemaker leadsterminating in the right atrium and right ventricle. Esophagus isnormal. CHEST WALL: No axillary lymphadenopathy or superficial hematoma. Mildbilateral gynecomastia. Left chest wall pacemaker generator. UPPER ABDOMEN:Arterial calcifications. BONES: No acute fracture. Scattered degenerative changes seen throughoutthe bones. IMPRESSION: No new or suspicious pulmonary nodules. Lung RADS 2-benign. Recommendcontinued screening with low-dose chest CT in 12 months. -------- FINAL REPORT -------- Dictated By: GUS PINEDO Dictated Date: 02/27/2025 13:34 ET Assigned Physician: GUS PINEDO Reviewed and Electronically Signed By: GUS PINEDO Signed Date: 02/27/2025 14:10 ET Workstation ID: [id number] Transcribed By: Self Edit Transcribed Date: 02/27/2025 13:34 ET us Ryanne Javier MD IMG CT PROCEDURES Final Result from Last 3 Months Insurance [employer] MEDICARE MEDICAID - [place] Care Teams Antisqueak Applier Relationship Specialty Start Date End Date Zion Martinez MD [address] [place] [address] Dr Melanie [place] PCP - General Family Medicine 12/06/19
--- OUTSIDE RECORDS SUMMARY | 2025-03-13 15:21 | XMS_ITS | Clinical Summary ---
[facility] Organization [facility] Address [address] [place] [address] Care Team Providers Care Legislative Advocate Name Role Phone Zion Martinez MD Primary [...] age to complete this topic Care Teams Legislative Advocate Relationship Specialty Start Date End Date Zion Martinez MD [address] [place] [address] PCP - General Family Medicine 12/06/19
--- OUTSIDE RECORDS SUMMARY | 2025-03-13 15:21 | XMS_ITS | Clinical Summary ---
Author Organization [facility] Address [address] [place] [address] Care Team Providers Care Heel Seat Fitter Name Role Phone Unavailable Primary Care Provider [...] this topic Insurance Medicare [facility] Medicare
--- OUTSIDE RECORDS SUMMARY | 2025-03-13 15:21 | XMS_ITS | Patient Health Record ---
Author Organization [facility] Lela zhou [place] Address [address] [place] [address] Care Team Providers Care Doweler Name Role Phone Yang Guevara MD Primary Care Provider Duane Medellin Unavailable [phone] Allergies Allergen (clinical drug ingredient) Drug/Non Drug [...] atherosclerosis of arteries of lower limbs (disorder) ([id number] ) Atherosclerosis of huslia artery of both lower extremities, with unspecified presence of clinical manifestation (I70.203) Active confirmed Q7(A), Q8(2B), Q9(1B,2 C) Vital Signs Height 6ft in 02/18/2025 Weight 245 lbs 02/18/2025 BMI 33.22 kg/m2 02/18/2025 Procedures Procedure Date Ordered Date Performed Result Body Sit e 85586-SUWYTJZ NAIL, 6 OR MORE 02/18/2025 N/A [id number] SKIN LESIONS, OVER 4 02/18/2025 N/A Encounters Encounter Location Date Provider Diagnosis [facility] [address] [place] [phone] 02/18/2025 Duane Quan Atherosclerosis of huslia artery of both lower extremities, with unspecified presence of clinical manifestation I70.203 ; Tinea unguium B35.1 ; Pain in right toe(s) M79.674 ; Pain in left toe(s) M79.675 ; Other hammer toe(s) (acquired), right foot M20.41 ; Arthritis of joint of lesser toe, right M19.071 ; Other hammer toe(s) (acquired), left foot M20.42 and Arthritis of joint of lesser toe, left M19.072 [facility] [place] [address] [place] [address] 11/19/2024 Duane Quan Assessments Encounter Date Diagnosis (ICD Code) Assessment Notes Treatment Notes Treatment Clinical Notes Section Notes 02/18/2025 Tinea unguium (ICD-10 - B35.1) 02/18/2025 Atherosclerosis of huslia artery of both lower extremities, with unspecified [...] Treatment Pending Test Test Name Order Date [id number] NAIL, 6 OR MORE 02/19/2016 [id number] NAIL, 6 OR MORE 05/20/2016 [id number] NAIL, 6 OR MORE 08/19/2016 [id number] NAIL, 6 OR MORE 11/18/2016 [id number] NAIL, 6 OR MORE 03/02/2017 [id number] NAIL, 6 OR MORE 06/01/2017 [id number] NAIL, 6 OR MORE 08/10/2017 [id number] NAIL, 6 OR MORE 04/03/2018 [id number] NAIL, 6 OR MORE 02/18/2025 [id number] NAIL, 6 OR MORE 11/06/2015 [id number] Plate 11/06/2015 [id number] SKIN LESIONS, OVER 4 02/19/20 25 Next Appt Details Provider Name:Duane Quan , 06/03/2025 01:00:00 PM, [address], [address], [place], [address], Insurance Providers Payer Name Payer Address Payer Phone Subscriber Number Group Number Insured Name Patient Relationship to Insured Coverage Start Date Coverage End Date [employer] Medicare [id number] [address] [address] [place] [address] [id number] Sanford Stack Self - patient is the insured Medical (General) History Medical History History ICD Code Arthritis - RA Back,Hip,and Knee pain High blood pressure Measles Mumps Chicken pox Cholesterol covid-19 Headaches/Migraines Heart disease Pacemaker Surgical History Surgery Date(Month/Year) cardiac pacemaker 2015
== END 2025-03-13 13:21 | disposition home or self-care (01) ==
LOC: HO.HOS 12:45
PROVIDERS: PCP Family Medicine
DX: M67.431 Ganglion, right wrist (principal)
CPT/HCPCS: 99024

== ENCOUNTER → 2025-03-13 12:44 | Outpatient (BNVA) | payer MEDICARE, SELFPAY | PROVIDERS: PCP Family Medicine | DX: M67.431 Ganglion, right wrist (principal); Z98.890 Other specified postprocedural states; Z48.02 Encounter for removal of sutures; Z72.0 Tobacco use | CPT/HCPCS: 99212 ==

== ENCOUNTER 2025-04-08 13:59 | Outpatient (AMB) | payer MEDICARE, SELFPAY ==
--- NOTE | 2025-04-08 14:02 | A.OFFVIS_ITS ---
Vital Signs 04/08/25 14:04 Height 6 ft Weight 231 lb BMI 31.3 Intake Visit Reasons: NewProb - Discuss Right Carpal Tunnel Release Intake Note: Sanford is a 69 year old right hand dominant male who presents today for Discussion of a Right Carpal Tunnel Release. Patient status post Right Volar Wrist Ganglion Excision performed 02/28/[address] Carey. IMPRESSION 02/22/25: 1. This is an abnormal study. 2. There is electrodiagnostic evidence for right moderate- median neuropathy at the wrist, consistent with carpal tunnel syndrome. 3. Possible chronic right C5-6 radiculopathy. There is no electrodiagnostic evidence for ulnar neuropathy, brachial plexopathy, or cervical radiculopathy. Allergies Penicillins Allergy (Severe, Verified 04/08/25 14:04) throat swelling raspberry Allergy (Intermediate, Verified 04/08/25 14:04) Rash Blue Dye Allergy (Severe, Uncoded 04/08/25 14:04) throat swelling Latex Allergy (Severe, Uncoded 04/08/25 14:04) Rash, Hives, whole hand HPI HPI NewProb - Discuss Right Carpal Tunnel Release: Details: Sanford is a 69 year old right hand dominant male who presents today for Discussion of a Right Carpal Tunnel Release. Patient status post Right Volar Wrist Ganglion Excision performed 02/28/[address] Carey. Patient states that his numbness and tingling is still very much bothering him, and would like to proceed with surgical intervention. IMPRESSION 02/22/25: 1. This is an abnormal study. 2. There is electrodiagnostic evidence for right moderate- median neuropathy at the wrist, consistent with carpal tunnel syndrome. 3. Possible chronic right C5-6 radiculopathy. There is no electrodiagnostic evidence for ulnar neuropathy, brachial plexopathy, or cervical radiculopathy. [facility] Medical History (Updated 04/08/25 @ 16:13 by HENNA Hatfield) AV bloc first degree Premature supraventricular beat Left axis deviation Left bundle branch block (LBBB) Left carotid stenosis Acute respiratory disease Smoker Claudication of calf muscles Ambulates with cane Osteoarthritis Hx MRSA infection HLD (hyperlipidemia) Murmur Coronary artery disease Hx of renal calculi History of pacemaker Hypertension Elevated fasting blood sugar Surgical History Status post tracheostomy Status post carotid endarterectomy Hx of tracheostomy (07/05/23) History of left-sided carotid endarterectomy (07/04/23) Hx of tonsillectomy Hx of colonoscopy H/O cardiac catheterization History of dental surgery History of cystoscopy History of permanent cardiac pacemaker placement Family History Other Mental health disorder Substance use disorder Social History (Updated 02/12/25 @ 14:22 by Marion Siddiqi CMA) Household Members: None Caregiver staying overnight: No Housing: House Are you a primary career services officer to a significant other at home: No Do you presently have visiting nurse or other home services: No 75 years or older and lives alone: No Alcohol intake: never Comment: COUNTS CORRECT Patient Tobacco Use Status: Current everyday Tobacco user Tobacco use type: Cigarette Cigarette Packs Per Day: 1 Cigarettes Per Day: 20.0 Years Smoked: 61 e-Cigarette/Vaping Use: Never Used Second Hand Smoke Exposure: No service: No Current occupational status: retired Current occupational exposures/hazards: No Cognitive needs: No (Cane) Hearing needs: No Vision needs: Yes (Glasses) Physical Exam Vital Signs: BMI result Body Mass Index 31.3 Extrem Other: Patient is alert, oriented, and in no acute distress. Neuro: Normal sensation of the tips of all digits of the right hand at this time Vascular: Cap refill brisk Pain: No Tenderness to palpation of the right radial styloid Pain with range of motion of the right wrist over the radial styloid extending into the forearm in the thumb ROM: Patient is able to make a closed fist and extend all digits of the right hand fully Skin: No lacerations or abrasions. General: There is an area of swelling in the area where the ganglion cyst used to be on the right wrist No ecchymosis, erythema, or evidence of infection. Psych: Appears grossly normal Affect normal Attitude cooperative Assessment & Plan Assessment & Plan (1) Right carpal tunnel syndrome: Code(s): G56.01 - Carpal tunnel syndrome, right upper limb Category: Medical Plan 1. Right carpal tunnel syndrome Symptoms intermittent, daily, worse at night I educated the patient about the condition. I discussed both operative and nonoperative treatment options. The patient would like to proceed with surgery. The risks and benefits of operative treatment were discussed with the patient and the patient wishes to proceed with surgery. These risks include, but are not limited to, risk of damage to blood vessels, nerves, tendons, infection, recurrence, incomplete relief of preoperative symptoms, persistent pain, possible need for further surgery, and the risks associated with regional blocks and/or anesthesia. Plan is to take the patient to the operating room at some point in the next few weeks for the following procedures: 1. Right carpal tunnel release under local All of the preoperative paperwork including the consent was discussed today. All of the patient's questions were answered in the clinic today. The patient understands that they will be in contact with our surgical dressing maker to discuss scheduling their procedure. Patient denies diabetes, blood thinners, asthma, heart issues, lung issues, kidney issues, or current smoking. Coding Level of Care Code Est Pt Level 4 (21514) Diagnoses Right carpal tunnel syndrome G56.01
[2025-04-08 14:04] VITALS: BMI 31.3
--- OUTSIDE RECORDS SUMMARY | 2025-04-08 22:48 | XMS_ITS | Clinical Summary ---
Author Organization [facility] Prior to 09/29/24 Address [address] [place] [address] Care Team Providers Care Cath Lab Radiology Technician Name Role Phone Zion Martinez MD Primary Care Provider [phone] Allergies Active Allergy Reactions Criticality Noted Date [...] age to complete this topic Care Teams Cath Lab Radiology Technician Relationship Specialty Start Date End Date Zion Martinez MD [address] [place] [address] PCP - General Family Medicine 12/06/19
--- OUTSIDE RECORDS SUMMARY | 2025-04-08 22:48 | XMS_ITS | Encounter Summary ---
Author Organization [facility] Address [address] [place] [address] Phone Care Team Providers Care Dispute Coordinator Name Role Phone Zion Martinez MD Primary Care Provider Encounter Details Date Type Department Care Team (Late st Contact Info) Description 06/27/2023 Procedure Pass [facility] [address] [place] [address] Social History Tobacco Use Types Packs/Day Years [...] on filedocumented in this encounter Care Teams Dispute Coordinator Relationship Specialty Start Date End Date Zion Martinez MD PCP - General 06/09/23 documented as of this encounter Additional Source Comments The information contained in this document represents components of the legal health record. It is not the complete legal health record.[facility]
--- OUTSIDE RECORDS SUMMARY | 2025-04-08 22:48 | XMS_ITS | Clinical Summary ---
Author Organization [facility] Address [address] [place] [address] Phone Care Team Providers Care Legal Summer Intern Name Role Phone Zion Martinez MD [...] Name:Sanford Stack Payer ID:[id number] (NAIC) Type:Medicare Address: [place] [phone] MEDICARE REPLACEMENT MEDICARE REPLACEMENT MEDICARE REPLACEMENT MEDICARE REPLACEMENT Care Teams Legal Summer Intern Relationship Specialty Start Date End Date Zion Martinez MD PCP - General 06/09/23 Additional Source Comments The information contained in this document represents components of the legal health record. It is not the complete legal health record.[facility]
--- OUTSIDE RECORDS SUMMARY | 2025-04-08 22:48 | XMS_ITS | Clinical Summary ---
Author Organization [facility] Address [address] [place] [address] Phone Care Team Providers Care Custodial Aide Name Role Phone Zion Martinez MD Primary Care Provider Allergies No known active allergies Encounters Date Type Department Care Team Description 02/20/2025 12:43 PM EDT - 02/20/2025 11:59 PM EDT Hospital Encounter [facility] CT Scan [address] [place] [phone] Encounter for screening for malignant neoplasm of respiratory organs; Nicotine dependence, cigarettes, uncomplicated Discharge Disposition: Home or Self Care 02/01/2025 Telephone Lung Screening Program - [place] [address] [facility] [address] [place] [phone] Ryanne Javier MD from Last 3 Months [...] Signed Date: 02/27/2025 14:10 ET Workstation ID: [id number] Transcribed By: Self Edit Transcribed Date: 02/27/2025 [...] Signed Date: 02/27/2025 14:10 ET Workstation ID: [id number] Transcribed By: Self Edit Transcribed Date: 02/27/2025 13:34 ET us Ryanne Javier MD IMG CT PROCEDURES Final Result from Last 3 Months Insurance [employer] MEDICARE MEDICAID - [place] Care Teams Custodial Aide Relationship Specialty Start Date End Date Zion Martinez MD [address] [place] [address] Dr Melanie [place] PCP - General Family Medicine 12/06/19
== END 2025-04-08 14:17 | disposition home or self-care (01) ==
LOC: HO.HOS 13:59
PROVIDERS: PCP Family Medicine
DX: G56.01 Carpal tunnel syndrome, right upper limb (principal)
CPT/HCPCS: 99214

== ENCOUNTER → 2025-04-08 13:59 | Outpatient (BNVA) | payer MEDICARE, SELFPAY | PROVIDERS: PCP Family Medicine | DX: G56.01 Carpal tunnel syndrome, right upper limb (principal) | CPT/HCPCS: 99212 ==

== ENCOUNTER → 2025-04-17 15:18 | Outpatient (BNV) | payer MEDICARE, SELFPAY | PROVIDERS: PCP Family Medicine; Visit Provider Internal Medicine Cardiovascular Disease | DX: Z45.018 Encounter for adjustment and management of other part of cardiac pacemaker (principal) | CPT/HCPCS: 93297 ==